=== PATIENT | female | born 1970 | race Caucasian/White ===

== ENCOUNTER 2023-01-04 14:11 | Emergency (ER) | payer SELFPAY ==
[2023-01-04 14:17] VITALS: BP 163/74; PULSE 95; RESP 20; TEMP 36.8; O2SAT 99; BMI 24.0
--- NOTE | 2023-01-04 14:36 | XR_ITS ---
[address] [address] Patient Name: KYRA SINGH MRN: [id number] date: 1970 Sex: F Assigned Patient Location: ER Current Patient Location: ER Accession/Order Number: [id number] Exam Date: 01/04/2023 14:45 Report Date: 01/04/2023 15:13 At the request of: JAVIER ALCANTARA Procedure: XR ankle RT min 3V PROCEDURE: XR ankle RT min 3V, XR tibia fibula RT 2V, 01/04/2023 2:45 PM EDT CLINICAL INDICATIONS: Traumatic injury and fall from steps 2 days earlier, bruising, swelling COMPARISON: None TECHNIQUE: Right ankle 3 views. Right tibia-fibula 4 views. FINDINGS: RIGHT ANKLE: An oblique distal fibular metaphysis fracture above the tibial plafond is noted. There is 0.4 cm lateral, 0.6 cm dorsal displacement of the distal fracture fragment. There is widening the medial tibiotalar joint space. Possible fractured of the anterior process of the distal tibia is seen with 0.1 cm dorsal displacement. 0.4 cm avulsion fracture fragment is seen along the dorsal medial margin of the talus. Dorsal and plantar calcaneal enthesopathy is present. Generalized soft tissue swelling of the ankle is seen. No ankle effusion. RIGHT TIBIA AND FIBULA: The proximal right tibia and fibula are intact. Acute fracture malalignment is not evident. Subcutaneous edema is seen. XR/XR ankle RT min 3V IMPRESSION: 1. Acute closed traumatic distal fibular metaphysis fracture with dorsal lateral displacement of the distal fracture fragment 2. Acute closed traumatic fracture of the anterior process of the distal tibia with 0.1 cm dorsal displacement 3. Acute closed traumatic avulsion fracture of the dorsal medial talus 4. Widening of the medial tibiotalar joint space. Ligamentous disruption favored 5. Proximal tibia and fibula are intact 6. Dorsal and plantar calcaneal enthesopathy 7. Lower extremity and ankle soft tissue swelling, no ankle effusion Electronically authenticated by: PADMAJA PANDYA Date: 01/04/2023 15:13
--- NOTE | 2023-01-04 14:36 | XR_ITS ---
[place] [id number] Patient Name: KYRA SINGH MRN: [id number] date: 1970 Sex: F Assigned Patient Location: ER Current Patient Location: ER Accession/Order Number: [id number] Exam Date: 01/04/2023 14:45 Report Date: 01/04/2023 15:13 At the request of: JAVIER ALCANTARA Procedure: XR tibia fibula RT 2V PROCEDURE: XR ankle RT min 3V, XR tibia fibula RT 2V, 01/04/2023 2:45 PM EDT CLINICAL INDICATIONS: Traumatic injury and fall from steps 2 days earlier, bruising, swelling COMPARISON: None TECHNIQUE: Right ankle 3 views. Right tibia-fibula 4 views. FINDINGS: RIGHT ANKLE: An oblique distal fibular metaphysis fracture above the tibial plafond is noted. There is 0.4 cm lateral, 0.6 cm dorsal displacement of the distal fracture fragment. There is widening the medial tibiotalar joint space. Possible fractured of the anterior process of the distal tibia is seen with 0.1 cm dorsal displacement. 0.4 cm avulsion fracture fragment is seen along the dorsal medial margin of the talus. Dorsal and plantar calcaneal enthesopathy is present. Generalized soft tissue swelling of the ankle is seen. No ankle effusion. RIGHT TIBIA AND FIBULA: The proximal right tibia and fibula are intact. Acute fracture malalignment is not evident. Subcutaneous edema is seen. XR/XR tibia fibula RT 2V IMPRESSION: 1. Acute closed traumatic distal fibular metaphysis fracture with dorsal lateral displacement of the distal fracture fragment 2. Acute closed traumatic fracture of the anterior process of the distal tibia with 0.1 cm dorsal displacement 3. Acute closed traumatic avulsion fracture of the dorsal medial talus 4. Widening of the medial tibiotalar joint space. Ligamentous disruption favored 5. Proximal tibia and fibula are intact 6. Dorsal and plantar calcaneal enthesopathy 7. Lower extremity and ankle soft tissue swelling, no ankle effusion Electronically authenticated by: PADMAJA PANDYA Date: 01/04/2023 15:13
--- NOTE | 2023-01-04 14:38 | ED.LOWEXI1 ---
HPI - Extremity Injury (Lower) General Chief Complaint: Extremity Injury, Lower Stated Complaint: LOWER EXTREMITY INJURY, RIGHT LEG Time Seen by Provider: 01/04/23 14:36 Source: patient Mode of arrival: Wheelchair History of Present Illness HPI Narrative: patient is a 52-year-old female who presents to the emergency department for the evaluation of pain in the right ankle. Patient states three days ago at home she was coming down stairs outside her home and got her ankle twisted/caught in between the stairs. She has had swelling and bruising to the medial aspect of the right ankle, an increase in redness and bruising to the right anterior tibia today. She had no other associated injuries. She has been using ibuprofen and Tylenol without improvement and is having difficulty ambulating. She does not take bloood thinners. She is able to wiggle her toes. Related Data Previous Rx's Medication Instructions Recorded naproxen sodium 550 mg tablet 550 mg PO BID PRN pain #10 tabs 01/04/23 oxycodone-acetaminophen 5 mg-325 1 tab PO Q6H PRN pain #15 tabs 01/04/23 mg tablet (Percocet) Allergies Allergy/AdvReac Type Severity Reaction Status Date / Time clindamycin AdvReac Unknown Verified 01/04/23 14:22 Review of Systems ROS Constitutional Denies: fever or chills Ears, nose, mouth, and throat Denies: throat pain Cardiovascular Denies: chest pain Respiratory Denies: shortness of breath Gastrointestinal Denies: abdominal pain, nausea or vomiting Musculoskeletal Reports: extremity pain; Denies: back pain or neck pain Integumentary/Breast Denies: rash Hematologic/Lymphatic Denies: easy bruising Exam Narrative Exam Narrative: Gen.: Awake, alert, in no distress Head: Normocephalic, atraumatic ENT: Moist mucous membranes Respiratory: No respiratory distress Extremities: right lower leg with significant edema and ecchymosis over the right medial ankle, right anterior tibia. Patient is able to flex and extend the toes of the right foot. Diffuse tenderness of the right midshaft tibia distally with no obvious deformities. Psych: Normal mood and affect Neuro: No focal neuro deficit Skin: Warm, dry, intact Constitutional Vital Signs, click to edit/add: Last Vital Signs Temp 98.3 F 01/04/23 14:17 Pulse 95 H 01/04/23 14:17 Resp 20 01/04/23 14:17 BP 163/74 H 01/04/23 14:17 Pulse Ox 99 01/04/23 14:17 O2 Del Method Room Air 01/04/23 14:17 Course Vital Signs Vital signs: Vital Signs Temperature 98.3 F 01/04/23 14:17 Pulse Rate 95 H 01/04/23 14:17 Respiratory Rate 20 01/04/23 14:17 Blood Pressure 163/74 H 01/04/23 14:17 Pulse Oximetry 99 01/04/23 14:17 Oxygen Delivery Method Room Air 01/04/23 14:17 Temperature 98.3 F 01/04/23 14:17 Pulse Rate 95 H 01/04/23 14:17 Respiratory Rate 20 01/04/23 14:17 Blood Pressure 163/74 H 01/04/23 14:17 Pulse Oximetry 99 01/04/23 14:17 Oxygen Delivery Method Room Air 01/04/23 14:17 MDM - Extremity Injury (Lower) MDM Narrative Medical decision making narrative: DP pulse was obtained by Doppler in the emergency department. Patient is able to wiggle her toes. She is medicated with Percocet for pain. X-rays of the right tibia-fibula and right ankle show the patient has a displaced distal fibular fracture with widening of the ankle mortise as well as a fracture of the talus and anterior tibia. Discussed with Dr. Olvera ([id number]) for podiatry who recommended nonweightbearing with follow-up in the office tomorrow for his question of the surgical plan. Patient was placed in a posterior splint with stirrup and remains neurovascularly intact. She is encouraged to not bear weight on the right ankle, she has crutches at home that fit her appropriately. She was given a prescription for Percocet and NSAIDs. She was given follow-up information and I contacted Dr. Olvera's office to make them aware of the patient as well. She was instructed to follow-up in the office tomorrow, return to the Emergency Room if symptoms change or worsen. Medical Records Attestation: I reviewed the patient's medical records. Imaging Data XR ankle: Attestation: I have reviewed the pertinent imaging results. Radiologist's impression: Procedure: XR ankle RT min 3V PROCEDURE: XR ankle RT min 3V, XR tibia fibula RT 2V, 01/04/2023 2:45 PM EDT CLINICAL INDICATIONS: Traumatic injury and fall from steps 2 days earlier, bruising, swelling COMPARISON: None TECHNIQUE: Right ankle 3 views. Right tibia-fibula 4 views. FINDINGS: RIGHT ANKLE: An oblique distal fibular metaphysis fracture above the tibial plafond is noted. There is 0.4 cm lateral, 0.6 cm dorsal displacement of the distal fracture fragment. There is widening the medial tibiotalar joint space. Possible fractured of the anterior process of the distal tibia is seen with 0.1 cm dorsal displacement. 0.4 cm avulsion fracture fragment is seen along the dorsal medial margin of the talus. Dorsal and plantar calcaneal enthesopathy is present. Generalized soft tissue swelling of the ankle is seen. No ankle effusion. RIGHT TIBIA AND FIBULA: The proximal right tibia and fibula are intact. Acute fracture malalignment is not evident. Subcutaneous edema is seen. IMPRESSION: 1. Acute closed traumatic distal fibular metaphysis fracture with dorsal lateral displacement of the distal fracture fragment 2. Acute closed traumatic fracture of the anterior process of the distal tibia with 0.1 cm dorsal displacement 3. Acute closed traumatic avulsion fracture of the dorsal medial talus 4. Widening of the medial tibiotalar joint space. Ligamentous disruption favored 5. Proximal tibia and fibula are intact 6. Dorsal and plantar calcaneal enthesopathy 7. Lower extremity and ankle soft tissue swelling, no ankle effusion Electronically authenticated by: PADMAJA PANDYA Date: 01/04/2023 15:13 Discharge Plan Discharge Chief Complaint: Extremity Injury, Lower Clinical Impression: Acute right ankle pain, Closed fracture of distal end of right fibula Patient Disposition: Home, Self-Care Time of Disposition Decision: 15:21 Condition: Good Prescriptions / Home Meds: New oxycodone-acetaminophen [Percocet] 5-325 mg tablet 1 tab PO Q6H PRN (Reason: pain) Qty: 15 0RF naproxen sodium 550 mg tablet 550 mg PO BID PRN (Reason: pain) Qty: 10 0RF Instructions: Ankle Fracture (ED) Additional Instructions: Do not bear weight on your ankle, elevate and ice. Please call Dr. Olvera's office tomorrow morning for an appointment time: [facility] [phone] Stand Alone Forms: Portal Instructions Referrals: Physician,Non-Staff, MD [Primary Care Provider] - 1 week
== END 2023-01-04 15:44 | disposition home or self-care (01) ==
PROVIDERS: Emergency Provider Emergency Medicine
DX: S82.831A Other fracture of upper and lower end of right fibula, initial encounter for closed fracture (principal); W10.9XXA Fall (on) (from) unspecified stairs and steps, initial encounter
CPT/HCPCS: 29515; 73590; 73610; 99283

== ENCOUNTER 2023-01-05 13:55 | Outpatient (OUT) | payer SELFPAY ==
--- NOTE | 2023-01-05 13:55 | XR_ITS ---
The [place] [id number] Patient Name: KYRA SINGH MRN: [id number] date: 1970 Sex: F Assigned Patient Location: [facility] Current Patient Location: [facility] Accession/Order Number: [id number] Exam Date: 01/05/2023 13:55 Report Date: 01/05/2023 15:19 At the request of: BALAJI KLINE Procedure: XR ankle RT min 3V STUDY: XR ankle RT min 3V, [id number] HISTORY: RIGHT ANKLE PAIN COMPARISON: Right ankle and right tibia and fibula radiographs 01/04/2023. FINDINGS/IMPRESSION: Overlying cast material obscures fine bony detail. Obliquely oriented fracture of the distal fibula demonstrates mild lateral displacement of the distal fracture with respect to the proximal, mildly improved compared with 01/04/2023. There remains mild widening at the medial ankle mortise. No lucent lesion of the talar dome. No other acute fracture or dislocation. Electronically authenticated by: LOREN DOMINGUEZ Date: 01/05/2023 15:19
== END 2023-01-05 13:56 | disposition home or self-care (01) ==
LOC: RAD 13:55
PROVIDERS: Visit Provider Podiatrist Foot & Ankle Surgery
DX: M25.571 Pain in right ankle and joints of right foot (principal)
CPT/HCPCS: 73610

== ENCOUNTER 2023-01-12 10:13 | Outpatient (OUT) | payer SELFPAY ==
--- NOTE | 2023-01-12 | XR_ITS ---
The [address] [address] Patient Name: KYRA SINGH MRN: [id number] date: 1970 Sex: F Assigned Patient Location: [facility] Current Patient Location: [facility] Accession/Order Number: [id number] Exam Date: 01/12/2023 10:22 Report Date: 01/12/2023 22:30 At the request of: BALAJI KLINE Procedure: XR ankle RT min 3V PROCEDURE: XR ankle RT min 3V COMPARISON: 01/05/2023 HISTORY: RIGHT ANKLE PAIN FINDINGS: BONES:Stable oblique fracture through the distal fibula just below the syndesmosis with 7 mm of medial displacement of the proximal diaphysis in relation to the distal fracture fragment. Several small bone fragments noted along the fracture plane. Widening of the medial ankle mortise suggests ankle instability. SOFT TISSUES:Moderate diffuse soft tissue swelling EFFUSION:Small joint effusion OTHER: Negative. XR/XR ankle RT min 3V IMPRESSION: Increase in distraction of the distal fibular fracture with likely ankle instability Electronically authenticated by: MARCELINO JIMENEZ Date: 01/12/2023 22:30
== END 2023-01-12 10:14 | disposition home or self-care (01) ==
LOC: RAD 10:13
PROVIDERS: Visit Provider Podiatrist Foot & Ankle Surgery
DX: M25.571 Pain in right ankle and joints of right foot (principal)
CPT/HCPCS: 73610

== ENCOUNTER 2023-01-17 13:29 | Outpatient (OUT) | payer SELFPAY ==
--- NOTE | 2023-01-17 13:38 | ECG_ITS ---
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
--- NOTE | 2023-01-17 14:25 | XR_ITS ---
The [address] [address] Patient Name: KYRA SINGH MRN: [id number] date: 1970 Sex: F Assigned Patient Location: [facility] Current Patient Location: [facility] Accession/Order Number: [id number] Exam Date: 01/17/2023 14:54 Report Date: 01/17/2023 15:39 At the request of: BALAJI KLINE Procedure: XR chest 2V EXAM: XR chest 2V HISTORY: TESTING FOR SURGERY COMPARISON: None. TECHNIQUE: PA and lateral views of the chest FINDINGS: There is no focal airspace consolidation. The lungs are hyperinflated. There are prominence of interstitial markings. There are bibasilar reticular opacities, likely represent scarring or mild atelectasis. The cardiomediastinal silhouette is not enlarged. No evidence of pleural effusion or pneumothorax are identified. No acute osseous abnormality. XR/XR chest 2V IMPRESSION: No acute cardiopulmonary process. Lungs appear hyperinflated suggestive of obstructive lung disease with mild chronic changes. Electronically authenticated by: RENATA STEIN Date: 01/17/2023 15:39
[2023-01-17 14:56] LABS: Anion Gap 9.6; BUN Creatinine Ratio 17.5; Calcium 8.4 mg/dL (8.5-10.1); Carbon Dioxide 29.7 mmol/L (21.0-32.0); Chloride 103 mmol/L (98-107); Estimated GFR (African America >60 (>=60); Estimated GFR (Non-African Ame >60 (>=60); Glucose 102 mg/dL (74-106); Potassium 3.3 mmol/L (3.5-5.1); Sodium 139 mmol/L (136-145)
== END 2023-01-17 13:30 | disposition home or self-care (01) ==
LOC: PST 13:31
PROVIDERS: Visit Provider Podiatrist Foot & Ankle Surgery
DX: Z01.810 Encounter for preprocedural cardiovascular examination (principal); Z01.812 Encounter for preprocedural laboratory examination; S82.61XA Displaced fracture of lateral malleolus of right fibula, initial encounter for closed fracture; S93.431A Sprain of tibiofibular ligament of right ankle, initial encounter
CPT/HCPCS: 36415; 71046; 80048; 93005

== ENCOUNTER 2023-01-20 09:03 | Day surgery (SDC) | payer SELFPAY ==
[2023-01-17 14:08] VITALS: BP 109/70; PULSE 66; RESP 16; TEMP 36.2; O2SAT 97; BMI 26.9
[2023-01-20] VITALS (16 sets, daily range): BP systolic 105–147; BP diastolic 62–90; PULSE 57–98; RESP 1–23; TEMP 36.6–37; O2SAT 92–97; BMI 26.9
--- NOTE | 2023-01-20 | XR_ITS ---
[address] [address] Patient Name: KRYA SINGH MRN: [id number] date: 1970 Sex: F Assigned Patient Location: [facility] Current Patient Location: [facility] Accession/Order Number: [id number] Exam Date: 01/20/2023 12:15 Report Date: 01/20/2023 14:03 At the request of: BALAJI KLINE Procedure: XR ankle RT 2V PROCEDURE: XR ankle RT 2V HISTORY: ORIF RIGHT ANKLE FX W/ LIGAMENT REPAIRS NEEDED COMPARISON: XR ankle right 01/12/2023 FINDINGS: BONES:Multiple intraoperative spot fluoroscopic images demonstrate repair of distal fibular fracture via a lateral plate and screws. Ankle alignment has been restored. SOFT TISSUES:Soft tissue swelling surrounding the ankle. EFFUSION:None visible. OTHER: Negative. XR/XR ankle RT 2V IMPRESSION: 1. Surgical repair of distal fibular fracture. Electronically authenticated by: RISHI CERDA Date: 01/20/2023 14:03
[2023-01-20 09:21] LABS: Basophils Absolute Auto 0.1 10^3/uL (0.0-0.1); Basophils Percent Auto 0.9 % (0.2-2.0); Eosinophils Absolute Auto 0.3 10^3/uL (0.0-0.7); Eosinophils Percent Auto 2.9 % (0.9-7.0); Hematocrit 39.8 % (36.0-48.0); Hemoglobin 13.2 g/dL (12.0-16.0); Immature Granulocytes Abs Auto 0.06 10^3/uL (0.00-0.03); Immature Granulocytes Pct Auto 0.5 % (0.0-0.5); Lymphocytes Absolute Auto 1.3 10^3/uL (1.2-3.8); Lymphocytes Percent Auto 10.9 % (20.5-60.0); Mean Corpuscular HGB Conc 33.2 g/dL (29.9-35.2); Mean Corpuscular Hemoglobin 32.4 pg (26.7-34.0); Mean Corpuscular Volume 97.8 fL (81.0-99.0); Mean Platelet Volume 10.1 fL (9.5-13.5); Monocytes Absolute Auto 0.7 10^3/uL (0.3-0.8); Monocytes Percent Auto 5.9 % (1.7-12.0); Neutrophils Absolute Auto 9.2 10^3/uL (1.4-6.5); Neutrophils Percent Auto 78.9 % (43.0-75.0); Platelet Count 291 10^3/uL (150-450); Red Blood Count 4.07 10^6/uL (4.20-5.40); Red Cell Distribution Width 14.9 % (11.0-15.0); White Blood Count 11.6 10^3/uL (4.0-11.0)
[2023-01-20 09:31] LABS: Glucometer 106 mg/dL (74-106)
[2023-01-20] MEDS: LACTATED RINGER'S SOLUTION 1,000 ML 50 ML IV (09:35)
[2023-01-20 09:48] LABS: HCG Qualitative NEGATIVE (NEGATIVE)
[2023-01-20] MEDS: CELECOXIB 200 MG CAPSULE PO (10:50)
[2023-01-20] MEDS: ACETAMINOPHEN 500 MG TABLET 1000 MG PO (10:50)
[2023-01-20] MEDS: PREGABALIN 75 MG CAPSULE PO (10:50)
[2023-01-20] MEDS: CEFAZOLIN SODIUM/DEXTROSE,ISO 2 GM/50 ML PIGGYBACK IV (11:07)
--- NOTE | 2023-01-20 12:45 | P.ORON_ITS ---
Brief Operative Note Date of procedure: 01/20/23 Pre-op diagnosis: right fibular malleolus fracture with possible syndesmotic d isruption Post-op diagnosis: other (right displaced fibular malleolus fracture with syndesmotic disruption) Procedure: PROCEDURES PERFORMED: INTRAOPERATIVE FINDINGS: PROCEDURES IN DETAIL: Patient was identified in pre op and consent was reviewed. Correct side and site were identified and marked. Pre-op antibiotics were started. Patient was brought to OR suite and place on table in a supine position. General anesthesia was administered. Tourniquet applied. Operative extremity was prepped and draped in usual sterile fashion. Formal time-out was performed and the foot/ankle were exsanguinated and tourniquet inflated. Fibula: A longitudinal incision placed over the fibular malleolus was undertaken. Combination of sharp and blunt dissection gained access to the fibular fracture in all bleeders were coagulated. Hematoma was evacuated. Any periosteum or fibrous tissue was removed from the fracture line and the fracture surfaces were lightly curetted. Then utilizing manual reduction techniques and reduction clamps the fibula and mortise were then reduced and pinned in place with K wires temporarily. 3.5 mm cortical lag screw was placed across the fracture line and compression was noted. 3.5 mm locking/anatomic plate was placed over the fibula which was held in place temporarily. Then locking and nonlocking screws were placed according to the swimming pool service technician's standard directions. Stability across the fracture was noted and all temporary fixation was removed. The site was irrigated. Syndesmosis: Under live fluoroscopy the syndesmosis was stressed and noted to be unstable. Due to the instability syndesmosis was reduced with a large tenaculum and fixated with suture button construct accordingly. The tenaculum was removed and the ankle was stressed again and was notably stable. All surgical sites were irrigated with copious sterile saline and incisions were closed in layers. The tourniquet was dropped with a prompt hyperemic response. A dry sterile dressing consisting of Xeroform on the incisions followed by 4 x 4 gauze, ABDs, and Kerlix were applied. Multiple layers of cast padding were then applied to ensure all bony prominences were well-padded. A plaster posterior splint was then applied which was held in place by Sid wraps. Capillary refill time to all digits was evaluated and had appropriate response. Patient tolerated the procedure and anesthesia well was transferred to the recovery room with vital signs stable and brisk capillary refill time to the toes. POSTOPERATIVE PLAN: Discharge home under family's care Post op instructions provided verbally and written prescription(s) were placed in chart NWB operative foot/ankle x3 wks Follow-up in 1 week to be placed in a cam boot and begin range of motion exercise Implants: Medline Surgeon: Gallo Olvera Geriatric Physician: Nathan Zamorano Estimated blood loss (mL): 10 Pathology: none sent Condition: stable Disposition: PACU Preoperative Details Reason for procedure: patient is a 52-year-old female who suffered a right fibular fracture secondary to mechanical fall at home. She presented to our emergency department on 01/04/23 which noted a displaced Piña B fibular fracture with widening of the medial clear space. she was reduced, splinted and discharged home nonweightbearing. She followed up the following day in my office and reduction appeared satisfactory. At the 1st appointment patient had significant amount of swelling and absent skin wrinkles. She then followed up the week following for splint change and new x-rays revealed that the fracture had displaced therefore I discussed the risks and benefits of surgical versus nonsurgical treatment options. Given that the fracture had displaced proximally 6 mm and appeared unstable I recommended surgical intervention and the patient agreed.
[2023-01-20] MEDS: HYDROMORPHONE HCL 0.5 MG/0.5 ML SYRINGE IV (13:29)
[2023-01-20 13:57] LABS: Glucometer 110 mg/dL (74-106)
--- NOTE | 2023-01-20 14:02 | XR_ITS ---
The [address] [address] Patient Name: KYRA SINGH MRN: [id number] date: 1970 Sex: F Assigned Patient Location: [facility] Current Patient Location: [facility] Accession/Order Number: [id number] Exam Date: 01/20/2023 13:55 Report Date: 01/20/2023 14:35 At the request of: MAGUE CORNELIUS Procedure: XR ankle RT min 3V PROCEDURE: XR ankle RT min 3V HISTORY: postop xr PACU COMPARISON: XR ankle right 01/12/2023, 01/20/2023 intraoperative images FINDINGS: BONES:Repair of previously seen distal fibular fracture via a lateral plate and screws. Band effusion of distal tibia-fibular syndesmosis. Realignment of ankle mortise. Small remnant/fragment of aligning pin within lateral malleolus. SOFT TISSUES:Mild soft tissue swelling consistent with postoperative state. Images were obtained through cast material. EFFUSION:None visible. OTHER: Negative. XR/XR ankle RT min 3V IMPRESSION: 1. Stable surgical changes without evidence of hardware failure or change in alignment compared to intraoperative images. Electronically authenticated by: RISHI CERDA Date: 01/20/2023 14:35
== END 2023-01-20 14:30 | disposition home or self-care (01) ==
PROVIDERS: Anesthesiology; Visit Provider Podiatrist Foot & Ankle Surgery
PROC: (CPT 27792; principal; 2023-01-20 10:30)
DX: S82.61XA Displaced fracture of lateral malleolus of right fibula, initial encounter for closed fracture (principal); S93.431A Sprain of tibiofibular ligament of right ankle, initial encounter; W10.9XXA Fall (on) (from) unspecified stairs and steps, initial encounter; F17.210 Nicotine dependence, cigarettes, uncomplicated; Z79.899 Other long term (current) drug therapy
CPT/HCPCS: 27792; 27829; 77071; 36415; 64445; 73600; 73610; 76000; 76942; 82948; 84703; 85025; C1713; J1170; J2704

== ENCOUNTER 2023-02-09 12:52 | Outpatient (OUT) | payer SELFPAY ==
--- NOTE | 2023-02-09 | XR_ITS ---
The [place] [id number] Patient Name: KYRA SINGH MRN: [id number] date: 1970 Sex: F Assigned Patient Location: [facility] Current Patient Location: Accession/Order Number: [id number] Exam Date: 02/09/2023 13:25 Report Date: 02/09/2023 16:58 At the request of: BALAJI KLINE Procedure: XR ankle RT min 3V PROCEDURE: XR ankle RT min 3V COMPARISON: 01/20/2023 HISTORY: RIGHT ANKLE PAIN FINDINGS: BONES:Remote fibular fracture fixed with a lateral plate and screws, unchanged. Tibiofibular syndesmosis fixation. No acute fracture, dislocation or mechanical failure SOFT TISSUES:Negative. No visible soft tissue swelling. EFFUSION:None visible. OTHER: Negative. XR/XR ankle RT min 3V IMPRESSION: Stable healing distal fibular fracture with internal fixation Electronically authenticated by: MARCELINO JIMENEZ Date: 02/09/2023 16:58
== END 2023-02-09 12:53 | disposition home or self-care (01) ==
LOC: RAD 12:53
PROVIDERS: Visit Provider Podiatrist Foot & Ankle Surgery
DX: S82.61XA Displaced fracture of lateral malleolus of right fibula, initial encounter for closed fracture (principal)
CPT/HCPCS: 73610

== ENCOUNTER 2023-02-09 13:57 | Emergency (ER) | payer SELFPAY ==
[2023-02-09 14:08] VITALS: BP 158/105; PULSE 81; RESP 18; TEMP 36.7; O2SAT 100; BMI 243.7
--- NOTE | 2023-02-09 14:23 | US_ITS ---
The [place] [id number] Patient Name: KYRA SINGH MRN: [id number] date: 1970 Sex: F Assigned Patient Location: ED.MAIN Current Patient Location: ER Accession/Order Number: [id number] Exam Date: 02/09/2023 14:26 Report Date: 02/09/2023 15:09 At the request of: FLETCHER PATE Procedure: US venous doppler LE RT ULTRASOUND OF RIGHT LOWER EXTREMITY VENOUS SYSTEMS WITH DUPLEX, 02/09/2023 2:26 PM EDT INDICATION: Right leg pain x3 days COMPARISON: No prior right lower extremity venous ultrasound available for comparison at the time of this dictation. TECHNIQUE: Multi-planar real-time ultrasonography of the bilateral lower extremity venous systems using grayscale imaging supplemented by color Doppler. Augmentation and compression maneuvers were utilized as needed. FINDINGS: The saphenofemoral junction, common femoral, profunda femoral, superficial femoral, and popliteal are fully compressible with anterograde flow. Respiratory variation and waveform response to augmentation within normal limits. The posterior tibial, anterior tibial and peroneal veins are fully compressible. The greater saphenous and smaller saphenous veins are fully compressible. US/US venous doppler LE RT IMPRESSION: Negative for deep venous or superficial venous thrombosis within the right lower extremity. Electronically authenticated by: BRANDON QUIROGA Date: 02/09/2023 15:09
--- NOTE | 2023-02-09 14:40 | ED_ITS ---
HPI - General Adult General Chief complaint: Fever Stated complaint: FEVER, WEAKNESS Time Seen by Provider: 02/09/23 14:23 Source: patient History of Present Illness HPI narrative: 52-year-old female who broke her right ankle and had surgical intervention by rackman 3 weeks ago presents from wound care clinic for needing a Doppler to rule out DVT in her right calf. She was there for an appointment today and complained of right calf swelling. Denies BLE temp or sensation changes. She complains of a subjective fever that started yesterday. She states that she has urinary frequency. Denies sore throat, ear pain, cough, abd or back pain, dysuria, n/v/d, SOB or CP Related Data Home Medications Medication Instructions Recorded Confirmed cholecalciferol (vitamin D3) 50 01/17/23 mcg (2,000 unit) capsule Previous Rx's Medication Instructions Recorded naproxen sodium 550 mg tablet 550 mg PO BID PRN pain #10 tabs 01/04/23 oxycodone-acetaminophen 5 mg-325 1 tab PO Q6H PRN pain #15 tabs 01/04/23 mg tablet (Percocet) hydrocodone 5 mg-acetaminophen 325 1 tab PO Q6H PRN pain 7 days #28 01/05/23 mg tablet tabs aspirin 81 mg tablet,delayed 81 mg PO BID 30 days #60 tabs 01/20/23 release (Adult Low Dose Aspirin) cefadroxil 500 mg capsule 500 mg PO BID 2 weeks #28 caps 01/20/23 hydrocodone 5 mg-acetaminophen 325 1 tab PO Q6H PRN pain 7 days #28 01/20/23 mg tablet tabs ondansetron 4 mg disintegrating 4 mg PO Q8H PRN nausea and 01/20/23 tablet vomiting 5 days #15 tabs sennosides 8.6 mg tablet (Senna 8.6 mg PO DAILY PRN constipation 7 01/20/23 Laxative) days #7 tabs Allergies Allergy/AdvReac Type Severity Reaction Status Date / Time clindamycin AdvReac Unknown Verified 02/09/23 14:12 Review of Systems ROS Status of ROS 10 or more systems reviewed and unremarkable except as noted in history and below PFSH PFSH Medical History Surgical History (Updated 01/17/23 @ 13:56 by Kristen Deng RN) Family History (Updated 01/17/23 @ 13:58 by Kristen Deng RN) Other Family history of COPD (chronic obstructive pulmonary disease) Ania Ravi? syndrome Heart disease Social History (Updated 01/17/23 @ 14:01 by Kristen Deng, TAWANNA) Within the past year, how often did you have a drink containing alcohol: 2-3 times a week Within the past year, how many standard drinks containing alcohol did you have on a typical day: 1 or 2 Within the past year, how often did you have six or more drinks on one occasion: less than monthly Total score: 1 Score interpretation: A score of 3 or more indicates drinking is likely to affect patient's safety. 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 [employer] Known occupational exposures/hazards: No Highest level of school completed/degree received: GED or equivalent Exam Narrative Exam Narrative: General: A&Ox3, no distress, talking in full an complete sentences skin: warm, dry, intact, sutures intact to right lateral ankle without erythema or discharge head: normocephalic, atraumatic eyes: EOMI nose: nares patent neck: supple, trachea midline respiratory: non-labored extremities: FROM x 4, strength +5/5 neuro: A&Ox3 psych: appropriate mood and affect, cooperative Constitutional Vital Signs, click to edit/add: Last Vital Signs Temp 98.1 F 02/09/23 14:08 Pulse 81 02/09/23 14:08 Resp 18 02/09/23 14:08 BP 158/105 H 02/09/23 14:08 Pulse Ox 100 02/09/23 14:08 O2 Del Method Room Air 02/09/23 14:08 Course Vital Signs Vital signs: Vital Signs Temperature 98.1 F 02/09/23 14:08 Pulse Rate 81 02/09/23 14:08 Respiratory Rate 18 02/09/23 14:08 Blood Pressure 158/105 H 02/09/23 14:08 Pulse Oximetry 100 02/09/23 14:08 Oxygen Delivery Method Room Air 02/09/23 14:08 Temperature 98.1 F 02/09/23 14:08 Pulse Rate 81 02/09/23 14:08 Respiratory Rate 18 02/09/23 14:08 Blood Pressure 158/105 H 02/09/23 14:08 Pulse Oximetry 100 02/09/23 14:08 Oxygen Delivery Method Room Air 02/09/23 14:08 Medical Decision Making MDM Narrative Medical decision making narrative: Patient was sent over from wound care who called and gave report and states that there were no signs of infection. After exam, there are no signs of infection. Negative for DVT. She is medicated with Toradol she is complaining of pain to her right ankle. She states that she no longer has any pain medication. UA negative for UTI. She may have the start of viral illness. She is to follow-up with the rackman. F/u with PCP. afebrile, not tachypneic, not tachycardic, tolerating p.o., not hypoxic, non toxic appearing and ambulating at baseline and hemodynamically stable to be d/c. answered all questions. pt in agreement with tx. educated when to return to ER. Lab Data Labs: Lab Results 02/09/23 Range/Units 15:50 Urine Color Lt. yellow (YELLOW) Urine Clarity Clear (CLEAR) Urine pH 7.0 (5.0-9.0) Ur Specific [place] 1.020 (1.005-1.025) Urine Protein Negative (NEG/TRACE) mg/dL Urine Glucose (UA) Negative (NEGATIVE) mg/dL Urine Ketones Negative (NEGATIVE) mg/dL Urine Occult Blood Trace-i (NEGATIVE) Urine Nitrite Negative (NEGATIVE) Urine Bilirubin Negative (NEGATIVE) Urine Urobilinogen 0.2 (0.2-1.0) EU/dL Ur Leukocyte Esterase Negative (NEGATIVE) Discharge Plan Discharge Chief Complaint: Fever Clinical Impression: Postoperative pain Patient Disposition: Home, Self-Care Time of Disposition Decision: 16:31 Condition: Good Mode of Transportation: Private Vehicle Prescriptions / Home Meds: No Action cholecalciferol (vitamin D3) 50 mcg (2,000 unit) capsule aspirin [Adult Low Dose Aspirin] 81 mg tablet,delayed release (DR/EC) 81 mg PO BID 30 Days Qty: 60 0RF cefadroxil 500 mg capsule 500 mg PO BID 14 Days Qty: 28 0RF hydrocodone-acetaminophen 5-325 mg tablet 1 tab PO Q6H PRN (Reason: pain) 7 Days Qty: 28 0RF sennosides [Senna Laxative] 8.6 mg tablet 8.6 mg PO DAILY PRN (Reason: constipation) 7 Days Qty: 7 0RF ondansetron 4 mg tablet,disintegrating 4 mg PO Q8H PRN (Reason: nausea and vomiting) 5 Days Qty: 15 0RF oxycodone-acetaminophen [Percocet] 5-325 mg tablet 1 tab PO Q6H PRN (Reason: pain) Qty: 15 0RF naproxen sodium 550 mg tablet 550 mg PO BID PRN (Reason: pain) Qty: 10 0RF hydrocodone-acetaminophen 5-325 mg tablet 1 tab PO Q6H PRN (Reason: pain) 7 Days Qty: 28 0RF Instructions: Pain Management (ED) Stand Alone Forms: Portal Instructions Referrals: Physician,Non-Staff, MD [Primary Care Provider] - 1 week Gallo Olvera DPM [Physician] - 1 week
[2023-02-09] MEDS: KETOROLAC TROMETHAMINE 30 MG/ML VIAL 15 MG IM (15:51)
[2023-02-09 16:19] LABS: Bilirubin Urine NEGATIVE (NEGATIVE); Blood Urine TRACE-I (NEGATIVE); Clarity Urine CLEAR (CLEAR); Color Urine LT. YELLOW (YELLOW); Glucose Urine UA NEGATIVE (NEGATIVE); Ketones Urine NEGATIVE (NEGATIVE); Leukocyte Esterase Urine NEGATIVE (NEGATIVE); Nitrite Urine NEGATIVE (NEGATIVE); Protein Urine NEGATIVE (NEG/TRACE); Urobilinogen Urine 0.2 EU/dL (0.2-1.0)
[2023-02-09 16:32] LABS: Cast Seen? NONE SEEN #/LPF (NONE SEEN); Crystals Seen? None Seen #/HPF (None Seen); Mucus Urine NONE SEEN (NONE SEEN); Squamous Epithelial Cell Urine MODERATE #/LPF (NONE/RARE)
[2023-02-09 16:33] LABS: Bacteria Urine SMALL #/HPF (NONE SEEN); Urine Culture Indicated YES
[2023-02-09 16:50] VITALS: PULSE 85; RESP 14; TEMP 36.8; O2SAT 96
== END 2023-02-09 16:53 | disposition home or self-care (01) ==
PROVIDERS: Physician Assistant; Emergency Provider Emergency Medicine
DX: G89.18 Other acute postprocedural pain (principal); M25.571 Pain in right ankle and joints of right foot; Z79.899 Other long term (current) drug therapy; Z79.82 Long term (current) use of aspirin; F17.210 Nicotine dependence, cigarettes, uncomplicated
CPT/HCPCS: 81001; 87086; 93971; 96372; 99285

== ENCOUNTER 2023-03-02 15:32 | Outpatient (OUT) | payer SELFPAY ==
--- NOTE | 2023-03-02 | XR_ITS ---
The [place] [id number] Patient Name: KYRA SINGH MRN: [id number] date: 1970 Sex: F Assigned Patient Location: [facility] Current Patient Location: [facility] Accession/Order Number: [id number] Exam Date: 03/02/2023 13:10 Report Date: 03/02/2023 13:23 At the request of: BALAJI KLINE Procedure: XR ankle RT min 3V STUDY: XR ankle RT min 3V, [id number] HISTORY: RIGHT ANKLE PAIN COMPARISON: Right ankle x-rays 02/09/2023. FINDINGS/IMPRESSION: Fixation hardware from ORIF of the right distal fibular fracture is intact and similar in alignment. No evidence of loosening or infection. A small K wire fragment in the distal malleolus is similar. The distal fibular fracture appears healed. No acute fracture, dislocation, or suspicious osseous lesion. No lucent lesion of the talar dome. Small plantar calcaneal spur. Electronically authenticated by: LOREN DOMINGUEZ Date: 03/02/2023 13:23
== END 2023-03-02 15:33 | disposition home or self-care (01) ==
LOC: RAD 15:33
PROVIDERS: Visit Provider Podiatrist Foot & Ankle Surgery
DX: S82.61XA Displaced fracture of lateral malleolus of right fibula, initial encounter for closed fracture (principal)
CPT/HCPCS: 73610

== ENCOUNTER 2023-04-27 13:14 | Outpatient (OUT) | payer SELFPAY ==
--- NOTE | 2023-04-27 | XR_ITS ---
The [address] [address] Patient Name: KYRA SINGH MRN: [id number] date: 1970 Sex: F Assigned Patient Location: [facility] Current Patient Location: Accession/Order Number: [id number] Exam Date: 04/27/2023 13:40 Report Date: 04/28/2023 23:04 At the request of: BALAJI KLINE Procedure: XR ankle RT min 3V EXAM: XR ankle RT min 3V HISTORY: RIGHT ANKLE PAIN COMPARISON: Right ankle radiographs 03/02/2023 TECHNIQUE: 3 views right ankle FINDINGS: Fixation of the distal fibula with syndesmotic anchor noted. There is a broken K wire pin seen in the distal lateral malleolus similar to prior. No hardware complication otherwise. The tibiotalar joint is congruent without large osteochondral defect. Small plantar fascia and Achilles tendon enthesophytes are noted. No acute fracture or aggressive osseous abnormality. Generalized soft tissue swelling about the ankle, improved from prior. XR/XR ankle RT min 3V IMPRESSION: Postsurgical changes of the right ankle, unchanged from prior. Electronically authenticated by: LYN MARTINEZ Date: 04/28/2023 23:04
== END 2023-04-27 13:15 | disposition home or self-care (01) ==
LOC: RAD 13:14
PROVIDERS: Visit Provider Podiatrist Foot & Ankle Surgery
DX: M25.571 Pain in right ankle and joints of right foot (principal)
CPT/HCPCS: 73610

== ENCOUNTER 2023-10-23 18:19 | Emergency (ER) | payer SELFPAY ==
[2023-10-23 18:24] VITALS: BP 147/88; PULSE 76; TEMP 36.9; O2SAT 98
--- NOTE | 2023-10-23 18:27 | XR_ITS ---
The [address] [address] Patient Name: KYRA SINGH MRN: [id number] date: 1970 Sex: F Assigned Patient Location: ED.MAIN Current Patient Location: Accession/Order Number: [id number] Exam Date: 10/23/2023 18:42 Report Date: 10/23/2023 19:35 At the request of: JAVIER ALCANTARA Procedure: XR ankle RT min 3V IMAGES REVIEWED: XR ankle RT min 3V COMPARISON: 04/27/2023. CLINICAL INDICATION: Right ankle pain, concerned hardware intact FINDINGS/IMPRESSION: 1. Compared to the most recent prior from 04/27/2023 medial clear space appears intervally widened up to 5 mm. May suggest ligamentous-syndesmotic injury-reinjury. On the final view of the series the lateral clear space appears intervally widened compared to the prior oblique view. 2. Prominent tibiotalar effusion on the lateral view. Moderate ankle soft tissue swelling. May raise concern for infection. 3. New focus of cortical irregularity and bony cystic change involving the medial malleolus, could raise concern for a bony erosion, and raises concern for septic arthritis and osteomyelitis of the right ankle. Consider further evaluation with advanced imaging as clinically appropriate. 4. Chronic posterior malleolus fracture fragment noted on the lateral view. 5. Status post prior ORIF of old healed distal fibular fracture with intact appearing hardware and with broken K wire pin again seen in the lateral malleolus. Status post prior syndesmotic fixation. Electronically authenticated by: MATHEW POZO Date: 10/23/2023 19:35
--- OUTSIDE RECORDS SUMMARY | 2023-10-23 18:27 | XMS_ITS | CCD ---
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 pg [facility] MCHC (RBC) [Mass/Vol] 33.0 % 33.0 - 37.0 % [facility] MCV (RBC) [Entitic vol] 94.2 fL 79.4 - 94.8 fL [facility] Monocytes (Bld) [#/Vol] 0.8 10*3/uL 0.2 - 0.8 K/uL [facility] Monocytes/100 WBC (Bld) 9.0 % [facility] Neutrophils Absolute 6.3 K/uL 1.4 - 6 .5 K/uL [facility] Neutrophils/100 WBC (Bld) 73.7 % [facility] Platelet distribution width (Bld) [Ratio] 16.8 % High 11.5 - 14.5 % [facility] Platelets (Bld) [#/Vol] 308 10*3/uL 130 - 400 K/uL [facility] RBC (Bld) [#/Vol] 3.89 10*6/uL Low [facility] WBC (Bld) [#/Vol] 8.6 10*3/uL 4.8 - 10.8 K/uL [facility] CMPon 07-19-2022 Albumin [Mass/Vol] 4.4 g/dL 3.5 - 4.6 g/dL [facility] ALP (Bld) [Catalytic activity/Vol] 74 U/L 40 - 130 U/L [facility] ALT [Catalytic activity/Vol] 12 U/L 0 - 33 U/L [facility] Anion gap [Moles/Vol] 15 mmol/L [facility] AST [Catalytic activity/Vol] 20 U/L 0 - 35 U/L [facility] Bilirubin [Mass/Vol] 0.3 mg/dL 0.2 - 0 .7 mg/dL [facility] Calcium [Mass/Vol] 8.8 mg/dL 8.5 - 9.9 mg/dL [facility] Chloride [Moles/Vol] 103 mmol/L [facility] CO2 [Moles/Vol] 26 mmol/L [facility] Creatinine [Mass/Vol] 0.42 mg/dL Low 0.50 - 0.90 mg/dL [facility] GFR/1.73 sq M.predicted MDRD (S/P/Bld) [Vol rate/Area] 60 - PINF [facility] Comment on above: Pediatric calculator link https://www.kidney.org/professionals/kdoqi/gfr_calculatorped Effective Mar 01, 2022 These results are not intended for use in patients <18 years of age. eGFR results are calculated without a race factor using the 2020 CKD-EPI equation. Careful clinical correlation is recommended, particularly when comparing to results calculated using previous equations. The CKD-EPI equation is less accurate in patients with extremes of muscle mass, extra-renal metabolism of creatinine, excessive creatinine ingestion, or following therapy that affects renal tubular secretion. Globulin (S) [Mass/Vol] 2.9 g/dL 2.3 - 3.5 g/dL [facility] Glucose [Mass/Vol] 99 mg/dL 70 - 99 mg/dL [facility] Interpretation and review of laboratory results Abnormal [facility] Potassium [Moles/Vol] 3.3 mmol/L Low [facility] Protein [Mass/Vol] 7.3 g/dL 6.3 - 8.0 g/dL [facility] Sodium [Moles/Vol] 144 mmol/L [facility] Urea nitrogen (BldV) [Mass/Vol] 8 mg/dL 6 - 20 mg/dL [facility] CT ABDOMEN PELVIS W IV CONTR AST Additional Contrast? Noneon 07-19-2022 Age-indeterminate avulsion chip fracture, anterior superior margin L4 vertebral body. 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 Other etiologies, including calcified pancreatic cyst/pseudocyst less likely. [facility] EXAMINATION: CT OF THE ABDOMEN AND PELVIS WITH CONTRAST 07/19/2022 9:15 am TECHNIQUE: CT of the abdomen and pelvis was performed with the administration of intravenous contrast. Multiplanar reformatted images are provided for review. Automated exposure control, iterative reconstruction, and/or weight based adjustment of the mA/kV was utilized to reduce the radiation dose to as low as reasonably achievable. COMPARISON: None. HISTORY: ORDERING SYSTEM PROVIDED HISTORY: trauma TECHNOLOGIST PROVIDED HISTORY: Reason for exam:->trauma Additional Contrast?->None Decision Support Exception - unselect if not a suspected or confirmed emergency medical condition->Emergency Medical Condition ([place]) What reading provider will be dictating this exam?->CRC FINDINGS: Lower chest: Minimal dependent subsegmental atelectatic change. Liver: Normal in size, shape, and echogenicity. Bile ducts: No intrahepatic or extrahepatic ductal dilatation. Gallbladder: No calculi. No pericholecystic fluid. Spleen: Normal in size. No calcifications, cystic/solid lesions. Pancreas: No ductal dilatation, cystic/solid lesions, abnormal calcification. Adrenal glands: Without anomaly. Kidneys: Normal in size. No calculi, hydronephrosis, cystic/solid lesions. Small bowel: Normal in caliber. Appendix: Without anomaly. Colon: Normal in caliber. Lymph nodes: No mesenteric, retroperitoneal, pelvic, inguinal lymph node enlargement. Vascular aorta normal in course and caliber. 1.3 cm round, firstly calcified structure region of distal splenic artery. Peritoneum: No free air, free fluid. Ureters: Normal in course and caliber. Urinary bladder: Partially decompressed. Reproductive organs: 3.1 cm left adnexal cyst containing partially calcified 1.9 cm cystic structure. Abdominal wall: 8 mm fat containing periumbilical anterior abdominal wall defect. Musculoskeletal: No osteoblastic in no osteolytic lesions. Avulsion chip fracture, anterior osteophyte L4 (series 601, images 64-68). Disc space narrowing L4-5 and L5-S1. Small anterior osteophytes L3 through L5. [facility] Signer, MD Clay - 07/19/2022 EXAMINATION: CT OF THE ABDOMEN AND PELVIS WITH CONTRAST 07/19/2022 9:15 am TECHNIQUE: CT of the abdomen and pelvis was performed with the administration of intravenous contrast. Multiplanar reformatted images are provided for review. Automated exposure control, iterative reconstruction, and/or weight based adjustment of the mA/kV was utilized to reduce the radiation dose to as low as reasonably achievable. COMPARISON: None. HISTORY: ORDERING SYSTEM PROVIDED HISTORY: trauma TECHNOLOGIST PROVIDED HISTORY: Reason for exam:->trauma Additional Contrast?->None Decision Support Exception - unselect if not a suspected or confirmed emergency medical condition->Emergency Medical Condition ([place]) What reading provider will be dictating this exam?->CRC FINDINGS: Lower chest: Minimal dependent subsegmental atelectatic change. Liver: Normal in size, shape, and echogenicity. Bile ducts: No intrahepatic or extrahepatic ductal dilatation. Gallbladder: No calculi. No pericholecystic fluid. Spleen: Normal in size. No calcifications, cystic/solid lesions. Pancreas: No ductal dilatation, cystic/solid lesions, abnormal calcification. Adrenal glands: Without anomaly. Kidneys: Normal in size. No calculi, hydronephrosis, cystic/solid lesions. Small bowel: Normal in caliber. Appendix: Without anomaly. Colon: Normal in caliber. Lymph nodes: No mesenteric, retroperitoneal, pelvic, inguinal lymph node enlargement. Vascular aorta normal in course and caliber. 1.3 cm round, firstly calcified structure region of distal splenic artery. Peritoneum: No free air, free fluid. Ureters: Normal in course and caliber. Urinary bladder: Partially decompressed. Reproductive organs: 3.1 cm left adnexal cyst containing partially calcified 1.9 cm cystic structure. Abdominal wall: 8 mm fat containing periumbilical anterior abdominal wall defect. Musculoskeletal: No osteoblastic in no osteolytic lesions. Avulsion chip fracture, anterior osteophyte L4 (series 601, images 64-68). Disc space narrowing L4-5 and L5-S1. Small anterior osteophytes L3 through L5. IMPRESSION: Age-indeterminate avulsion chip fracture, anterior superior margin L4 vertebral body. 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 Other etiologies, including calcified pancreatic cyst/pseudocyst less likely. [employer] Phone: CT ABDOMEN PELVIS W IV CONTR AST Additional Contrast? NoneOrdered By: Clay Corona on 07-19-2022 [employer] Phone: CT CHEST W CONTRASTon 2022 Addendum by Gomez Yung MD on 07/19/2022 10:56 AM EST ADDENDUM: Nondisplaced right T9 rib fracture,. Otherwise no evidence of traumatic chest pathology. [employer] Phone: Nondisplaced right T 9 fracture,. Otherwise no evidence of traumatic chest pathology. [facility] EXAMINATION: CT OF THE CHEST WITH CONTRAST 07/19/2022 9:15 am TECHNIQUE: CT of the chest was performed with the administration of intravenous contrast. Multiplanar reformatted images are provided for review. Automated exposure control, iterative reconstruction, and/or weight based adjustment of the mA/kV was utilized to reduce the radiation dose to as low as reasonably achievable. COMPARISON: None. HISTORY: ORDERING SYSTEM PROVIDED HISTORY: chest trauma TECHNOLOGIST PROVIDED HISTORY: Reason for exam:->chest trauma Decision Support Exception - unselect if not a suspected or confirmed emergency medical condition->Emergency Medical Condition ([place]) What reading provider will be dictating this exam?->CRC FINDINGS: Nondisplaced fracture of the lateral aspect of the right T 9th rib visualized on axial series 2, image 110 and on sagittal series 605 image 18. No evidence of hemothorax or parenchymal contusions. No evidence of pneumothorax is seen. No evidence of pleural fluid is visualized. The heart is unremarkable in size, no evidence of pericardial effusion is seen. Atherosclerotic calcifications visualized in the coronary vessels. No significant hilar or mediastinal lymphadenopathy is seen. Unremarkable aortic arch, no evidence for aneurysmal dilatation or arterial dissection is seen. Limited evaluation of the upper abdomen demonstrates no acute pathology. 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 Degenerative bone changes are seen. [facility] Gomez Yung M D - 07/19/2022 EXAMINATION: CT OF THE CHEST WITH CONTRAST 07/19/2022 9:15 am TECHNIQUE: CT of the chest was performed with the administration of intravenous contrast. Multiplanar reformatted images are provided for review. Automated exposure control, iterative reconstruction, and/or weight based adjustment of the mA/kV was utilized to reduce the radiation dose to as low as reasonably achievable. COMPARISON: None. HISTORY: ORDERING SYSTEM PROVIDED HISTORY: chest trauma TECHNOLOGIST PROVIDED HISTORY: Reason for exam:->chest trauma Decision Support Exception - unselect if not a suspected or confirmed emergency medical condition->Emergency Medical Condition ([place]) What reading provider will be dictating this exam?->CRC FINDINGS: Nondisplaced fracture of the lateral aspect of the right T 9th rib visualized on axial series 2, image 110 and on sagittal series 605 image 18. No evidence of hemothorax or parenchymal contusions. No evidence of pneumothorax is seen. No evidence of pleural fluid is visualized. The heart is unremarkable in size, no evidence of pericardial effusion is seen. Atherosclerotic calcifications visualized in the coronary vessels. No significant hilar or mediastinal lymphadenopathy is seen. Unremarkable aortic arch, no evidence for aneurysmal dilatation or arterial dissection is seen. Limited evaluation of the upper abdomen demonstrates no acute pathology. 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 Degenerative bone changes are seen. IMPRESSION: Nondisplaced right T9 fracture,. Otherwise no evidence of traumatic chest pathology. [employer] Phone: CT CHEST W CONTRASTOrdered B y: Gomez Yung on 07-19-2022 [employer] Phone: ETOHon 07-19-2022 Ethanol percent 0.019 G/dL [facility] Magnesium [Mass/Vol] 22 mg/dL [facility] Microscopic Urinalysison Bacteria, UA Negative Negative /HPF [facility] Epithelial Cells, UA 0-2 [facility] Hyaline Casts, UA 1-3 [facility] Interpretation and review of laboratory results Abnormal [facility] RBC, UA 6-10 Abnormal [facility] WBC, UA 0-2 [facility] No Panel Informationon 07-19 Radiology Study observation (narrative) [facility] Work Phone: Protime-INRon 07-19-2022 INR Coag (Bld) [Relative time] 1.0 {INR} [facility] PT Coag (PPP) [Time] 13.7 s [facility] Urinalysison 07-19-2022 Bilirubin Urine Negative Negative [facility] Blood, Urine TRACE Abnormal Negative [facility] Clarity, UA Clear Clear [facility] Color, UA Yellow Straw/Yellow [facility] Glucose, Ur Negative Negative mg/dL [facility] Interpretation and review of laboratory results Abnormal [facility] Ketones Ql (U) TRACE Abnormal Negative mg/dL [facility] Leukocyte esterase Test strip Ql (U) Negative Negative [facility] Nitrite, Urine Negative Negative [facility] pH, UA 8.5 5.0 - 9.0 [facility] Protein (U) [Mass/Vol] 30 mg/dL Abnormal Negative [facility] Specific [place], UA 1.078 1.005 - 1.030 [facility] Urobilinogen, Urine 0.2 [facility] Urine Drug Screenon 07-19-19 23 Amphetamine Screen, Urine Negative Negative <1000 ng/mL [facility] Barbiturate Screen, Ur Negative Negat laura < 200 ng/mL [facility] Benzodiazepine Screen, Urine Negative Negative < 200 ng/mL [facility] Cannabinoid Scrn, Ur Positive Abnormal Negativ e < 50 ng/mL [facility] Cocaine Metabolite Screen, Urine Negative Negative < 300 ng/mL [facility] Drug Screen Comment: see below [facility] Comment on above: This method is a scr eening test to detect only these drug classes as part of a medical workup. Confirmatory testing by another method should be ordered if clinically indicated. FENTANYL SCREEN, URINE Negative Negat laura < 50 ng/mL [facility] Interpretation and review of laboratory results Abnormal [facility] Methadone Screen, Urine Negative Nega tive <300 ng/mL [facility] Opiate Scrn, Ur Negative Negative < 300 ng/mL [facility] Oxycodone Urine Negative Negative <10 0 ng/mL [facility] PCP Screen, Urine Negative Negative < 25 ng/mL [facility] Propoxyphene Scrn, Ur Negative Negati ve <300 ng/mL [facility] XR RIBS RIGHT INCLUDE CHEST (MIN 3 VIEWS)on 07-19-2022 The chest is clear with no evidence of a pneumothorax. Fracture right 9th and 10th ribs as described. [facility] EXAMINATION: 7 XRAY VIEWS OF THE RIGHT RIBS WITH FRONTAL XRAY VIEW OF THE CHEST 07/19/2022 8:24 am COMPARISON: None. HISTORY: ORDERING SYSTEM PROVIDED HISTORY: fall/rib injury TECHNOLOGIST PROVIDED HISTORY: Reason for exam:->fall/rib injury Is the patient ?->No What reading provider will be dictating this exam?->CRC FINDINGS: Compared to prior study of 05/17/2022, PA chest demonstrate satisfactory expansion lungs which are clear. The cardiac silhouette appears unremarkable. There is no evidence of pneumothorax. Multiple views of the right ribs demonstrate a moderately displaced transverse fractures through the lateral aspect of the right 10th rib with no evidence of a pneumothorax. There is also an oblique fractures through the posterolateral right 9th rib. The right humerus appears normal. [facility] Be Cadet III , DO - 07/19/2022 EXAMINATION: 7 XRAY VIEWS OF THE RIGHT RIBS WITH FRONTAL XRAY VIEW OF THE CHEST 07/19/2022 8:24 am COMPARISON: None. HISTORY: ORDERING SYSTEM PROVIDED HISTORY: fall/rib injury TECHNOLOGIST PROVIDED HISTORY: Reason for exam:->fall/rib injury Is the patient ?->No What reading provider will be dictating this exam?->CRC FINDINGS: Compared to prior study of 05/17/2022, PA chest demonstrate satisfactory expansion lungs which are clear. The cardiac silhouette appears unremarkable. There is no evidence of pneumothorax. Multiple views of the right ribs demonstrate a moderately displaced transverse fractures through the lateral aspect of the right 10th rib with no evidence of a pneumothorax. There is also an oblique fractures through the posterolateral right 9th rib. The right humerus appears normal. IMPRESSION: The chest is clear with no evidence of a pneumothorax. Fracture right 9th and 10th ribs as described. [facility] [employer] Work Phone: Radiology Study observation (narrative) [facility] [employer] Work Phone: XR RIBS RIGHT INCLUDE CHEST (MIN 3 VIEWS)Ordered By: Be Cadet on 07-19-2022 [facility] [employer] Work Phone: CBC with Auto Differentialon 05-17-2022 Basophils (Bld) [#/Vol] 0.1 10*3/uL 0.0 - 0.2 K/uL [facility] Basophils/100 WBC (Bld) 0.9 % [facility] Eosinophils (Bld) [#/Vol] 0.3 10*3/uL 0.0 - 0.7 K/uL [facility] [employer] Eosinophils/100 WBC (Bld) 3.9 % [facility] Hematocrit (Bld) [Volume fraction] 36.4 % Low 37.0 - 47.0 % [facility] Hemoglobin (Bld) [Mass/Vol] 11.9 g/dL Low 12.0 - 16.0 g/dL [facility] [employer] Interpretation and review of laboratory results Abnormal [facility] [employer] Lymphocytes (Bld) [#/Vol] 2.0 10*3/uL 1.0 - 4.8 K/uL [facility] Lymphocytes/100 WBC (Bld) 30.4 % [facility] MCH (RBC) [Entitic mass] 30.8 pg 27.0 - 31.3 pg [facility] MCHC (RBC) [Mass/Vol] 32.8 % Low 33.0 - 37.0 % [facility] MCV (RBC) [Entitic vol] 93.8 fL 79.4 - 94.8 fL [facility] Monocytes (Bld) [#/Vol] 0.6 10*3/uL 0.2 - 0.8 K/uL [facility] Monocytes/100 WBC (Bld) 8.8 % [facility] Neutrophils Absolute 3.6 K/uL 1.4 - 6 .5 K/uL [facility] Neutrophils/100 WBC (Bld) 56.0 % [facility] Platelet distribution width (Bld) [Ratio] 17.1 % High 11.5 - 14.5 % [facility] Platelets (Bld) [#/Vol] 284 10*3/uL 130 - 400 K/uL [facility] RBC (Bld) [#/Vol] 3.88 10*6/uL Low [facility] WBC (Bld) [#/Vol] 6.5 10*3/uL 4.8 - 10.8 K/uL [facility] CKon 05-17-2022 CK [Catalytic activity/Vol] 677 U/L High 0 - 170 U/L [facility] CMPon 05-17-2022 Albumin [Mass/Vol] 4.8 g/dL High 3.5 - 4.6 g/dL [facility] ALP (Bld) [Catalytic activity/Vol] 57 U/L 40 - 130 U/L [facility] ALT [Catalytic activity/Vol] 19 U/L 0 - 33 U/L [facility] Anion gap [Moles/Vol] 12 mmol/L [facility] AST [Catalytic activity/Vol] 33 U/L 0 - 35 U/L [facility] Bilirubin [Mass/Vol] 0.3 mg/dL 0.2 - 0 .7 mg/dL [facility] Calcium [Mass/Vol] 9.0 mg/dL 8.5 - 9.9 mg/dL [facility] Chloride [Moles/Vol] 101 mmol/L [facility] CO2 [Moles/Vol] 26 mmol/L [facility] Creatinine [Mass/Vol] 0.71 mg/dL 0.50 - 0.90 mg/dL [facility] GFR/1.73 sq M.predicted MDRD (S/P/Bld) [Vol rate/Area] 60 - PINF [facility] Comment on above: Pediatric calculator link https://www.kidney.org/professionals/kdoqi/gfr_calculatorped Effective Mar 01, 2022 These results are not intended for use in patients <18 years of age. eGFR results are calculated without a race factor using the 2020 CKD-EPI equation. Careful clinical correlation is recommended, particularly when comparing to results calculated using previous equations. The CKD-EPI equation is less accurate in patients with extremes of muscle mass, extra-renal metabolism of creatinine, excessive creatinine ingestion, or following therapy that affects renal tubular secretion. Globulin (S) [Mass/Vol] 2.9 g/dL 2.3 - 3.5 g/dL [facility] Glucose [Mass/Vol] 87 mg/dL 70 - 99 mg/dL [facility] Potassium [Moles/Vol] 3.5 mmol/L [facility] Protein [Mass/Vol] 7.7 g/dL 6.3 - 8.0 g/dL [facility] Sodium [Moles/Vol] 139 mmol/L [facility] Urea nitrogen (BldV) [Mass/Vol] 9 mg/dL 6 - 20 mg/dL [facility] CTA CHEST W WO CONTRASTon No evidence pulmonar y embolism or acute pulmonary abnormalities. [facility] RAD[facility] EXAMINATION: CTA OF THE CHEST WITH AND WITHOUT CONTRAST 05/17/2022 2:51 pm TECHNIQUE: CTA of the chest was performed before and after the administration of intravenous contrast. Multiplanar reformatted images are provided for review. MIP images are provided for review. Automated exposure control, iterative reconstruction, and/or weight based adjustment of the mA/kV was utilized to reduce the radiation dose to as low as reasonably achievable. COMPARISON: None. HISTORY: ORDERING SYSTEM PROVIDED HISTORY: chest pain radiation to back TECHNOLOGIST PROVIDED HISTORY: Reason for exam:->chest pain radiation to back Decision Support Exception - unselect if not a suspected or confirmed emergency medical condition->Emergency Medical Condition (MA) What reading provider will be dictating this exam?->CRC FINDINGS: Aorta: No evidence of thoracic aortic aneurysm or dissection. No acute abnormality of the aorta. Mediastinum: No evidence of mediastinal lymphadenopathy. The heart and pericardium demonstrate no acute abnormality. Lungs/Pleura: The lungs are without acute process. No focal consolidation or pulmonary edema. No evidence of pleural effusion or pneumothorax. Minimal linear atelectasis/scarring, left lung base. Upper Abdomen: Limited images of the upper abdomen demonstrates a small ring shaped calcification in the left upper quadrant, may represent calcified splenic arterial aneurysm. Soft Tissues/Bones: No acute bone or soft tissue abnormality. [facility] Alcon Valdivia MD - 05/17/2022 EXAMINATION: CTA OF THE CHEST WITH AND WITHOUT CONTRAST 05/17/2022 2:51 pm TECHNIQUE: CTA of the chest was performed before and after the administration of intravenous contrast. Multiplanar reformatted images are provided for review. MIP images are provided for review. Automated exposure control, iterative reconstruction, and/or weight based adjustment of the mA/kV was utilized to reduce the radiation dose to as low as reasonably achievable. COMPARISON: None. HISTORY: ORDERING SYSTEM PROVIDED HISTORY: chest pain radiation to back TECHNOLOGIST PROVIDED HISTORY: Reason for exam:->chest pain radiation to back Decision Support Exception - unselect if not a suspected or confirmed emergency medical condition->Emergency Medical Condition (MA) What reading provider will be dictating this exam?->CRC FINDINGS: Aorta: No evidence of thoracic aortic aneurysm or dissection. No acute abnormality of the aorta. Mediastinum: No evidence of mediastinal lymphadenopathy. The heart and pericardium demonstrate no acute abnormality. Lungs/Pleura: The lungs are without acute process. No focal consolidation or pulmonary edema. No evidence of pleural effusion or pneumothorax. Minimal linear atelectasis/scarring, left lung base. Upper Abdomen: Limited images of the upper abdomen demonstrates a small ring shaped calcification in the left upper quadrant, may represent calcified splenic arterial aneurysm. Soft Tissues/Bones: No acute bone or soft tissue abnormality. IMPRESSION: No evidence pulmonary embolism or acute pulmonary abnormalities. [facility] [employer] Work Phone: DONYA [facility] Work Phone: Radiology Study observation (narrative) DONYA [facility] Work Phone: No Panel Informationon 05-17 Interpretation and review of laboratory results Abnormal [facility] TSHon 05-17-2022 Interpretation and review of laboratory results Abnormal [facility] TSH Qn 121.800 m[IU]/L High [facility] Troponinon 05-17-2022 Troponin I.cardiac [Mass/Vol] ng/mL 0.000 - 0.010 ng/mL [facility] Comment on above: Methodology by Vinicio Montilla. [facility] Troponin I.cardiac [Mass/Vol] ng/mL 0.000 - 0.010 ng/mL [facility] Comment on above: Methodology by Vinicio Butt [facility] XR CHEST PORTABLEon 05-17-20 No acute process. [facility] RAD[facility] EXAMINATION: ONE XRAY VIEW OF THE CHEST 05/17/2022 1:41 pm COMPARISON: None. HISTORY: ORDERING SYSTEM PROVIDED HISTORY: chest pain TECHNOLOGIST PROVIDED HISTORY: Reason for exam:->chest pain Is the patient ?->No What reading provider will be dictating this exam?->CRC FINDINGS: The lungs are without acute focal process. There is no effusion or pneumothorax. The cardiomediastinal silhouette is without acute process. The osseous structures are without acute process. [facility] Alcon Valdivia MD - 05/17/2022 EXAMINATION: ONE XRAY VIEW OF THE CHEST 05/17/2022 1:41 pm COMPARISON: None. HISTORY: ORDERING SYSTEM PROVIDED HISTORY: chest pain TECHNOLOGIST PROVIDED HISTORY: Reason for exam:->chest pain Is the patient ?->No What reading provider will be dictating this exam?->CRC FINDINGS: The lungs are without acute focal process. There is no effusion or pneumothorax. The cardiomediastinal silhouette is without acute process. The osseous structures are without acute process. IMPRESSION: No acute process. DONYA HUDSON [employer] Work Phone: Radiology Study observation (narrative) DONYA MURRAY [employer] Work Phone: XR CHEST PORTABLEOrdered By: Alcon Valdivia on 05-17-2022 DONYA HUDSON [employer] Work Phone: CT head/brain wo conon 08-25 CT head/brain wo con [facility] [place] [address] CT Scan Report Signed Patient: Kyra Ritter MR#: [id number] : 1970 Acct:[id number] Age/Sex: 50 / F ADM Date: 08/25/21 Loc: ER Room: Type: [facility] ER Attending Dr: Ordering Provider: Santos Carbajal APRN Date of Service: 08/25/21 CT/CT head/brain wo con: new migraine sx worse than ever Copies to: Santos Carbajal APRN CT BRAIN WITHOUT CONTRAST: CLINICAL HISTORY: Headaches at the vertex and radiating to the right eye. COMPARISON: 02/27/2010 TECHNIQUE: Contiguous axial unenhanced images were obtained through the brain. This CT exam was performed using one or more following dose reduction techniques: Automated exposure control, adjustment of the mA and/or kV according to patient size, or use of iterative reconstruction technique. FINDINGS: The ventricles are normal in size and position. There are no areas of abnormal attenuation. There is no hemorrhage, mass effect or extra-axial collections. The imaged paranasal sinuses and mastoid air cells are clear. CT/CT head/brain wo con IMPRESSION: NO ACUTE INTRACRANIAL ABNORMALITY. Impression dictated by: Anna Loyola M.D.08/25/2021 5:50 PM Dictation Location: [place] [address] Transcribed By: [facility] 08/25/211749 Dictated By: Anna Loyola MD 08/25/211734 Signed By: 08/25/211749 [facility] CT CHEST W CONTRASTOrdered B y: Iselvin Francis on 03-30-2021 Scarring and/or subsegmental atelectatic change left lung base. Hepatic steatosis. All CT scans at this facility use dose modulation, iterative reconstruction, and/or weight based dosing when appropriate to reduce radiation dose to as low as reasonably achievable. [employer] Phone: CT of the Chest with intravenous contrast medium. HISTORY: Recurrent chest pain. TECHNICAL FACTORS: CT imaging of the chest was obtained and formatted as 5 mm contiguous axial images from the thoracic inlet through the adrenal glands. Sagittal and coronal reconstructions obtained during postprocessing. Intravenous contrast medium: 100 ml of Isovue-370 Comparison: Chest radiograph, February 03, 2021, March 27, 2021 FINDINGS: Right lung: No nodules, masses, consolidation, pleural effusion, pneumothorax. Left lung: No nodules, masses, pleural effusion, pneumothorax. Scarring and/or subsegmental atelectatic change posterior left lung base. Lymph nodes: No hilar, mediastinal, or axillary lymph node enlargement. Thoracic aorta: Normal in course and caliber. Cardiac Size: Normal. Pericardial effusion: None. Upper abdomen:Limited imaging upper abdomen shows liver decreased in attenuation. Musculoskeletal:No osteoblastic, and no osteolytic lesions. [employer] Phone: Nyaan, Chpo Incoming Radiant Results From [employer] - 03/30/2021 10:[address] of the Chest with intravenous contrast medium. HISTORY: Recurrent chest pain. TECHNICAL FACTORS: CT imaging of the chest was obtained and formatted as 5 mm contiguous axial images from the thoracic inlet through the adrenal glands. Sagittal and coronal reconstructions obtained during postprocessing. Intravenous contrast medium: 100 ml of Isovue-370 Comparison: Chest radiograph, February 03, 2021, March 27, 2021 FINDINGS: Right lung: No nodules, masses, consolidation, pleural effusion, pneumothorax. Left lung: No nodules, masses, pleural effusion, pneumothorax. Scarring and/or subsegmental atelectatic change posterior left lung base. Lymph nodes: No hilar, mediastinal, or axillary lymph node enlargement. Thoracic aorta: Normal in course and caliber. Cardiac Size: Normal. Pericardial effusion: None. Upper abdomen:Limited imaging upper abdomen shows liver decreased in attenuation. Musculoskeletal:No osteoblastic, and no osteolytic lesions. IMPRESSION: Scarring and/or subsegmental atelectatic change left lung base. Hepatic steatosis. All CT scans at this facility use dose modulation, iterative reconstruction, and/or weight based dosing when appropriate to reduce radiation dose to as low as reasonably achievable. [employer] Work Phone: [employer] Phone: EKG 12 Lead - Chest PainOrde red By: Rodolfo Medrano on 03-30-2021 Atrial Rate 63 BPM [employer] Work Phone: P [place] 75 degrees [employer] Work Phone: P-R Interval 170 ms [employer] Phone: Q-T Interval 410 ms [employer] Phone: QRS Duration 84 ms [employer] Phone: QTc Calculation (Bazett) 419 ms [employer] Phone: R [place] 112 degrees [employer] Phone: T [place] 268 degrees [employer] Phone: Ventricular Rate 63 BPM [employer] Work Phone: Normal sinus rhythm Possible Left atrial enlargement Left posterior fascicular block ST & T wave abnormality, consider inferolateral ischemia Abnormal ECG When compared with ECG of 27-MAR-2021 14:29, Vent. rate has decreased BY 101 BPM T wave inversion now evident in Lateral leads Confirmed by Adrian Slaughter ([id number]) on 03/30/2021 7:56:43 AM [employer] Phone: Nayan, po Incoming Results From [place] - 03/30/2021 7:58 AM EDT Normal sinus rhythm Possible Left atrial enlargement Left posterior fascicular block ST & T wave abnormality, consider inferolateral ischemia Abnormal ECG When compared with ECG of 27-MAR-2021 14:29, Vent. rate has decreased BY 101 BPM T wave inversion now evident in Lateral leads Confirmed by Adrian Slaughter ([id number]) on 03/30/2021 7:56:43 AM [employer] Phone: [employer] Phone: POCT GlucoseOrdered By: Unkn own Result on 03-30-2021 Glucose [Mass/Vol] 93 mg/dL 60 - 115 mg/dl [employer] Phone: Performed on ACCU-CHEK [employer] Phone: [employer] Phone: Echocardiogram complete 2D w ith doppler with colorOrdered By: Ariana Francis on 03-28-2021 Transthoracic Echocardiography Report (TTE) Demographics Patient Name NEWCOMER Gender Female KYRA Patient Number [id number] Race Ethnicity Visit Number [id number] Room Number W163 Corporate ID Date of Study 03/28/2021 Referring Physician Number 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 Physician Cardiology [address]ito [address] Procedure Type of Study TTE procedure:ECHO COMPLETE 2D W/DOP W/COLOR. Procedure Date Date: 03/28/2021 Start: 11:57 AM Study Location: Portable Technical Quality: Adequate visualization Indications:PSVT. Patient Status: Routine Height: 66 inches Weight: 155 pounds BSA: 1.79 m^2 BMI: 25.02 kg/m^2 BP: 110/71 mmHg Conclusions Summary Normal left atrium. Left ventricular ejection fraction is visually estimated at 55%. Normal diastolic filling pattern for age. Trace pericardial effusion is noted with no concrete evidence of chamber collapse or/and tamponade physiology. Signature - - Findings Left Ventricle Left ventricular ejection fraction is visually estimated at 55%. Normal diastolic filling pattern for age. Right Ventricle Normal right ventricle structure and function. Normal right ventricle systolic pressure. Left Atrium Normal left atrium. Right Atrium Normal right atrium. Mitral Valve Normal mitral valve structure and function. Tricuspid Valve Normal tricuspid valve structure and function. Aortic Valve Normal aortic valve structure and function. Pulmonic Valve Normal pulmonic valve structure and function. Pericardial Effusion Trace pericardial effusion is noted with no concrete evidence of chamber collapse or/and tamponade physiology. Pleural Effusion No evidence of pleural effusion. Aorta \ Miscellaneous Miscellaneous normal findings were found. M-Mode Measurements (cm) LVIDd: 4.2 cm LVIDs: 2.41 cm IVSd: 1.29 cm IVSs: 1.86 cm LVPWd: 1.75 cm LVPWs: 1.65 cm Rt. Vent. Dimension: 2.06 cm AO Root Dimension: 3.12 cm ACS: 1.9 cm LVOT: 2.05 cm Doppler Measurements: AV Velocity:0.03 m/s MV Peak E-Wave: 0.47 m/s AV Peak Gradient: 4.99 mmHg MV Peak A-Wave: 0.35 m/s AV Mean Gradient: 2.62 mmHg AV Area (Continuity):2.94 cm^2 Valves Mitral Valve Peak E-Wave: 0.47 m/s Peak A-Wave: 0.35 m/s E/A Ratio: 1.37 Peak Gradient: 0.89 mmHg Deceleration Time: 216.3 msec Aortic Valve Peak Velocity: 1.12 m/s Mean Velocity: 0.75 m/s Peak Gradient: 4.99 mmHg Mean Gradient: 2.62 mmHg Area (continuity): 2.94 cm^2 AV VTI: 26.01 cm Cusp Separation: 1.9 cm Pulmonic Valve Peak Velocity: 0.73 m/s Peak Gradient: 2.1 mmHg Mean Velocity: 0.51 m/s Mean Gradient: 1.18 mmHg LVOT Peak Velocity: 0.91 m/s Mean Velocity: 0.41 m/s Peak Gradient: 3.09 mmHg Mean Gradient: 1.01 mmHg LVOT Diameter: 2.05 cm LVOT VTI: 23.19 cm Structures Left Atrium LA Volume/Index: 57.89 ml /32 m^2 LA Area: 17.36 cm^2 Left Ventricle Diastolic Dimension: 4.2 cm Systolic Dimension: 2.41 cm Septum Diastolic: 1.29 cm Septum Systolic: 1.86 cm PW Diastolic: 1.75 cm PW Systolic: 1.65 cm FS: 42.6 % LV EDV/LV EDV Index: 78.39 ml/44 m^2 LV ESV/LV ESV Index: 20.44 ml/11 m^2 EF Calculated: 73.9 % LVOT Diameter: 2.05 cm Right Ventricle Diastolic Dimension: 2.06 cm Aorta/ Miscellaneous Aorta Aortic Root: 3.12 cm LVOT Diameter: 2.05 cm [employer] Work Phone: Nayan, Chpo Incoming Cardiovascular Results From [facility] - 03/28/2021 4:45 PM EDT Transthoracic Echocardiography Report (TTE) Demographics Patient Name NEWCOMER Gender Female KYRA Patient Number [id number] Race Ethnicity Visit Number [id number] Room Number [id number] Corporate ID Date of Study 03/28/2021 Referring Physician Number 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 Physician Cardiology Tito [address] Procedure Type of Study TTE procedure:ECHO COMPLETE 2D W/DOP W/COLOR. Procedure Date Date: 03/28/2021 Start: 11:57 AM Study Location: Portable Technical Quality: Adequate visualization Indications:PSVT. Patient Status: Routine Height: 66 inches Weight: 155 pounds BSA: 1.79 m^2 BMI: 25.02 kg/m^2 BP: 110/71 mmHg Conclusions Summary Normal left atrium. Left ventricular ejection fraction is visually estimated at 55%. Normal diastolic filling pattern for age. Trace pericardial effusion is noted with no concrete evidence of chamber collapse or/and tamponade physiology. Signature - - Findings Left Ventricle Left ventricular ejection fraction is visually estimated at 55%. Normal diastolic filling pattern for age. Right Ventricle Normal right ventricle structure and function. Normal right ventricle systolic pressure. Left Atrium Normal left atrium. Right Atrium Normal right atrium. Mitral Valve Normal mitral valve structure and function. Tricuspid Valve Normal tricuspid valve structure and function. Aortic Valve Normal aortic valve structure and function. Pulmonic Valve Normal pulmonic valve structure and function. Pericardial Effusion Trace pericardial effusion is noted with no concrete evidence of chamber collapse or/and tamponade physiology. Pleural Effusion No evidence of pleural effusion. Aorta \ Miscellaneous Miscellaneous normal findings were found. M-Mode Measurements (cm) LVIDd: 4.2 cm LVIDs: 2.41 cm IVSd: 1.29 cm IVSs: 1.86 cm LVPWd: 1.75 cm LVPWs: 1.65 cm Rt. Vent. Dimension: 2.06 cm AO Root Dimension: 3.12 cm ACS: 1.9 cm LVOT: 2.05 cm Doppler Measurements: AV Velocity:0.03 m/s MV Peak E-Wave: 0.47 m/s AV Peak Gradient: 4.99 mmHg MV Peak A-Wave: 0.35 m/s AV Mean Gradient: 2.62 mmHg AV Area (Continuity):2.94 cm^2 Valves Mitral Valve Peak E-Wave: 0.47 m/s Peak A-Wave: 0.35 m/s E/A Ratio: 1.37 Peak Gradient: 0.89 mmHg Deceleration Time: 216.3 msec Aortic Valve Peak Velocity: 1.12 m/s Mean Velocity: 0.75 m/s Peak Gradient: 4.99 mmHg Mean Gradient: 2.62 mmHg Area (continuity): 2.94 cm^2 AV VTI: 26.01 cm Cusp Separation: 1.9 cm Pulmonic Valve Peak Velocity: 0.73 m/s Peak Gradient: 2.1 mmHg Mean Velocity: 0.51 m/s Mean Gradient: 1.18 mmHg LVOT Peak Velocity: 0.91 m/s Mean Velocity: 0.41 m/s Peak Gradient: 3.09 mmHg Mean Gradient: 1.01 mmHg LVOT Diameter: 2.05 cm LVOT VTI: 23.19 cm Structures Left Atrium LA Volume/Index: 57.89 ml /32 m^2 LA Area: 17.36 cm^2 Left Ventricle Diastolic Dimension: 4.2 cm Systolic Dimension: 2.41 cm Septum Diastolic: 1.29 cm Septum Systolic: 1.86 cm PW Diastolic: 1.75 cm PW Systolic: 1.65 cm FS: 42.6 % LV EDV/LV EDV Index: 78.39 ml/44 m^2 LV ESV/LV ESV Index: 20.44 ml/11 m^2 EF Calculated: 73.9 % LVOT Diameter: 2.05 cm Right Ventricle Diastolic Dimension: 2.06 cm Aorta/ Miscellaneous Aorta Aortic Root: 3.12 cm LVOT Diameter: 2.05 cm [employer] Phone: [employer] Phone: TroponinOrdered By: Ariana sanchez on 03-28-2021 Interpretation and review of laboratory results Abnormal [employer] Phone: Troponin I.cardiac [Mass/Vol] 0.020 ng/mL Critically high 0.000 - 0.010 ng/mL [employer] Phone: Comment on above: Methodology by [employer] ranjana Montilla. CALL [facility] tel. [phone], Troponin results called to and read back by Denise RosasW RN, 03/28/2021 12:03, by JESE [employer] Phone: [employer] Phone: Interpretation and review of laboratory results Abnormal [employer] Phone: Troponin I.cardiac [Mass/Vol] 0.025 ng/mL Critically high 0.000 - 0.010 ng/mL [employer] Phone: Comment on above: Methodology by [employer] ranjana Montilla. CALL [employer] tel. [phone], Troponin results called to and read back by Denise Gomez RN, 03/28/2021 09:38, by JESE [employer] Phone: [facility]: Interpretation and review of laboratory results Abnormal [facility] Phone: Troponin I.cardiac [Mass/Vol] 0.027 ng/mL Critically high 0.000 - 0.010 ng/mL [facility] Phone: Comment on above: Methodology by Vinicio Montilla. CALL [employer] tel. [phone], Trop results called to and read back by Denise Menard RN, 03/28/2021 04:45, by MERCEDESLONNIE [employer] Phone: [facility] Phone: Interpretation and review of laboratory results Abnormal [facility] Phone: Troponin I.cardiac [Mass/Vol] 0.027 ng/mL Critically high 0.000 - 0.010 ng/mL [facility] Phone: Comment on above: Methodology by Vinicio Montilla. CALL [employer] tel. [phone], Trop results called to and read back by Denise Gan, 03/28/2021 00:43, by HIGINIO [employer] Phone: [facility] Phone: APTTOrdered By: Rodolfo Medrano on 03-27-2021 aPTT Coag (Bld) [Time] 57.[address] [facility] Work Phone: Comment on above: Effective 04/02/2020: Heparin Therapeutic Range: 64.0 98.0 seconds. CBC Auto DifferentialOrdered By: Rodolfo Medrano on 03-27-2021 Basophils (Bld) [#/Vol] 0.1 10*3/uL 0.0 - 0.2 K/uL [facility] Phone: Basophils/100 WBC (Bld) 1.1 % [facility] Work Phone: Eosinophils (Bld) [#/Vol] 0.0 10*3/uL 0.0 - 0.7 K/uL [employer] Phone: Eosinophils/100 WBC (Bld) 0.1 % [employer] Phone: Hematocrit (Bld) [Volume fraction] 45.8 % 37.0 - 47.0 % [facility] Phone: Hemoglobin.gastrointest inal spec 1 Ql (Stl) 15.0 g/dL 12.0 - 16.0 g/dL [employer] Phone: Interpretation and review of laboratory results Abnormal [employer] Phone: Lymphocytes (Bld) [#/Vol] 1.9 10*3/uL 1.0 - 4.8 K/uL [facility] Phone: Lymphocytes/100 WBC (Bld) 21.0 % [facility] Phone: MCH (RBC) [Entitic mass] 30.2 pg 27.0 - 31.3 pg [employer] Phone: MCHC (RBC) [Mass/Vol] 32.8 % Low 33.0 - 37.0 % [facility] Phone: MCV (RBC) [Entitic vol] 91.9 fL 82.0 - 100.0 fL [employer] Phone: Monocytes (Bld) [#/Vol] 0.8 10*3/uL 0.2 - 0.8 K/uL [employer] Phone: Monocytes/100 WBC (Bld) 8.3 % [facility] Phone: Neutrophils Absolute 6.4 K/uL 1.4 - 6 .5 K/uL [facility] Phone: Neutrophils/100 WBC (Bld) 69.5 % [employer] Phone: Platelet distribution width (Bld) [Ratio] 16.7 % High 11.5 - 14.5 % [employer] Phone: Platelets (Bld) [#/Vol] 308 10*3/uL 130 - 400 K/uL [employer] Phone: RBC (Bld) [#/Vol] 4.98 10*6/uL [employer] Phone: WBC (Bld) [#/Vol] 9.2 10*3/uL 4.8 - 10.8 K/uL [employer] Phone: [employer] Phone: Comprehensive Metabolic Pane lOrdered By: Rodolfo Medrano on 03-27-2021 Albumin [Mass/Vol] 4.9 g/dL High 3.5 - 4.6 g/dL [employer] Phone: ALP (Bld) [Catalytic activity/Vol] 56 U/L 40 - 130 U/L [employer] Phone: ALT [Catalytic activity/Vol] 21 U/L 0 - 33 U/L [employer] Phone: Anion gap [Moles/Vol] 15 mmol/L [facility] [employer] Phone: AST [Catalytic activity/Vol] 33 U/L 0 - 35 U/L [employer] Phone: Comment on above: Specimen hemolysis h as exceeded the interference as defined by Lindsay. Value may be falsely increased. Suggest recollection if clinically indicated. Bilirubin [Mass/Vol] 0.6 mg/dL 0.2 - 0 .7 mg/dL [employer] Phone: Calcium [Mass/Vol] 9.1 mg/dL 8.5 - 9.9 mg/dL [employer] Phone: Chloride [Moles/Vol] 100 mmol/L [employer] Phone: CO2 [Moles/Vol] 23 mmol/L [employer] [facility] Work Phone: Creatinine [Mass/Vol] 0.81 mg/dL 0.50 - 0.90 mg/dL [employer] Phone: Free PSA/Total PSA [Mass fraction] 7.9 g/dL 6.3 - 8.0 g/dL [facility] Phone: GFR >60.0 >60 [employer] Work Phone: Comment on above: >60 mL/min/1.73m2 EG FR, calc. for ages 18 and older using the MDRD formula (not corrected for weight), is valid for stable renal function. GFR Non- >60.0 >60 [employer] Phone: Comment on above: >60 mL/min/1.73m2 EG FR, calc. for ages 18 and older using the MDRD formula (not corrected for weight), is valid for stable renal function. Globulin (S) [Mass/Vol] 3 g/dL 2.3 - 3.5 g/dL [employer] Phone: Glucose [Mass/Vol] 139 mg/dL High 70 - 99 mg/dL [facility] [employer] Work Phone: Interpretation and review of laboratory results Abnormal [employer] Phone: Potassium [Moles/Vol] 3.8 mmol/L [facility] [employer] Work Phone: Sodium [Moles/Vol] 138 mmol/L [facility] Phone: Urea nitrogen (BldV) [Mass/Vol] 15 mg/dL 6 - 20 mg/dL [employer] Phone: D-Dimer, QuantitativeOrdered By: Rodolfo Medrano on 03-27-2021 D-Dimer, Quant 0.48 [facility] Work Phone: Comment on above: VTE (DVT or PE) cut- off = 0.50 mg/L [facility] [employer] Work Phone: MagnesiumOrdered By: Rodolfo davidson on 03-27-2021 Magnesium [Mass/Vol] 2.2 mg/dL 1.7 - 2 .4 mg/dL [employer] Phone: No Panel InformationOrdered By: Rodolfo Medrano on 03-27-2021 Interpretation and review of laboratory results Abnormal [employer] Phone: [employer] Phone: Interpretation and review of laboratory results Abnormal [employer] Phone: CALL [employer] [facility] tel. [phone], TROP results called to and read back by SY GARCIA, 03/27/2021 15:40, by [employer] Work Phone: [employer] Phone: [employer] Phone: Protime-INROrdered By: Rodolfo Medrano on 03-27-2021 INR Coag (Bld) [Relative time] 2.7 {INR} [employer] Phone: PT Coag (PPP) [Time] 28.1 s High [employer] Phone: T4, FreeOrdered By: Rodolfo tiejrina on 03-27-2021 Free T4 [Mass/Vol] 0.16 ng/dL Low 0.84 - 1. 68 ng/dL [employer] Phone: TSH without ReflexOrdered By : Rodolfo Medrano on 03-27-2021 Interpretation and review of laboratory results Abnormal [employer] Phone: TSH Qn 139.400 m[IU]/L High [employer] [facility] Work Phone: CALL [employer] LCED tel. [phone], TROP results called to and read back by SY GARCIA, 03/27/2021 15:40, by [employer] Work Phone: [employer] Phone: TroponinOrdered By: Ariana sanchez on 03-27-2021 Interpretation and review of laboratory results Abnormal [employer] Phone: Troponin I.cardiac [Mass/Vol] 0.029 ng/mL Critically high 0.000 - 0.010 ng/mL [employer] Phone: Comment on above: Methodology by Vinicio Montilla. CALL [employer] LC1W tel. [phone], TROP results called to and read back by JANELL SEAMAN, 03/27/2021 18:38, by GILSON [facility] Phone: [employer]ing Phone: TroponinOrdered By: Rodolfo tijerina on 03-27-2021 Troponin I.cardiac [Mass/Vol] 0.018 ng/mL Critically high 0.000 - 0.010 ng/mL [employer] Phone: Comment on above: Methodology by Vinicio Montilla. XR CHEST PORTABLEOrdered By: Rodolfo Medrano on 03-27-2021 NO ACUTE CARDIOPULMONARY DISEASE. [employer] Phone: EXAMINATION: XR CHES T PORTABLE CLINICAL HISTORY: PALPITATIONS, SHORTNESS OF BREATH. COMPARISONS: 2020 FINDINGS: Osseous structures are intact. Cardiopericardial silhouette is normal. Pulmonary vasculature is normal. Lungs are clear. [employer] Phone: Nayan, po Incoming Radiant Results From [employer] - 03/27/2021 3:38 PM EDT EXAMINATION: XR CHEST PORTABLE CLINICAL HISTORY: PALPITATIONS, SHORTNESS OF BREATH. COMPARISONS: 2020 FINDINGS: Osseous structures are intact. Cardiopericardial silhouette is normal. Pulmonary vasculature is normal. Lungs are clear. IMPRESSION: NO ACUTE CARDIOPULMONARY DISEASE. [employer] Phone: Prixing Phone: Vital Signs Date Time Vital Sign Value Performing Clinician Faci lity 07-19-2022 11:58-0500 Diastolic blood pressure 80 mm[Hg] Sara Astorga DO Work Phone: [facility] 07-19-2022 11:58-0500 Heart rate 57 /min Sara Astorga DO Work Phone: [facility] 07-19-2022 11:58-0500 Respiratory rate 19 /min Sara Astorga DO Work Phone: [facility] [facility] 07-19-2022 11:58-0500 SaO2% (BldA) [Mass fraction] 98 % Sara Astorga DO Work Phone: [facility] [facility] 07-19-2022 11:58-0500 Systolic blood pressure 140 mm[Hg] Sara Astorga DO Work Phone: [facility] [facility] 07-19-2022 08:01-0500 Body height 167.6 cm Sara Astorga DO Work Phone: [facility] [facility] 07-19-2022 08:01-0500 Body mass index (BMI) [Ratio] 24.21 kg/m2 Sara Astorga DO Work Phone: [facility] [facility] 07-19-2022 08:01-0500 Body weight 68.04 kg Sara Astorga DO Work Phone: [facility] [facility] 07-19-2022 08:00-0500 Body temperature 98.2 [degF] Sara Astorga DO Work Phone: [employer] [facility] [facility] 05-17-2022 18:00-0500 Diastolic blood pressure 89 mm[Hg] Pcp No [facility] [employer] 05-17-2022 18:00-0500 Heart rate 64 /min Pcp No [facility] [employer] 05-17-2022 18:00-0500 Respiratory rate 19 /min Pcp No [facility] [employer] 05-17-2022 18:00-0500 SaO2% (BldA) [Mass fraction] 97 % Pcp No [facility] [employer] 05-17-2022 18:00-0500 Systolic blood pressure 149 mm[Hg] Pcp No [facility] 05-17-2022 13:13-0500 Body height 167.6 cm Pcp No [facility] 05-17-2022 13:13-0500 Body mass index (BMI) [Ratio] 23.73 kg/m2 Pcp No [facility] 05-17-2022 13:13-0500 Body temperature 97.81 [degF] Pcp No [facility] [employer] 05-17-2022 13:13-0500 Body weight 66.68 kg Pcp No [facility] [employer] 03-31-2021 14:34-0400 Body temperature 98.6 [degF] Rodolfo Medrano MD Work Phone: [employer] Work Phone: 03-31-2021 14:34-0400 Diastolic blood pressure 68 mm[Hg] Rodolfo Medrano MD Work Phone: [employer] Work Phone: 03-31-2021 14:34-0400 Heart rate 53 /min Rodolfo Medrano MD Work Phone: [employer] Work Phone: 03-31-2021 14:34-0400 Respiratory rate 18 /min Rodolfo Medrano MD Work Phone: [employer] Work Phone: 03-31-2021 14:34-0400 SaO2% (BldA) [Mass fraction] 99 % Rodolfo Medrano MD Work Phone: [employer] Work Phone: 03-31-2021 14:34-0400 Systolic blood pressure 127 mm[Hg] Rodolfo Medrano MD Work Phone: [employer] Work Phone: 03-27-2021 14:21-0400 Body height 167.6 cm Rodolfo Medrano MD Work Phone: [employer] Work Phone: 03-27-2021 14:21-0400 Body mass index (BMI) [Ratio] 25.02 kg/m2 Rod[facility]fo Medrano MD [facility] Work Phone: 03-27-2021 14:21-0400 Body weight 70.31 kg Rodolfo Medrano MD Work [facility]: [facility] Work Phone: 01-15-2020 12:43-0400 BP Diastolic 68 mm[Hg] [facility] [place] [facility] [place] 01-15-2020 12:43-0400 BP Systolic 132 mm[Hg] [facility] [place] 01-15-2020 12:43-0400 Pulse Oximetry 100 % [facility] [place] 01-15-2020 12:43-0400 Respiratory Rate 20 /min [facility] [place] 01-15-2020 10:50-0400 BMI (Body Mass Index) 21.47 kg/m2 [facility], [place] 01-15-2020 10:50-0400 Body Temperature 98.01 [degF] [facility] [place] 01-15-2020 10:50-0400 Body weight 60.33 kg [place], [place] 01-15-2020 10:50-0400 Height 167.6 cm [place], [place] 01-15-2020 10:50-0400 Pulse (Heart Rate) 90 /min [facility] [place] Encounters Encounter Date Encounter Type Care Provider Facility Start: 08-08-2023 End: 08-08-2023 Emergency department patient visit PCP [facility] Start: 03-27-2023 End: 03-27-2023 Emergency department patient visit PCP [facility] Start: 07-19-2022 End: 07-19-2022 Emergency department patient visit Sara Astorga DO Work Phone: [facility] ED Comment on above: Closed fracture of m ultiple ribs of right side, initial encounter (Primary Dx); Alcohol abuse Start: 05-17-2022 End: 05-17-2022 Emergency department patient visit Pcp No [facility] ED Comment on above: Chest pain, unspecif ied type (Primary Dx); Hypothyroidism, unspecified type; H/O noncompliance with medical treatment, presenting hazards to health; Encounter for medication refill Start: 03-27-2021 End: 03-31-2021 Evaluation and management of inpatient Rodolfo Medrano MD Work Phone: [facility] Tele[facility] Comment on above: Paroxysmal supravent ricular tachycardia (HCC) (Primary Dx); Elevated troponin; Hypothyroidism, unspecified type Start: 01-15-2020 End: 01-15-2020 Emergency department patient visit [facility] ED Comment on above: Sciatica of left ashley e (Primary Dx); Strain of lumbar region, initial encounter; Sprain of right ankle, unspecified ligament, initial encounter; Closed fracture of right ankle, initial encounter Procedures Date Procedure Procedure Detail Performing Clinician Start: 07-19-2022 Ct abdomen & pelvis w/contrast material Sara Astorga [employer] Work Phone: Start: 07-19-2022 Ct thorax w/contrast material Sara Astorga [employer] Work Phone: Start: 07-19-2022 Assay of ethanol Sara Astorga [employer] Work Phone: Start: 07-19-2022 Comprehensive metabo lic panel Sara Astorga [employer] Work Phone: Start: 07-19-2022 Drug tst prsmv instr mnt chem analyzers pr date Sara Astorga DO Work Phone: Start: 07-19-2022 Urinalysis microscopic only Sara Astorga [employer] Work Phone: Start: 07-19-2022 Urnls dip stick/tabl et rgnt auto w/o microscopy Sara Astorga [employer] Work Phone: Start: 07-19-2022 Radex ribs uni w/pos teroant ch minimum 3 views Sara Astorga [employer] Work Phone: Start: 05-17-2022 Ecg routine ecg w/le ast 12 lds w/i&r Sara Astorga [employer] Work Phone: Start: 05-17-2022 Assay of troponin quantitative Ming Marrero [employer] [place] Work Phone: Start: 05-17-2022 Ct angiography chest w/contrast/noncontrast Ming Sapp PA-C Work Phone: Start: 05-17-2022 Radiologic exam ches t single view Ming Sapp PA-C Work Phone: Start: 05-17-2022 Comprehensive metabo lic panel Ming Elida Senait [place] Work Phone: Start: 03-30-2021 Gluc bld gluc mntr d ev cleared fda spec home use Unknown Provider Result Start: 03-30-2021 Ct thorax w/contrast material Ariana Francis MD Work Phone: Start: 03-29-2021 Ecg routine ecg w/le ast 12 lds w/i&r Ariana Francis MD Work Phone: Start: 03-28-2021 Echo tthrc r-t 2d w/wom-mode compl spec&colr d Ariana Francis MD Work Phone: Start: 03-28-2021 Assay of troponin quantitative Ariana Francis MD Work Phone: Start: 03-28-2021 Assay of troponin quantitative Ariana Francis MD Work Phone: Start: 03-28-2021 Assay of troponin quantitative Ariana Francis MD Work Phone: Start: 03-27-2021 Assay of troponin quantitative Ariana Francis MD Work Phone: Start: 03-27-2021 End: 03-27-2021 Ecg routine ecg w/least 12 lds i&r only Rodolfo Medrano MD Work Phone: Start: 03-27-2021 Radiologic exam ches t single view Rodolfo Medrano MD Work Phone: Start: 03-27-2021 End: 03-27-2021 Comprehensive metabolic panel Rodolfo Medrano MD Work Phone: Plan of Treatment Date Care Activity Detail Author Start: 03-27-2022 Thyroid stimulating hormone measurement TSH testing [employer] Phone: Start: 12-28-2021 Influenza vaccination Flu vaccine (# 1) [employer] Start: 04-13-2021 End: 04-13-2021 Patient encounter procedure 04/13/2021 Office Visit Cardiology Ariana Francis MD [address] [place], [place] [id number] [employer] [facility] Start: 04-09-2021 End: 04-09-2021 Patient encounter procedure 04/09/2021 Office Visit Endocrinology Doroteo Tee, PA [address] [address] [phone] [employer] [place] [facility] Start: 01-28-2021 Influenza vaccination Flu vaccine (# 1) [employer] Work Phone: Start: 01-29-2020 Influenza vaccination Flu vaccine (# 1) [facility] [place] Start: 12-08-2019 Screening for malign ant neoplasm of breast Breast cancer screen [employer] Start: 12-08-2019 Screening for malign ant neoplasm of colon Colon cancer screen colonoscopy [facility] [place] Start: 12-08-2019 Shingles Vaccine (1 of 2) Shingles Vaccine (1 of 2) [employer] Start: 2014 Screening for malign ant neoplasm of colon [employer] Start: 2009 Diabetes screen Diabetes screen [employer] Phone: Start: 2009 Lipid panel [employer] Start: 12-08-1999 Screening for malign ant neoplasm of cervix [employer] Start: 1990 Screening for malign ant neoplasm of cervix [employer] Start: 1988 DTaP/Tdap/Td vaccine (1 - Tdap) DTaP/Tdap/Td vaccine (1 - Tdap) [employer] Start: 12-08-1987 Hepatitis C screening Hepatitis C sc reen [employer] Start: 1984 HIV screening HIV screen [employer] Start: 1981 COVID-19 Vaccine (1) COVID-19 Vaccin e (1) [employer] Phone: Start: 1981 Depression Screen Depression Screen [employer] Start: 12-08-1975 Pneumococcal 0-64 ye ars Vaccine (1 of 1 - PPSV23) Pneumococcal 0-64 years Vaccine (1 of 1 - PPSV23) [email or web address] [place], [place] Start: 12-08-1975 Pneumococcal 0-64 ye ars Vaccine (1 of 2 - PPSV23) Pneumococcal 0-64 years Vaccine (1 of 2 - PPSV23) [employer] Phone: Start: 06-09-1970 COVID-19 Vaccine (#1) COVID-19 Vacci ne (#1) [employer] Start: 1969 Hepatitis C screening Hepatitis C sc car[place]n [employer] Phone: EKG 12 Lead [employer] Phone: EKG 12 Lead EKG 12 Lead ECG Routine 05/17/2022 5:02 PM EST [employer] Phone: End: 05-17-2022 POC Urine Qual POC Urine Qual Point of Care Testing STAT One Time for 1 Occurrences starting 05/17/2022 until 05/17/2022 [employer] Phone: Comment on above: One Time for 1 Occur rences starting 05/17/2022 until 05/17/2022 End: 05-17-2022 Urinalysis Urinalysis Lab STAT One Time for 1 Occurrences starting 05/17/2022 until 05/17/2022 [employer] Phone: Comment on above: One Time for 1 Occur rences starting 05/17/2022 until 05/17/2022 End: 05-17-2022 Urine Drug Screen Urine Drug Screen Lab STAT One Time for 1 Occurrences starting 05/17/2022 until 05/17/2022 [employer] Work Phone: Comment on above: One Time for 1 Occur rences starting 05/17/2022 until 05/17/2022 End: 01-15-2020 XR ANKLE RIGHT (MIN 3 VIEWS) XR ANKLE RIGHT (MIN 3 VIEWS) Imaging Routine Once for 1 Occurrences starting 01/15/2020 until 01/15/2020 [email or web address] [place] Comment on above: Once for 1 Occurrenc es starting 01/15/2020 until 01/15/2020 XR ANKLE RIGHT (MIN 3 VIEWS) XR ANKLE RIGHT (MIN 3 VIEWS) Imaging STAT 01/15/2020 11:48 AM EDT [email or web address] [place] End: 01-15-2020 XR LUMBAR SPINE (MIN 4 VIEWS) XR LUMBAR SPINE (MIN 4 VIEWS) Imaging Routine Once for 1 Occurrences starting 01/15/2020 until 01/15/2020 [email or web address] [place] Comment on above: Once for 1 Occurrenc es starting 01/15/2020 until 01/15/2020 XR LUMBAR SPINE (MIN 4 VIEWS) XR LUMBAR SPINE (MIN 4 VIEWS) Imaging STAT 01/15/2020 11:48 AM EDT [email or web address] [place] Social History Date Type Detail Facility Start: 01-15-2020 End: 02-03-2021 Tobacco smoking status NHIS Current every day smoker [facility] [place] History of tobacco use [facility]arette [facility] [place] Start: 01-15-2020 End: 04-13-2021 Cigarettes smoked current (pack per day) - Reported [facility] [employer] [facility] Start: 01-15-2020 End: 04-13-2021 Tobacco use and exposure [facility] used [facility] [place] [place] Start: 01-15-2020 End: 07-19-2022 Alcohol intake Current drinker of alcohol (finding) [facility] [employer] [place], [place] Start: 1970 Sex Assigned At Not on file [employer] [place] Start: 05-07-2022 End: 05-17-2022 Exposure to SARS-CoV-2 (event) Not sure [facility] [place] [place] Start: 04-13-2021 [facility] [employer] History of tobacco use Current smoker [facility] [employer] Phone: Start: 05-17-2022 History SDOH Alcohol Frequency 5 [facility] [employer] Phone: Start: 05-17-2022 History SDOH Alcohol Std Drinks 1 [facility] [employer] Phone: Start: 05-17-2022 History SDOH Alcohol Binge 3 [facility] [employer] Phone: Start: 04-13-2021 Tobacco Comment quit since susan tavares admitted 03/23/21 [facility] [employer] Phone: Hospital Discharge instructions 03-31-2021 Discharge Instr - ActivityDischarge Instr - DietAttachments Note Date & Type Note Facility 03-31-2021 Hospital Discharg e instructions Ila Waldron RN - 03/31/2021 4:29 PM EDT May resume activity as tolerated, no restrictions Ila Waldron RN - 03/31/2021 4:29 PM EDT Good nutrition is important when healing from an illness, injury, or surgery. Follow any nutrition recommendations given to you during your hospital stay. If you were given an oral nutrition supplement while in the hospital, continue to take this supplement at home. You can take it with meals, in-between meals, and/or before bedtime. These supplements can be purchased at most local grocery stores, pharmacies, and [employer]stores. If you have any questions about your diet or nutrition, call the hospital and ask for the dietitian. A low fat, low cholesterol diet is recommended The following attachments cannot be sent through Care Everywhere.levothyroxine (oral/injection) (Chilean)metoprolol (oral/injection) (Chilean)nicotine (transdermal) (Chilean)documented in this encounter [employer] Phone: Hospital course Narrative 03-31-2021 Ariana Francis MD - 03/31/2021 3:18 PM EDT Note Date & Type Note Facility 03-31-2021 Hospital course Narrative Cardiology Discharge Summary Patient Identification: Kyra Ritter : 1970 Account: [id number] Admit date: 03/27/2021 Discharge date: 03/31/21 Attending provider: Ariana Francis MD Primary care provider: No primary care provider on file. Admission Diagnoses: SVT Discharge Diagnoses: Active Hospital Problems Diagnosis Date Noted Troponin I above reference range [R77.8] Priority: High SVT (supraventricular tachycardia) (HCC) [I47.1] 03/27/2021 Priority: Low Hypothyroidism [E03.9] Priority: Low Hospital Course: Kyra Ritter is a50 y.o. female admitted to [facility] on 03/27/2021 for SVT. 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 Was seen by EP service. Also incidental finding of severe hypothyroidism. And a consult with endocrine followed.Started by Dr Duvall on synthroid 100 bcg.She had echo that showed trivial pericardial effusion.Recurrent CP,no response to NTG.CT negative.Seen by Hospitalist. Procedures: NA Consults: Magdalena EP Hospitalist Endocrine Murray Examination: BP 127/68 Pulse 53 Temp 98.6 F (37 C) (Oral) Resp 18 Ht 5' 6 (1.676 m) Wt 155 lb (70.3 kg) SpO2 99% BMI 25.02 kg/m Physical Exam Constitutional: Appearance: She is well-developed. Cardiovascular: Rate and Rhythm: Normal rate and regular rhythm. Heart sounds: Normal heart sounds. No murmur heard. No friction rub. No gallop. Pulmonary: Effort: Pulmonary effort is normal. No respiratory distress. Breath sounds: Normal breath sounds. No wheezing or rales. Chest: Chest wall: No tenderness. Musculoskeletal: General: No tenderness or deformity. Normal range of motion. Skin: General: Skin is warm and dry. Findings: No erythema or rash. Neurological: Mental Status: She is alert and oriented to person, place, and time. Cranial Nerves: No cranial nerve deficit. Motor: No abnormal muscle tone. Coordination: Coordination normal. Deep Tendon Reflexes: Reflexes are normal and symmetric. Reflexes normal. Psychiatric: Behavior: Behavior normal. Thought Content: Thought content normal. Judgment: Judgment normal. Medications: Current Discharge Medication List START taking these medications Details levothyroxine (SYNTHROID) 100 MCG tablet Take 1 tablet by mouth Daily Qty: 30 tablet, Refills: 3 STOP taking these medications ibuprofen (ADVIL;MOTRIN) 200 MG tablet Comments: Reason for Stopping: mnslvbr-apabjhsedqmzx-mxjjrelx (EXCEDRIN MIGRAINE) 250-250-65 MG per tablet Comments: Reason for Stopping: naproxen (NAPROSYN) 500 MG tablet Comments: Reason for Stopping: Significant Diagnostics: Radiology: Echocardiogram complete 2D with doppler with color Result Date: 03/28/2021 Transthoracic Echocardiography Report (TTE) Demographics Patient Name NEWCOMER Gender Female KYRA Patient Number [id number] Race Ethnicity Visit Number [id number] Room Number [id number] Corporate ID Date of Study 03/28/2021 Referring Physician Number 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 Physician Cardiology [address] Procedure Type of Study TTE procedure:ECHO COMPLETE 2D W/DOP W/COLOR. Procedure Date Date: 03/28/2021 Start: 11:57 AM Study Location: Portable Technical Quality: Adequate visualization Indications:PSVT. Patient Status: Routine Height: 66 inches Weight: 155 pounds BSA: 1.79 m^2 BMI: 25.02 kg/m^2 BP: 110/71 mmHg Conclusions Summary Normal left atrium. Left ventricular ejection fraction is visually estimated at 55%. Normal diastolic filling pattern for age. Trace pericardial effusion is noted with no concrete evidence of chamber collapse or/and tamponade physiology. Signature Findings Left Ventricle Left ventricular ejection fraction is visually estimated at 55%. Normal diastolic filling pattern for age. Right Ventricle Normal right ventricle structure and function. Normal right ventricle systolic pressure. Left Atrium Normal left atrium. Right Atrium Normal right atrium. Mitral Valve Normal mitral valve structure and function. Tricuspid Valve Normal tricuspid valve structure and function. Aortic Valve Normal aortic valve structure and function. Pulmonic Valve Normal pulmonic valve structure and function. Pericardial Effusion Trace pericardial effusion is noted with no concrete evidence of chamber collapse or/and tamponade physiology. Pleural Effusion No evidence of pleural effusion. Aorta \ Miscellaneous Miscellaneous normal findings were found. M-Mode Measurements (cm) LVIDd: 4.2 cm LVIDs: 2.41 cm IVSd: 1.29 cm IVSs: 1.86 cm LVPWd: 1.75 cm LVPWs: 1.65 cm Rt. Vent. Dimension: 2.06 cm AO Root Dimension: 3.12 cm ACS: 1.9 cm LVOT: 2.05 cm Doppler Measurements: AV Velocity:0.03 m/s MV Peak E-Wave: 0.47 m/s AV Peak Gradient: 4.99 mmHg MV Peak A-Wave: 0.35 m/s AV Mean Gradient: 2.62 mmHg AV Area (Continuity):2.94 cm^2 Valves Mitral Valve Peak E-Wave: 0.47 m/s Peak A-Wave: 0.35 m/s E/A Ratio: 1.37 Peak Gradient: 0.89 mmHg Deceleration Time: 216.3 msec Aortic Valve Peak Velocity: 1.12 m/s Mean Velocity: 0.75 m/s Peak Gradient: 4.99 mmHg Mean Gradient: 2.62 mmHg Area (continuity): 2.94 cm^2 AV VTI: 26.01 cm Cusp Separation: 1.9 cm Pulmonic Valve Peak Velocity: 0.73 m/s Peak Gradient: 2.1 mmHg Mean Velocity: 0.51 m/s Mean Gradient: 1.18 mmHg LVOT Peak Velocity: 0.91 m/s Mean Velocity: 0.41 m/s Peak Gradient: 3.09 mmHg Mean Gradient: 1.01 mmHg LVOT Diameter: 2.05 cm LVOT VTI: 23.19 cm Structures Left Atrium LA Volume/Index: 57.89 ml /32 m^2 LA Area: 17.36 cm^2 Left Ventricle Diastolic Dimension: 4.2 cm Systolic Dimension: 2.41 cm Septum Diastolic: 1.29 cm Septum Systolic: 1.86 cm PW Diastolic: 1.75 cm PW Systolic: 1.65 cm FS: 42.6 % LV EDV/LV EDV Index: 78.39 ml/44 m^2 LV ESV/LV ESV Index: 20.44 ml/11 m^2 EF Calculated: 73.9 % LVOT Diameter: 2.05 cm Right Ventricle Diastolic Dimension: 2.06 cm Aorta/ Miscellaneous Aorta Aortic Root: 3.12 cm LVOT Diameter: 2.05 cm XR CHEST PORTABLE Result Date: 03/27/2021 EXAMINATION: XR CHEST PORTABLE CLINICAL HISTORY: PALPITATIONS, SHORTNESS OF BREATH. COMPARISONS: 2020 FINDINGS: Osseous structures are intact. Cardiopericardial silhouette is normal. Pulmonary vasculature is normal. Lungs are clear. NO ACUTE CARDIOPULMONARY DISEASE. Labs: Recent Results (from the past 72 hour(s)) EKG 12 Lead Collection Time: 03/29/21 5:57 AM Result Value Ref Range Ventricular Rate 55 BPM Atrial Rate 55 BPM P-R Interval 152 ms QRS Duration 86 ms Q-T Interval 432 ms QTc Calculation (Bazett) 413 ms P [place] 65 degrees R [place] 111 degrees T [place] 25 degrees POCT Glucose Collection Time: 03/30/21 9:29 PM Result Value Ref Range POC Glucose 93 60 - 115 mg/dl Performed on ACCU-CHEK Follow-up visits: LEOBARDO Juan [address] [facility] [address] [facility] [id number] In 2 weeks Ariana Francis MD [address] [facility] [address] [facility] [id number] Assessment: Active Hospital Problems Diagnosis Date Noted Troponin I above reference range [R77.8] Priority: High SVT (supraventricular tachycardia) (HCC) [I47.1] 03/27/2021 Priority: Low Hypothyroidism [E03.9] Priority: Low Plan: 1.DC home FU with Murray Nichols and ct DC time 40 min. Complete blood reconciliation examined the patient make follow-up plans. Electronically signed by Ange Falcon 03/31/2021 at 3:18 PM documented in this encounter [employer] Phone: History of Present illness Narrative 03-31-2021 José Miguel Duvall MD - 03/31/2021 3:09 PM EDTJennifer Broderick MD - 03/31/2021 10:47 AM Ariana Hamlin MD - 03/30/2021 8:02 AM Ariana Hamlin MD - 03/29/2021 9:18 AM EDT Note Date & Type Note Facility 03-31-2021 History of Present illness Narrative Progress Note Date:03/31/2021 Room:[place] [address] Patient Name:Kyra Ritter Date of :1970 Age:50 y.o. Chief complaint severe hypothyroidism Subjective Subjective: Symptoms: Stable. Diet: Adequate intake. Activity level: Returning to normal. Review of Systems Cardiovascular: Negative. Gastrointestinal: Negative. Endocrine: Negative. All other systems reviewed and are negative. Objective Vitals Last 24 Hours: TEMPERATURE: Temp Av.2 F (36.8 C) Min: 97.7 F (36.5 C) Max: 98.6 F (37 C) RESPIRATIONS RANGE: Resp Av Min: 18 Max: 18 PULSE OXIMETRY RANGE: SpO2 Av.8 % Min: 99 % Max: 100 % PULSE RANGE: Pulse Av.4 Min: 53 Max: 68 BLOOD PRESSURE RANGE: Systolic (24hrs), Av , Min:127 , Max:139 ; Diastolic (24hrs), Av, Min:65, Max:88 I/O (24Hr): No intake or output data in the 24 hours ending 03/31/21 1509 Objective: General Appearance: Comfortable. Vital signs: (most recent): Blood pressure 127/68, pulse 53, temperature 98.6 F (37 C), temperature source Oral, resp. rate 18, height 5' 6 (1.676 m), weight 155 lb (70.3 kg), SpO2 99 %. Vital signs are normal. HEENT: Normal HEENT exam. Lungs: Normal effort and normal respiratory rate. Heart: Bradycardia. Abdomen: Abdomen is soft. Extremities: Normal range of motion. Neurological: Patient is alert. Skin: No rash. Labs/Imaging/Diagnostics Labs: CBC:No results for input(s): WBC, RBC, HGB, HCT, MCV, RDW, PLT in the last 72 hours. CHEMISTRIES:No results for input(s): NA, K, CL, CO2, BUN, CREATININE, GLUCOSE, PHOS, MG in the last 72 hours. Invalid input(s): CA PT/INR:No results for input(s): PROTIME, INR in the last 72 hours. APTT:No results for input(s): APTT in the last 72 hours. LIVER PROFILE:No results for input(s): AST, ALT, BILIDIR, BILITOT, ALKPHOS in the last 72 hours. Imaging Last 24 Hours: CT CHEST W CONTRAST Result Date: 03/30/2021 CT of the Chest with intravenous contrast medium. HISTORY: Recurrent chest pain. TECHNICAL FACTORS: CT imaging of the chest was obtained and formatted as 5 mm contiguous axial images from the thoracic inlet through the adrenal glands. Sagittal and coronal reconstructions obtained during postprocessing. Intravenous contrast medium: 100 ml of Isovue-370 Comparison: Chest radiograph, February 03, 2021, March 27, 2021 FINDINGS: Right lung: No nodules, masses, consolidation, pleural effusion, pneumothorax. Left lung: No nodules, masses, pleural effusion, pneumothorax. Scarring and/or subsegmental atelectatic change posterior left lung base. Lymph nodes: No hilar, mediastinal, or axillary lymph node enlargement. Thoracic aorta: Normal in course and caliber. Cardiac Size: Normal. Pericardial effusion: None. Upper abdomen:Limited imaging upper abdomen shows liver decreased in attenuation. Musculoskeletal:No osteoblastic, and no osteolytic lesions. Scarring and/or subsegmental atelectatic change left lung base. Hepatic steatosis. All CT scans at this facility use dose modulation, iterative reconstruction, and/or weight based dosing when appropriate to reduce radiation dose to as low as reasonably achievable. Assessment//Plan Hospital Problems Last Modified POA Troponin I above reference range 03/30/2021 Yes SVT (supraventricular tachycardia) (HCC) 03/27/2021 Yes Hypothyroidism 03/27/2021 Yes Assessment: Condition: In stable condition. Unchanged. (Severe hypothyroidism on Synthroid 100 mcg daily Status post SVT Noncompliant with medication). Plan: Discharge home. (Okay to discharge patient on Synthroid 100 mcg daily patient to follow-up in 2 weeks with me of Doroteo Tee advised compliance repeat thyroid function test in 4 to 6 weeks time also repeat thyroid ultrasound as outpatient). Progress Note Date:03/31/2021 Room:W163/W163-01 Patient Name:Kyra Ritter Date of :1970 Age:50 y.o. Subjective Subjective: Symptoms: No shortness of breath, malaise, cough, chest pain, weakness, headache, chest pressure, anorexia, diarrhea or anxiety. Diet: No nausea or vomiting. Review of Systems Respiratory: Negative for cough and shortness of breath. Cardiovascular: Negative for chest pain. Gastrointestinal: Negative for anorexia, diarrhea, nausea and vomiting. Neurological: Negative for weakness. Objective Vitals Last 24 Hours: TEMPERATURE: Temp Av.1 F (36.7 C) Min: 97.7 F (36.5 C) Max: 98.6 F (37 C) RESPIRATIONS RANGE: Resp Av Min: 18 Max: 18 PULSE OXIMETRY RANGE: SpO2 Av % Min: 100 % Max: 100 % PULSE RANGE: Pulse Av Min: 55 Max: 68 BLOOD PRESSURE RANGE: Systolic (24hrs), Av , Min:125 , Max:139 ; Diastolic (24hrs), Av, Min:65, Max:88 I/O (24Hr): No intake or output data in the 24 hours ending 03/31/21 1047 Objective: General Appearance: Comfortable, well-appearing and in no acute distress. Vital signs: (most recent): Blood pressure 128/65, pulse 68, temperature 98 F (36.7 C), temperature source Oral, resp. rate 18, height 5' 6 (1.676 m), weight 155 lb (70.3 kg), SpO2 100 %. HEENT: Normal HEENT exam. Lungs: Normal effort and normal respiratory rate. Breath sounds clear to auscultation. Heart: Normal rate. S1 normal and S2 normal. Abdomen: Abdomen is soft. Bowel sounds are normal. There is no epigastric area or suprapubic area tenderness. Pulses: Distal pulses are intact. Neurological: Patient is alert and oriented to person, place and time. Pupils: Pupils are equal, round, and reactive to light. Skin: Warm. Labs/Imaging/Diagnostics Labs: CBC:No results for input(s): WBC, RBC, HGB, HCT, MCV, RDW, PLT in the last 72 hours. CHEMISTRIES:No results for input(s): NA, K, CL, CO2, BUN, CREATININE, GLUCOSE, PHOS, MG in the last 72 hours. Invalid input(s): CA PT/INR:No results for input(s): PROTIME, INR in the last 72 hours. APTT:No results for input(s): APTT in the last 72 hours. LIVER PROFILE:No results for input(s): AST, ALT, BILIDIR, BILITOT, ALKPHOS in the last 72 hours. Imaging Last 24 Hours: CT CHEST W CONTRAST Result Date: 03/30/2021 CT of the Chest with intravenous contrast medium. HISTORY: Recurrent chest pain. TECHNICAL FACTORS: CT imaging of the chest was obtained and formatted as 5 mm contiguous axial images from the thoracic inlet through the adrenal glands. Sagittal and coronal reconstructions obtained during postprocessing. Intravenous contrast medium: 100 ml of Isovue-370 Comparison: Chest radiograph, February 03, 2021, March 27, 2021 FINDINGS: Right lung: No nodules, masses, consolidation, pleural effusion, pneumothorax. Left lung: No nodules, masses, pleural effusion, pneumothorax. Scarring and/or subsegmental atelectatic change posterior left lung base. Lymph nodes: No hilar, mediastinal, or axillary lymph node enlargement. Thoracic aorta: Normal in course and caliber. Cardiac Size: Normal. Pericardial effusion: None. Upper abdomen:Limited imaging upper abdomen shows liver decreased in attenuation. Musculoskeletal:No osteoblastic, and no osteolytic lesions. Scarring and/or subsegmental atelectatic change left lung base. Hepatic steatosis. All CT scans at this facility use dose modulation, iterative reconstruction, and/or weight based dosing when appropriate to reduce radiation dose to as low as reasonably achievable. Assessment//Plan Hospital Problems Last Modified POA Troponin I above reference range 03/30/2021 Yes SVT (supraventricular tachycardia) (HCC) 03/27/2021 Yes Hypothyroidism 03/27/2021 Yes 1) Chest pain 2) Severe hypothyroidism, myxedema, coma. 3) palpitation Assessment & Plan 03/31: Patient was seen and evaluated bedside. No overnight events. Chest pain resolved. No new complaints. FU with PCP as outp Progress Note Patient: Kyra Ritter Unit/Bed: W163/W163-01 Date of : 1970 Acct: [id number] Admitting Diagnosis: Paroxysmal supraventricular tachycardia (HCC) [I47.1] SVT (supraventricular tachycardia) (HCC) [I47.1] Elevated troponin [R77.8] Hypothyroidism, unspecified type [E03.9] Date: 03/27/2021 Hospital Day: 3 Chief Complaint: Chest pain Subjective Patient was admitted with rapid SVT AV winsome reentrant tachycardia. Incidental finding of severe hypothyroidism with a TSH of 150. Seen by endocrine service. Continues to have chest pain. Started on Synthroid. No response to nitro. Minimal response to morphine we will switch to Dilaudid. Get hospitalist on the case and get a CAT scan of the chest Review of Systems: Review of Systems Constitutional: Negative for diaphoresis. HENT: Negative for nosebleeds. Respiratory: Negative for cough, shortness of breath, wheezing and stridor. Cardiovascular: Negative for chest pain, palpitations and leg swelling. Gastrointestinal: Negative for blood in stool, diarrhea, nausea and vomiting. Musculoskeletal: Negative for myalgias. Neurological: Negative for dizziness, seizures, weakness and headaches. Hematological: Does not bruise/bleed easily. Psychiatric/Behavioral: Negative for suicidal ideas. The patient is not nervous/anxious. All other systems reviewed and are negative. Physical Examination: BP 113/78 Pulse (!) 47 Temp 97.7 F (36.5 C) Resp 16 Ht 5' 6 (1.676 m) Wt 155 lb (70.3 kg) SpO2 100% BMI 25.02 kg/m Physical Exam Constitutional: Appearance: She is well-developed. Cardiovascular: Rate and Rhythm: Normal rate and regular rhythm. Heart sounds: Normal heart sounds. Pulmonary: Effort: Pulmonary effort is normal. Breath sounds: Normal breath sounds. Musculoskeletal: General: Normal range of motion. Skin: General: Skin is warm and dry. Neurological: Mental Status: She is alert and oriented to person, place, and time. Deep Tendon Reflexes: Reflexes are normal and symmetric. Psychiatric: Behavior: Behavior normal. Thought Content: Thought content normal. Judgment: Judgment normal. LABS: CBC: Lab Results Component Value Date WBC 9.2 03/27/2021 RBC 4.98 03/27/2021 HGB 15.0 03/27/2021 HCT 45.8 03/27/2021 MCV 91.9 03/27/2021 MCH 30.2 03/27/2021 MCHC 32.8 03/27/2021 RDW 16.7 03/27/2021 PLT 308 03/27/2021 CBC with Differential: Lab Results Component Value Date WBC 9.2 03/27/2021 RBC 4.98 03/27/2021 HGB 15.0 03/27/2021 HCT 45.8 03/27/2021 PLT 308 03/27/2021 MCV 91.9 03/27/2021 MCH 30.2 03/27/2021 MCHC 32.8 03/27/2021 RDW 16.7 03/27/2021 LYMPHOPCT 21.0 03/27/2021 MONOPCT 8.3 03/27/2021 BASOPCT 1.1 03/27/2021 MONOSABS 0.8 03/27/2021 LYMPHSABS 1.9 03/27/2021 EOSABS 0.0 03/27/2021 BASOSABS 0.1 03/27/2021 CMP: Lab Results Component Value Date NA 138 03/27/2021 K 3.8 03/27/2021 CL 100 03/27/2021 CO2 23 03/27/2021 BUN 15 03/27/2021 CREATININE 0.81 03/27/2021 GFRAA >60.0 03/27/2021 LABGLOM >60.0 03/27/2021 GLUCOSE 139 03/27/2021 PROT 7.9 03/27/2021 LABALBU 4.9 03/27/2021 CALCIUM 9.1 03/27/2021 BILITOT 0.6 03/27/2021 ALKPHOS 56 03/27/2021 AST 33 03/27/2021 ALT 21 03/27/2021 BMP: Lab Results Component Value Date NA 138 03/27/2021 K 3.8 03/27/2021 CL 100 03/27/2021 CO2 23 03/27/2021 BUN 15 03/27/2021 LABALBU 4.9 03/27/2021 CREATININE 0.81 03/27/2021 CALCIUM 9.1 03/27/2021 GFRAA >60.0 03/27/2021 LABGLOM >60.0 03/27/2021 GLUCOSE 139 03/27/2021 Magnesium: Lab Results Component Value Date MG 2.2 03/27/2021 Troponin: Lab Results Component Value Date TROPONINI 0.020 03/28/2021 Radiology: Echocardiogram complete 2D with doppler with color Result Date: 03/28/2021 Transthoracic Echocardiography Report (TTE) Demographics Patient Name NEWCOMER Gender Female KYRA Patient Number [id number] Race Ethnicity Visit Number [id number] Room Number W163 Corporate ID Date of Study 03/28/2021 Referring Physician Number 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 Physician Cardiology [address] Procedure Type of Study TTE procedure:ECHO COMPLETE 2D W/DOP W/COLOR. Procedure Date Date: 03/28/2021 Start: 11:57 AM Study Location: Portable Technical Quality: Adequate visualization Indications:PSVT. Patient Status: Routine Height: 66 inches Weight: 155 pounds BSA: 1.79 m^2 BMI: 25.02 kg/m^2 BP: 110/71 mmHg Conclusions Summary Normal left atrium. Left ventricular ejection fraction is visually estimated at 55%. Normal diastolic filling pattern for age. Trace pericardial effusion is noted with no concrete evidence of chamber collapse or/and tamponade physiology. Signature Findings Left Ventricle Left ventricular ejection fraction is visually estimated at 55%. Normal diastolic filling pattern for age. Right Ventricle Normal right ventricle structure and function. Normal right ventricle systolic pressure. Left Atrium Normal left atrium. Right Atrium Normal right atrium. Mitral Valve Normal mitral valve structure and function. Tricuspid Valve Normal tricuspid valve structure and function. Aortic Valve Normal aortic valve structure and function. Pulmonic Valve Normal pulmonic valve structure and function. Pericardial Effusion Trace pericardial effusion is noted with no concrete evidence of chamber collapse or/and tamponade physiology. Pleural Effusion No evidence of pleural effusion. Aorta \ Miscellaneous Miscellaneous normal findings were found. M-Mode Measurements (cm) LVIDd: 4.2 cm LVIDs: 2.41 cm IVSd: 1.29 cm IVSs: 1.86 cm LVPWd: 1.75 cm LVPWs: 1.65 cm Rt. Vent. Dimension: 2.06 cm AO Root Dimension: 3.12 cm ACS: 1.9 cm LVOT: 2.05 cm Doppler Measurements: AV Velocity:0.03 m/s MV Peak E-Wave: 0.47 m/s AV Peak Gradient: 4.99 mmHg MV Peak A-Wave: 0.35 m/s AV Mean Gradient: 2.62 mmHg AV Area (Continuity):2.94 cm^2 Valves Mitral Valve Peak E-Wave: 0.47 m/s Peak A-Wave: 0.35 m/s E/A Ratio: 1.37 Peak Gradient: 0.89 mmHg Deceleration Time: 216.3 msec Aortic Valve Peak Velocity: 1.12 m/s Mean Velocity: 0.75 m/s Peak Gradient: 4.99 mmHg Mean Gradient: 2.62 mmHg Area (continuity): 2.94 cm^2 AV VTI: 26.01 cm Cusp Separation: 1.9 cm Pulmonic Valve Peak Velocity: 0.73 m/s Peak Gradient: 2.1 mmHg Mean Velocity: 0.51 m/s Mean Gradient: 1.18 mmHg LVOT Peak Velocity: 0.91 m/s Mean Velocity: 0.41 m/s Peak Gradient: 3.09 mmHg Mean Gradient: 1.01 mmHg LVOT Diameter: 2.05 cm LVOT VTI: 23.19 cm Structures Left Atrium LA Volume/Index: 57.89 ml /32 m^2 LA Area: 17.36 cm^2 Left Ventricle Diastolic Dimension: 4.2 cm Systolic Dimension: 2.41 cm Septum Diastolic: 1.29 cm Septum Systolic: 1.86 cm PW Diastolic: 1.75 cm PW Systolic: 1.65 cm FS: 42.6 % LV EDV/LV EDV Index: 78.39 ml/44 m^2 LV ESV/LV ESV Index: 20.44 ml/11 m^2 EF Calculated: 73.9 % LVOT Diameter: 2.05 cm Right Ventricle Diastolic Dimension: 2.06 cm Aorta/ Miscellaneous Aorta Aortic Root: 3.12 cm LVOT Diameter: 2.05 cm EKG Assessment: Active Hospital Problems Diagnosis Date Noted SVT (supraventricular tachycardia) (HCC) [I47.1] 03/27/2021 Priority: Low Hypothyroidism [E03.9] Priority: Low Current chest pain No response to nitro This medical effusion probably due to hypothyroidism Plan: 1. Consult hospitalist 2. Dilaudid 3. CAT scan of the chest Progress Note Patient: Kyra Ritter Unit/Bed: W163/W163-01 Date of : 1970 Acct: [id number] Admitting Diagnosis: Paroxysmal supraventricular tachycardia (HCC) [I47.1] SVT (supraventricular tachycardia) (HCC) [I47.1] Elevated troponin [R77.8] Hypothyroidism, unspecified type [E03.9] Date: 03/27/2021 Hospital Day: 2 Chief Complaint: SVT Subjective Patient has SVT was evaluated by EP. Has AV node reentrant tachycardia that need to be addressed later once her thyroid status stabilized. This morning she has severe chest pain. Given nitro without much relief. EKG showed no significant new changes. She is feeling comfortable now. Blood pressure is stable. Review of Systems: Review of Systems Constitutional: Negative for diaphoresis. HENT: Negative for nosebleeds. Cardiovascular: Negative for chest pain, palpitations and leg swelling. Gastrointestinal: Negative for blood in stool, nausea and vomiting. Musculoskeletal: Negative for myalgias. Neurological: Negative for dizziness, seizures, weakness and headaches. Psychiatric/Behavioral: The patient is not nervous/anxious. Physical Examination: BP 133/89 Pulse 66 Temp 97.7 F (36.5 C) (Oral) Resp 18 Ht 5' 6 (1.676 m) Wt 155 lb (70.3 kg) SpO2 100% BMI 25.02 kg/m Physical Exam Constitutional: Appearance: She is well-developed. Cardiovascular: Rate and Rhythm: Normal rate and regular rhythm. Heart sounds: Normal heart sounds. Pulmonary: Effort: Pulmonary effort is normal. Breath sounds: Normal breath sounds. Musculoskeletal: General: Normal range of motion. Skin: General: Skin is warm and dry. Neurological: Mental Status: She is alert and oriented to person, place, and time. Deep Tendon Reflexes: Reflexes are normal and symmetric. Psychiatric: Behavior: Behavior normal. Thought Content: Thought content normal. Judgment: Judgment normal. LABS: CBC: Lab Results Component Value Date WBC 9.2 03/27/2021 RBC 4.98 03/27/2021 HGB 15.0 03/27/2021 HCT 45.8 03/27/2021 MCV 91.9 03/27/2021 MCH 30.2 03/27/2021 MCHC 32.8 03/27/2021 RDW 16.7 03/27/2021 PLT 308 03/27/2021 CBC with Differential: Lab Results Component Value Date WBC 9.2 03/27/2021 RBC 4.98 03/27/2021 HGB 15.0 03/27/2021 HCT 45.8 03/27/2021 PLT 308 03/27/2021 MCV 91.9 03/27/2021 MCH 30.2 03/27/2021 MCHC 32.8 03/27/2021 RDW 16.7 03/27/2021 LYMPHOPCT 21.0 03/27/2021 MONOPCT 8.3 03/27/2021 BASOPCT 1.1 03/27/2021 MONOSABS 0.8 03/27/2021 LYMPHSABS 1.9 03/27/2021 EOSABS 0.0 03/27/2021 BASOSABS 0.1 03/27/2021 CMP: Lab Results Component Value Date NA 138 03/27/2021 K 3.8 03/27/2021 CL 100 03/27/2021 CO2 23 03/27/2021 BUN 15 03/27/2021 CREATININE 0.81 03/27/2021 GFRAA >60.0 03/27/2021 LABGLOM >60.0 03/27/2021 GLUCOSE 139 03/27/2021 PROT 7.9 03/27/2021 LABALBU 4.9 03/27/2021 CALCIUM 9.1 03/27/2021 BILITOT 0.6 03/27/2021 ALKPHOS 56 03/27/2021 AST 33 03/27/2021 ALT 21 03/27/2021 BMP: Lab Results Component Value Date NA 138 03/27/2021 K 3.8 03/27/2021 CL 100 03/27/2021 CO2 23 03/27/2021 BUN 15 03/27/2021 LABALBU 4.9 03/27/2021 CREATININE 0.81 03/27/2021 CALCIUM 9.1 03/27/2021 GFRAA >60.0 03/27/2021 LABGLOM >60.0 03/27/2021 GLUCOSE 139 03/27/2021 Magnesium: Lab Results Component Value Date MG 2.2 03/27/2021 Troponin: Lab Results Component Value Date TROPONINI 0.020 03/28/2021 Radiology: Echocardiogram complete 2D with doppler with color Result Date: 03/28/2021 Transthoracic Echocardiography Report (TTE) Demographics Patient Name NEWCOMER Gender Female KYRA Patient Number [id number] Race Ethnicity Visit Number [id number] Room Number W163 Corporate ID Date of Study 03/28/2021 Referring Physician Number 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 Physician Cardiology [address] Procedure Type of Study TTE procedure:ECHO COMPLETE 2D W/DOP W/COLOR. Procedure Date Date: 03/28/2021 Start: 11:57 AM Study Location: Portable Technical Quality: Adequate visualization Indications:PSVT. Patient Status: Routine Height: 66 inches Weight: 155 pounds BSA: 1.79 m^2 BMI: 25.02 kg/m^2 BP: 110/71 mmHg Conclusions Summary Normal left atrium. Left ventricular ejection fraction is visually estimated at 55%. Normal diastolic filling pattern for age. Trace pericardial effusion is noted with no concrete evidence of chamber collapse or/and tamponade physiology. Signature Findings Left Ventricle Left ventricular ejection fraction is visually estimated at 55%. Normal diastolic filling pattern for age. Right Ventricle Normal right ventricle structure and function. Normal right ventricle systolic pressure. Left Atrium Normal left atrium. Right Atrium Normal right atrium. Mitral Valve Normal mitral valve structure and function. Tricuspid Valve Normal tricuspid valve structure and function. Aortic Valve Normal aortic valve structure and function. Pulmonic Valve Normal pulmonic valve structure and function. Pericardial Effusion Trace pericardial effusion is noted with no concrete evidence of chamber collapse or/and tamponade physiology. Pleural Effusion No evidence of pleural effusion. Aorta \ Miscellaneous Miscellaneous normal findings were found. M-Mode Measurements (cm) LVIDd: 4.2 cm LVIDs: 2.41 cm IVSd: 1.29 cm IVSs: 1.86 cm LVPWd: 1.75 cm LVPWs: 1.65 cm Rt. Vent. Dimension: 2.06 cm AO Root Dimension: 3.12 cm ACS: 1.9 cm LVOT: 2.05 cm Doppler Measurements: AV Velocity:0.03 m/s MV Peak E-Wave: 0.47 m/s AV Peak Gradient: 4.99 mmHg MV Peak A-Wave: 0.35 m/s AV Mean Gradient: 2.62 mmHg AV Area (Continuity):2.94 cm^2 Valves Mitral Valve Peak E-Wave: 0.47 m/s Peak A-Wave: 0.35 m/s E/A Ratio: 1.37 Peak Gradient: 0.89 mmHg Deceleration Time: 216.3 msec Aortic Valve Peak Velocity: 1.12 m/s Mean Velocity: 0.75 m/s Peak Gradient: 4.99 mmHg Mean Gradient: 2.62 mmHg Area (continuity): 2.94 cm^2 AV VTI: 26.01 cm Cusp Separation: 1.9 cm Pulmonic Valve Peak Velocity: 0.73 m/s Peak Gradient: 2.1 mmHg Mean Velocity: 0.51 m/s Mean Gradient: 1.18 mmHg LVOT Peak Velocity: 0.91 m/s Mean Velocity: 0.41 m/s Peak Gradient: 3.09 mmHg Mean Gradient: 1.01 mmHg LVOT Diameter: 2.05 cm LVOT VTI: 23.19 cm Structures Left Atrium LA Volume/Index: 57.89 ml /32 m^2 LA Area: 17.36 cm^2 Left Ventricle Diastolic Dimension: 4.2 cm Systolic Dimension: 2.41 cm Septum Diastolic: 1.29 cm Septum Systolic: 1.86 cm PW Diastolic: 1.75 cm PW Systolic: 1.65 cm FS: 42.6 % LV EDV/LV EDV Index: 78.39 ml/44 m^2 LV ESV/LV ESV Index: 20.44 ml/11 m^2 EF Calculated: 73.9 % LVOT Diameter: 2.05 cm Right Ventricle Diastolic Dimension: 2.06 cm Aorta/ Miscellaneous Aorta Aortic Root: 3.12 cm LVOT Diameter: 2.05 cm XR CHEST PORTABLE Result Date: 03/27/2021 EXAMINATION: XR CHEST PORTABLE CLINICAL HISTORY: PALPITATIONS, SHORTNESS OF BREATH. COMPARISONS: 2020 FINDINGS: Osseous structures are intact. Cardiopericardial silhouette is normal. Pulmonary vasculature is normal. Lungs are clear. NO ACUTE CARDIOPULMONARY DISEASE. EKG: Assessment: Active Hospital Problems Diagnosis Date Noted SVT (supraventricular tachycardia) (HCC) [I47.1] 03/27/2021 Priority: Low Hypothyroidism [E03.9] Priority: Low Chest pain Plan: 1. Chest pain appears to be noncardiac. EKG shows no acute changes. Rhythm has remained stable. Appreciate EP input. Possibly discharge tomorrow if no significant issues echo showed small pericardial effusion of no hemodynamic consequences. Hopefully it will resolve once her thyroid status is corrected Physician Progress Note PATIENT: KYRA RITTER CSN #: [id number] : 1970 ADMIT DATE: 03/27/2021 2:20 PM DISCH DATE: RESPONDING PROVIDER #: JOSÉ MIGUEL DUVALL MD QUERY TEXT: Patient admitted with PSVT. Noted documentation of coma in Dr. Duvall endocrinology consult note on 03/27/21. In order to support the diagnosis of coma, please include additional clinical indicators in your documentation. Or please document if the diagnosis of coma has been ruled out after further study. The medical record reflects the following: Risk Factors: Severe hypothyroidism, early myxedema noncompliance Clinical Indicators: per Dr Duvall initial consult note 03/27/21 The patient is alert, awake, appears ill, has some hypothyroid facies. cranial I through XII is intact , assessment severe hypothyroidism, early myxedema, coma, noncompliance, history of SVT. ok to discharge patient from endocrine. Treatment: endocrine consult Synthroid pertinent labs Madhuri Garrison BSN RN CDS contact [phone] M-F 6am - 2pm Options provided: -- coma present as evidenced by, Please document evidence. -- coma was ruled out -- Other - I will add my own diagnosis -- Disagree - Not applicable / Not valid -- Disagree - Clinically unable to determine / Unknown -- Refer to Clinical Documentation Reviewer PROVIDER RESPONSE TEXT: coma was ruled out after study. Query created by: Madhuri Goodrich on 03/28/2021 11:09 AM Electronically signed by: JOSÉ MIGUEL DUVALL MD 03/28/2021 12:52 PM documented in this encounter [employer] Phone: Evaluation note Note Date & Type Note Facility Evaluation note Diagnosis Paroxysmal supraventricular tachycardia (HCC)- Primary Paroxysmal supraventricular tachycardia Elevated troponin Other abnormal blood chemistry Hypothyroidism, unspecified type SVT (supraventricular tachycardia) (HCC) Other specified cardiac dysrhythmias Troponin I above reference range Other abnormal blood chemistry documented in this encounter [employer] Phone: Evaluation note Note Date & Type Note Facility Evaluation note Diagnosis Chest pain, unspecified type- Primary Hypothyroidism, unspecified type H/O noncompliance with medical treatment, presenting hazards to health Personal history of noncompliance with medical treatment, presenting hazards to health Encounter for medication refill Issue of repeat prescriptions documented in this encounter [employer] Phone: Evaluation note Note Date & Type Note Facility Evaluation note Diagnosis Closed fracture of multiple ribs of right side, initial encounter- Primary Alcohol abuse Alcohol abuse, unspecified documented in this encounter [facility] [employer] Phone: Hospital Discharge instructions Attachments Note Date & Type Note Facility Hospital Discharge instructions The following attachments cannot be sent through Care Everywhere.Chest Pain (Chilean)Hypothyroidism (Chilean)documented in this encounter [facility] [employer] Phone: Hospital Discharge instructions Attachments Note Date & Type Note Facility Hospital Discharge instructions The following attachments cannot be sent through Care Everywhere.Alcohol Use Disorder: General Info (Chilean)documented in this encounter [facility] [employer] Phone: Discharge Instructions * Attachments The following attachments cannot be sent through Care Everywhere. 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 ACP-Advance Directive ACP-Power of Cleater Latest Code Status on File Code Status Date Activated Date Inactivated Comments Full Code 03/27/2021 5:55 PM Healthcare Agents on File Name Relationship Healthcare Agent Relationshi p Communication Ming Ritter Spouse Primary Decision Maker Latest Code Status on File Code Status Date Activated Date Inactivated Comments Full Code 03/27/2021 5:55 PM 03/31/2021 7:06 PM Healthcare Agents on File Name Relationship Healthcare Agent Relationshi p Communication Ming Ritter Spouse Primary Decision Maker Healthcare Agents on File Name Relationship Healthcare Agent Relationshi p Communication Ming Ritter Spouse Primary Decision Maker 4 (Home) Summary Purpose Family History No Family History Records FoundNo Family History Records Found Additional Source Comments Reason for Visit (unrecogniz ed section and content) Reason Comments Back Pain since stepping in po thole last Reason Comments Shortness of Breath PT C/O sob AND HEART PALPITATIONS FOR THE PAST FIVE DAYS Reason Comments Chest Pain And dizzy (started t janae). Pt states her chest has never hurt like this before. Pt states she has been having a hard time swallowing for the last 3 days Reason Comments Fall Ordered Prescriptions (unrec ognized section and content) Prescription Sig Dispensed Refills Start Date End Da te metoprolol tartrate (LOPRESSOR) 25 MG tablet Take 0.5 tablets by mouth 2 times daily 30 tablet 3 03/31/2021 nicotine (NICODERM CQ) 21 MG/24HR Place 1 patch onto the skin daily 30 patch 3 04/01/2021 levothyroxine (SYNTHROID) 100 MCG tablet Take 1 tablet by mouth Daily 30 tablet 3 04/01/2021 metoprolol tartrate (LOPRESSOR) 25 MG tablet Take 1 tablet by mouth 2 times daily 60 tablet 3 03/31/2021 03/31/2021 Prescription Sig Dispensed Refills Start Date End Da te metoprolol succinate (TOPROL XL) 25 MG extended release tablet Take 0.5 tablets by mouth daily 15 tablet 1 05/17/2022 06/16/2022 levothyroxine (SYNTHROID) 100 MCG tablet Take 1 tablet by mouth daily 30 tablet 1 05/17/2022 06/16/2022 Prescription Sig Dispensed Refills Start Date End Da te lidocaine 4 % external patch Place 1 patch onto the skin daily 30 patch 0 07/19/2022 08/18/2022 ibuprofen (IBU) 800 MG tablet Take 1 tablet by mouth every 8 hours as needed for Pain 20 tablet 0 07/19/2022 Scheduled Active and Recently Administ ered Medications (unrecognized section and content) Medication Order 03/29/2021 03/30/2021 03/31/2021 enoxaparin (LOVENOX) injection 40 mg 40 mg, SubCUTAneous, DAILY, First dose on Tue03/27/21 at 1815 0842 (Given - Provider: Ila Waldron, RN) 0832 (Given - Provider: Ila Waldron, RN) 0759 (Given - Provider: Ila Waldron, RN) levothyroxine (SYNTHROID) tablet 100 mcg 100 mcg, Oral, DAILY, First dose on 03/28/21 at 0900, Tube feeding (TF) interaction, obtain physician order to manage, recommend holding TF for 30 minutes before and after dose. 0601 (Given - Provider: Alyson Vogel RN) 0545 (Given - Provider: Denise Gan, RN) 0627 (Given - Provider: Nahed Hubbard, TAWANNA) Levothyroxine Sodium (SYNTHROID) 100 MCG/5ML injection 50 mcg 50 mcg, IntraVENous, ONCE, On Tue03/27/21 at 1612, For 1 dose metoprolol tartrate (LOPRESSOR) tablet 25 mg 25 mg, Oral, 2 TIMES DAILY, First dose (after last modification) on 03/28/21 at 2100, Hold for HR less than 60 0842 (Given - Provider: Ila Waldron, TAWANNA)2236 (Not Given - Provider: Denise aGn, RN - Reason: Order parameters not met - Comment: hr= 42) 0832 (Not Given - Provider: Ila Waldron, TAWANNA - Reason: Other)1926 (Held - Provider: Nahed Hubbard RN - Reason: Contraindicated - Comment: hr 51) 0759 (Given - Provider: Ila Waldron RN)2100 (Due) morphine injection 4 mg 4 mg, IntraVENous, ONCE, On Tue03/27/21 at 1815, For 1 dose, If oral and IV narcotics ordered, use oral first and only use IV if oral is ineffective or cannot take oral. Do Not give oral and IV within 1 hour of each other unless specifically ordered. nicotine (NICODERM CQ) 21 MG/24HR 1 patch 1 patch, TransDERmal, Administer over 24 Hours, DAILY, First dose on Tue03/28/21 at 2045, Apply new patch to nonhairy, clean, dry skin on the upper body or upper outer arm. Rotate patch sites. Notify pharmacy if patient or provider prefers patch to be removed at bedtime and replaced in the morning. Hazardous Medication -- Refer to facility policy for handling and disposal. 0841 (Patch Applied - Provider: Ila Waldron RN) 0832 (Patch Applied - Provider: Ila Waldron RN) 0759 (Patch Applied - Provider: Ila Waldron, RN) sodium chloride flush 0.9 % injection 5-40 mL 5-40 mL, IntraVENous, EVERY 12 HOURS SCHEDULED (2 times per day), First dose on Tue03/27/21 at 2100, For Line Patency: Peripheral IV = 5 mL; Midline or Central Line = 10 mL/lumen. If following IV push medication, administer flush at same rate as the IV push. Flush volume is determined by type of infusion therapy being given. For non-viscous solutions use: Peripheral IV = 5 mL Midline or Central Line = 10 mL/lumen For viscous solutions (i.e. blood components, parenteral nutrition, contrast media, or after obtaining blood sample) use: Peripheral IV = 10 mL Midline or Central Line = 20 mL/lumen 0842 (Given - Provider: Ila Waldron RN)1935 (Given - Provider: Denise Gan RN) 0832 (Given - Provider: Ila Waldron, RN)2020 (Given - Provider: Nahed Hubbard, TAWANNA) 0800 (Given - Provider: Ila Waldron RN)2100 (Due) zolpidem (AMBIEN) tablet 5 mg 5 mg, Oral, ONCE, On 03/30/21 at 1930, For 1 dose 1999 (Held - Provider: Nahed Hubbard, TAWANNA - Reason: Patient/family refused) PRN Medication Order 03/29/2021 03/30/2021 03/31/2021 0.9 % sodium chloride infusion 25 mL, IntraVENous, at 100 mL/hr, PRN, If patient receiving piggyback infusions without ordered maintenance IV fluids or with frequent/long duration piggyback infusions, Starting on Tue03/27/21 at 1754, Administer at the same rate as the piggyback being infused. acetaminophen (TYLENOL) tablet 650 mg 650 mg, Oral, EVERY 4 HOURS PRN, Pain Mild (1-3), Pain Mild (1-3) or Fever greater than 100.5 F (38 C), Starting on Tue03/27/21 at 1754, If acetaminophen and ibuprofen are both ordered PRN for mild pain, may administer together. HYDROmorphone (DILAUDID) injection 0.5 mg 0.5 mg, IntraVENous, EVERY 4 HOURS PRN, Pain Moderate (4-6), Pain Severe (7-10), Starting on Tue03/30/21 at 1321, If oral and IV narcotics ordered, use oral first and only use IV if oral is ineffective or cannot take oral. Do Not give oral and IV within 1 hour of each other unless specifically ordered. 1333 (Given - Provider: Ila Waldron RN) HYDROmorphone (DILAUDID) tablet 1 mg 1 mg, Oral, EVERY 4 HOURS PRN, Pain Moderate (4-6), Starting on Tue03/30/21 at 0808 iopamidol (ISOVUE-370) 76 % injection 100 mL (COMPLETED) 100 mL, IntraVENous, IMG ONCE PRN, Other, Starting on Tue03/30/21 at 1006, For 1 dose 1023 (Given - Provider: Delmer Isaac) morphine (PF) injection 2 mg (CANCELED) 2 mg, IntraVENous, EVERY 3 HOURS PRN, Pain Moderate (4-6), Starting on Tue03/29/21 at 1501, If oral and IV narcotics ordered, use oral first and only use IV if oral is ineffective or cannot take oral. Do Not give oral and IV within 1 hour of each other unless specifically ordered. 1504 (Given - Provider: Ila Waldron RN)1938 (Given - Provider: Denise Gan RN) 0523 (Given - Provider: Denise Gan RN)0832 (Given - Provider: Ila Waldron, RN - Comment: chest) nitroGLYCERIN (NITROSTAT) SL tablet 0.4 mg 0.4 mg, SubLINGual, EVERY 5 MIN PRN, Chest pain, Starting on Tue03/27/21 at 1754, Place 1 tablet under tongue upon chest pain, wait 5 minutes and may repeat up to 3 doses in 15 minutes. Do not crush or break. 0601 (Given - Provider: Alyson Vogel RN)0606 (Given - Provider: Alyson Vogel RN)0611 (Given - Provider: Alyson Vogel, RN) 0534 (Given - Provider: Denise Gan RN) ondansetron (ZOFRAN) injection 4 mg(Linked Group 1) 4 mg, IntraVENous, EVERY 6 HOURS PRN, Nausea, Vomiting, Starting on Tue03/27/21 at 1754, Administer if oral route cannot be used. 193 (Given - Provider: Denise Gan RN) 0522 (Given - Provider: Denise Gan RN)1333 (Given - Provider: Ila Waldron, RN) ondansetron (ZOFRAN-ODT) disintegrating tablet 4 mg(Linked Group 1) 4 mg, Oral, EVERY 8 HOURS PRN, Nausea, Vomiting, Starting on Tue03/27/21 at 1754 1934 (See Alternative - Provider: Denise Gan RN) 0522 (See Alternative - Provider: Denise Gan RN)1333 (See Alternative - Provider: Ila Waldron, RN) sodium chloride flush 0.9 % injection 5-40 mL 5-40 mL, IntraVENous, PRN, Line Care, After every IV line use, Starting on Tue03/27/21 at 1754, For Line Patency: Peripheral IV = 5 mL; Midline or Central Line = 10 mL/lumen. If following IV push medication, administer flush at same rate as the IV push. Flush volume is determined by type of infusion therapy being given. For non-viscous solutions use: Peripheral IV = 5 mL Midline or Central Line = 10 mL/lumen For viscous solutions (i.e. blood components, parenteral nutrition, contrast media, or after obtaining blood sample) use: Peripheral IV = 10 mL Midline or Central Line = 20 mL/lumen traMADol (ULTRAM) tablet 50 mg 50 mg, Oral, EVERY 6 HOURS PRN, Pain Moderate (4-6), Starting on 03/28/21 at 1848 0847 (Given - Provider: Ila Waldron RN - Comment: headache) 0759 (Given - Provider: Ila Waldron RN - Comment: all over) Linked Groups Order Group 1: ondansetron (ZOFRAN-ODT) disintegrating tablet 4 mgJump to med 4 mg, Oral, EVERY 8 HOURS PRN, Nausea, Vomiting, Starting on Tue03/27/21 at 1754 Or ondansetron (ZOFRAN) injection 4 mgJump to med 4 mg, IntraVENous, EVERY 6 HOURS PRN, Nausea, Vomiting, Starting on Tue03/27/21 at 1754
Administer if oral route cannot be used.
Scheduled Medication Order 05/15/2022 05/16/2022 05/17/2022 diphenhydrAMINE (BENADRYL) injection 25 mg (COMPLETED) 25 mg, IntraVENous, ONCE, 1 dose, On Tue05/17/22 at 1437 1440 (Given - Provid er: Kristen Brunner RN) famotidine (PEPCID) 20 mg in sodium chloride (PF) 0.9 % 10 mL injection (COMPLETED) 20 mg, IntraVENous, ONCE, 1 dose, On Tue05/17/22 at 1437, IV Push over minimum of 2 minutes - Dilute with 10 mL NS 1439 (Given - Provid er: Kristen Brunner RN) levothyroxine (SYNTHROID) tablet 100 mcg 100 mcg, Oral, DAILY, First dose on Tue05/17/22 at 1742, Until Discontinued, Tube feeding (TF) interaction, obtain physician order to manage, recommend holding TF for 30 minutes before and after dose. 1820 (Given - Provid er: Kristen Brunner RN) methylPREDNISolone sodium (SOLU-MEDROL) injection 125 mg (COMPLETED) 125 mg, IntraVENous, ONCE, On Tue05/17/22 at 1437, For 1 dose 1440 (Given - Provid er: Kristen Brunner RN) PRN Medication Order 05/15/2022 05/16/2022 05/17/2022 iopamidol (ISOVUE-300) 61 % injection 75 mL (COMPLETED) 75 mL, IntraVENous, IMG ONCE PRN, 1 dose, Starting on Tue05/17/22 at 1423, Until Tue05/17/22 at 1453, Other 1453 (Given - Provid er: Carri Haque) nitroGLYCERIN (NITROSTAT) SL tablet 0.4 mg 0.4 mg, SubLINGual, EVERY 5 MIN PRN, Starting on Tue05/17/22 at 1338, Until Discontinued, Chest pain, Place 1 tablet under tongue upon chest pain, wait 5 minutes and may repeat up to 3 doses in 15 minutes. Do not crush or break. 1426 (Given - Provid er: Kristen Brunner, RN) Scheduled Medication Order 07/17/2022 07/18/2022 07/19/2022 ketorolac (TORADOL) injection 60 mg (COMPLETED) 60 mg, IntraMUSCular, ONCE, 1 dose, On Tue07/19/22 at 0813, Do not administer for more than 5 days. 0814 (Given - Provid er: Jamee Menard, TAWANNA) lidocaine 4 % external patch 1 patch 1 patch, TransDERmal, Administer over 12 Hours, DAILY, First dose on Tue07/19/22 at 1137, Apply patch to right chest. Patch may remain in place for up to 12 hours in any 24 hour period. 1154 (Patch Applied - Provider: Zeferino Flores, RN)2354 (Due: Patch Removed - Provider: Zeferino Flores, RN) PRN Medication Order 07/17/2022 07/18/2022 07/19/2022 iopamidol (ISOVUE-300) 61 % injection 50 mL (COMPLETED) 50 mL, IntraVENous, IMG ONCE PRN, 1 dose, Starting on Tue07/19/22 at 0906, Until Tue07/19/22 at 0917, Other 0917 (Given - Provid er: Kyra Coyle) INFORMATION SOURCE (unrecogn ized section and content) DATE CREATED AUTHOR 11/12/2021 [facility] DATE CREATED AUTHOR AUTHOR'S KERWIN ATION 08/08/2023 [facility] Care Teams (unrecognized sec tion and content) Associate Technician Relationship Specialty Start Date End Date No, Pcp PCP - General 05/17/22 Associate Technician Relationship Specialty Start Date End Date No, Pcp PCP - General 05/17/22 FOR RECORDS PERTAINING TO PATIENTS WHO ARE OR HAVE BEEN ENROLLED IN A CHEMICAL DEPENDENCY/SUBSTANCEABUSE PROGRAM, SOME INFORMATION MAY BE OMITTED. This clinical summary was aggregated from multiple sources. Caution should be exercised in using it in the provision of clinical care. This summary normalizes information from multiple sources, and as a consequence, information in this document may materially change the coding, format and clinical context of patient data. In addition, data may be omitted in some cases. CLINICAL DECISIONS SHOULD BE BASED ON THE PRIMARY CLINICAL RECORDS. [facility], [facility]. provides no warranty or guarantee of the accuracy or completeness of information in this document.
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
[2023-10-23] MEDS: HYDROCODONE/ACET 5-325 MG TABLET 1 TAB PO (18:44)
[2023-10-23] MEDS: CEPHALEXIN 500 MG CAPSULE PO (20:24)
== END 2023-10-23 20:30 | disposition home or self-care (01) ==
PROVIDERS: Emergency Provider Emergency Medicine
DX: M25.571 Pain in right ankle and joints of right foot (principal)
CPT/HCPCS: 73610; 99283

== ENCOUNTER 2023-10-25 10:03 | Outpatient (OUT) | payer SELFPAY ==
--- NOTE | 2023-10-25 | XR_ITS ---
The [address] [address] Patient Name: KYRA SINGH MRN: [id number] date: 1970 Sex: F Assigned Patient Location: Current Patient Location: Accession/Order Number: [id number] Exam Date: 10/25/2023 10:06 Report Date: 10/25/2023 13:59 At the request of: BALAJI KLINE Procedure: XR ankle RT min 3V PROCEDURE: XR foot RT min 3V, XR ankle RT min 3V HISTORY: RIGHT FOOT PAIN COMPARISON: XR ankle right 10/23/2023 FINDINGS: BONES:Stable surgical changes without evidence of hardware failure change in alignment. No acute bone fracture dislocation. Stable chronic small cysts within medial malleolus. SOFT TISSUES:Stable thin calcification within soft tissues posterior to the distal tibia. Soft tissue swelling surrounding the ankle. EFFUSION:None visible. OTHER: Negative. XR/XR ankle RT min 3V IMPRESSION: 1. No appreciable acute bone abnormality of the right ankle and foot. 2. Soft tissue swelling, medial greater than lateral, but improved compared to prior study.. Electronically authenticated by: RISHI CERDA Date: 10/25/2023 13:59
--- NOTE | 2023-10-25 | XR_ITS ---
The [address] [address] Patient Name: KYRA SINGH MRN: [id number] date: 1970 Sex: F Assigned Patient Location: Current Patient Location: Accession/Order Number: [id number] Exam Date: 10/25/2023 10:06 Report Date: 10/25/2023 13:59 At the request of: BALAJI KLINE Procedure: XR foot RT min 3V PROCEDURE: XR foot RT min 3V, XR ankle RT min 3V HISTORY: RIGHT FOOT PAIN COMPARISON: XR ankle right 10/23/2023 FINDINGS: BONES:Stable surgical changes without evidence of hardware failure change in alignment. No acute bone fracture dislocation. Stable chronic small cysts within medial malleolus. SOFT TISSUES:Stable thin calcification within soft tissues posterior to the distal tibia. Soft tissue swelling surrounding the ankle. EFFUSION:None visible. OTHER: Negative. XR/XR foot RT min 3V IMPRESSION: 1. No appreciable acute bone abnormality of the right ankle and foot. 2. Soft tissue swelling, medial greater than lateral, but improved compared to prior study.. Electronically authenticated by: RISHI CERDA Date: 10/25/2023 13:59
== END 2023-10-25 10:04 | disposition home or self-care (01) ==
LOC: EC 10:04
PROVIDERS: Visit Provider Podiatrist Foot & Ankle Surgery
DX: M25.571 Pain in right ankle and joints of right foot (principal); M25.471 Effusion, right ankle; Z98.890 Other specified postprocedural states
CPT/HCPCS: 73610; 73630

== ENCOUNTER 2023-11-08 14:24 | Outpatient (OUT) | payer SELFPAY ==
--- NOTE | 2023-11-08 14:27 | MR_ITS ---
[address] [address] Patient Name: KYRA SINGH MRN: [id number] date: 1970 Sex: F Assigned Patient Location: MRI Current Patient Location: MRI Accession/Order Number: [id number] Exam Date: 11/08/2023 14:50 Report Date: 11/10/2023 16:57 At the request of: BALAJI KLINE Procedure: MR ankle RT wo/w con EXAM: MR ankle RT wo/w con HISTORY: Right ankle bone lesion, right deltoid tear. COMPARISON: 10/25/2023. TECHNIQUE: MRI images obtained with multiple sequences. MR images of the right ankle with and without contrast. Sequences obtained by standard department protocol. FINDINGS: Plate and screw fixation of the distal fibula. No apparent hardware complication. There is surrounding susceptibility artifact. Surgical fixation of the distal tibiofibular syndesmosis. Moderate ankle joint effusion. There are deltoid ligament fibers intact. No definitive tear of the deltoid ligament. Increased signal on the fluid sensitive sequences of the lateral aspect of the distal tibia measuring approximately 2.5 x 1.8 cm. The area is geographic with some peripheral enhancement and peripheral T2 hyperintensity. Findings are most consistent with osteonecrosis/bone infarct. No cortical breakthrough. No endosteal scalloping. Subchondral cyst of the medial malleolus measuring 0.8 cm. Achilles tendon is intact. Plantar fascia is intact. Extensor, flexor, and peroneal tendons are intact. MR/MR ankle RT wo/w con IMPRESSION: 1. Focal lesion of the lateral aspect of the distal tibia, measuring 2.5 x 1.8 cm, signal characteristics suggest osteonecrosis/bone infarct. 2. Plate and screw fixation of the distal fibula. No apparent hardware complication. There is surrounding susceptibility artifact. 3. Moderate ankle joint effusion. 4. No acute tendinous abnormality. Electronically authenticated by: KELSIE POTTER Date: 11/10/2023 16:57
== END 2023-11-08 14:25 | disposition home or self-care (01) ==
LOC: MRI 14:24
PROVIDERS: Visit Provider Podiatrist Foot & Ankle Surgery
DX: M89.9 Disorder of bone, unspecified (principal); M25.471 Effusion, right ankle
CPT/HCPCS: 73723; A9575

== ENCOUNTER 2023-11-28 09:57 | Outpatient (OUT) | payer SELFPAY ==
--- NOTE | 2023-11-28 10:04 | XR_ITS ---
The [address] [address] Patient Name: KYRA SINGH MRN: [id number] date: 1970 Sex: F Assigned Patient Location: [facility] Current Patient Location: Accession/Order Number: [id number] Exam Date: 11/28/2023 11:05 Report Date: 11/29/2023 13:30 At the request of: BALAJI KLINE Procedure: XR chest 2V EXAMINATION: XR chest 2V HISTORY: Preop exam COMPARISON: XR chest 01/17/2023 FINDINGS: LUNGS: No significant pulmonary parenchymal abnormalities. VASCULATURE: No increased pulmonary vasculature. PLEURA: No pneumothorax, effusion, or pleural thickening. CARDIAC: No cardiomegaly or cardiac silhouette abnormality. MEDIASTINUM: No visible mass or adenopathy. BONES: No fracture or visible bone lesion. OTHER: Negative. XR/XR chest 2V IMPRESSION: 1. Hyperexpanded lungs. 2. No acute cardiopulmonary process; stable chest. Electronically authenticated by: RISHI CERDA Date: 11/29/2023 13:30
--- NOTE | 2023-11-28 10:07 | ECG_ITS ---
The [facility] Test Date: 2023-11-28 Pat Name: KYRA SINGH Department: Room: - Gender: Female [employer]: : 1970 Requested By: BALAJI KLINE Order Number: [id number] Reading MD: EVERTON LA Measurements Intervals Ronan Rate: 55 P: 63 IL: 198 QRS: 108 QRSD: 112 T: 30 QT: 431 QTc: 415 Interpretive Statements SINUS BRADYCARDIA MARKED RIGHT AXIS DEVIATION [QRS AXIS > 100] INCOMPLETE RIGHT BUNDLE BRANCH BLOCK [90+ ms QRS DURATION, TERMINAL R IN V1/V2, 40+ ms S IN I/aVL/V4/V5/V6] NONSPECIFIC T-WAVE ABNORMALITY Compared to ECG 01/17/2023 14:39:17 No significant changes Electronically Signed On 11-28-2023 22:17:07 EDT by EVERTON LA
--- OUTSIDE RECORDS SUMMARY | 2023-11-28 10:19 | XMS_ITS ---
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 calculator link https://www.kidney.org/professionals/kdoqi/gfr_calculatorped [...] [Mass/Vol] 2.9 g/dL 2.3 - 3.5 g/dL [facility] [place] Glucose [Mass/Vol] 87 mg/dL 70 - 99 mg/dL [facility] [place] Potassium [Moles/Vol] 3.5 mmol/L [facility] [place] Protein [Mass/Vol] 7.7 g/dL 6.3 - 8.0 g/dL [facility] [place] Sodium [Moles/Vol] 139 mmol/L [facility] Urea nitrogen (BldV) [Mass/Vol] 9 mg/dL 6 - 20 mg/dL [facility] [place] CTA CHEST W WO CONTRASTon No evidence pulmonar y embolism or acute pulmonary abnormalities. [facility] RADIOLOGY EXAMINATION: CTA OF THE CHEST WITH [...] No acute bone or soft tissue abnormality. [facility] Alcon Valdivia MD - 05/17/2022 EXAMINATION: [...] evidence pulmonary embolism or acute pulmonary abnormalities. [employer] Work Phone: [employer] Work Phone: No Panel Informationon 05-17 Interpretation and review of laboratory results Abnormal [facility] [place] Radiology Study observation (narrative) [facility] Work Phone: [facility] TSHon 05-17-2022 TSH Qn 121.800 m[IU]/L High [facility] Troponinon 05-17-2022 Troponin I.cardiac [Mass/Vol] ng/mL 0.000 - 0.010 ng/mL [facility] Comment on above: Methodology by Vinicio Montilla. Troponin I.cardiac [Mass/Vol] ng/mL 0.000 - 0.010 ng/mL [facility] Comment on above: Methodology by Vinicio Montilla. [facility] XR CHEST PORTABLEon 05-17-20 22 No acute process. [facility] EXAMINATION: ONE XRAY VIEW OF THE [...] The osseous structures are without acute process. [facility] Alcon Valdivia MD - 05/17/2022 EXAMINATION: [...] without acute process. IMPRESSION: No acute process. [employer] Phone: XR CHEST PORTABLEOrdered By: Alcon Valdivia on 05-17-2022 [employer] Phone: CT head/brain wo conon 08-25 CT head/brain wo con [facility] [place] [address] CT Scan Report Signed Patient: Kyra Ritter MR#: [id number] : 1970 Acct:[id number] Age/Sex: 50 / F ADM Date: 08/25/21 Loc: ER Room: Type: [facility] ER Attending Dr: Ordering Provider: Santos Carbajal [...] Anna Loyola M.D.08/25/2021 5:50 PM Dictation Location: [place] [address] Transcribed By: [facility] 08/25/211749 Dictated By: Anna Loyola MD 08/25/211734 Signed By: 08/25/211749 [facility] CT CHEST W CONTRASTOrdered B y: Ariana Francis on 03-30-2021 Scarring and/or subsegmental atelectatic change left lung base. Hepatic steatosis. All CT scans at this facility use dose modulation, iterative reconstruction, and/or weight based dosing when appropriate to reduce radiation dose to as low as reasonably achievable. [employer] Phone: CT of the Chest with intravenous [...] attenuation. Musculoskeletal:No osteoblastic, and no osteolytic lesions. [employer] Phone: Nayan, po Incoming Radiant Results From [facility]/Yes[facility] - 03/30/2021 10:[address] of [...] dose to as low as reasonably achievable. [employer] Phone: [employer] Phone: EKG 12 Lead - Chest PainOrde red By: Rodolfo Medrano on 03-30-2021 Atrial Rate 63 BPM [employer] Phone: P Henrietta 75 degrees [employer] Phone: P-R Interval 170 ms [employer] Phone: Q-T Interval 410 ms [employer] Phone: QRS Duration 84 ms [employer] Phone: QTc Calculation (Bazett) 419 ms [employer] Phone: R Henrietta 112 degrees [employer] Phone: T Henri[place] 268 degrees [employer] Phone: Ventricular Rate 63 BPM [employer] Phone: Normal sinus rhythm Possible Left atrial enlargement Left posterior fascicular block ST & T wave abnormality, consider inferolateral ischemia Abnormal ECG When compared with ECG of 27-MAR-2021 14:29, Vent. rate has decreased BY 101 BPM T wave inversion now evident in Lateral leads Confirmed by Adrian Slaughter ([id number]) on 03/30/2021 7:56:43 AM [employer] Work Phone: Nayan, Chpo Incoming Results From [place] - 03/30/2021 7:58 AM EDT Normal sinus rhythm Possible Left atrial enlargement Left posterior fascicular block ST & T wave abnormality, consider inferolateral ischemia Abnormal ECG When compared with ECG of 27-MAR-2021 14:29, Vent. rate has decreased BY 101 BPM T wave inversion now evident in Lateral leads Confirmed by Adrian Slaughter ([id number]) on 03/30/2021 7:56:43 AM [employer] Work Phone: [employer] Phone: POCT GlucoseOrdered By: Unkn own Result on 03-30-2021 Glucose [Mass/Vol] 93 mg/dL 60 - 115 mg/dl [employer] Phone: Performed on ACCU-CHEK [employer] Phone: [employer] Phone: Echocardiogram complete 2D w ith doppler with colorOrdered By: Ariana Francis on 03-28-2021 Transthoracic Echocardiography Report (TTE) Demographics Patient Name NEWCOMER Gender Female KYRA Patient Number [id number] Race Ethnicity Visit Number [id number] Room Number [id number] Corporate ID Date of Study 03/28/2021 Referring Physician Number Date of 1970 [employer] Technician Alison Lord Age 50 year(s) Interpreting [employer] Physician Cardiology [address] Procedure Type of [...] Root: 3.12 cm LVOT Diameter: 2.05 cm VODECLIC [employer] Work Phone: Nayan, [facility] Incoming Cardiovascular Results From [facility] - 03/28/2021 4:45 PM EDT Transthoracic Echocardiography Report (TTE) Demographics Patient Name NEWCOMER Gender Female KYRA Patient Number [id number] Race Ethnicity Visit Number [id number] Room Number [id number] Corporate ID Date of Study 03/28/2021 Referring Physician Number Date of 1970 Cooling Tower Technician Alison Lord Age 50 year(s) Interpreting [facility] Physician Cardiology [address] Procedure Type of [...] Root: 3.12 cm LVOT Diameter: 2.05 cm [employer] Phone: [employer] Phone: TroponinOrdered By: Ariana sanchez on 03-28-2021 Interpretation and review of laboratory results Abnormal [employer] Phone: Interpretation and review of laboratory results Abnormal [employer] Phone: Interpretation and review of laboratory results Abnormal [employer] Phone: Interpretation and review of laboratory results Abnormal [employer] Phone: Troponin I.cardiac [Mass/Vol] 0.027 ng/mL Critically high 0.000 - 0.010 ng/mL [employer] Phone: Comment on above: Methodology by Tropo ranjana T. Troponin I.cardiac [Mass/Vol] 0.027 ng/mL Critically high 0.000 - 0.010 ng/mL [employer] Phone: Comment on above: Methodology by Tropo ranjana T. Troponin I.cardiac [Mass/Vol] 0.025 ng/mL Critically high 0.000 - 0.010 ng/mL [employer] Phone: Comment on above: Methodology by Tropo ranjana T. Troponin I.cardiac [Mass/Vol] 0.020 ng/mL Critically high 0.000 - 0.010 ng/mL [employer] Phone: Comment on above: Methodology by Tropo ranjana T. CALL [employer] tel. [phone], Trop results called to and read back by Denise Gan, 03/28/2021 00:43, by [facility] [employer] Phone: [employer] Phone: CALL [employer] tel. [phone], Trop results called to and read back by Denise Menard RN, 03/28/2021 04:45, by [facility] [employer] Phone: [employer] Phone: CALL [employer] tel. [phone], Troponin results called to and read back by Denise Gomez RN, 03/28/2021 09:38, by [employer] Phone: [employer] Phone: CALL [employer] tel. [phone], Troponin results called to and read back by Denise Gomez RN, 03/28/2021 12:03, by [employer] Phone: [employer] Phone: APTTOrdered By: Rodolfo Medrano on 03-27-2021 aPTT Coag (Jolene) [Time] 57.7 s High [facility] Work Phone: Comment on above: Effective 04/02/2020: Heparin Therapeutic Range: 64.0 98.0 seconds. CBC Auto DifferentialOrdered By: Rodolfo Medrano on 03-27-2021 Basophils (Bld) [#/Vol] 0.1 10*3/uL 0.0 - 0.2 K/uL [employer] Phone: Basophils/100 WBC (Bld) 1.1 % M [employer] Phone: Eosinophils (Bld) [#/Vol] 0.0 10*3/uL 0.0 - 0.7 K/uL [employer] Phone: Eosinophils/100 WBC (Bld) 0.1 % [employer] Phone: Hematocrit (Bld) [Volume fraction] 45.8 % 37.0 - 47.0 % [employer] Phone: Hemoglobin.gastrointest inal spec 1 Ql (Stl) 15.0 g/dL 12.0 - 16.0 g/dL [employer] Phone: Lymphocytes (Bld) [#/Vol] 1.9 10*3/uL 1.0 - 4.8 K/uL [employer] Phone: Lymphocytes/100 WBC (Bld) 21.0 % [employer] Phone: MCH (RBC) [Entitic mass] 30.2 pg 27.0 - 31.3 pg [employer] Phone: MCHC (RBC) [Mass/Vol] 32.8 % Low 33.0 - 37.0 % [employer] Phone: MCV (RBC) [Entitic vol] 91.9 fL 82.0 - 100.0 fL [employer] Phone: Monocytes (Bld) [#/Vol] 0.8 10*3/uL 0.2 - 0.8 K/uL [employer] Phone: Monocytes/100 WBC (Bld) 8.3 % [facility] Phone: Neutrophils Absolute 6.4 K/uL 1.4 - 6 .5 K/uL [facility] Phone: Neutrophils/100 WBC (Bld) 69.5 % [facility] Phone: Platelet distribution width (Bld) [Ratio] 16.7 % High 11.5 - 14.5 % [facility] Phone: Platelets (Bld) [#/Vol] 308 10*3/uL 130 - 400 K/uL [facility] Phone: RBC (Bld) [#/Vol] 4.98 10*6/uL [facility] Phone: WBC (Bld) [#/Vol] 9.2 10*3/uL 4.8 - 10.8 K/uL [facility] Phone: Comprehensive Metabolic Pane lOrdered By: Rodolfo Medrano on 03-27-2021 Albumin [Mass/Vol] 4.9 g/dL High 3.5 - 4.6 g/dL [facility] Phone: ALP (Bld) [Catalytic activity/Vol] 56 U/L 40 - 130 U/L [facility] [employer] Phone: ALT [Catalytic activity/Vol] 21 U/L 0 - 33 U/L [facility] [employer] Phone: Anion gap [Moles/Vol] 15 mmol/L [facility] [employer] Phone: AST [Catalytic activity/Vol] 33 U/L 0 - 35 U/L [facility] [employer] Phone: Comment on above: Specimen hemolysis h as exceeded the interference as defined by Lindsay. Value may be falsely increased. Suggest recollection if clinically indicated. Bilirubin [Mass/Vol] 0.6 mg/dL 0.2 - 0 .7 mg/dL [facility] Phone: Calcium [Mass/Vol] 9.1 mg/dL 8.5 - 9.9 mg/dL [employer] Phone: Chloride [Moles/Vol] 100 mmol/L [employer] Work Phone: CO2 [Moles/Vol] 23 mmol/L [facility] Work Phone: Creatinine [Mass/Vol] 0.81 mg/dL 0.50 - 0.90 mg/dL [employer] Phone: Free PSA/Total PSA [Mass fraction] 7.9 g/dL 6.3 - 8.0 g/dL [employer] Phone: GFR >60.0 >60 [employer] Phone: Comment on above: >60 mL/min/1.73m2 EG FR, calc. for ages 18 and older using the MDRD formula (not corrected for weight), is valid for stable renal function. GFR Non- >60.0 >60 [employer] Work Phone: Comment on above: >60 mL/min/1.73m2 EG FR, calc. for ages 18 and older using the MDRD formula (not corrected for weight), is valid for stable renal function. Globulin (S) [Mass/Vol] 3 g/dL 2.3 - 3.5 g/dL [employer] Phone: Glucose [Mass/Vol] 139 mg/dL High 70 - 99 mg/dL [employer] Work Phone: Potassium [Moles/Vol] 3.8 mmol/L [employer] Phone: Sodium [Moles/Vol] 138 mmol/L [employer] Phone: Urea nitrogen (BldV) [Mass/Vol] 15 mg/dL 6 - 20 mg/dL [employer] Phone: D-Dimer, QuantitativeOrdered By: Rodolfo Medrano on 03-27-2021 D-Dimer, Quant 0.48 [facility] Work Phone: Comment on above: VTE (DVT or PE) cut- off = 0.50 mg/L FEU MagnesiumOrdered By: Rodolfo davidson on 03-27-2021 Magnesium [Mass/Vol] 2.2 mg/dL 1.7 - 2 .4 mg/dL [facility] Work Phone: No Panel InformationOrdered By: Rodolfo Medrano on 03-27-2021 Interpretation and review of laboratory results Abnormal [facility] Work Phone: CALL [employer] ED tel. [phone], TROP results called to and read back by SY GARCIA, 03/27/2021 15:40, by GILSON [facility] Work Phone: [facility] Work Phone: Protime-INROrdered By: Rodolfo Medrano on 03-27-2021 INR Coag (Bld) [Relative time] 2.7 {INR} [facility] Work Phone: PT Coag (PPP) [Time] 28.1 s High [facility] Work Phone: T4, FreeOrdered By: Rodolfo tijerina on 03-27-2021 Free T4 [Mass/Vol] 0.16 ng/dL Low 0.84 - 1. 68 ng/dL [facility] Work Phone: TSH without ReflexOrdered By : Rodolfo Medrano on 03-27-2021 TSH Qn 139.400 m[IU]/L [facility] Work Phone: TroponinOrdered By: Ariana Neumann ed on 03-27-2021 Interpretation and review of laboratory results Abnormal [facility] Work Phone: Troponin I.cardiac [Mass/Vol] 0.029 ng/mL Critically high 0.000 - 0.010 ng/mL [facility] Work Phone: Comment on above: Methodology by Vinicio Butt CALL [employer] LC[facility]W tel. [phone], TROP results called to and read back by JANELL SEAMAN, 03/27/2021 18:38, by GILSON [employer] Phone: [employer] Phone: TroponinOrdered By: Rodolfo tijerina on 03-27-2021 Troponin I.cardiac [Mass/Vol] 0.018 ng/mL Critically high 0.000 - 0.010 ng/mL [employer] Phone: Comment on above: Methodology by Tropo ranjana Montilla. XR CHEST PORTABLEOrdered By: Rodolfo Medrano on 03-27-2021 NO ACUTE CARDIOPULMONARY DISEASE. [employer] Phone: EXAMINATION: XR CHES T PORTABLE CLINICAL HISTORY: PALPITATIONS, SHORTNESS OF BREATH. COMPARISONS: 2020 FINDINGS: Osseous structures are intact. Cardiopericardial silhouette is normal. Pulmonary vasculature is normal. Lungs are clear. [employer] Phone: Nayan, Chpo Incoming Radiant Results From [facility]/[employer] - 03/27/2021 3:38 PM EDT EXAMINATION: XR CHEST PORTABLE CLINICAL HISTORY: PALPITATIONS, SHORTNESS OF BREATH. COMPARISONS: 2020 FINDINGS: Osseous structures are intact. Cardiopericardial silhouette is normal. Pulmonary vasculature is normal. Lungs are clear. IMPRESSION: NO ACUTE CARDIOPULMONARY DISEASE. [employer] Phone: [employer] Phone: Social History Date Type Detail Facility Start: 05-17-2022 History SDOH Alcohol Frequency 5 [facility] [employer] Phone: Start: 05-17-2022 History SDOH Alcohol Std Drinks 1 [facility] [employer] Phone: Start: 05-17-2022 History SDOH Alcohol Binge 3 [facility] [employer] Phone: Start: 05-07-2022 End: 05-17-2022 Exposure to SARS-CoV-2 (event) Not sure [employer] [facility] [employer] [place] Start: 04-13-2021 Tobacco smoking stat us NHIS Ex-smoker [employer] Start: 04-13-2021 Tobacco Comment quit since susan ng admitted 03/23/21 [employer] Work Phone: Start: 01-15-2020 End: 02-03-2021 Tobacco smoking status NHIS Current every day smoker [employer] [place], [place] Start: 01-15-2020 End: 04-13-2021 Cigarettes smoked current (pack per day) - Reported [facility] [place] [place] Start: 01-15-2020 End: 04-13-2021 Tobacco use and exposure Never used [facility] [place] Start: 01-15-2020 End: 07-19-2022 Alcohol intake Current drinker of alcohol (finding) [facility] [place] [place] Start: 1970 Sex Assigned At Not on file M [employer] [place], [place] History of tobacco use Cigarette Smoker M [employer] [place] History of tobacco use Current smoker [employer] Work Phone: Vital Signs Date Time Vital Sign Value Performing Clinician Lorenai rahel 07-19-2022 11:58-0500 Diastolic blood pressure 80 mm[Hg] [facility] [employer] Phone: [employer] 07-19-2022 11:58-0500 Heart rate 57 /min [employer] Work Phone: [employer] 07-19-2022 11:58-0500 Respiratory rate 19 /min [employer] Phone: [employer] 07-19-2022 11:58-0500 SaO2% (BldA) [Mass fraction] 98 % [employer] Work Phone: [employer] 07-19-2022 11:58-0500 Systolic blood pressure 140 mm[Hg] [employer] Phone: [employer] 07-19-2022 08:01-0500 Body height 167.6 cm Sara Astorga DO Work Phone: [employer] 07-19-2022 08:01-0500 Body mass index (BMI) [Ratio] 24.21 kg/m2 Sara Astorga DO Work Phone: [employer] [employer] 07-19-2022 08:01-0500 Body weight 68.04 kg Sara Astorga DO Work Phone: [facility] [employer] 07-19-2022 08:00-0500 Body temperature 98.2 [degF] Sara Astorga DO Work Phone: [employer] [facility] [employer] 05-17-2022 18:00-0500 Diastolic blood pressure 89 mm[Hg] Pcp No [facility] [employer] 05-17-2022 18:00-0500 Heart rate 64 /min Pcp No [facility] [employer] 05-17-2022 18:00-0500 Respiratory rate 19 /min Pcp No [facility] [employer] 05-17-2022 18:00-0500 SaO2% (BldA) [Mass fraction] 97 % Pcp No [facility] [employer] 05-17-2022 18:00-0500 Systolic blood pressure 149 mm[Hg] Pcp No [facility] [employer] 05-17-2022 13:13-0500 Body height 167.6 cm Pcp No [facility] [employer] 05-17-2022 13:13-0500 Body mass index (BMI) [Ratio] 23.73 kg/m2 Pcp No [facility] [employer] 05-17-2022 13:13-0500 Body temperature 97.81 [degF] Pcp No [facility] [employer] 05-17-2022 13:13-0500 Body weight 66.68 kg Pcp No [facility] [employer] 03-31-2021 14:34-0400 Body temperature 98.6 [degF] Rodolfo Medrano MD Work Phone: [employer] Work Phone: 03-31-2021 14:34-0400 Diastolic blood pressure 68 mm[Hg] Rdoolfo Medrano MD Work Phone: [employer] Work Phone: 03-31-2021 14:34-0400 Heart rate 53 /min Rodolfo Medrano MD Work Phone: [employer] Work Phone: 03-31-2021 14:34-0400 Respiratory rate 18 /min Rodolfo Medrano MD Work Phone: [employer] Work Phone: 03-31-2021 14:34-0400 SaO2% (BldA) [Mass fraction] 99 % Rodolfo Medrano MD Work Phone: [employer] Work Phone: 03-31-2021 14:34-0400 Systolic blood pressure 127 mm[Hg] Rodolfo Medrano MD Work Phone: [employer] Work Phone: 03-27-2021 14:21-0400 Body height 167.6 cm Rodolfo Medrano MD Work Phone: [employer] Work Phone: 03-27-2021 14:21-0400 Body mass index (BMI) [Ratio] 25.02 kg/m2 Rodolfo Medrano MD Work Phone: [employer] Work Phone: 03-27-2021 14:21-0400 Body weight 70.31 kg Rodolfo Medrano MD Work Phone: [employer] Work Phone: 01-15-2020 12:43-0400 BP Diastolic 68 mm[Hg] [facility] [place] , [place] 01-15-2020 12:43-0400 BP Systolic 132 mm[Hg] [facility] , [place] 01-15-2020 12:43-0400 Pulse Oximetry 100 % [facility] , [place] 01-15-2020 12:43-0400 Respiratory Rate 20 /min [facility] 01-15-2020 10:50-0400 BMI (Body Mass Index) 21.47 kg/m2 [facility] [place] 01-15-2020 10:50-0400 Body Temperature 98.01 [degF] [facility] 01-15-2020 10:50-0400 Body weight 60.33 kg [facility] [place] 01-15-2020 10:50-0400 Height 167.6 cm [place], [place] 01-15-2020 10:50-0400 Pulse (Heart Rate) 90 /min [place], [place] Hospital Discharge instructions 03-31-2021 Discharge Instr - [...] at most local grocery stores, pharmacies, and chain super-stores. If you have any questions about your diet or nutrition, call the hospital and ask for the dietitian. A low fat, low cholesterol diet is recommended The following attachments cannot be sent through Care Everywhere.levothyroxine (oral/injection) (Togolese)metoprolol (oral/injection) (Togolese)nicotine (transdermal) (Togolese)documented in this encounter [facility] Work Phone: Hospital course Narrative 03-31-2021 Ariana Francis MD - 03/31/2021 3:18 PM EDT Note Date & Type Note Facility 03-31-2021 Hospital course Narrative Cardiology Discharge Summary Patient Identification: Kyra Ritter : 1970 Account: [id number] Admit date: 03/27/2021 Discharge date: 03/31/21 Attending provider: Ariana Francis MD Primary care provider: No primary care provider on file. Admission Diagnoses: SVT Discharge Diagnoses: Active Hospital Problems Diagnosis Date Noted Troponin I above reference range [R77.8] Priority: High SVT (supraventricular tachycardia) (HCC) [I47.1] 03/27/2021 Priority: Low Hypothyroidism [E03.9] Priority: Low Hospital Course: Kyra Ritter is a50 y.o. female admitted to [facility] on 03/27/2021 for SVT. This was reviewed [...] 200 MG tablet Comments: Reason for Stopping: wvaafyv-mtflhvnebyzpb-dxrnnmrk (EXCEDRIN MIGRAINE) 250-250-65 MG per tablet Comments: Reason for Stopping: naproxen (NAPROSYN) 500 MG tablet Comments: Reason for Stopping: Significant Diagnostics: Radiology: Echocardiogram complete 2D with doppler with color Result Date: 03/28/2021 Transthoracic Echocardiography Report (TTE) Demographics Patient Name FRANCISCO Gender Female KYRA Patient Number [id number] Race Ethnicity Visit Number [id number] Room Number [id number] Corporate ID Date of Study 03/28/2021 Referring Physician Number Date of 1970 Cooling Tower Technician Alison Lord Age 50 year(s) Interpreting [facility] Physician Cardiology [address] Procedure Type of [...] ms QTc Calculation (Bazett) 413 ms P Henrietta 65 degrees R Henrietta 111 degrees T Henrietta 25 degrees POCT Glucose Collection Time: 03/30/21 9:29 PM Result Value Ref Range POC Glucose 93 60 - 115 mg/dl Performed on ACCU-CHEK Follow-up visits: LEOBARDO Juan [address] [facility] [address] [facility] [id number] In 2 weeks Ariana Francis MD [address] [facility] [address] [facility] [id number] Assessment: Active Hospital Problems Diagnosis Date Noted Troponin I above reference range [R77.8] Priority: High SVT (supraventricular tachycardia) (HCC) [I47.1] 03/27/2021 Priority: Low Hypothyroidism [E03.9] Priority: Low Plan: 1.DC home FU with Murray Nichols and hi DC time 40 min. Complete blood reconciliation examined the patient make follow-up plans. Electronically signed by Ariana Francis MDon 03/31/2021 at 3:18 PM documented in this encounter [employer] Phone: History of Present illness Narrative 03-31-2021 José Miguel Duvall MD - 03/31/2021 3:09 PM Jennifer Bermudez MD - 03/31/2021 10:47 AM Ariana Hamlin MD - 03/30/2021 8:02 AM Ariana Hamlin MD - 03/29/2021 9:18 AM EDT Note Date & Type Note Facility 03-31-2021 History of Present illness Narrative Progress Note Date:03/31/2021 Room:[place] [address] Patient Name:Kyra Ritter Date of :1970 Age:50 [...] thyroid ultrasound as outpatient). Progress Note Date:03/31/2021 Room:[place] [address] Patient Name:Kyra Ritter Date of :1970 Age:50 [...] Unit/Bed: W163/W163-01 Date of : 1970 Acct: [id number] Admitting Diagnosis: Paroxysmal supraventricular tachycardia (HCC) [I47.1] [...] Name NEWCOMER Gender Female KYRA Patient Number [id number] Race Ethnicity Visit Number [id number] Room Number [id number] Corporate ID Date of Study 03/28/2021 Referring Physician Number Date of 1970 Cooling Tower Technician Alison Lord Age 50 year(s) Interpreting [facility] Physician Cardiology [address] Procedure Type of [...] Unit/Bed: W163/W163-01 Date of : 1970 Acct: [id number] Admitting Diagnosis: Paroxysmal supraventricular tachycardia (HCC) [I47.1] [...] Name NEWCOMER Gender Female KYRA Patient Number [id number] Race Ethnicity Visit Number [id number] Room Number [id number] Corporate ID Date of Study 03/28/2021 Referring Physician Number Date of 1970 Cooling Tower Technician Alison Lord Age 50 year(s) Interpreting [facility] Physician Cardiology cesar Saavedradcsherry Procedure Type of Study TTE procedure:ECHO COMPLETE [...] corrected Physician Progress Note PATIENT: KYRA RITTER [facility] #: [id number] : 1970 ADMIT DATE: 03/27/2021 2:20 PM [...] Treatment: endocrine consult Synthroid pertinent labs Madhuri GarrisonN RN CDS contact [phone] M-F 6am - 2pm Options provided: -- [...] 03/28/2021 12:52 PM documented in this encounter [employer] Phone: Evaluation note Note Date & Type Note Facility Evaluation note Diagnosis Paroxysmal supraventricular tachycardia (HCC)- Primary Paroxysmal supraventricular tachycardia Elevated troponin Other abnormal blood chemistry Hypothyroidism, unspecified type SVT (supraventricular tachycardia) (HCC) Other specified cardiac dysrhythmias Troponin I above reference range Other abnormal blood chemistry documented in this encounter [employer] Phone: Evaluation note Note Date & Type Note Facility Evaluation note Diagnosis Chest pain, unspecified type- Primary Hypothyroidism, unspecified type H/O noncompliance with medical treatment, presenting hazards to health Personal history of noncompliance with medical treatment, presenting hazards to health Encounter for medication refill Issue of repeat prescriptions documented in this encounter [employer] Phone: Evaluation note Note Date & Type Note Facility Evaluation note Diagnosis Closed fracture of multiple ribs of right side, initial encounter- Primary Alcohol abuse Alcohol abuse, unspecified documented in this encounter [employer] Phone: Hospital Discharge instructions Attachments Note Date & Type Note Facility Hospital Discharge instructions The following attachments cannot be sent through Care Everywhere.Chest Pain (Togolese)Hypothyroidism (Togolese)documented in this encounter [facility] [employer] Phone: Hospital Discharge instructions Attachments Note Date & Type Note Facility Hospital Discharge instructions The following attachments cannot be sent through Care Everywhere.Alcohol Use Disorder: General Info (Togolese)documented in this encounter [facility] [employer] Phone: Discharge Instructions * Attachments The following attachments cannot be sent through Care Everywhere. * Ankle Fracture (Togolese) * Splint or Immobilizer Use (Togolese) * RICE: General Info (Togolese) * Sciatica (Togolese) * Back Pain (Togolese) documented in this encounter Assessments Diagnosis Sciatica of left side Sciatica Strain of lumbar region, initial encounter Sprain of right ankle, unspecified ligament, initial encounter Closed fracture of right ankle, initial encounter Advance Directives No Advanced Directives Records FoundDocuments on File Type Date Recorded Patient Keeler Polygraph Operator Expl anation Advance Directives and Living Will Power of Tank Cooper Documents on File Type Date Recorded Patient Keeler Polygraph Operator Expl anation ACP-Advance Directive ACP-Power of Tank Cooper Latest Code Status on File Code Status [...] RN) 0759 (Given - Provider: Ila Waldron, TAWANNA) levothyroxine (SYNTHROID) tablet 100 mcg 100 mcg, Oral, DAILY, First dose on 03/28/21 at 0900, Tube feeding (TF) interaction, obtain physician order to manage, recommend holding TF for 30 minutes before and after dose. 0601 (Given - Provider: Alyson Vgoel RN) 0545 (Given - Provider: Denise Gan RN) 0627 (Given - Provider: Nahed Hubbard, TAWANNA) Levothyroxine Sodium (SYNTHROID) 100 MCG/5ML injection 50 mcg 50 mcg, IntraVENous, ONCE, On Tue03/27/21 at 1612, For 1 dose metoprolol tartrate (LOPRESSOR) tablet 25 mg 25 mg, Oral, 2 TIMES DAILY, First dose (after last modification) on 03/28/21 at 2100, Hold for HR less than 60 0842 (Given - Provider: Ila Waldron RN)2236 (Not Given - Provider: Denise Gan RN - Reason: Order parameters not met - Comment: hr= 42) 0832 (Not Given - Provider: Ila Waldron RN - Reason: Other)1926 (Held - Provider: Nahed [...] RN) 0832 (Patch Applied - Provider: Ila Waldron, RN) 0759 (Patch Applied - Provider: Ila [...] Gan RN) 0832 (Given - Provider: Ila Waldron RN)2019 (Given - Provider: Nahed Hubbard, TAWANNA) 0800 (Given - Provider: Ila Waldron, TAWANNA)2100 (Due) zolpidem (AMBIEN) tablet 5 mg 5 [...] Denise Gan RN)0832 (Given - Provider: Ila Waldron RN - Comment: chest) nitroGLYCERIN (NITROSTAT) SL tablet 0.4 mg 0.4 mg, SubLINGual, EVERY 5 MIN PRN, Chest pain, Starting on Tue03/27/21 at 1754, Place 1 tablet under tongue upon chest pain, wait 5 minutes and may repeat up to 3 doses in 15 minutes. Do not crush or break. 06 (Given - Provider: Alyson Vogel RN)06 (Given - Provider: Alyson Vogel, RN)0611 (Given - Provider: Alyson Vogel RN) 0534 (Given - Provider: Denise Gan, TAWANNA) ondansetron (ZOFRAN) injection 4 mg(Linked Group 1) 4 mg, IntraVENous, EVERY 6 HOURS PRN, Nausea, Vomiting, Starting on Tue03/27/21 at 1754, Administer if oral route cannot be used. 193 (Given - Provider: Denise Gan RN) 05 (Given - Provider: Denise Gan RN)1333 (Given - Provider: Ila Waldron RN) ondansetron (ZOFRAN-ODT) disintegrating tablet 4 mg(Linked Group 1) 4 mg, Oral, EVERY 8 HOURS PRN, Nausea, Vomiting, Starting on Tue03/27/21 at 1754 1935 (See Alternative - Provider: Denise Gan RN) 05 (See Alternative - Provider: Denise Gan, RN)1333 (See Alternative - Provider: Ila Waldron, TAWANNA) sodium chloride flush 0.9 % injection 5-40 [...] HOURS PRN, Pain Moderate (4-6), Starting on Tue03/28/21 at 1848 0847 (Given - Provider: Ila [...] break. 1426 (Given - Provid er: Kristen Brunner RN) Scheduled Medication Order 07/17/2022 07/18/2022 07/19/2022 [...] 1154 (Patch Applied - Provider: Zeferino Flores, TAWANNA)2354 (Due: Patch Removed - Provider: Zeferino Flores, TAWANNA) PRN Medication Order 07/17/2022 07/18/2022 07/19/2022 iopamidol (ISOVUE-300) 61 % injection 50 mL (COMPLETED) 50 mL, IntraVENous, IMG ONCE PRN, 1 dose, Starting on Tue07/19/22 at 0906, Until Tue07/19/22 at 0917, Other 0917 (Given - Provid er: Kyra Coyle) INFORMATION SOURCE (unrecogn ized section and content) DATE CREATED AUTHOR 11/12/2021 [facility] DATE CREATED AUTHOR AUTHOR'S FAUSTOIZ ATION 08/08/2023 [facility] Care Teams (unrecognized sec tion and content) Director Of Application Development Relationship Specialty Start Date End Date No, Pcp PCP - General 05/17/22 Director Of Application Development Relationship Specialty Start Date End Date No, [...] BE BASED ON THE PRIMARY CLINICAL RECORDS. [employer] [facility]. provides no warranty or guarantee of the accuracy or completeness of information in this document.
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
[2023-11-28 14:26] LABS: Basophils Absolute Auto 0.1 10^3/uL (0.0-0.1); Eosinophils Absolute Auto 0.3 10^3/uL (0.0-0.7); Eosinophils Percent Auto 4.2 % (0.9-7.0); Hematocrit 36.5 % (36.0-48.0); Hemoglobin 11.8 g/dL (12.0-16.0); Immature Granulocytes Abs Auto 0.05 10^3/uL (0.00-0.03); Immature Granulocytes Pct Auto 0.6 % (0.0-0.5); Lymphocytes Absolute Auto 1.8 10^3/uL (1.2-3.8); Lymphocytes Percent Auto 22.2 % (20.5-60.0); Mean Corpuscular HGB Conc 32.3 g/dL (29.9-35.2); Mean Corpuscular Hemoglobin 33.1 pg (26.7-34.0); Mean Corpuscular Volume 102.5 fL (81.0-99.0); Mean Platelet Volume 11.5 fL (9.5-13.5); Monocytes Absolute Auto 0.6 10^3/uL (0.3-0.8); Monocytes Percent Auto 7.1 % (1.7-12.0); Neutrophils Absolute Auto 5.1 10^3/uL (1.4-6.5); Neutrophils Percent Auto 64.9 % (43.0-75.0); Platelet Count 228 10^3/uL (150-450); Red Blood Count 3.56 10^6/uL (4.20-5.40); Red Cell Distribution Width 13.8 % (11.0-15.0); White Blood Count 7.9 10^3/uL (4.0-11.0)
== END 2023-11-28 09:58 | disposition home or self-care (01) ==
LOC: PST 09:57
PROVIDERS: Visit Provider Podiatrist Foot & Ankle Surgery
DX: Z01.810 Encounter for preprocedural cardiovascular examination (principal); Z01.812 Encounter for preprocedural laboratory examination; Z01.818 Encounter for other preprocedural examination; M25.471 Effusion, right ankle; M89.261 Other disorders of bone development and growth, right tibia
CPT/HCPCS: 71046; 85025; 93005; G0463

== ENCOUNTER 2023-12-05 12:48 | Observation (INO) | payer SELFPAY ==
[2023-11-28 10:43] VITALS: BP 112/88; PULSE 61; TEMP 36.3; O2SAT 94; BMI 26.7
[2023-12-05] VITALS (14 sets, daily range): BP systolic 112–135; BP diastolic 71–96; PULSE 57–87; TEMP 36.1–36.7; O2SAT 93–98; BMI 26.9
--- OUTSIDE RECORDS SUMMARY | 2023-12-05 06:10 | XMS_ITS | CCD ---
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 Role Phone Unavailable Primary Care Provider Unavailabl e No, Pcp Primary Care Provider Unavailabl e NO, PCP Primary Care Unavailable CHIP SIERRA Attending Unavailable BOBBY, PCP Primary Care Unavailable MARTINEZ Attending Unavailable Allergies Allergy Classification Reported Allergen(s) Allergy Type Date of Onset Reaction(s) Facility (4 sources) Aluminum aspirin Drug Allergy 7 Swelling [place], [place] (4 sources) Clindamycin/Lincom ycin Propensity to adverse reactions to drug 8 [place] (2 sources) Tetracyclines & Related Propensity to adverse reactions to drug 8 [place] (2 sources) Tetracycline (class of antibiotic) Propensity to adverse reactions to drug 8 DONYA HUDSON [facility] Work Phone: Medications Current Medications Medication Drug [...] 08-08-2023 Blood Alcohol Concentration 0.186 G/dL Normal [facility] Comment on above: Performed By: #### A LCOH #### [facility] [address] [place] [address] Ethanol [Mass/Vol] 212 mg/dL Normal [facility] Comment on above: Performed By: #### A LCOH #### [facility] [address] [place] [address] CBC With Platelet and Differ entialon 08-08-2023 Basophils (Bld) [#/Vol] 0.1 10*3/uL Normal 0.0-0.2 [facility] Comment on above: Performed By: #### C BCWD #### [facility] [address] [place] [address] Basophils/100 WBC (Bld) 0.9 % Normal [facility] Comment on above: Performed By: #### C BCWD #### [facility] [address] [place] [address] Eosinophils (Bld) [#/Vol] 0.1 10*3/uL Normal 0.0-0.7 [facility] Comment on above: Performed By: #### C BCWD #### [facility] [address] [place] [address] Eosinophils/100 WBC (Bld) 1.8 % Normal [facility] Comment on above: Performed By: #### C BCWD #### [facility] [address] [place] [address] Erythrocyte distribution width (RBC) [Ratio] 14.1 % Normal 11.5-14.5 [facility] Comment on above: Performed By: #### C BCWD #### [facility] [address] [place] [address] Hematocrit (Bld) [Volume fraction] 38.5 % Normal 37.0-47.0 [facility] Comment on above: Performed By: #### C BCWD #### [facility] [address] [place] [address] Hemoglobin (Bld) [Mass/Vol] 13.1 g/dL Normal 12.0-16.0 [facility] Comment on above: Performed By: #### C BCWD #### [facility] [address] [place] [address] Lymphocytes (Bld) [#/Vol] 1.9 10*3/uL Normal 1.0-4.8 [facility] Comment on above: Performed By: #### C BCWD #### [facility] [address] [place] [address] Lymphocytes/100 WBC (Bld) 24.5 % Normal [facility] Comment on above: Performed By: #### C BCWD #### [facility] [address] [place] [address] MCH (RBC) [Entitic mass] 33.4 pg Critically high 27.0-31.3 [facility] Comment on above: Performed By: #### C BCWD #### [facility] [address] [place] [address] MCHC 34.0 % Normal 33.0-37.0 [facility] Comment on above: Performed By: #### C BCWD #### [facility] [address] [place] [address] MCV (RBC) [Entitic vol] 98.2 fL Critically high 79.4-94 .8 [facility] Comment on above: Performed By: #### C BCWD #### [facility] [address] [place] [address] Monocytes (Bld) [#/Vol] 0.5 10*3/uL Normal 0.2-0.8 [facility] Comment on above: Performed By: #### C BCWD #### [facility] [address] [place] [address] Monocytes/100 WBC (Bld) 6.2 % Normal [facility] Comment on above: Performed By: #### C BCWD #### [facility] [address] [place] [address] Neutrophils (Bld) [#/Vol] 5.0 10*3/uL Normal 1.4-6.5 [facility] Comment on above: Performed By: #### C BCWD #### [facility] [address] [place] [address] Neutrophils/100 WBC (Bld) 65.3 % Normal [facility] Comment on above: Performed By: #### C BCWD #### [facility] [address] [place] [address] Platelets (Bld) [#/Vol] 255 10*3/uL Normal 130-400 [facility] Comment on above: Performed By: #### C BCWD #### [facility] [address] [place] [address] RBC (Bld) [#/Vol] 3.92 10*6/uL Low 4.20-5.40 [facility] Comment on above: Performed By: #### C BCWD #### [facility] [address] [place] [address] WBC (Bld) [#/Vol] 7.7 10*3/uL Normal 4.8-10.8 [facility] Comment on above: Performed By: #### C BCWD #### [facility] [address] [place] [address] CT ABDOMEN PELVIS W IV CONTR Herb [...] Annemarie Ruby MD 08/08/23 Final result Normal [facility] CT CERVICAL SPINE WO CONTRAS Ton [...] Annemarie Ruby MD 08/08/23 Final result Normal [facility] CT CHEST W CONTRASTon 2023 CT [...] by: Annemarie Ruby MD Signed by: Annemarie Rbuy MD 08/08/23 Final result Normal [facility] CT HEAD WO CONTRASTon 2023 CT [...] Annemarie Ruby MD 08/08/23 Final result Normal [facility] CT LUMBAR SPINE WO CONTRASTo n [...] Annemarie Ruby MD 08/08/23 Final result Normal [facility] CT THORACIC SPINE WO CONTRAS Ton [...] Annemarie Ruby MD 08/08/23 Final result Normal [facility] CTA NECK W WO CONTRASTon CTA [...] Garrett Moore MD 08/08/23 Final result Normal [facility] Comprehensive Metabolic Pane andrey 08-08-2023 Albumin [Mass/Vol] 5.1 g/dL Critically high 3.5-4.6 [facility] Comment on above: Performed By: #### C MP ####[facility] [place] [phone] ALP [Catalytic activity/Vol] 69 U/L Normal 40-130 [facility] Comment on above: Performed By: #### C MP ####[facility] [place] [phone] ALT [Catalytic activity/Vol] 23 U/L Normal 0-33 [facility] Comment on above: Performed By: #### C MP ####[facility] [place] [phone] Anion gap [Moles/Vol] 15 mmol/L Normal 9-15 [facility] Comment on above: Performed By: #### C MP ####[facility] [place] [phone] AST [Catalytic activity/Vol] 37 U/L Critically high 0-35 [facility] Comment on above: Performed By: #### C MP ####[facility] [place] [phone] Bilirubin [Mass/Vol] 0.3 mg/dL Normal 0.2-0.7 [facility] Comment on above: Performed By: #### C MP ####[facility] [place] [phone] Calcium [Mass/Vol] 9.3 mg/dL Normal 8.5-9.9 [facility] Comment on above: Performed By: #### C MP ####[facility] [facility] [phone] Chloride [Moles/Vol] 101 mmol/L Normal 95-107 [facility] Comment on above: Performed By: #### C MP ####[facility] [facility] [phone] CO2 [Moles/Vol] 26 mmol/L Normal 20-31 [facility] Comment on above: Performed By: #### C MP ####[facility] [facility] [phone] Creatinine [Mass/Vol] 0.78 mg/dL Normal 0.50-0.90 [facility] Comment on above: Performed By: #### C MP ####[facility] [facility] [phone] GFR >60.0 Normal >60 [facility] Comment on above: Result Comment: Pedi [...] tubular secretion. Performed By: #### C MP ####[facility] [facility] [phone] Globulin (S) [Mass/Vol] 3.1 g/dL Normal 2.3-3.5 [facility] Comment on above: Performed By: #### C MP ####[facility] [facility] [phone] Glucose [Mass/Vol] 95 mg/dL Normal 70-99 [facility] Comment on above: Performed By: #### C MP ####[facility] [place] [phone] Potassium [Moles/Vol] 3.3 mmol/L Low 3.4-4.9 [facility] Comment on above: Performed By: #### C MP ####[facility] [place] [phone] Protein [Mass/Vol] 8.2 g/dL Critically high 6.3-8.0 [facility] Comment on above: Performed By: #### C MP ####[facility] [place] [phone] Sodium [Moles/Vol] 142 mmol/L Normal 135-144 [facility] Comment on above: Performed By: #### C MP ####[facility] [place] [phone] Urea nitrogen [Mass/Vol] 8 mg/dL Normal 6-20 [facility] Comment on above: Performed By: #### C MP ####[facility] [place] [phone] Lipaseon 08-08-2023 Lipase [Catalytic activity/Vol] 34 U/L Normal 12-95 [facility] Comment on above: Performed By: #### L IPAS #### [facility] [address] [place] [address] POCT Venouson 08-08-2023 Creatinine [Mass/Vol] 1.0 mg/dL Normal 0.6-1.2 [facility] Comment on above: Performed By: #### P ZACK #### [facility] [address] [place] [address] GFR >60 Normal >60 [facility] Comment on above: Result Comment: Zohra [...] secretion. Performed By: #### P ZACK #### [facility] [address] [place] [address] POC Performed on SEE BELOW [facility] Comment on above: Result Comment: Perf ormed on POC Performed By: #### P ZACK #### [facility] [address] [place] [address] POC Sample Type ZACK [facility] Comment on above: Performed By: #### P ZACK #### [facility] [address] [place] [address] POC Performed on SEE BELOW [facility] Comment on above: Result Comment: Perf ormed on POC Performed By: #### P ZACK #### [facility] [address] [place] [address] POC Sample Type ZACK [facility] Comment on above: Performed By: #### P ZACK #### [facility] [address] [place] [address] Partial Thromboplastin Timeo n 08-08-2023 aPTT Coag (Bld) [Time] 29.2 s Normal 24.4-36.8 [facility] Comment on above: Result Comment: Effe ctive 04/02/2020: Heparin Therapeutic Range: 64.0 ? 98.0 seconds. Performed By: #### P TT #### [facility] [address] [place] [address] Prothrombin Timeon INR Coag (PPP) [Relative time] 1.0 {INR} [facility] Comment on above: Performed By: #### P T #### [facility] [address] [place] [address] PT Coag (PPP) [Time] 13.3 s Normal 12.3-14.9 [facility] Comment on above: Performed By: #### P T #### [facility] [address] [place] [address] XR ANKLE RIGHT (MIN 3 VIEWS) on [...] Annemarie Ruby MD 08/08/23 Final result Normal [facility] CT HEAD WO CONTRASTon 2022 CT [...] Denise Driver MD 03/27/23 Final result Normal [facility] XR ANKLE RIGHT (MIN 3 VIEWS) [...] Rodolfo Powell DO 03/27/23 Final result Normal [facility] XR RIBS RIGHT INCLUDE CHEST (MIN [...] Marilyn Nayak MD 03/27/23 Final result Normal [facility] CBC with Auto Differentialon 07-19-2022 Basophils (Bld) [#/Vol] 0.1 10*3/uL 0.0 - 0.2 K/uL [facility] Basophils/100 WBC (Bld) 0.7 % [facility] Eosinophils (Bld) [#/Vol] 0.1 10*3/uL 0.0 - 0.7 K/uL [facility] Eosinophils/100 WBC (Bld) 1 % [facility] Hematocrit (Bld) [Volume fraction] 36.6 % Low 37.0 - 47.0 % [facility] Hemoglobin (Bld) [Mass/Vol] 12.1 g/dL 12.0 - 16.0 g/dL [facility] Interpretation and review of laboratory results Abnormal [facility] Lymphocytes (Bld) [#/Vol] 1.3 10*3/uL 1.0 - 4.8 K/uL [facility] Lymphocytes/100 WBC (Bld) 15.6 % [facility] MCH (RBC) [Entitic mass] 31.1 pg 27.0 - 31.3 pg [facility] MCHC (RBC) [Mass/Vol] 33.0 % 33.0 - 37.0 % [facility] MCV (RBC) [Entitic vol] 94.2 fL 79.4 - 94.8 fL [facility] Monocytes (Bld) [#/Vol] 0.8 10*3/uL 0.2 - 0.8 K/uL [facility] Monocytes/100 WBC (Bld) 9.0 % [facility] Neutrophils Absolute 6.3 K/uL 1.4 - 6 .5 K/uL [facility] Neutrophils/100 WBC (Bld) 73.7 % [facility] Platelet distribution width (Bld) [Ratio] 16.8 % High 11.5 - 14.5 % [facility] Platelets (Bld) [#/Vol] 308 10*3/uL 130 - 400 K/uL [facility] RBC (Bld) [#/Vol] 3.89 10*6/uL Low [facility] WBC (Bld) [#/Vol] 8.6 10*3/uL 4.8 - 10.8 K/uL [facility] CMPon 07-19-2022 Albumin [Mass/Vol] 4.4 g/dL 3.5 - 4.6 g/dL [facility] ALP (Bld) [Catalytic activity/Vol] 74 U/L 40 - 130 U/L [facility] ALT [Catalytic activity/Vol] 12 U/L 0 - 33 U/L [facility] Anion gap [Moles/Vol] 15 mmol/L [facility] AST [Catalytic activity/Vol] 20 U/L 0 - 35 U/L [facility] Bilirubin [Mass/Vol] 0.3 mg/dL 0.2 - 0 .7 mg/dL [facility] Calcium [Mass/Vol] 8.8 mg/dL 8.5 - 9.9 mg/dL [facility] Chloride [Moles/Vol] 103 mmol/L [facility] CO2 [Moles/Vol] 26 mmol/L [facility] Creatinine [Mass/Vol] 0.42 mg/dL Low 0.50 - 0.90 mg/dL [facility] GFR/1.73 sq M.predicted MDRD (S/P/Bld) [Vol rate/Area] 60 - PINF [facility] Comment on above: Pediatric calculator link [...] [Mass/Vol] 2.9 g/dL 2.3 - 3.5 g/dL [facility] Glucose [Mass/Vol] 99 mg/dL 70 - 99 mg/dL [facility] Interpretation and review of laboratory results Abnormal [facility] Potassium [Moles/Vol] 3.3 mmol/L Low [facility] Protein [Mass/Vol] 7.3 g/dL 6.3 - 8.0 g/dL [facility] Sodium [Moles/Vol] 144 mmol/L [facility] Urea nitrogen (BldV) [Mass/Vol] 8 mg/dL 6 - 20 mg/dL [facility] CT ABDOMEN PELVIS W IV CONTR AST Additional Contrast? Noneon 07-19-2022 Age-indeterminate avulsion chip fracture, anterior superior margin L4 vertebral body. 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 Other etiologies, including calcified pancreatic cyst/pseudocyst less likely. [facility] RADIOLOGY EXAMINATION: CT OF THE ABDOMEN AND [...] L5-S1. Small anterior osteophytes L3 through L5. [facility] RADIOLOGY Signer, MD Clay - 07/19/2022 EXAMINATION: [...] etiologies, including calcified pancreatic cyst/pseudocyst less likely. [employer] Phone: CT ABDOMEN PELVIS W IV CONTR AST Additional Contrast? NoneOrdered By: Clay Corona on 07-19-2022 [employer] Phone: CT CHEST W CONTRASTon 2022 Addendum by Gomez Yung MD on 07/19/2022 10:56 AM EST ADDENDUM: Nondisplaced right T9 rib fracture,. Otherwise no evidence of traumatic chest pathology. [employer] Phone: Nondisplaced right T 9 fracture,. Otherwise no evidence of traumatic chest pathology. [facility] RADIOLOGY EXAMINATION: CT OF THE CHEST WITH [...] is seen. Degenerative bone changes are seen. [facility] RADIOLOGY Gomez Yung M D - 07/19/2022 [...] Otherwise no evidence of traumatic chest pathology. [employer] Phone: CT CHEST W CONTRASTOrdered B y: Gomez Yung on 07-19-2022 [employer] Phone: ETOHon 07-19-2022 Ethanol percent 0.019 G/dL [facility] Magnesium [Mass/Vol] 22 mg/dL [facility] Microscopic Urinalysison Bacteria, UA Negative Negative /HPF [facility] Epithelial Cells, UA 0-2 [facility] Hyaline Casts, UA 1-3 [facility] Interpretation and review of laboratory results Abnormal [facility] RBC, UA 6-10 Abnormal [facility] WBC, UA 0-2 [facility] No Panel Informationon 07-19 Radiology Study observation (narrative) [facility] Work Phone: Pro[employer]INRon 07-19-2022 INR Coag (Bld) [Relative time] 1.0 {INR} [facility] PT Coag (PPP) [Time] 13.7 s [facility] Urinalysison 07-19-2022 Bilirubin Urine Negative Negative [facility] Blood, Urine TRACE Abnormal Negative [facility] Clarity, UA Clear Clear [facility] Color, UA Yellow Straw/Yellow [facility] Glucose, Ur Negative Negative mg/dL [facility] Interpretation and review of laboratory results Abnormal [facility] Ketones Ql (U) TRACE Abnormal Negative mg/dL [facility] Leukocyte esterase Test strip Ql (U) Negative Negative [facility] Nitrite, Urine Negative Negative [facility] pH, UA 8.5 5.0 - 9.0 [facility] Protein (U) [Mass/Vol] 30 mg/dL Abnormal Negative [facility] Specific [place], UA 1.078 1.005 - 1.030 [facility] Urobilinogen, Urine 0.2 NINF [facility] Urine Drug Screenon 07-19-19 23 Amphetamine Screen, Urine Negative Negative <1000 ng/mL [facility] Barbiturate Screen, Ur Negative Negat laura < 200 ng/mL [facility] Benzodiazepine Screen, Urine Negative Negative < 200 ng/mL [facility] Cannabinoid Scrn, Ur Positive Abnormal Negativ e < 50 ng/mL [facility] Cocaine Metabolite Screen, Urine Negative Negative < 300 ng/mL [facility] Drug Screen Comment: see below [facility] Comment on above: This method is a scr eening test to detect only these drug classes as part of a medical workup. Confirmatory testing by another method should be ordered if clinically indicated. FENTANYL SCREEN, URINE Negative Negat laura < 50 ng/mL [facility] Interpretation and review of laboratory results Abnormal [facility] Methadone Screen, Urine Negative Nega tive <300 ng/mL [facility] Opiate Scrn, Ur Negative Negative < 300 ng/mL [facility] Oxycodone Urine Negative Negative <10 0 ng/mL [facility] PCP Screen, Urine Negative Negative < 25 ng/mL [facility] Propoxyphene Scrn, Ur Negative Negati ve <300 ng/mL [facility] XR RIBS RIGHT INCLUDE CHEST (MIN 3 VIEWS)on 07-19-2022 The chest is clear with no evidence of a pneumothorax. Fracture right 9th and 10th ribs as described. [facility] RADIOLOGY EXAMINATION: 7 XRAY VIEWS OF THE [...] 9th rib. The right humerus appears normal. [facility] RADIOLOGY Be Cadet III , DO - [...] right 9th and 10th ribs as described. [facility] [employer] Work Phone: Radiology Study observation (narrative) [employer] Work Phone: XR RIBS RIGHT INCLUDE CHEST (MIN 3 VIEWS)Ordered By: Be Cadet on 07-19-2022 [facility] [employer] Work Phone: CBC with Auto Differentialon 05-17-2022 Basophils (Bld) [#/Vol] 0.1 10*3/uL 0.0 - 0.2 K/uL [facility] [place] Basophils/100 WBC (Bld) 0.9 % B ON [facility] [employer] Eosinophils (Bld) [#/Vol] 0.3 10*3/uL 0.0 - 0.7 K/uL [facility] [place] Eosinophils/100 WBC (Bld) 3.9 % [facility] [place] Hematocrit (Bld) [Volume fraction] 36.4 % Low 37.0 - 47.0 % [facility] [place] Hemoglobin (Bld) [Mass/Vol] 11.9 g/dL Low 12.0 - 16.0 g/dL [facility] [employer] Interpretation and review of laboratory results Abnormal [facility] [employer] Lymphocytes (Bld) [#/Vol] 2.0 10*3/uL 1.0 - 4.8 K/uL [facility] [place] Lymphocytes/100 WBC (Bld) 30.4 % [facility] MCH (RBC) [Entitic mass] 30.8 pg 27.0 - 31.3 pg [facility] MCHC (RBC) [Mass/Vol] 32.8 % Low 33.0 - 37.0 % [facility] MCV (RBC) [Entitic vol] 93.8 fL 79.4 - 94.8 fL [facility] Monocytes (Bld) [#/Vol] 0.6 10*3/uL 0.2 - 0.8 K/uL [facility] Monocytes/100 WBC (Bld) 8.8 % [facility] Neutrophils Absolute 3.6 K/uL 1.4 - 6 .5 K/uL [facility] Neutrophils/100 WBC (Bld) 56.0 % [facility] Platelet distribution width (Bld) [Ratio] 17.1 % High 11.5 - 14.5 % [facility] Platelets (Bld) [#/Vol] 284 10*3/uL 130 - 400 K/uL [facility] RBC (Bld) [#/Vol] 3.88 10*6/uL Low [facility] WBC (Bld) [#/Vol] 6.5 10*3/uL 4.8 - 10.8 K/uL [facility] CKon 05-17-2022 CK [Catalytic activity/Vol] 677 U/L High 0 - 170 U/L [facility] CMPon 05-17-2022 Albumin [Mass/Vol] 4.8 g/dL High 3.5 - 4.6 g/dL [facility] ALP (Bld) [Catalytic activity/Vol] 57 U/L 40 - 130 U/L [facility] ALT [Catalytic activity/Vol] 19 U/L 0 - 33 U/L [facility] Anion gap [Moles/Vol] 12 mmol/L [facility] AST [Catalytic activity/Vol] 33 U/L 0 - 35 U/L [facility] Bilirubin [Mass/Vol] 0.3 mg/dL 0.2 - 0 .7 mg/dL [facility] Calcium [Mass/Vol] 9.0 mg/dL 8.5 - 9.9 mg/dL [facility] Chloride [Moles/Vol] 101 mmol/L [facility] CO2 [Moles/Vol] 26 mmol/L [facility] Creatinine [Mass/Vol] 0.71 mg/dL 0.50 - 0.90 mg/dL [facility] GFR/1.73 sq M.predicted MDRD (S/P/Bld) [Vol rate/Area] 60 - PINF [facility] Comment on above: Pediatric calculator link [...] [Mass/Vol] 2.9 g/dL 2.3 - 3.5 g/dL [facility] Glucose [Mass/Vol] 87 mg/dL 70 - 99 mg/dL [facility] Potassium [Moles/Vol] 3.5 mmol/L [facility] Protein [Mass/Vol] 7.7 g/dL 6.3 - 8.0 g/dL [facility] Sodium [Moles/Vol] 139 mmol/L [facility] Urea nitrogen (BldV) [Mass/Vol] 9 mg/dL 6 - 20 mg/dL [facility] CTA CHEST W WO CONTRASTon No evidence pulmonar y embolism or acute pulmonary abnormalities. [facility] RADIOLOGY EXAMINATION: CTA OF THE CHEST WITH [...] No acute bone or soft tissue abnormality. [facility] RADIOLOGY Alcon Valdivia MD - 05/17/2022 EXAMINATION: [...] evidence pulmonary embolism or acute pulmonary abnormalities. [facility] [employer] Work Phone: DONYA HUDSON [facility] Work Phone: Radiology Study observation (narrative) DONYA MURRAY [facility] Work Phone: No Panel Informationon 05-17 Interpretation and review of laboratory results Abnormal [facility] DON[facility] TSHon 05-17-2022 Interpretation and review of laboratory results Abnormal [facility] TSH Qn 121.800 m[IU]/L High [facility] Troponinon 05-17-2022 Troponin I.cardiac [Mass/Vol] ng/mL 0.000 - 0.010 ng/mL [facility] Comment on above: Methodology by Vinicio Butt [facility] Troponin I.cardiac [Mass/Vol] ng/mL 0.000 - 0.010 ng/mL [facility] Comment on above: Methodology by Vinicio Butt [facility] XR CHEST PORTABLEon 05-17-20 No acute process. [facility] RADIOLOGY EXAMINATION: ONE XRAY VIEW OF THE [...] The osseous structures are without acute process. [facility] RADIOLOGY Alcon Valdivia MD - 05/17/2022 EXAMINATION: [...] process. IMPRESSION: No acute process. DONYA HUDSON [employer] Work Phone: Radiology Study observation (narrative) DONYA MURRAY [employer] Work Phone: XR CHEST PORTABLEOrdered By: Alcon Valdivia on 05-17-2022 DONYA HUDSON [employer] Work Phone: CT head/brain wo conon 08-25 CT head/brain wo con [facility] [place] [place] [address] CT Scan Report Signed Patient: Kyra Ritter MR#: [id number] : 1970 Acct:[id number] Age/Sex: 50 / F ADM Date: 08/25/21 Loc: ER Room: Type: [facility] ER Attending Dr: Ordering Provider: Santos [...] Anna Loyola M.D.08/25/2021 5:50 PM Dictation Location: [place] [address] Transcribed By: [facility] 08/25/211749 Dictated By: Anna Loyola MD 08/25/211734 Signed By: 08/25/211749 [facility] CT CHEST W CONTRASTOrdered B y: Iselvin Fracnis on 03-30-2021 Scarring and/or subsegmental atelectatic change left lung base. Hepatic steatosis. All CT scans at this facility use dose modulation, iterative reconstruction, and/or weight based dosing when appropriate to reduce radiation dose to as low as reasonably achievable. Treater Phone: CT of the Chest with intravenous [...] attenuation. Musculoskeletal:No osteoblastic, and no osteolytic lesions. Treater Phone: Nayan, Chpo Incoming Radiant Results From [employer] - 03/30/2021 10:[address] of [...] dose to as low as reasonably achievable. [facility] Work Phone: Treater Phone: EKG 12 Lead - Chest PainOrde red By: Rodolfo Medrano on 03-30-2021 Atrial Rate 63 BPM [facility] Work Phone: P Monroe 75 degrees [facility] Work Phone: P-R Interval 170 ms Treater Phone: Q-T Interval 410 ms Treater Phone: QRS Duration 84 ms Treater Phone: QTc Calculation (Bazett) 419 ms Treater Phone: R Monroe 112 degrees Treater Phone: T Monroe 268 degrees Treater Phone: Ventricular Rate 63 BPM [employer] Work Phone: Normal sinus rhythm Possible Left atrial enlargement Left posterior fascicular block ST & T wave abnormality, consider inferolateral ischemia Abnormal ECG When compared with ECG of 27-MAR-2021 14:29, Vent. rate has decreased BY 101 BPM T wave inversion now evident in Lateral leads Confirmed by Adrian Slaughter ([id number]) on 03/30/2021 7:56:43 AM Treater Phone: Nayan, po Incoming Results From [place] - 03/30/2021 7:58 AM EDT Normal sinus rhythm Possible Left atrial enlargement Left posterior fascicular block ST & T wave abnormality, consider inferolateral ischemia Abnormal ECG When compared with ECG of 27-MAR-2021 14:29, Vent. rate has decreased BY 101 BPM T wave inversion now evident in Lateral leads Confirmed by Adrian Slaughter ([id number]) on 03/30/2021 7:56:43 AM Treater Phone: Treater Phone: POCT GlucoseOrdered By: Unkn own Result on 03-30-2021 Glucose [Mass/Vol] 93 mg/dL 60 - 115 mg/dl Treater Phone: Performed on ACCU-CHEK Treater Phone: Treater Phone: Echocardiogram complete 2D w ith doppler with colorOrdered By: Ariana Francis on 03-28-2021 Transthoracic Echocardiography Report (TTE) Demographics Patient Name NEWCOMER Gender Female KYRA Patient Number [id number] Race Ethnicity Visit Number [id number] Room Number [id number] Corporate ID Date of Study 03/28/2021 Referring Physician Number 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) Interpreting [facility] Physician Cardiology [address] Procedure [...] Root: 3.12 cm LVOT Diameter: 2.05 cm [facility] Work Phone: Nayan, Chpo Incoming Cardiovascular Results From [facility] - 03/28/2021 4:45 PM EDT Transthoracic Echocardiography Report (TTE) Demographics Patient Name NEWCOMER Gender Female KYRA Patient Number [id number] Race Ethnicity Visit Number [id number] Room Number [id number] Corporate ID Date of Study 03/28/2021 Referring Physician Number 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 CALL [facility] tel. [phone], Troponin results called to and read back by Denise RosasW RN, 03/28/2021 12:03, by JESE Treater Phone: Treater Phone: Interpretation and review of laboratory results Abnormal [facility] Phone: Troponin I.cardiac [Mass/Vol] 0.025 ng/mL Critically high 0.000 - 0.010 ng/mL Treater Phone: Comment on above: Methodology by Vinicio Butt CALL [employer] [facility] tel. [phone], Troponin results called to and read back by Denise Gomez RN, 03/28/2021 09:38, by JESE Treater Phone: Treater Phone: Interpretation and review of laboratory results Abnormal [facility] Phone: Troponin I.cardiac [Mass/Vol] 0.027 ng/mL Critically high 0.000 - 0.010 ng/mL [facility] Phone: Comment on above: Methodology by Vinicio Montilla. CALL [employer] tel. [phone], Trop results called to and read back by Denise Menard RN, 03/28/2021 04:45, by GUIDO Treater Phone: [facility] Phone: Interpretation and review of laboratory results Abnormal [facility] Phone: Troponin I.cardiac [Mass/Vol] 0.027 ng/mL Critically high 0.000 - 0.010 ng/mL Treater Phone: Comment on above: Methodology by Vinicio Montilla. CALL [employer] tel. [phone], Trop results called to and read back by Denise Gan, 03/28/2021 00:43, by HIGINIO Treater Phone: [facility] Phone: APTTOrdered By: Rodolfo Medrano on 03-27-2021 aPTT Coag (Bld) [Time] 57.7 s High [facility] Work Phone: Comment on above: Effective 04/02/2020: Heparin Therapeutic Range: 64.0 98.0 seconds. CBC Auto DifferentialOrdered By: Rodolfo Medrano on 03-27-2021 Basophils (Bld) [#/Vol] 0.1 10*3/uL 0.0 - 0.2 K/uL [facility] Phone: Basophils/100 WBC (Bld) 1.1 % [facility] Work Phone: Eosinophils (Bld) [#/Vol] 0.0 10*3/uL 0.0 - 0.7 K/uL [facility] Phone: Eosinophils/100 WBC (Bld) 0.1 % Treater Phone: Hematocrit (Bld) [Volume fraction] 45.8 % 37.0 - 47.0 % Treater Phone: Hemoglobin.gastrointest inal spec 1 Ql (Stl) 15.0 g/dL 12.0 - 16.0 g/dL Treater Phone: Interpretation and review of laboratory results Abnormal Treat[facility] Phone: Lymphocytes (Bld) [#/Vol] 1.9 10*3/uL 1.0 - 4.8 K/uL [facility] Phone: Lymphocytes/100 WBC (Bld) 21.0 % Treater Phone: MCH (RBC) [Entitic mass] 30.2 pg 27.0 - 31.3 pg Treater Phone: MCHC (RBC) [Mass/Vol] 32.8 % Low 33.0 - 37.0 % Treater Phone: MCV (RBC) [Entitic vol] 91.9 fL 82.0 - 100.0 fL Treater Phone: Monocytes (Bld) [#/Vol] 0.8 10*3/uL 0.2 - 0.8 K/uL Treater Phone: Monocytes/100 WBC (Bld) 8.3 % [facility] Phone: Neutrophils Absolute 6.4 K/uL 1.4 - 6 .5 K/uL Treater Phone: Neutrophils/100 WBC (Bld) 69.5 % Treater Phone: Platelet distribution width (Bld) [Ratio] 16.7 % High 11.5 - 14.5 % Treater Phone: Platelets (Bld) [#/Vol] 308 10*3/uL 130 - 400 K/uL Treater Phone: RBC (Bld) [#/Vol] 4.98 10*6/uL Treat[facility] Phone: WBC (Bld) [#/Vol] 9.2 10*3/uL 4.8 - 10.8 K/uL Treater Phone: Treater Phone: Comprehensive Metabolic Pane lOrdered By: Rodolfo Medrano on 03-27-2021 Albumin [Mass/Vol] 4.9 g/dL High 3.5 - 4.6 g/dL Treat[facility] Phone: ALP (Bld) [Catalytic activity/Vol] 56 U/L 40 - 130 U/L Treat[facility] Phone: ALT [Catalytic activity/Vol] 21 U/L 0 - 33 U/L Treater Phone: Anion gap [Moles/Vol] 15 mmol/L [facility] [employer] Work Phone: AST [Catalytic activity/Vol] 33 U/L 0 - 35 U/L Treater Phone: Comment on above: Specimen hemolysis h as exceeded the interference as defined by Lindsay. Value may be falsely increased. Suggest recollection if clinically indicated. Bilirubin [Mass/Vol] 0.6 mg/dL 0.2 - 0 .7 mg/dL Treat[facility] Phone: Calcium [Mass/Vol] 9.1 mg/dL 8.5 - 9.9 mg/dL Treater Phone: Chloride [Moles/Vol] 100 mmol/L [employer] Phone: CO2 [Moles/Vol] 23 mmol/L [facility] Work Phone: Creatinine [Mass/Vol] 0.81 mg/dL 0.50 - 0.90 mg/dL [facility] Phone: Free PSA/Total PSA [Mass fraction] 7.9 g/dL 6.3 - 8.0 g/dL [facility] Phone: GFR >60.0 >60 [employer] Work Phone: Comment on above: >60 mL/min/1.73m2 EG FR, calc. for ages 18 and older using the MDRD formula (not corrected for weight), is valid for stable renal function. GFR Non- >60.0 >60 Treater Phone: Comment on above: >60 mL/min/1.73m2 EG FR, calc. for ages 18 and older using the MDRD formula (not corrected for weight), is valid for stable renal function. Globulin (S) [Mass/Vol] 3 g/dL 2.3 - 3.5 g/dL Treater Phone: Glucose [Mass/Vol] 139 mg/dL High 70 - 99 mg/dL [facility] [employer] Work Phone: Interpretation and review of laboratory results Abnormal Treater Phone: Potassium [Moles/Vol] 3.8 mmol/L [facility] [employer] Work Phone: Sodium [Moles/Vol] 138 mmol/L [facility] Phone: Urea nitrogen (BldV) [Mass/Vol] 15 mg/dL 6 - 20 mg/dL Treater Phone: D-Dimer, QuantitativeOrdered By: Rodolfo Medrano on 03-27-2021 D-Dimer, Quant 0.48 [facility] Work Phone: Comment on above: VTE (DVT or PE) cut- off = 0.50 mg/L FEU [facility] Work Phone: MagnesiumOrdered By: Rodolfo davidson on 03-27-2021 Magnesium [Mass/Vol] 2.2 mg/dL 1.7 - 2 .4 mg/dL Treater Phone: No Panel InformationOrdered By: Rodolfo Medrano on 03-27-2021 Interpretation and review of laboratory results Abnormal Treater Phone: Treater Phone: Interpretation and review of laboratory results Abnormal Treat[facility] Phone: CALL [facility] tel. [phone], TROP results called to and read back by SY GARCIA, 03/27/2021 15:40, by [employer] Phone: Treater Phone: Treater Phone: Protime-INROrdered By: Rodolfo Medrano on 03-27-2021 INR Coag (Bld) [Relative time] 2.7 {INR} Treater Phone: PT Coag (PPP) [Time] 28.1 s High [employer] Phone: T4, FreeOrdered By: Rodolfo tijerina on 03-27-2021 Free T4 [Mass/Vol] 0.16 ng/dL Low 0.84 - 1. 68 ng/dL Treater Phone: TSH without ReflexOrdered By : Rodolfo Medrano on 03-27-2021 Interpretation and review of laboratory results Abnormal [facility] Phone: TSH Qn 139.400 m[IU]/L High [facility] Work Phone: CALL [facility] tel. [phone], TROP results called to and read back by SY GARCIA, 03/27/2021 15:40, by [employer] Phone: Treater Phone: TroponinOrdered By: Ariana sanchez on 03-27-2021 Interpretation and review of laboratory results Abnormal [facility] Phone: Troponin I.cardiac [Mass/Vol] 0.029 ng/mL Critically high 0.000 - 0.010 ng/mL Treat[facility] Phone: Comment on above: Methodology by Vinicio Montilla. CALL [facility] tel. [phone], TROP results called to and read back by JANELL SEAMAN, 03/27/2021 18:38, by GILSON Treater Phone: Treater Phone: TroponinOrdered By: Rodolfo tijerina on 03-27-2021 Troponin I.cardiac [Mass/Vol] 0.018 ng/mL Critically high 0.000 - 0.010 ng/mL Treater Phone: Comment on above: Methodology by Vinicio Montilla. XR CHEST PORTABLEOrdered By: Rodolfo Medrano on 03-27-2021 NO ACUTE CARDIOPULMONARY DISEASE. Treater Phone: EXAMINATION: XR CHES T PORTABLE CLINICAL HISTORY: PALPITATIONS, SHORTNESS OF BREATH. COMPARISONS: 2020 FINDINGS: Osseous structures are intact. Cardiopericardial silhouette is normal. Pulmonary vasculature is normal. Lungs are clear. Treater Phone: Nayan, [facility] Incoming Radiant Results From [employer] - 03/27/2021 3:38 PM EDT EXAMINATION: XR CHEST PORTABLE CLINICAL HISTORY: PALPITATIONS, SHORTNESS OF BREATH. COMPARISONS: 2020 FINDINGS: Osseous structures are intact. Cardiopericardial silhouette is normal. Pulmonary vasculature is normal. Lungs are clear. IMPRESSION: NO ACUTE CARDIOPULMONARY DISEASE. Treater Phone: Treater Phone: Vital Signs Date Time Vital Sign Value Performing Clinician Faci lity 07-19-2022 11:58-0500 Diastolic blood pressure 80 mm[Hg] Sara Astorga DO Work Phone: [facility] [employer] 07-19-2022 11:58-0500 Heart rate 57 /min Sara Astorga DO Work Phone: [facility] [employer] 07-19-2022 11:58-0500 Respiratory rate 19 /min Sara Astorga DO Work Phone: [facility] [employer] 07-19-2022 11:58-0500 SaO2% (BldA) [Mass fraction] 98 % Sara Astorga DO Work Phone: [facility] [employer] 07-19-2022 11:58-0500 Systolic blood pressure 140 mm[Hg] Sara Astorga DO Work Phone: [facility] [employer] 07-19-2022 08:01-0500 Body height 167.6 cm Sara Astorga DO Work Phone: [facility] [employer] 07-19-2022 08:01-0500 Body mass index (BMI) [Ratio] 24.21 kg/m2 Sara Astorga Known Work Phone: [facility] [employer] 07-19-2022 08:01-0500 Body weight 68.04 kg Sara Astorga Known Work Phone: [facility] [employer] 07-19-2022 08:00-0500 Body temperature 98.2 [degF] Sara Astorga DO Work Phone: [facility] [employer] 05-17-2022 18:00-0500 Diastolic blood pressure 89 mm[Hg] Pcp No [facility] 05-17-2022 18:00-0500 Heart rate 64 /min Pcp No [facility] [employer] [facility] 05-17-2022 18:00-0500 Respiratory rate 19 /min Pcp No [facility] [employer] 05-17-2022 18:00-0500 SaO2% (BldA) [Mass fraction] 97 % Pcp No [facility] [employer] 05-17-2022 18:00-0500 Systolic blood pressure 149 mm[Hg] Pcp No [facility] 05-17-2022 13:13-0500 Body height 167.6 cm Pcp No [facility] [employer] 05-17-2022 13:13-0500 Body mass index (BMI) [Ratio] 23.73 kg/m2 Pcp No [facility] [employer] 05-17-2022 13:13-0500 Body temperature 97.81 [degF] Pcp No [facility] [employer] 05-17-2022 13:13-0500 Body weight 66.68 kg Pcp No [facility] [employer] 03-31-2021 14:34-0400 Body temperature 98.6 [degF] Rodolfo Medrano MD Work Phone: [facility] Work Phone: 03-31-2021 14:34-0400 Diastolic blood pressure 68 mm[Hg] Rodolfo Medrano MD Work Phone: [facility] Work Phone: 03-31-2021 14:34-0400 Heart rate 53 /min Rodolfo Medrano MD Work Phone: [facility] Work Phone: 03-31-2021 14:34-0400 Respiratory rate 18 /min Rodolfo Medrano MD Work Phone: [facility] Work Phone: 03-31-2021 14:34-0400 SaO2% (BldA) [Mass fraction] 99 % Rodolfo Medrano MD Work Phone: [facility] Work Phone: 03-31-2021 14:34-0400 Systolic blood pressure 127 mm[Hg] Rodolfo Medrano MD Work Phone: [facility] Work Phone: 03-27-2021 14:21-0400 Body height 167.6 cm Rodolfo Medrano MD Work Phone: [facility] Work Phone: 03-27-2021 14:21-0400 Body mass index (BMI) [Ratio] 25.02 kg/m2 Rodolfo Medrano MD Work Phone: [facility] Work Phone: 03-27-2021 14:21-0400 Body weight 70.31 kg Rodolfo Medrano MD Work Phone: [facility] Work Phone: 01-15-2020 12:43-0400 BP Diastolic 68 mm[Hg] [facility] [place] [facility] [place] 01-15-2020 12:43-0400 BP Systolic 132 mm[Hg] [facility] [place] 01-15-2020 12:43-0400 Pulse Oximetry 100 % [facility] [place] 01-15-2020 12:43-0400 Respiratory Rate 20 /min [facility] [place] 01-15-2020 10:50-0400 BMI (Body Mass Index) 21.47 kg/m2 [facility], [place] 01-15-2020 10:50-0400 Body Temperature 98.01 [degF] [facility] [place] 01-15-2020 10:50-0400 Body weight 60.33 kg [facility] [place] 01-15-2020 10:50-0400 Height 167.6 cm [place], [place] 01-15-2020 10:50-0400 Pulse (Heart Rate) 90 /min [facility] [place] Encounters Encounter Date Encounter Type Care Provider Facility Start: 08-08-2023 End: 08-08-2023 Emergency department patient visit PCP [facility] Start: 03-27-2023 End: 03-27-2023 Emergency department patient visit PCP [facility] Start: 07-19-2022 End: 07-19-2022 Emergency department patient visit Sara Astorga DO Work Phone: [facility] ED Comment on above: Closed fracture of m ultiple ribs of right side, initial encounter (Primary Dx); Alcohol abuse Start: 05-17-2022 End: 05-17-2022 Emergency department patient visit Pcp [facility] ED Comment on above: Chest pain, [...] 01-15-2020 End: 01-15-2020 Emergency department patient visit [facility] ED Comment on above: Sciatica of left ashley e (Primary Dx); Strain of lumbar region, initial encounter; Sprain of right ankle, unspecified ligament, initial encounter; Closed fracture of right ankle, initial encounter Procedures Date Procedure Procedure Detail Performing Clinician Start: 07-19-2022 Ct abdomen & pelvis w/contrast material Sara Astorga Known Work Phone: Start: 07-19-2022 Ct thorax w/contrast material Sara Astorga Known Work Phone: Start: 07-19-2022 Assay of ethanol Sara Astorga Known Work Phone: Start: 07-19-2022 Comprehensive metabo lic panel Sara Astorga Known Work Phone: Start: 07-19-2022 Drug tst prsmv instr mnt chem analyzers pr date Sara Astorga DO Work Phone: Start: 07-19-2022 Urinalysis microscopic only Sara Astorga Known Work Phone: Start: 07-19-2022 Urnls dip stick/tabl et rgnt auto w/o microscopy Sara Astorga Known Work Phone: Start: 07-19-2022 Radex ribs uni w/pos teroant ch minimum 3 views Sara Astorga Known Work Phone: Start: 05-17-2022 Ecg routine ecg w/le ast 12 lds w/i&r Sara Astorga Known Work Phone: Start: 05-17-2022 Assay of troponin [...] Start: 03-28-2021 Assay of troponin quantitative Ariana Farncis MD Work Phone: Start: 03-28-2021 Assay of [...] 03-27-2022 Thyroid stimulating hormone measurement TSH testing Treater Phone: Start: 12-28-2021 Influenza vaccination Flu vaccine (# 1) [employer] Start: 04-13-2021 End: 04-13-2021 Patient encounter procedure 04/13/2021 Office Visit Cardiology Ariana Francis MD [address] [id number] [facility] Start: 04-09-2021 End: 04-09-2021 Patient encounter procedure 04/09/2021 Office Visit Endocrinology Doroteo Tee, PA [address] [address] [phone] [facility] Start: 01-28-2021 Influenza vaccination Flu vaccine (# 1) [facility] Work Phone: Start: 01-29-2020 Influenza vaccination Flu vaccine (# 1) [place] Start: 12-08-2019 Screening for malign ant neoplasm of breast Breast cancer screen [employer] Start: 12-08-2019 Screening for malign ant neoplasm of colon Colon cancer screen colonoscopy [facility] [place] Start: 12-08-2019 Shingles Vaccine (1 of 2) Shingles Vaccine (1 of 2) [employer] Start: 2014 Screening for malign ant neoplasm of colon [employer] Start: 2009 Diabetes screen Diabetes screen [employer] Phone: Start: 2009 Lipid panel [employer] Start: 12-08-1999 Screening for malign ant neoplasm of cervix [employer] Start: 1990 Screening for malign ant neoplasm of cervix [employer] Start: 1988 DTaP/Tdap/Td vaccine (1 - Tdap) DTaP/Tdap/Td vaccine (1 - Tdap) [employer] Start: 12-08-1987 Hepatitis C screening Hepatitis C sc reen [employer] Start: 1984 HIV screening HIV screen [employer] Start: 1981 COVID-19 Vaccine (1) COVID-19 Vaccin e (1) [facility] Phone: Start: 1981 Depression Screen Depression Screen [employer] Start: 12-08-1975 Pneumococcal 0-64 ye ars Vaccine (1 of 1 - PPSV23) Pneumococcal 0-64 years Vaccine (1 of 1 - PPSV23) [employer] [place], [place] Start: 12-08-1975 Pneumococcal 0-64 ye ars Vaccine (1 of 2 - PPSV23) Pneumococcal 0-64 years Vaccine (1 of 2 - PPSV23) [facility] Phone: Start: 06-09-1970 COVID-19 Vaccine (#1) COVID-19 Vacci ne (#1) [employer] Start: 1969 Hepatitis C screening Hepatitis C de carlton Treater Phone: EKG 12 Lead Treater Phone: EKG 12 Lead EKG 12 Lead ECG Routine 05/17/2022 5:02 PM EST [employer] Phone: End: 05-17-2022 POC Urine Qual POC Urine Qual Point of Care Testing STAT One Time for 1 Occurrences starting 05/17/2022 until 05/17/2022 [employer] Phone: Comment on above: One Time for 1 Occur rences starting 05/17/2022 until 05/17/2022 End: 05-17-2022 Urinalysis Urinalysis Lab STAT One Time for 1 Occurrences starting 05/17/2022 until 05/17/2022 [employer] Phone: Comment on above: One Time for 1 Occur rences starting 05/17/2022 until 05/17/2022 End: 05-17-2022 Urine Drug Screen Urine Drug Screen Lab STAT One Time for 1 Occurrences starting 05/17/2022 until 05/17/2022 [employer] Work Phone: Comment on above: One Time for 1 Occur rences starting 05/17/2022 until 05/17/2022 End: 01-15-2020 XR ANKLE RIGHT (MIN 3 VIEWS) XR ANKLE RIGHT (MIN 3 VIEWS) Imaging Routine Once for 1 Occurrences starting 01/15/2020 until 01/15/2020 [employer] [place] Comment on above: Once for 1 Occurrenc es starting 01/15/2020 until 01/15/2020 XR ANKLE RIGHT (MIN 3 VIEWS) XR ANKLE RIGHT (MIN 3 VIEWS) Imaging STAT 01/15/2020 11:48 AM EDT [employer] [place] End: 01-15-2020 XR LUMBAR SPINE (MIN 4 VIEWS) XR LUMBAR SPINE (MIN 4 VIEWS) Imaging Routine Once for 1 Occurrences starting 01/15/2020 until 01/15/2020 [employer] [place] Comment on above: Once for 1 Occurrenc es starting 01/15/2020 until 01/15/2020 XR LUMBAR SPINE (MIN 4 VIEWS) XR LUMBAR SPINE (MIN 4 VIEWS) Imaging STAT 01/15/2020 11:48 AM EDT [employer] [place] Social History Date Type Detail Facility Start: 01-15-2020 End: 02-03-2021 Tobacco smoking status NHIS Current every day smoker [facility] [employer] [place], [place] History of tobacco use [facility] [place] Start: 01-15-2020 End: 04-13-2021 Cigarettes smoked current (pack per day) - Reported [facility] [employer] [facility] [place] Start: 01-15-2020 End: 04-13-2021 Tobacco use and exposure Never used [employer] [facility] [place] Start: 01-15-2020 End: 07-19-2022 Alcohol intake Current drinker of alcohol (finding) [facility] [employer] [place], [place] Start: 1970 Sex Assigned At Not on file [employer] [place] Start: 05-07-2022 End: 05-17-2022 Exposure to SARS-CoV-2 (event) Not sure [facility] [place] [place] Start: 04-13-2021 [facility] [employer] History of tobacco use Current smoker [facility] Phone: Start: 05-17-2022 History SDOH Alcohol Frequency 5 [facility] Phone: Start: 05-17-2022 History SDOH Alcohol Std Drinks 1 [facility] Phone: Start: 05-17-2022 History SDOH Alcohol Binge 3 [facility] Phone: Start: 04-13-2021 Tobacco Comment quit since susan tavares admitted 03/23/21 [facility] Phone: Hospital Discharge instructions 03-31-2021 Discharge Instr [...] at most local grocery stores, pharmacies, and [employer]-stores. If you have any questions about your diet or nutrition, call the hospital and ask for the dietitian. A low fat, low cholesterol diet is recommended The following attachments cannot be sent through Care Everywhere.levothyroxine (oral/injection) (Iraqi)metoprolol (oral/injection) (Iraqi)nicotine (transdermal) (Iraqi)documented in this encounter Treater Phone: Hospital course Narrative 03-31-2021 Ariana Francis MD - 03/31/2021 3:18 PM EDT Note Date & Type Note Facility 03-31-2021 Hospital course Narrative Cardiology Discharge Summary Patient Identification: Kyra Ritter : 1970 Account: [id number] Admit date: 03/27/2021 Discharge date: 03/31/21 Attending provider: Ariana Francis MD Primary care provider: No primary care provider on file. Admission Diagnoses: SVT Discharge Diagnoses: Active Hospital Problems Diagnosis Date Noted Troponin I above reference range [R77.8] Priority: High SVT (supraventricular tachycardia) (HCC) [I47.1] 03/27/2021 Priority: Low Hypothyroidism [E03.9] Priority: Low Hospital Course: Kyra Ritter is a50 y.o. female admitted to [facility] on 03/27/2021 for SVT. 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) Interpreting [facility] Physician Cardiology [address] Procedure [...] ms QTc Calculation (Bazett) 413 ms P Monroe 65 degrees R Monroe 111 degrees T Monroe 25 degrees POCT Glucose Collection Time: 03/30/21 9:29 PM Result Value Ref Range POC Glucose 93 60 - 115 mg/dl Performed on ACCU-CHEK Follow-up visits: LEOBARDO Juan [address] [facility] [address] [facility] [id number] In 2 weeks Ariana Francis MD [address] [facility] [address] [facility] [address] Assessment: Active Hospital Problems Diagnosis Date Noted Troponin I above reference range [R77.8] Priority: High SVT (supraventricular tachycardia) (HCC) [I47.1] 03/27/2021 Priority: Low Hypothyroidism [E03.9] Priority: Low Plan: 1.DC home FU with Murray Nichols and ok DC time 40 min. Complete blood reconciliation examined the patient make follow-up plans. Electronically signed by Ange Falcon 03/31/2021 at 3:18 PM documented in this encounter Treater Phone: History of Present illness Narrative 03-31-2021 José Miguel Duvall MD - 03/31/2021 3:09 PM EDTJennifer Broderick MD - 03/31/2021 10:47 AM Ariana Hamlin MD - 03/30/2021 8:02 AM Ariana Hamlin MD - 03/29/2021 9:18 AM EDT Note Date & Type Note Facility 03-31-2021 History of Present illness Narrative Progress Note Date:03/31/2021 Room:[place] [address] Patient Name:Kyra Ritter Date of :1970 Age:50 [...] Unit/Bed: W163/W163-01 Date of : 1970 Acct: [id number] Admitting Diagnosis: Paroxysmal supraventricular tachycardia (HCC) [I47.1] [...] Name NEWCOMER Gender Female KYRA Patient Number [id number] Race Ethnicity Visit Number [id number] Room Number W163 Corporate ID Date of Study 03/28/2021 Referring Physician Number 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) Interpreting [facility] Physician Cardiology [address] Procedure [...] Unit/Bed: W163/W163-01 Date of : 1970 Acct: [id number] Admitting Diagnosis: Paroxysmal supraventricular tachycardia (HCC) [I47.1] [...] Name NEWCOMER Gender Female KYRA Patient Number [id number] Race Ethnicity Visit Number [id number] Room Number W163 Corporate ID Date of Study 03/28/2021 Referring Physician Number 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) Interpreting [facility] Physician Cardiology [address] Procedure [...] Progress Note PATIENT: KYRA RITTER CSN #: [id number] : 1970 ADMIT DATE: 03/27/2021 2:20 PM [...] pertinent labs Madhuri GarrisonN RN CDS contact [phone] M-F 6am - 2pm Options provided: -- [...] 03/28/2021 12:52 PM documented in this encounter Treater Phone: Evaluation note Note Date & Type Note Facility Evaluation note Diagnosis Paroxysmal supraventricular tachycardia (HCC)- Primary Paroxysmal supraventricular tachycardia Elevated troponin Other abnormal blood chemistry Hypothyroidism, unspecified type SVT (supraventricular tachycardia) (HCC) Other specified cardiac dysrhythmias Troponin I above reference range Other abnormal blood chemistry documented in this encounter Treater Phone: Evaluation note Note Date & Type Note Facility Evaluation note Diagnosis Chest pain, unspecified type- Primary Hypothyroidism, unspecified type H/O noncompliance with medical treatment, presenting hazards to health Personal history of noncompliance with medical treatment, presenting hazards to health Encounter for medication refill Issue of repeat prescriptions documented in this encounter [employer] Phone: Evaluation note Note Date & Type Note Facility Evaluation note Diagnosis Closed fracture of multiple ribs of right side, initial encounter- Primary Alcohol abuse Alcohol abuse, unspecified documented in this encounter [facility] Phone: Hospital Discharge instructions Attachments Note Date & Type Note Facility Hospital Discharge instructions The following attachments cannot be sent through Care Everywhere.Chest Pain (Iraqi)Hypothyroidism (Iraqi)documented in this encounter [facility] Phone: Hospital Discharge instructions Attachments Note Date & Type Note Facility Hospital Discharge instructions The following attachments cannot be sent through Care Everywhere.Alcohol Use Disorder: General Info (Iraqi)documented in this encounter [facility] Phone: Discharge Instructions * Attachments The following attachments cannot be sent through Care Everywhere. * Ankle Fracture (Iraqi) * Splint or Immobilizer Use (Iraqi) * RICE: General Info (Iraqi) * Sciatica (Iraqi) * Back Pain (Iraqi) documented in this encounter Assessments Diagnosis Sciatica of left side Sciatica Strain of lumbar region, initial encounter Sprain of right ankle, unspecified ligament, initial encounter Closed fracture of right ankle, initial encounter Advance Directives No Advanced Directives Records FoundDocuments on File Type Date Recorded Patient Artist Suspect Expl anation Advance Directives and Living Will Power of Middle School Librarian Documents on File Type Date Recorded Patient Artist Suspect Expl anation ACP-Advance Directive ACP-Power of Middle School Librarian Latest Code Status on File Code Status [...] Waldron, TAWANNA)2236 (Not Given - Provider: Denise Gan, RN - Reason: Order parameters not met [...] RN) 0759 (Patch Applied - Provider: Ila Waldron RN) sodium chloride flush 0.9 % injection [...] Alyson Vogel RN)0611 (Given - Provider: Alyson Vogel RN) 0534 (Given - Provider: Denise Gan [...] 1426 (Given - Provid er: Kristen Brunner, TAWANNA) Scheduled Medication Order 07/17/2022 07/18/2022 07/19/2022 ketorolac [...] section and content) DATE CREATED AUTHOR 11/12/2021 [facility] DATE CREATED AUTHOR AUTHOR'S KERWIN ATION 08/08/2023 [facility] Care Teams (unrecognized sec tion and content) Optical Glass Etcher Relationship Specialty Start Date End Date No, Pcp PCP - General 05/17/22 Optical Glass Etcher Relationship Specialty Start Date End Date No, [...] BE BASED ON THE PRIMARY CLINICAL RECORDS. [facility], [facility]. provides no warranty or guarantee of the accuracy or completeness of information in this document.
[2023-12-05 06:24] LABS: Basophils Absolute Auto 0.1 10^3/uL (0.0-0.1); Basophils Percent Auto 1.1 % (0.2-2.0); Eosinophils Absolute Auto 0.3 10^3/uL (0.0-0.7); Eosinophils Percent Auto 4.4 % (0.9-7.0); Hematocrit 37.6 % (36.0-48.0); Hemoglobin 12.5 g/dL (12.0-16.0); Immature Granulocytes Abs Auto 0.05 10^3/uL (0.00-0.03); Immature Granulocytes Pct Auto 0.7 % (0.0-0.5); Lymphocytes Absolute Auto 2.1 10^3/uL (1.2-3.8); Lymphocytes Percent Auto 28.3 % (20.5-60.0); Mean Corpuscular HGB Conc 33.2 g/dL (29.9-35.2); Mean Corpuscular Hemoglobin 34.3 pg (26.7-34.0); Mean Corpuscular Volume 103.3 fL (81.0-99.0); Mean Platelet Volume 11.1 fL (9.5-13.5); Monocytes Absolute Auto 0.7 10^3/uL (0.3-0.8); Monocytes Percent Auto 9.5 % (1.7-12.0); Neutrophils Absolute Auto 4.1 10^3/uL (1.4-6.5); Platelet Count 204 10^3/uL (150-450); Red Blood Count 3.64 10^6/uL (4.20-5.40); Red Cell Distribution Width 13.6 % (11.0-15.0); White Blood Count 7.4 10^3/uL (4.0-11.0)
[2023-12-05 06:37] LABS: Glucometer 112 mg/dL (74-106)
[2023-12-05 06:40] LABS: HCG Qualitative NEGATIVE (NEGATIVE); Internal Control Within Normal Limits
[2023-12-05] MEDS: CEFAZOLIN SODIUM/DEXTROSE,ISO 2 GM/50 ML PIGGYBACK IV ×3 (07:40→23:15)
--- NOTE | 2023-12-05 07:42 | PC.NURSE ---
[id number] PATIENT POSITIONED 0720 OUT WAS PERFORMED, Armando BELCHER RN, Michelle REINOSO 0720 2 MG VERSED GIVEN 07 AREA CLEANSED ADUCTOR CANAL BLOCK LOCATION DR. SAINI LOOKING WITH ULTRA SOUND FOR INJECTION LOCATION.PICTURE OBTAINED AND MEDICATION INJECTED DIRECTED. 07 BLOCK COMPLETED 07 REPOSITIONED PATIENT FOR POPLITEAL BLOCK [address] ARAUZ AND INSERTION OF NEEDLE TO INJECT MEDICATION BEGAN 07 INJECTION START[address]ED BY DR. ARAUZ 0735 PROCEDURE COMPLETED AND PICTURE WAS TAKEN. PATIENT TOLERATED WELL.
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
--- NOTE | 2023-12-05 09:22 | FL_ITS ---
[place] [id number] Patient Name: KYRA SINGH MRN: [id number] date: 1970 Sex: F Assigned Patient Location: SURGOUT Current Patient Location: ED.MAIN Accession/Order Number: [id number] Exam Date: 12/05/2023 07:50 Report Date: 12/08/2023 07:33 At the request of: BALAJI KLINE Procedure: FL fluoroscopy <1hr NON-READ EXAM: FL fluoroscopy <1hr NON-READ HISTORY: TECHNIQUE: FINDINGS: Please see Operative Report. Electronically authenticated by: RADIOLOGIST NO Date: 12/08/2023 07:33
[2023-12-05] MEDS: LACTATED RINGER'S SOLUTION 1,000 ML 50 ML IV (09:30)
--- NOTE | 2023-12-05 09:53 | XR_ITS ---
The [address] [address] Patient Name: KYRA SINGH MRN: [id number] date: 1970 Sex: F Assigned Patient Location: [facility] Current Patient Location: [place] Accession/Order Number: [id number] Exam Date: 12/05/2023 10:00 Report Date: 12/05/2023 11:39 At the request of: MAGUE CORNELIUS Procedure: XR ankle RT min 3V PROCEDURE: XR ankle RT min 3V COMPARISON: 10/25/2023 HISTORY: Postop x-ray FINDINGS: BONES:Interval removal of the lateral fibular fixation plate and tibiofibular syndesmosis fixation device. Metallic fragment likely of a fixation pin projects over the distal lateral malleolus SOFT TISSUES:Postsurgical soft tissue swelling, subcutaneous emphysema and lateral skin alberto EFFUSION:None visible. OTHER: Negative. XR/XR ankle RT min 3V IMPRESSION: Interval removal of fixation hardware detailed above Electronically authenticated by: MARCELINO JIMENEZ Date: 12/05/2023 11:39
[2023-12-05 10:04] LABS: Glucometer 106 mg/dL (74-106)
--- NOTE | 2023-12-05 10:36 | PC.NURSE ---
Extremity elevated and ice placed behind knee
--- NOTE | 2023-12-05 13:51 | P.PN_ITS ---
<Statement entered by Manjinder Germain MD - 12/05/23 19:36> Patient not personally seen but seen by RESIDENTIAL RECYCLE DRIVER. Agree with assessment and plan below. Admitted after surgery for pain control. Plan on discharge in am. Diagnosis: 1. Post-op pain 2. Smoker Progress Note: Subjective Subjective Interval history: 12/05/23 9280 This is a 52-year-old female patient with a past medical history as outlined below who is a patient of Dr Olvera'jayme and underwent a right ankle arthroscopy with removal of orthopedic hardware and open biopsy of the distal tibia earlier today. She is being admitted under the hospitalist service in observation for postoperative pain management. Please see the podiatry service operative note and H&P for clinical course leading to this surgical procedure. At the time of my exam the patient is resting comfortably in bed. Nerve block is still active and she has no sensation of her foot and ankle and denies any pain at this time. She denies chest pain, shortness of breath, or nausea and vomiting. Plan is to discharge home in the morning once sensation is returned and adequate pain management is ensured. Exam Constitutional Vital Signs, click to edit/add: Last Vital Signs Temp 97.5 F L 12/05/23 11:00 Pulse 61 12/05/23 11:00 Resp 16 12/05/23 11:00 BP 119/72 12/05/23 11:00 Pulse Ox 93 L 12/05/23 11:00 O2 Del Method Room Air 12/05/23 11:00 Common normals: no apparent distress, oriented x3 and alert General appearance: cooperative Orientation/consciousness: Yes awake [facility] Common normals: normocephalic, head/scalp atraumatic and hearing grossly normal bilaterally Teeth and gingiva: edentulous Eye Common normals: PERRL, EOMs intact bilaterally, conjunctivae normal and no scleral icterus General eye: normal appearance of both eyes Chest Common normals: inspection of chest normal Chest: symmetrical chest wall rise Respiratory Common normals: normal respiratory effort, no use of accessory muscles and clear to auscultation bilaterally Effort & inspection: able to speak in complete sentences Cardio Common normals: regular rate, regular rhythm, S1 normal heart sound, S2 normal heart sound, no murmurs and peripheral pulses 2+ throughout GI Common normals: Normal to inspection, nondistended, normoactive bowel sounds present, soft to palpation, non-tender and no hepatosplenomegaly Palpation: soft and no hepatosplenomegaly Bladder/kidney exam: bladder normal to palpation Extremity Common normals: no calf tenderness General: no clubbing, no cyanosis and no edema Right lower extremity: ankle joint (Post op compression dressing in place, D&I) Neuro Common normals: CN's II-XII intact bilaterally, moves all extremities, no focal motor deficits and no sensory deficits noted Sensory exam: other (RLE paresthesia s/p intra-op nerve block) Psych Common normals: mental status grossly normal Progress Note: Objective Labs Labs: Short CBC 12/05/23 Range/Units 06:20 WBC 7.4 (4.0-11.0) 10^3/uL Hgb 12.5 (12.0-16.0) g/dL Hct 37.6 (36.0-48.0) % Plt Count 204 (150-450) 10^3/uL Imaging R Ankle x-ray: Attestation: I have reviewed the pertinent imaging results. Radiologist's impression: IMPRESSION: Interval removal of fixation hardware detailed above Progress Note: A&P Assessment and Plan (1) Postoperative pain: Assessment and Plan: Acute * Adm observation * s/p R Ankle arthroscopy (Post op Day#0) w/ hardware removal and bone biopsy * Post op IVF, pain management, antibiotics, Weight bearing/PT orders, and DVT prophylaxis deferred to the Orthopedic service * CBC, CMP in AM for post op monitoring (2) Smoker: Assessment and Plan: Chronic * 14 mg Nicoderm patch daily * Complete smoking cessation advised
--- NOTE | 2023-12-05 14:40 | SWNOTE1 ---
SW checked PT note and no needs indicated for discharge.
[2023-12-05] MEDS: NICOTINE 14 MG PATCH.TD24 TD (15:19)
[2023-12-05] MEDS: KETOROLAC TROMETHAMINE 30 MG/ML VIAL 15 MG IVP (15:19)
--- OUTSIDE RECORDS SUMMARY | 2023-12-05 17:28 | XMS_ITS | CCD ---
Author Organization [place] [facility] Care Team Providers Care Er Physician Name Role Phone Unavailable Primary Care Provider Unavailabl e No, Pcp Primary Care Provider Unavailabl e NO, PCP Primary Care Unavailable CHIP SIERRA Attending Unavailable BOBBY, PCP Primary Care Unavailable MARTINEZ Attending Unavailable Allergies Allergy Classification Reported Allergen(s) Allergy Type Date of Onset Reaction(s) Facility (4 sources) Aluminum aspirin Drug Allergy 7 Swelling [place], [place] (4 sources) Clindamycin/Lincom ycin Propensity to adverse reactions to drug 8 [place] (2 sources) Tetracyclines & Related Propensity to adverse reactions to drug 8 [place] (2 sources) Tetracycline (class of antibiotic) Propensity to adverse reactions to drug 8 DONYA HUDSON [facility] Work Phone: Medications Current Medications Medication [...] 08-08-2023 Blood Alcohol Concentration 0.186 G/dL Normal [facility] Comment on above: Performed By: #### A LCOH #### [facility] [address] [place] [address] Ethanol [Mass/Vol] 212 mg/dL Normal [facility] Comment on above: Performed By: #### A LCOH #### [facility] [address] [place] [address] CBC With Platelet and Differ entialon 08-08-2023 Basophils (Bld) [#/Vol] 0.1 10*3/uL Normal 0.0-0.2 [facility] Comment on above: Performed By: #### C BCWD #### [facility] [address] [place] [address] Basophils/100 WBC (Bld) 0.9 % Normal [facility] Comment on above: Performed By: #### C BCWD #### [facility] [address] [place] [address] Eosinophils (Bld) [#/Vol] 0.1 10*3/uL Normal 0.0-0.7 [facility] Comment on above: Performed By: #### C BCWD #### [facility] [address] [place] [address] Eosinophils/100 WBC (Bld) 1.8 % Normal [facility] Comment on above: Performed By: #### C BCWD #### [facility] [address] [place] [address] Erythrocyte distribution width (RBC) [Ratio] 14.1 % Normal 11.5-14.5 [facility] Comment on above: Performed By: #### C BCWD #### [facility] [address] [place] [address] Hematocrit (Bld) [Volume fraction] 38.5 % Normal 37.0-47.0 [facility] Comment on above: Performed By: #### C BCWD #### [facility] [address] [place] [address] Hemoglobin (Bld) [Mass/Vol] 13.1 g/dL Normal 12.0-16.0 [facility] Comment on above: Performed By: #### C BCWD #### [facility] [address] [place] [address] Lymphocytes (Bld) [#/Vol] 1.9 10*3/uL Normal 1.0-4.8 [facility] Comment on above: Performed By: #### C BCWD #### [facility] [address] [place] [address] Lymphocytes/100 WBC (Bld) 24.5 % Normal [facility] Comment on above: Performed By: #### C BCWD #### [facility] [address] [place] [address] MCH (RBC) [Entitic mass] 33.4 pg Critically high 27.0-31.3 [facility] Comment on above: Performed By: #### C BCWD #### [facility] [address] [place] [address] MCHC 34.0 % Normal 33.0-37.0 [facility] Comment on above: Performed By: #### C BCWD #### [facility] [address] [place] [address] MCV (RBC) [Entitic vol] 98.2 fL Critically high 79.4-94 .8 [facility] Comment on above: Performed By: #### C BCWD #### [facility] [address] [place] [address] Monocytes (Bld) [#/Vol] 0.5 10*3/uL Normal 0.2-0.8 [facility] Comment on above: Performed By: #### C BCWD #### [facility] [address] [place] [address] Monocytes/100 WBC (Bld) 6.2 % Normal [facility] Comment on above: Performed By: #### C BCWD #### [facility] [address] [place] [address] Neutrophils (Bld) [#/Vol] 5.0 10*3/uL Normal 1.4-6.5 [facility] Comment on above: Performed By: #### C BCWD #### [facility] [address] [place] [address] Neutrophils/100 WBC (Bld) 65.3 % Normal [facility] Comment on above: Performed By: #### C BCWD #### [facility] [address] [place] [address] Platelets (Bld) [#/Vol] 255 10*3/uL Normal 130-400 [facility] Comment on above: Performed By: #### C BCWD #### [facility] [address] [place] [address] RBC (Bld) [#/Vol] 3.92 10*6/uL Low 4.20-5.40 [facility] Comment on above: Performed By: #### C BCWD #### [facility] [address] [place] [address] WBC (Bld) [#/Vol] 7.7 10*3/uL Normal 4.8-10.8 [facility] Comment on above: Performed By: #### C BCWD #### [facility] [address] [place] [address] CT ABDOMEN PELVIS W IV CONTR Herb [...] Annemarie Ruby MD 08/08/23 Final result Normal [facility] CT CERVICAL SPINE WO CONTRAS Ton [...] Annemarie Ruby MD 08/08/23 Final result Normal [facility] CT CHEST W CONTRASTon 2023 CT [...] Annemarie Ruby MD 08/08/23 Final result Normal [facility] CT HEAD WO CONTRASTon 2023 CT [...] Annemarie Ruby MD 08/08/23 Final result Normal [facility] CT LUMBAR SPINE WO CONTRASTo n [...] Annemarie Ruby MD 08/08/23 Final result Normal [facility] CT THORACIC SPINE WO CONTRAS Ton [...] Annemarie Ruby MD 08/08/23 Final result Normal [facility] CTA NECK W WO CONTRASTon CTA [...] Garrett Moore MD 08/08/23 Final result Normal [facility] Comprehensive Metabolic Pane andrey 08-08-2023 Albumin [Mass/Vol] 5.1 g/dL Critically high 3.5-4.6 [facility] Comment on above: Performed By: #### C MP ####[facility] [place] [phone] ALP [Catalytic activity/Vol] 69 U/L Normal 40-130 [facility] Comment on above: Performed By: #### C MP ####[facility] [place] [phone] ALT [Catalytic activity/Vol] 23 U/L Normal 0-33 [facility] Comment on above: Performed By: #### C MP ####[facility] [place] [phone] Anion gap [Moles/Vol] 15 mmol/L Normal 9-15 [facility] Comment on above: Performed By: #### C MP ####[facility] [facility] [place] [phone] AST [Catalytic activity/Vol] 37 U/L Critically high 0-35 [facility] Comment on above: Performed By: #### C MP ####[facility] [place] [phone] Bilirubin [Mass/Vol] 0.3 mg/dL Normal 0.2-0.7 [facility] Comment on above: Performed By: #### C MP ####[facility] [place] [phone] Calcium [Mass/Vol] 9.3 mg/dL Normal 8.5-9.9 [facility] Comment on above: Performed By: #### C MP ####[facility] [facility] [phone] Chloride [Moles/Vol] 101 mmol/L Normal 95-107 [facility] Comment on above: Performed By: #### C MP ####[facility] [facility] [phone] CO2 [Moles/Vol] 26 mmol/L Normal 20-31 [facility] Comment on above: Performed By: #### C MP ####[facility] [facility] [phone] Creatinine [Mass/Vol] 0.78 mg/dL Normal 0.50-0.90 [facility] Comment on above: Performed By: #### C MP ####[facility] [facility] [phone] GFR >60.0 Normal >60 [facility] Comment on above: Result Comment: Pedi [...] tubular secretion. Performed By: #### C MP ####[facility] [facility] [phone] Globulin (S) [Mass/Vol] 3.1 g/dL Normal 2.3-3.5 M [facility] Comment on above: Performed By: #### C MP ####[facility] [facility] [phone] Glucose [Mass/Vol] 95 mg/dL Normal 70-99 [facility] Comment on above: Performed By: #### C MP ####[facility] [place] [phone] Potassium [Moles/Vol] 3.3 mmol/L Low 3.4-4.9 [facility] Comment on above: Performed By: #### C MP ####[facility] [place] [phone] Protein [Mass/Vol] 8.2 g/dL Critically high 6.3-8.0 M [facility] Comment on above: Performed By: #### C MP ####[facility] [place] [phone] Sodium [Moles/Vol] 142 mmol/L Normal 135-144 [facility] Comment on above: Performed By: #### C MP ####[facility] [place] [phone] Urea nitrogen [Mass/Vol] 8 mg/dL Normal 6-20 [facility] Comment on above: Performed By: #### C MP ####[facility] [place] [phone] Lipaseon 08-08-2023 Lipase [Catalytic activity/Vol] 34 U/L Normal 12-95 [facility] Comment on above: Performed By: #### L IPAS #### [facility] [address] [place] [address] POCT Venouson 08-08-2023 Creatinine [Mass/Vol] 1.0 mg/dL Normal 0.6-1.2 [facility] Comment on above: Performed By: #### P ZACK #### [facility] [address] [place] [address] GFR >60 Normal >60 [facility] Comment on above: Result Comment: Zohra [...] secretion. Performed By: #### P ZACK #### [facility] [address] [place] [address] POC Performed on SEE BELOW [facility] Comment on above: Result Comment: Perf ormed on POC Performed By: #### P ZACK #### [facility] [address] [place] [address] POC Sample Type ZACK [facility] Comment on above: Performed By: #### P ZACK #### [facility] [address] [place] [address] POC Performed on SEE BELOW [facility] Comment on above: Result Comment: Perf ormed on POC Performed By: #### P ZACK #### [facility] [address] [place] [address] POC Sample Type ZACK [facility] Comment on above: Performed By: #### P ZACK #### [facility] [address] [place] [address] Partial Thromboplastin Timeo n 08-08-2023 aPTT Coag (Bld) [Time] 29.2 s Normal 24.4-36.8 [facility] Comment on above: Result Comment: Effe ctive 04/02/2020: Heparin Therapeutic Range: 64.0 ? 98.0 seconds. Performed By: #### P TT #### [facility] [address] [place] [address] Prothrombin Timeon INR Coag (PPP) [Relative time] 1.0 {INR} [facility] Comment on above: Performed By: #### P T #### [facility] [address] [place] [address] PT Coag (PPP) [Time] 13.3 s Normal 12.3-14.9 [facility] Comment on above: Performed By: #### P T #### [facility] [address] [place] [address] XR ANKLE RIGHT (MIN 3 VIEWS) on [...] Annemarie Ruby MD 08/08/23 Final result Normal [facility] CT HEAD WO CONTRASTon 2022 CT [...] Denise Driver MD 03/27/23 Final result Normal [facility] XR ANKLE RIGHT (MIN 3 VIEWS) [...] Rodolfo Powell DO 03/27/23 Final result Normal [facility] XR RIBS RIGHT INCLUDE CHEST (MIN [...] Marilyn Nayak MD 03/27/23 Final result Normal [facility] CBC with Auto Differentialon 07-19-2022 Basophils (Bld) [#/Vol] 0.1 10*3/uL 0.0 - 0.2 K/uL [facility] Basophils/100 WBC (Bld) 0.7 % B ON [facility] Eosinophils (Bld) [#/Vol] 0.1 10*3/uL 0.0 - 0.7 K/uL [facility] Eosinophils/100 WBC (Bld) 1 % [facility] Hematocrit (Bld) [Volume fraction] 36.6 % Low 37.0 - 47.0 % [facility] Hemoglobin (Bld) [Mass/Vol] 12.1 g/dL 12.0 - 16.0 g/dL [facility] Interpretation and review of laboratory results Abnormal [facility] Lymphocytes (Bld) [#/Vol] 1.3 10*3/uL 1.0 - 4.8 K/uL [facility] Lymphocytes/100 WBC (Bld) 15.6 % [facility] MCH (RBC) [Entitic mass] 31.1 pg 27.0 - 31.3 pg [facility] MCHC (RBC) [Mass/Vol] 33.0 % 33.0 - 37.0 % [facility] MCV (RBC) [Entitic vol] 94.2 fL 79.4 - 94.8 fL [facility] Monocytes (Bld) [#/Vol] 0.8 10*3/uL 0.2 - 0.8 K/uL [facility] Monocytes/100 WBC (Bld) 9.0 % B ON [facility] Neutrophils Absolute 6.3 K/uL 1.4 - 6 .5 K/uL [facility] Neutrophils/100 WBC (Bld) 73.7 % [facility] Platelet distribution width (Bld) [Ratio] 16.8 % High 11.5 - 14.5 % [facility] Platelets (Bld) [#/Vol] 308 10*3/uL 130 - 400 K/uL [facility] RBC (Bld) [#/Vol] 3.89 10*6/uL Low [facility] WBC (Bld) [#/Vol] 8.6 10*3/uL 4.8 - 10.8 K/uL [facility] CMPon 07-19-2022 Albumin [Mass/Vol] 4.4 g/dL 3.5 - 4.6 g/dL [facility] ALP (Bld) [Catalytic activity/Vol] 74 U/L 40 - 130 U/L [facility] ALT [Catalytic activity/Vol] 12 U/L 0 - 33 U/L [facility] Anion gap [Moles/Vol] 15 mmol/L [facility] AST [Catalytic activity/Vol] 20 U/L 0 - 35 U/L [facility] Bilirubin [Mass/Vol] 0.3 mg/dL 0.2 - 0 .7 mg/dL [facility] Calcium [Mass/Vol] 8.8 mg/dL 8.5 - 9.9 mg/dL [facility] Chloride [Moles/Vol] 103 mmol/L [facility] CO2 [Moles/Vol] 26 mmol/L [facility] Creatinine [Mass/Vol] 0.42 mg/dL Low 0.50 - 0.90 mg/dL [facility] GFR/1.73 sq M.predicted MDRD (S/P/Bld) [Vol rate/Area] 60 - PINF [facility] Comment on above: Pediatric calculator link https://www.kidney.org/professionals/kdoqi/gfr_calculatorped [...] [Mass/Vol] 2.9 g/dL 2.3 - 3.5 g/dL [facility] Glucose [Mass/Vol] 99 mg/dL 70 - 99 mg/dL [facility] Interpretation and review of laboratory results Abnormal [facility] Potassium [Moles/Vol] 3.3 mmol/L Low [facility] Protein [Mass/Vol] 7.3 g/dL 6.3 - 8.0 g/dL [facility] Sodium [Moles/Vol] 144 mmol/L [facility] Urea nitrogen (BldV) [Mass/Vol] 8 mg/dL 6 - 20 mg/dL [facility] CT ABDOMEN PELVIS W IV CONTR AST Additional Contrast? Noneon 07-19-2022 Age-indeterminate avulsion chip fracture, anterior superior margin L4 vertebral body. 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 Other etiologies, including calcified pancreatic cyst/pseudocyst less likely. [facility] RAD[facility] EXAMINATION: CT OF THE ABDOMEN [...] L5-S1. Small anterior osteophytes L3 through L5. [facility] Signer, MD Clay - 07/19/2022 [...] etiologies, including calcified pancreatic cyst/pseudocyst less likely. [employer] Phone: CT ABDOMEN PELVIS W IV CONTR AST Additional Contrast? NoneOrdered By: Clay Corona on 07-19-2022 [employer] Phone: CT CHEST W CONTRASTon 2022 Addendum by Gomez Yung MD on 07/19/2022 10:56 AM EST ADDENDUM: Nondisplaced right T9 rib fracture,. Otherwise no evidence of traumatic chest pathology. [employer] Phone: Nondisplaced right T 9 fracture,. Otherwise no evidence of traumatic chest pathology. [facility] RAD[facility] EXAMINATION: CT OF THE CHEST [...] is seen. Degenerative bone changes are seen. [facility] Gomez Yung M D - [...] Otherwise no evidence of traumatic chest pathology. [employer] Phone: CT CHEST W CONTRASTOrdered B y: Gomez Yung on 07-19-2022 [employer] Phone: ETOHon 07-19-2022 Ethanol percent 0.019 G/dL [facility] Magnesium [Mass/Vol] 22 mg/dL [facility] Microscopic Urinalysison Bacteria, UA Negative Negative /HPF [facility] Epithelial Cells, UA 0-2 [facility] Hyaline Casts, UA 1-3 [facility] Interpretation and review of laboratory results Abnormal [facility] RBC, UA 6-10 Abnormal [facility] WBC, UA 0-2 [facility] No Panel Informationon 07-19 Radiology Study observation (narrative) [facility] Work Phone: Protime-INRon 07-19-2022 INR Coag (Bld) [Relative time] 1.0 {INR} [facility] PT Coag (PPP) [Time] 13.7 s [facility] Urinalysison 07-19-2022 Bilirubin Urine Negative Negative [facility] Blood, Urine TRACE Abnormal Negative [facility] Clarity, UA Clear Clear [facility] Color, UA Yellow Straw/Yellow [facility] Glucose, Ur Negative Negative mg/dL [facility] Interpretation and review of laboratory results Abnormal [facility] Ketones Ql (U) TRACE Abnormal Negative mg/dL [facility] Leukocyte esterase Test strip Ql (U) Negative Negative [facility] Nitrite, Urine Negative Negative [facility] pH, UA 8.5 5.0 - 9.0 [facility] Protein (U) [Mass/Vol] 30 mg/dL Abnormal Negative [facility] Specific [place], UA 1.078 1.005 - 1.030 B ON [facility] Urobilinogen, Urine 0.2 NINF [facility] Urine Drug Screenon 07-19-19 23 Amphetamine Screen, Urine Negative Negative <1000 ng/mL [facility] Barbiturate Screen, Ur Negative Negat laura < 200 ng/mL [facility] Benzodiazepine Screen, Urine Negative Negative < 200 ng/mL [facility] Cannabinoid Scrn, Ur Positive Abnormal Negativ e < 50 ng/mL [facility] Cocaine Metabolite Screen, Urine Negative Negative < 300 ng/mL [facility] Drug Screen Comment: see below [facility] Comment on above: This method is a scr eening test to detect only these drug classes as part of a medical workup. Confirmatory testing by another method should be ordered if clinically indicated. FENTANYL SCREEN, URINE Negative Negat laura < 50 ng/mL [facility] Interpretation and review of laboratory results Abnormal [facility] Methadone Screen, Urine Negative Nega tive <300 ng/mL [facility] Opiate Scrn, Ur Negative Negative < 300 ng/mL [facility] Oxycodone Urine Negative Negative <10 0 ng/mL [facility] PCP Screen, Urine Negative Negative < 25 ng/mL [facility] Propoxyphene Scrn, Ur Negative Negati ve <300 ng/mL [facility] XR RIBS RIGHT INCLUDE CHEST (MIN 3 VIEWS)on 07-19-2022 The chest is clear with no evidence of a pneumothorax. Fracture right 9th and 10th ribs as described. [facility] EXAMINATION: 7 XRAY VIEWS OF [...] 9th rib. The right humerus appears normal. [facility] Be Cadet III , DO [...] right 9th and 10th ribs as described. [facility] [employer] Work Phone: Radiology Study observation (narrative) [employer] Work Phone: XR RIBS RIGHT INCLUDE CHEST (MIN 3 VIEWS)Ordered By: Be Cadet on 07-19-2022 [facility] [employer] Work Phone: CBC with Auto Differentialon 05-17-2022 Basophils (Bld) [#/Vol] 0.1 10*3/uL 0.0 - 0.2 K/uL [facility] Basophils/100 WBC (Bld) 0.9 % B ON [facility] [employer] Eosinophils (Bld) [#/Vol] 0.3 10*3/uL 0.0 - 0.7 K/uL [facility] Eosinophils/100 WBC (Bld) 3.9 % [facility] Hematocrit (Bld) [Volume fraction] 36.4 % Low 37.0 - 47.0 % [facility] Hemoglobin (Bld) [Mass/Vol] 11.9 g/dL Low 12.0 - 16.0 g/dL [facility] [employer] Interpretation and review of laboratory results Abnormal [facility] [employer] Lymphocytes (Bld) [#/Vol] 2.0 10*3/uL 1.0 - 4.8 K/uL [facility] Lymphocytes/100 WBC (Bld) 30.4 % [facility] MCH (RBC) [Entitic mass] 30.8 pg 27.0 - 31.3 pg [facility] MCHC (RBC) [Mass/Vol] 32.8 % Low 33.0 - 37.0 % [facility] MCV (RBC) [Entitic vol] 93.8 fL 79.4 - 94.8 fL [facility] Monocytes (Bld) [#/Vol] 0.6 10*3/uL 0.2 - 0.8 K/uL [facility] Monocytes/100 WBC (Bld) 8.8 % B ON [facility] Neutrophils Absolute 3.6 K/uL 1.4 - 6 .5 K/uL [facility] Neutrophils/100 WBC (Bld) 56.0 % [facility] Platelet distribution width (Bld) [Ratio] 17.1 % High 11.5 - 14.5 % [facility] Platelets (Bld) [#/Vol] 284 10*3/uL 130 - 400 K/uL [facility] RBC (Bld) [#/Vol] 3.88 10*6/uL Low [facility] WBC (Bld) [#/Vol] 6.5 10*3/uL 4.8 - 10.8 K/uL [facility] CKon 05-17-2022 CK [Catalytic activity/Vol] 677 U/L High 0 - 170 U/L [facility] CMPon 05-17-2022 Albumin [Mass/Vol] 4.8 g/dL High 3.5 - 4.6 g/dL [facility] ALP (Bld) [Catalytic activity/Vol] 57 U/L 40 - 130 U/L [facility] ALT [Catalytic activity/Vol] 19 U/L 0 - 33 U/L [facility] Anion gap [Moles/Vol] 12 mmol/L [facility] AST [Catalytic activity/Vol] 33 U/L 0 - 35 U/L [facility] Bilirubin [Mass/Vol] 0.3 mg/dL 0.2 - 0 .7 mg/dL [facility] Calcium [Mass/Vol] 9.0 mg/dL 8.5 - 9.9 mg/dL [facility] Chloride [Moles/Vol] 101 mmol/L [facility] CO2 [Moles/Vol] 26 mmol/L [facility] Creatinine [Mass/Vol] 0.71 mg/dL 0.50 - 0.90 mg/dL [facility] GFR/1.73 sq M.predicted MDRD (S/P/Bld) [Vol rate/Area] 60 - PINF [facility] Comment on above: Pediatric calculator link https://www.kidney.org/professionals/kdoqi/gfr_calculatorped [...] [Mass/Vol] 2.9 g/dL 2.3 - 3.5 g/dL [facility] Glucose [Mass/Vol] 87 mg/dL 70 - 99 mg/dL [facility] Potassium [Moles/Vol] 3.5 mmol/L [facility] Protein [Mass/Vol] 7.7 g/dL 6.3 - 8.0 g/dL [facility] Sodium [Moles/Vol] 139 mmol/L [facility] Urea nitrogen (BldV) [Mass/Vol] 9 mg/dL 6 - 20 mg/dL [facility] CTA CHEST W WO CONTRASTon No evidence pulmonar y embolism or acute pulmonary abnormalities. [facility] EXAMINATION: CTA OF THE CHEST [...] No acute bone or soft tissue abnormality. [facility] Alcon Valdivia MD - 05/17/2022 [...] pulmonary embolism or acute pulmonary abnormalities. [facility] [employer] Work Phone: DONYA HUDSON [facility] Work Phone: Radiology Study observation (narrative) DONYA MURRAY [facility] Work Phone: No Panel Informationon 05-17 Interpretation and review of laboratory results Abnormal [facility] TSHon 05-17-2022 Interpretation and review of laboratory results Abnormal [facility] TSH Qn 121.800 m[IU]/L High [facility] Troponinon 05-17-2022 Troponin I.cardiac [Mass/Vol] ng/mL 0.000 - 0.010 ng/mL [facility] Comment on above: Methodology by Vinicio Butt [facility] Troponin I.cardiac [Mass/Vol] ng/mL 0.000 - 0.010 ng/mL [facility] Comment on above: Methodology by Vinicio Butt [facility] XR CHEST PORTABLEon 05-17-20 No acute process. [facility] RAD[facility] EXAMINATION: ONE XRAY VIEW OF [...] The osseous structures are without acute process. [facility] Alcon Valdivia MD - 05/17/2022 [...] process. IMPRESSION: No acute process. DONYA [facility]DSON [facility] [employer] Work Phone: Radiology Study observation (narrative) DONYA MURRAY [facility] Work Phone: XR CHEST PORTABLEOrdered By: Alcon Valdivia on 05-17-2022 DONYA [facility]DSON [employer] [facility] Work Phone: CT head/brain wo conon 08-25 CT head/brain wo con [facility] [address] CT Scan Report Signed Patient: Kyra Ritter MR#: [id number] : 1970 Acct:[id number] Age/Sex: 50 / F ADM Date: 08/25/21 Loc: ER Room: Type: [facility] ER Attending Dr: Ordering Provider: Santos [...] Anna Loyola M.D.08/25/2021 5:50 PM Dictation Location: [place] [address] Transcribed By: [facility] 08/25/211749 Dictated By: Anna Loyola MD 08/25/211734 Signed By: 08/25/211749 [facility] CT CHEST W CONTRASTOrdered B y: Iselvin Francis on 03-30-2021 Scarring and/or subsegmental atelectatic change left lung base. Hepatic steatosis. All CT scans at this facility use dose modulation, iterative reconstruction, and/or weight based dosing when appropriate to reduce radiation dose to as low as reasonably achievable. [employer] Phone: CT of the Chest with intravenous [...] attenuation. Musculoskeletal:No osteoblastic, and no osteolytic lesions. [employer] Phone: Nayan, Chpo Incoming Radiant Results From [employer] - 03/30/2021 10:[address] of [...] dose to as low as reasonably achievable. [employer] Work Phone: [employer] Phone: EKG 12 Lead - Chest PainOrde red By: Rodolfo Medrano on 03-30-2021 Atrial Rate 63 BPM [employer] Work Phone: P [place] 75 degrees [employer] Work Phone: P-R Interval 170 ms [employer] Phone: Q-T Interval 410 ms [employer] Phone: QRS Duration 84 ms [employer] Phone: QTc Calculation (Bazett) 419 ms [employer] Phone: R [place] 112 degrees [employer] Phone: T [place] 268 degrees [employer] Phone: Ventricular Rate 63 BPM [employer] Work Phone: Normal sinus rhythm Possible Left atrial enlargement Left posterior fascicular block ST & T wave abnormality, consider inferolateral ischemia Abnormal ECG When compared with ECG of 27-MAR-2021 14:29, Vent. rate has decreased BY 101 BPM T wave inversion now evident in Lateral leads Confirmed by Adrian Slaughter ([id number]) on 03/30/2021 7:56:43 AM [employer] Phone: Nayan, po Incoming Results From [place] - 03/30/2021 7:58 AM EDT Normal sinus rhythm Possible Left atrial enlargement Left posterior fascicular block ST & T wave abnormality, consider inferolateral ischemia Abnormal ECG When compared with ECG of 27-MAR-2021 14:29, Vent. rate has decreased BY 101 BPM T wave inversion now evident in Lateral leads Confirmed by Adrian Slaughter ([id number]) on 03/30/2021 7:56:43 AM [employer] Phone: [employer] Phone: POCT GlucoseOrdered By: Unkn own Result on 03-30-2021 Glucose [Mass/Vol] 93 mg/dL 60 - 115 mg/dl [employer] Phone: Performed on ACCU-CHEK [employer] Phone: [employer] Phone: Echocardiogram complete 2D w ith doppler with colorOrdered By: Ariana Francis on 03-28-2021 Transthoracic Echocardiography Report (TTE) Demographics Patient Name NEWCOMER Gender Female KYRA Patient Number [id number] Race Ethnicity Visit Number [id number] Room Number [id number] Corporate ID Date of Study 03/28/2021 Referring Physician Number Date of 1970 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 Alison Lord Age 50 year(s) Interpreting [facility] Physician Cardiology [address] Procedure Type of [...] Root: 3.12 cm LVOT Diameter: 2.05 cm [employer] Work Phone: Nayan, Chpo Incoming Cardiovascular Results From [facility] - 03/28/2021 4:45 PM EDT Transthoracic Echocardiography Report (TTE) Demographics Patient Name NEWCOMER Gender Female KYRA Patient Number [id number] Race Ethnicity Visit Number [id number] Room Number [id number] Corporate ID Date of Study 03/28/2021 Referring Physician Number Date of 1970 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 CALL [facility] tel. [phone], Troponin results called to and read back by Denise RosasW RN, 03/28/2021 12:03, by JESE [employer] Phone: [employer] Phone: Interpretation and review of laboratory results Abnormal [employer] Phone: Troponin I.cardiac [Mass/Vol] 0.025 ng/mL Critically high 0.000 - 0.010 ng/mL [employer] Phone: Comment on above: Methodology by Vinicio Butt CALL [facility] 1 tel. [phone], Troponin results called to and read back by Denise Gomez RN, 03/28/2021 09:38, by JESE [employer] Phone: [employer] Phone: Interpretation and review of laboratory results Abnormal [facility] Phone: Troponin I.cardiac [Mass/Vol] 0.027 ng/mL Critically high 0.000 - 0.010 ng/mL [facility] Phone: Comment on above: Methodology by Vinicoi Montilla. CALL [employer] tel. [phone], Trop results called to and read back by Denise Menard RN, 03/28/2021 04:45, by GUIDO [employer] Phone: [facility] Phone: Interpretation and review of laboratory results Abnormal [facility] Phone: Troponin I.cardiac [Mass/Vol] 0.027 ng/mL Critically high 0.000 - 0.010 ng/mL [employer] Phone: Comment on above: Methodology by Vinicio Montilla. CALL [employer] tel. [phone], Trop results called to and read back by Denise Gan, 03/28/2021 00:43, by HIGINIO [employer] Phone: [facility] Phone: APTTOrdered By: Rodolfo Medrano on 03-27-2021 aPTT Coag (Bld) [Time] 57.7 s High [facility] Work Phone: Comment on above: Effective 04/02/2020: Heparin Therapeutic Range: 64.0 98.0 seconds. CBC Auto DifferentialOrdered By: Rodolfo Medrano on 03-27-2021 Basophils (Bld) [#/Vol] 0.1 10*3/uL 0.0 - 0.2 K/uL [facility] Phone: Basophils/100 WBC (Bld) 1.1 % [facility] Work Phone: Eosinophils (Bld) [#/Vol] 0.0 10*3/uL 0.0 - 0.7 K/uL [employer] Phone: Eosinophils/100 WBC (Bld) 0.1 % [employer] Phone: Hematocrit (Bld) [Volume fraction] 45.8 % 37.0 - 47.0 % [employer] Phone: Hemoglobin.gastrointest inal spec 1 Ql (Stl) 15.0 g/dL 12.0 - 16.0 g/dL [employer] Phone: Interpretation and review of laboratory results Abnormal [employer] Phone: Lymphocytes (Bld) [#/Vol] 1.9 10*3/uL 1.0 - 4.8 K/uL [facility] Phone: Lymphocytes/100 WBC (Bld) 21.0 % [employer] Phone: MCH (RBC) [Entitic mass] 30.2 pg 27.0 - 31.3 pg [employer] Phone: MCHC (RBC) [Mass/Vol] 32.8 % Low 33.0 - 37.0 % [employer] Phone: MCV (RBC) [Entitic vol] 91.9 fL 82.0 - 100.0 fL [employer] Phone: Monocytes (Bld) [#/Vol] 0.8 10*3/uL 0.2 - 0.8 K/uL [employer] Phone: Monocytes/100 WBC (Bld) 8.3 % [facility] Phone: Neutrophils Absolute 6.4 K/uL 1.4 - 6 .5 K/uL [employer] Phone: Neutrophils/100 WBC (Bld) 69.5 % [employer] Phone: Platelet distribution width (Bld) [Ratio] 16.7 % High 11.5 - 14.5 % [employer] Phone: Platelets (Bld) [#/Vol] 308 10*3/uL 130 - 400 K/uL [employer] Phone: RBC (Bld) [#/Vol] 4.98 10*6/uL [employer] Phone: WBC (Bld) [#/Vol] 9.2 10*3/uL 4.8 - 10.8 K/uL [employer] Phone: [employer] Phone: Comprehensive Metabolic Pane lOrdered By: Rodolfo Medrano on 03-27-2021 Albumin [Mass/Vol] 4.9 g/dL High 3.5 - 4.6 g/dL [employer] Phone: ALP (Bld) [Catalytic activity/Vol] 56 U/L 40 - 130 U/L [employer] Phone: ALT [Catalytic activity/Vol] 21 U/L 0 - 33 U/L [employer] Phone: Anion gap [Moles/Vol] 15 mmol/L [facility] [employer] Work Phone: AST [Catalytic activity/Vol] 33 U/L 0 - 35 U/L [employer] Phone: Comment on above: Specimen hemolysis h as exceeded the interference as defined by Lindsay. Value may be falsely increased. Suggest recollection if clinically indicated. Bilirubin [Mass/Vol] 0.6 mg/dL 0.2 - 0 .7 mg/dL [employer] Phone: Calcium [Mass/Vol] 9.1 mg/dL 8.5 - 9.9 mg/dL [employer] Phone: Chloride [Moles/Vol] 100 mmol/L [employer] Phone: CO2 [Moles/Vol] 23 mmol/L [facility] Work Phone: Creatinine [Mass/Vol] 0.81 mg/dL 0.50 - 0.90 mg/dL [facility] Phone: Free PSA/Total PSA [Mass fraction] 7.9 g/dL 6.3 - 8.0 g/dL [facility] Phone: GFR >60.0 >60 [employer] Work Phone: Comment on above: >60 mL/min/1.73m2 EG FR, calc. for ages 18 and older using the MDRD formula (not corrected for weight), is valid for stable renal function. GFR Non- >60.0 >60 [employer] Phone: Comment on above: >60 mL/min/1.73m2 EG FR, calc. for ages 18 and older using the MDRD formula (not corrected for weight), is valid for stable renal function. Globulin (S) [Mass/Vol] 3 g/dL 2.3 - 3.5 g/dL [employer] Phone: Glucose [Mass/Vol] 139 mg/dL High 70 - 99 mg/dL [facility] [employer] Work Phone: Interpretation and review of laboratory results Abnormal [employer] Phone: Potassium [Moles/Vol] 3.8 mmol/L [facility] [employer] Work Phone: Sodium [Moles/Vol] 138 mmol/L [facility] Phone: Urea nitrogen (BldV) [Mass/Vol] 15 mg/dL 6 - 20 mg/dL [employer] Phone: D-Dimer, QuantitativeOrdered By: Rodolfo Medrano on 03-27-2021 D-Dimer, Quant 0.48 [facility] Work Phone: Comment on above: VTE (DVT or PE) cut- off = 0.50 mg/L FE[facility] [employer] Work Phone: MagnesiumOrdered By: Rodolfo davidson on 03-27-2021 Magnesium [Mass/Vol] 2.2 mg/dL 1.7 - 2 .4 mg/dL [employer] Phone: No Panel InformationOrdered By: Rodolfo Medrano on 03-27-2021 Interpretation and review of laboratory results Abnormal [employer] Phone: [employer] Phone: Interpretation and review of laboratory results Abnormal [employer] Phone: CALL [facility] tel. [phone], TROP results called to and read back by SY GARCIA, 03/27/2021 15:40, by [employer] Phone: [employer] Phone: [employer] Phone: Protime-INROrdered By: Rodolfo Medrano on 03-27-2021 INR Coag (Bld) [Relative time] 2.7 {INR} [employer] Phone: PT Coag (PPP) [Time] 28.1 s High [employer] Phone: T4, FreeOrdered By: Rodolfo tijerina on 03-27-2021 Free T4 [Mass/Vol] 0.16 ng/dL Low 0.84 - 1. 68 ng/dL [employer] Phone: TSH without ReflexOrdered By : Rodolfo Medrano on 03-27-2021 Interpretation and review of laboratory results Abnormal [employer] Phone: TSH Qn 139.400 m[IU]/L High [employer] [facility] Work Phone: CALL [facility] tel. [phone], TROP results called to and read back by SY GARCIA, 03/27/2021 15:40, by [employer] Phone: [employer] Phone: TroponinOrdered By: Ariana sanchez on 03-27-2021 Interpretation and review of laboratory results Abnormal [employer] Phone: Troponin I.cardiac [Mass/Vol] 0.029 ng/mL Critically high 0.000 - 0.010 ng/mL [employer] Phone: Comment on above: Methodology by Vinicio Montilla. CALL [facility] LC[facility] tel. [phone], TROP results called to and read back by JANLEL SEAMAN, 03/27/2021 18:38, by GILSON [employer] Phone: [employer] Phone: TroponinOrdered By: Rodolfo tijerina on 03-27-2021 Troponin I.cardiac [Mass/Vol] 0.018 ng/mL Critically high 0.000 - 0.010 ng/mL [employer] Phone: Comment on above: Methodology by Vinicio Montilla. XR CHEST PORTABLEOrdered By: Rodolfo Medrano on 03-27-2021 NO ACUTE CARDIOPULMONARY DISEASE. [employer] Phone: EXAMINATION: XR CHES T PORTABLE CLINICAL HISTORY: PALPITATIONS, SHORTNESS OF BREATH. COMPARISONS: 2020 FINDINGS: Osseous structures are intact. Cardiopericardial silhouette is normal. Pulmonary vasculature is normal. Lungs are clear. [employer] Phone: Nayan, [facility] Incoming Radiant Results From [employer] - 03/27/2021 3:38 PM EDT EXAMINATION: XR CHEST PORTABLE CLINICAL HISTORY: PALPITATIONS, SHORTNESS OF BREATH. COMPARISONS: 2020 FINDINGS: Osseous structures are intact. Cardiopericardial silhouette is normal. Pulmonary vasculature is normal. Lungs are clear. IMPRESSION: NO ACUTE CARDIOPULMONARY DISEASE. [employer] Phone: [employer] Phone: Vital Signs Date Time Vital Sign Value Performing Clinician Faci lity 07-19-2022 11:58-0500 Diastolic blood pressure 80 mm[Hg] Sara Astorga DO Work Phone: [facility] [employer] 07-19-2022 11:58-0500 Heart rate 57 /min Sara Astorga DO Work Phone: [facility] [employer] 07-19-2022 11:58-0500 Respiratory rate 19 /min Sara Astorga DO Work Phone: [facility] [employer] 07-19-2022 11:58-0500 SaO2% (BldA) [Mass fraction] 98 % Sara Astorga DO Work Phone: [facility] [employer] 07-19-2022 11:58-0500 Systolic blood pressure 140 mm[Hg] Sara Astorga DO Work Phone: [facility] [employer] 07-19-2022 08:01-0500 Body height 167.6 cm Sara Astorga DO Work Phone: [facility] [employer] 07-19-2022 08:01-0500 Body mass index (BMI) [Ratio] 24.21 kg/m2 Sara Astorga [employer] Work Phone: [facility] [employer] 07-19-2022 08:01-0500 Body weight 68.04 kg Sara Astorga [employer] Work Phone: [facility] [employer] 07-19-2022 08:00-0500 Body temperature 98.2 [degF] Sara Astorga DO Work Phone: [employer] [facility] [employer] 05-17-2022 18:00-0500 Diastolic blood pressure 89 mm[Hg] Pcp No [facility] 05-17-2022 18:00-0500 Heart rate 64 /min Pcp No [facility] 05-17-2022 18:00-0500 Respiratory rate 19 /min Pcp No [facility] [employer] 05-17-2022 18:00-0500 SaO2% (BldA) [Mass fraction] 97 % Pcp No [facility] [employer] 05-17-2022 18:00-0500 Systolic blood pressure 149 mm[Hg] Pcp No [facility] 05-17-2022 13:13-0500 Body height 167.6 cm Pcp No [facility] [employer] 05-17-2022 13:13-0500 Body mass index (BMI) [Ratio] 23.73 kg/m2 Pcp No [facility] [employer] 05-17-2022 13:13-0500 Body temperature 97.81 [degF] Pcp No [facility] [employer] 05-17-2022 13:13-0500 Body weight 66.68 kg Pcp No [facility] [employer] 03-31-2021 14:34-0400 Body temperature 98.6 [degF] Rodolfo Medrano MD Work Phone: [employer] Work Phone: 03-31-2021 14:34-0400 Diastolic blood pressure 68 mm[Hg] Rodolfo Medrano MD Work Phone: [employer] Work Phone: 03-31-2021 14:34-0400 Heart rate 53 /min Rodolfo Medrano MD Work Phone: [employer] Work Phone: 03-31-2021 14:34-0400 Respiratory rate 18 /min Rodolfo Medrano MD Work Phone: [employer] Work Phone: 03-31-2021 14:34-0400 SaO2% (BldA) [Mass fraction] 99 % Rodolfo Medarno MD Work Phone: [employer] Work Phone: 03-31-2021 14:34-0400 Systolic blood pressure 127 mm[Hg] Rodolfo Medrano MD Work Phone: [employer] Work Phone: 03-27-2021 14:21-0400 Body height 167.6 cm Rodolfo Medrano MD Work Phone: [employer] Work Phone: 03-27-2021 14:21-0400 Body mass index (BMI) [Ratio] 25.02 kg/m2 Rodolfo Medrano MD Work Phone: [facility] Work Phone: 03-27-2021 14:21-0400 Body weight 70.31 kg Rodolfo Medrano MD Work Phone: [facility] Work Phone: 01-15-2020 12:43-0400 BP Diastolic 68 mm[Hg] [facility] [place] , [place] 01-15-2020 12:43-0400 BP Systolic 132 mm[Hg] [facility] , [place] 01-15-2020 12:43-0400 Pulse Oximetry 100 % [facility] [place] , [place] 01-15-2020 12:43-0400 Respiratory Rate 20 /min [facility] [employer], [place] 01-15-2020 10:50-0400 BMI (Body Mass Index) 21.47 kg/m2 [facility], [place] 01-15-2020 10:50-0400 Body Temperature 98.01 [degF] [facility] [employer], [place] 01-15-2020 10:50-0400 Body weight 60.[address] [facility] [facility] [place] 01-15-2020 10:50-0400 Height 167.6 cm [place], [place] 01-15-2020 10:50-0400 Pulse (Heart Rate) 90 /min [facility] [employer] [facility] [place] Encounters Encounter Date Encounter Type Care Provider Facility Start: 08-08-2023 End: 08-08-2023 Emergency department patient visit PCP [facility] Start: 03-27-2023 End: 03-27-2023 Emergency department patient visit PCP [facility] Start: 07-19-2022 End: 07-19-2022 Emergency department patient visit Sara Astorga DO Work Phone: [facility] ED Comment on above: Closed fracture of m ultiple ribs of right side, initial encounter (Primary Dx); Alcohol abuse Start: 05-17-2022 End: 05-17-2022 Emergency department patient visit Pcp [facility] ED Comment on above: Chest pain, unspecif [...] 01-15-2020 End: 01-15-2020 Emergency department patient visit [facility] ED Comment on above: Sciatica of left ashley e (Primary Dx); Strain of lumbar region, initial encounter; Sprain of right ankle, unspecified ligament, initial encounter; Closed fracture of right ankle, initial encounter Procedures Date Procedure Procedure Detail Performing Clinician Start: 07-19-2022 Ct abdomen & pelvis w/contrast material Sara Astorga [employer] Work Phone: Start: 07-19-2022 Ct thorax w/contrast material Sara Astorga [employer] Work Phone: Start: 07-19-2022 Assay of ethanol Sara Astorga [employer] Work Phone: Start: 07-19-2022 Comprehensive metabo lic panel Sara Astorga [employer] Work Phone: Start: 07-19-2022 Drug tst prsmv instr mnt chem analyzers pr date Sara Astorga DO Work Phone: Start: 07-19-2022 Urinalysis microscopic only Sara Astorga [employer] Work Phone: Start: 07-19-2022 Urnls dip stick/tabl et rgnt auto w/o microscopy Sara Astorga [employer] Work Phone: Start: 07-19-2022 Radex ribs uni w/pos teroant ch minimum 3 views Sara Astorga [employer] Work Phone: Start: 05-17-2022 Ecg routine ecg w/le ast 12 lds w/i&r Sara Astorga [employer] Work Phone: Start: 05-17-2022 Assay of troponin [...] 03-27-2022 Thyroid stimulating hormone measurement TSH testing [employer] Phone: Start: 12-28-2021 Influenza vaccination Flu vaccine (# 1) [employer] Start: 04-13-2021 End: 04-13-2021 Patient encounter procedure 04/13/2021 Office Visit Cardiology Ariana Francis MD [address] [id number] [facility] Start: 04-09-2021 End: 04-09-2021 Patient encounter procedure 04/09/2021 Office Visit Endocrinology Doroteo Tee, [place] [address] [address] [phone] [facility] Start: 01-28-2021 Influenza vaccination Flu vaccine (# 1) [employer] Work Phone: Start: 01-29-2020 Influenza vaccination Flu vaccine (# 1) [place] Start: 12-08-2019 Screening for malign ant neoplasm of breast Breast cancer screen [employer] Start: 12-08-2019 Screening for malign ant neoplasm of colon Colon cancer screen colonoscopy [facility] [employer] [facility] [place] Start: 12-08-2019 Shingles Vaccine (1 of 2) Shingles Vaccine (1 of 2) [employer] Start: 2014 Screening for malign ant neoplasm of colon [employer] Start: 2009 Diabetes screen Diabetes screen [employer] Phone: Start: 2009 Lipid panel [employer] Start: 12-08-1999 Screening for malign ant neoplasm of cervix [employer] Start: 1990 Screening for malign ant neoplasm of cervix [employer] Start: 1988 DTaP/Tdap/Td vaccine (1 - Tdap) DTaP/Tdap/Td vaccine (1 - Tdap) [employer] Start: 12-08-1987 Hepatitis C screening Hepatitis C sc reen [employer] Start: 1984 HIV screening HIV screen [facility] Start: 1981 COVID-19 Vaccine (1) COVID-19 Vaccin e (1) [employer] Phone: Start: 1981 Depression Screen Depression Screen [employer] Start: 12-08-1975 Pneumococcal 0-64 ye ars Vaccine (1 of 1 - PPSV23) Pneumococcal 0-64 years Vaccine (1 of 1 - PPSV23) [employer] [place], [place] Start: 12-08-1975 Pneumococcal 0-64 ye ars Vaccine (1 of 2 - PPSV23) Pneumococcal 0-64 years Vaccine (1 of 2 - PPSV23) [employer] Phone: Start: 06-09-1970 COVID-19 Vaccine (#1) COVID-19 Vacci ne (#1) [employer] Start: 1969 Hepatitis C screening Hepatitis C ct [place] [employer] Phone: EKG 12 Lead [employer] Phone: EKG 12 Lead EKG 12 Lead ECG Routine 05/17/2022 5:02 PM EST [employer] Phone: End: 05-17-2022 POC Urine Qual POC Urine Qual Point of Care Testing STAT One Time for 1 Occurrences starting 05/17/2022 until 05/17/2022 [employer] Phone: Comment on above: One Time for 1 Occur rences starting 05/17/2022 until 05/17/2022 End: 05-17-2022 Urinalysis Urinalysis Lab STAT One Time for 1 Occurrences starting 05/17/2022 until 05/17/2022 [employer] Phone: Comment on above: One Time for 1 Occur rences starting 05/17/2022 until 05/17/2022 End: 05-17-2022 Urine Drug Screen Urine Drug Screen Lab STAT One Time for 1 Occurrences starting 05/17/2022 until 05/17/2022 [employer] Work Phone: Comment on above: One Time for 1 Occur rences starting 05/17/2022 until 05/17/2022 End: 01-15-2020 XR ANKLE RIGHT (MIN 3 VIEWS) XR ANKLE RIGHT (MIN 3 VIEWS) Imaging Routine Once for 1 Occurrences starting 01/15/2020 until 01/15/2020 [employer] [place] Comment on above: Once for 1 Occurrenc es starting 01/15/2020 until 01/15/2020 XR ANKLE RIGHT (MIN 3 VIEWS) XR ANKLE RIGHT (MIN 3 VIEWS) Imaging STAT 01/15/2020 11:48 AM EDT [employer] [place] End: 01-15-2020 XR LUMBAR SPINE (MIN 4 VIEWS) XR LUMBAR SPINE (MIN 4 VIEWS) Imaging Routine Once for 1 Occurrences starting 01/15/2020 until 01/15/2020 [employer] [place] Comment on above: Once for 1 Occurrenc es starting 01/15/2020 until 01/15/2020 XR LUMBAR SPINE (MIN 4 VIEWS) XR LUMBAR SPINE (MIN 4 VIEWS) Imaging STAT 01/15/2020 11:48 AM EDT [employer] [place] Social History Date Type Detail Facility Start: 01-15-2020 End: 02-03-2021 Tobacco smoking status NHIS Current every day smoker [facility] [employer] [place], [place] History of tobacco use [facility]igarette [facility] Start: 01-15-2020 End: 04-13-2021 Cigarettes smoked current (pack per day) - Reported [facility] [facility] [place] Start: 01-15-2020 End: 04-13-2021 Tobacco use and exposure Never used [employer] [facility] [place] Start: 01-15-2020 End: 07-19-2022 Alcohol intake Current drinker of alcohol (finding) [facility] [place], [place] Start: 1970 Sex Assigned At Not on file [employer] [place] Start: 05-07-2022 End: 05-17-2022 Exposure to SARS-CoV-2 (event) [facility] [place] [place] Start: 04-13-2021 [facility] [employer] History of tobacco use Current smoker [facility] [employer] Phone: Start: 05-17-2022 History SDOH Alcohol Frequency 5 [facility] [employer] Phone: Start: 05-17-2022 History SDOH Alcohol Std Drinks 1 [facility] [employer] Phone: Start: 05-17-2022 History SDOH Alcohol Binge 3 [facility] [employer] Phone: Start: 04-13-2021 Tobacco Comment quit since susan tavares admitted 03/23/21 [facility] [employer] Phone: Hospital Discharge instructions 03-31-2021 Discharge Instr [...] at most local grocery stores, pharmacies, and iodine-stores. If you have any questions about your diet or nutrition, call the hospital and ask for the dietitian. A low fat, low cholesterol diet is recommended The following attachments cannot be sent through Care Everywhere.levothyroxine (oral/injection) (Colombian)metoprolol (oral/injection) (Colombian)nicotine (transdermal) (Colombian)documented in this encounter [employer] Phone: Hospital course Narrative 03-31-2021 Ariana Francis MD - 03/31/2021 3:18 PM EDT Note Date & Type Note Facility 03-31-2021 Hospital course Narrative Cardiology Discharge Summary Patient Identification: Kyra Ritter : 1970 Account: [id number] Admit date: 03/27/2021 Discharge date: 03/31/21 Attending provider: Ariana Francis MD Primary care provider: No primary care provider on file. Admission Diagnoses: SVT Discharge Diagnoses: Active Hospital Problems Diagnosis Date Noted Troponin I above reference range [R77.8] Priority: High SVT (supraventricular tachycardia) (HCC) [I47.1] 03/27/2021 Priority: Low Hypothyroidism [E03.9] Priority: Low Hospital Course: Kyra Ritter is a50 y.o. female admitted to [facility] on 03/27/2021 for SVT. This was [...] 200 MG tablet Comments: Reason for Stopping: cjhybmx-mebbmuipivzbl-dvlididl (EXCEDRIN MIGRAINE) 250-250-65 MG per tablet Comments: Reason for Stopping: naproxen (NAPROSYN) 500 MG tablet Comments: Reason for Stopping: Significant Diagnostics: Radiology: Echocardiogram complete 2D with doppler with color Result Date: 03/28/2021 Transthoracic Echocardiography Report (TTE) Demographics Patient Name NEWCOMER Gender Female KYRA Patient Number [id number] Race Ethnicity Visit Number [id number] Room Number [id number] Corporate ID Date of Study 03/28/2021 Referring Physician Number Date of 1970 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 Alison Lord Age 50 year(s) Interpreting [facility] Physician Cardiology [address] Procedure Type of [...] ms QTc Calculation (Bazett) 413 ms P [place] 65 degrees R [place] 111 degrees T [place] 25 degrees POCT Glucose Collection Time: 03/30/21 9:29 PM Result Value Ref Range POC Glucose 93 60 - 115 mg/dl Performed on ACCU-CHEK Follow-up visits: LEOBARDO Juan [address] [facility] [address] [facility] [address] In 2 weeks Ariana Francis MD [address] [facility] [address] [facility] [address] Assessment: Active Hospital Problems Diagnosis Date Noted Troponin I above reference range [R77.8] Priority: High SVT (supraventricular tachycardia) (HCC) [I47.1] 03/27/2021 Priority: Low Hypothyroidism [E03.9] Priority: Low Plan: 1.DC home FU with Murray Nichols and sc DC time 40 min. Complete blood reconciliation examined the patient make follow-up plans. Electronically signed by Ange Falcon 03/31/2021 at 3:18 PM documented in this encounter [employer] Phone: History of Present illness Narrative 03-31-2021 José Miguel Duvall MD - 03/31/2021 3:09 PM EDTJennifer Broderick MD - 03/31/2021 10:47 AM Ariana Hamlin MD - 03/30/2021 8:02 AM Ariana Hamlin MD - 03/29/2021 9:18 AM EDT Note Date & Type Note Facility 03-31-2021 History of Present illness Narrative Progress Note Date:03/31/2021 Room:[place] [address] Patient Name:Kyra Ritter Date of :1970 Age:50 [...] Unit/Bed: W163/W163-01 Date of : 1970 Acct: [id number] Admitting Diagnosis: Paroxysmal supraventricular tachycardia (HCC) [I47.1] [...] Name NEWCOMER Gender Female KYRA Patient Number [id number] Race Ethnicity Visit Number [id number] Room Number W163 Corporate ID Date of Study 03/28/2021 Referring Physician Number Date of 1970 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 Alison Lord Age 50 year(s) Interpreting [facility] Physician Cardiology [address] Procedure Type of [...] Unit/Bed: W163/W163-01 Date of : 1970 Acct: [id number] Admitting Diagnosis: Paroxysmal supraventricular tachycardia (HCC) [I47.1] [...] Name NEWCOMER Gender Female KYRA Patient Number [id number] Race Ethnicity Visit Number [id number] Room Number [id number] Corporate ID Date of Study 03/28/2021 Referring Physician Number Date of 1970 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 Alison Lord Age 50 year(s) Interpreting [facility] Physician Cardiology [address] Procedure Type of [...] Progress Note PATIENT: KYRA RITTER CSN #: [id number] : 1970 ADMIT DATE: 03/27/2021 2:20 PM [...] pertinent labs Madhuri GarrisonN RN CDS contact [phone] M-F 6am - 2pm Options provided: -- [...] 03/28/2021 12:52 PM documented in this encounter [employer] Phone: Evaluation note Note Date & Type Note Facility Evaluation note Diagnosis Paroxysmal supraventricular tachycardia (HCC)- Primary Paroxysmal supraventricular tachycardia Elevated troponin Other abnormal blood chemistry Hypothyroidism, unspecified type SVT (supraventricular tachycardia) (HCC) Other specified cardiac dysrhythmias Troponin I above reference range Other abnormal blood chemistry documented in this encounter [employer] Phone: Evaluation note Note Date & Type Note Facility Evaluation note Diagnosis Chest pain, unspecified type- Primary Hypothyroidism, unspecified type H/O noncompliance with medical treatment, presenting hazards to health Personal history of noncompliance with medical treatment, presenting hazards to health Encounter for medication refill Issue of repeat prescriptions documented in this encounter [employer] Phone: Evaluation note Note Date & Type Note Facility Evaluation note Diagnosis Closed fracture of multiple ribs of right side, initial encounter- Primary Alcohol abuse Alcohol abuse, unspecified documented in this encounter [facility] [employer] Phone: Hospital Discharge instructions Attachments Note Date & Type Note Facility Hospital Discharge instructions The following attachments cannot be sent through Care Everywhere.Chest Pain (Colombian)Hypothyroidism (Colombian)documented in this encounter [facility] [employer] Phone: Hospital Discharge instructions Attachments Note Date & Type Note Facility Hospital Discharge instructions The following attachments cannot be sent through Care Everywhere.Alcohol Use Disorder: General Info (Colombian)documented in this encounter [facility] [employer] Phone: Discharge Instructions * Attachments The following attachments cannot be sent through Care Everywhere. * Ankle Fracture (Colombian) * Splint or Immobilizer Use (Colombian) * RICE: General Info (Colombian) * Sciatica (Colombian) * Back Pain (Colombian) documented in this encounter Assessments Diagnosis Sciatica of left side Sciatica Strain of lumbar region, initial encounter Sprain of right ankle, unspecified ligament, initial encounter Closed fracture of right ankle, initial encounter Advance Directives No Advanced Directives Records FoundDocuments on File Type Date Recorded Patient Stripper Color Expl anation Advance Directives and Living Will Power of [employer] Developer Documents on File Type Date Recorded Patient Stripper Color Expl anation ACP-Advance Directive ACP-Power of [employer] Developer Latest Code Status on File Code Status [...] section and content) DATE CREATED AUTHOR 11/12/2021 [facility] DATE CREATED AUTHOR AUTHOR'S KERWIN ATION 08/08/2023 [facility] Care Teams (unrecognized sec tion and content) Er Physician Relationship Specialty Start Date End Date No, Pcp PCP - General 05/17/22 Er Physician Relationship Specialty Start Date End Date No, [...] BE BASED ON THE PRIMARY CLINICAL RECORDS. [facility]. provides no warranty or guarantee of the accuracy or completeness of information in this document.
[2023-12-05] MEDS: OXYCODONE HCL 5 MG TABLET 10 MG PO (20:14)
[2023-12-05] MEDS: ENOXAPARIN SODIUM 40 MG/0.4 ML SYRINGE SUBQ (20:15)
[2023-12-05] MEDS: PREGABALIN 75 MG CAPSULE PO (20:15)
--- NOTE | 2023-12-05 21:02 | PC.NURSE ---
Pt has sid wrap over the rt lower leg from just below the knee to the base of the toes. Sid wrap is dry and intact at this time. Pt is a fresh post op. Sid wraps not removed.
[2023-12-06] MEDS: LACTATED RINGER'S SOLUTION 1,000 ML 50 ML IV (00:35)
[2023-12-06] MEDS: OXYCODONE HCL 5 MG TABLET 10 MG PO (02:03)
[2023-12-06 04:37] VITALS: BP 142/91; PULSE 62; TEMP 36.4; O2SAT 97
[2023-12-06 05:19] LABS: Basophils Percent Auto 0.2 % (0.2-2.0); Eosinophils Percent Auto 0.1 % (0.9-7.0); Hematocrit 34.1 % (36.0-48.0); Hemoglobin 11.1 g/dL (12.0-16.0); Immature Granulocytes Abs Auto 0.07 10^3/uL (0.00-0.03); Immature Granulocytes Pct Auto 0.6 % (0.0-0.5); Lymphocytes Absolute Auto 1.5 10^3/uL (1.2-3.8); Lymphocytes Percent Auto 12.5 % (20.5-60.0); Mean Corpuscular HGB Conc 32.6 g/dL (29.9-35.2); Mean Corpuscular Hemoglobin 33.3 pg (26.7-34.0); Mean Corpuscular Volume 102.4 fL (81.0-99.0); Mean Platelet Volume 11.5 fL (9.5-13.5); Monocytes Absolute Auto 0.7 10^3/uL (0.3-0.8); Monocytes Percent Auto 5.6 % (1.7-12.0); Neutrophils Absolute Auto 9.4 10^3/uL (1.4-6.5); Platelet Count 197 10^3/uL (150-450); Red Blood Count 3.33 10^6/uL (4.20-5.40); Red Cell Distribution Width 13.6 % (11.0-15.0); White Blood Count 11.6 10^3/uL (4.0-11.0)
[2023-12-06 06:03] LABS: Alanine Aminotransferase 39 U/L (14-59); Albumin Globulin Ratio 1.1; Albumin Level 3.9 g/dL (3.4-5.0); Alkaline Phosphatase 50 U/L (46-116); Anion Gap 10.4; Aspartate Amino Transferase 24 U/L (15-37); BUN Creatinine Ratio 18.9; Bilirubin Total 0.4 mg/dL (0.2-1.0); Calcium 8.7 mg/dL (8.5-10.1); Carbon Dioxide 29.5 mmol/L (21.0-32.0); Chloride 101 mmol/L (98-107); Estimated GFR (African America >60 (>=60); Estimated GFR (Non-African Ame >60 (>=60); Globulin 3.5 g/dL; Glucose 101 mg/dL (74-106); Potassium 3.9 mmol/L (3.5-5.1); Sodium 137 mmol/L (136-145); Total Protein 7.4 g/dL (6.4-8.2)
[2023-12-06] MEDS: CEFAZOLIN SODIUM/DEXTROSE,ISO 2 GM/50 ML PIGGYBACK IV (08:13)
[2023-12-06] MEDS: OXYCODONE HCL 5 MG TABLET PO (08:24)
[2023-12-06] MEDS: PREGABALIN 75 MG CAPSULE PO (08:24)
--- NOTE | 2023-12-06 09:54 | P.PN_ITS ---
Progress Note: Subjective Subjective Interval history: Patient seen and evaluated resting comfortably at bedside this a.m. POD #1 s/p right ankle arthroscopic joint debridement, hardware removal and bone biopsy distal tibia DOS 12/05/2023. States she feels the block wore off overnight and admits to some tingling in her toes, however pain is well-controlled with oral regimen and feels she is ready to go home. She denies any other acute lower extremity complaints and denied any constitutional symptoms at time of visit. Exam Narrative Exam Narrative: RLE dressing left CDI. CFT intact to digits. Skin temperature warm and symmetric proximal and distal dressing with no proximal streaking. Light touch sensation intact to digits with active range of motion present. Compartments are soft and compressible, no pain with calf or thigh compression. Constitutional Vital Signs, click to edit/add: Last Vital Signs Temp 97.6 F 12/06/23 04:37 Pulse 62 12/06/23 04:37 Resp 18 12/06/23 04:37 BP 142/91 H 12/06/23 04:37 Pulse Ox 97 12/06/23 04:37 O2 Del Method Room Air 12/06/23 04:37 Progress Note: Objective Labs Labs: Short CBC 12/06/23 Range/Units 04:23 WBC 11.6 H (4.0-11.0) 10^3/uL Hgb 11.1 L (12.0-16.0) g/dL Hct 34.1 L (36.0-48.0) % Plt Count 197 (150-450) 10^3/uL BMP 12/06/23 04:23 Sodium 137 Potassium 3.9 Chloride 101 Carbon Dioxide 29.5 BUN 14.0 Creatinine 0.74 Glucose 101 Calcium 8.7 Liver Function 12/06/23 Range/Units 04:23 Total Bilirubin 0.4 (0.2-1.0) mg/dL AST 24 (15-37) U/L ALT 39 (14-59) U/L Alkaline Phosphatase 50 (46-116) U/L Albumin 3.9 (3.4-5.0) g/dL Progress Note: A&P Assessment and Plan (1) Postoperative pain: (2) Smoker: Plan Patient examined and evaluated. All findings discussed with patient and all questions answered to patient's satisfaction. Pertinent labs and imaging reviewed. RLE dressing to be left CDI until follow-up. Weightbearing as tolerated with Cam boot to the right lower extremity. May use crutches walker or knee scooter for assistance as needed. Pain currently controlled with oral regimen. Stable to DC from Surgery's perspective. Postop prescriptions been sent to [facility] on [facility]. To follow-up with Dr. Olvera's office in 1 week for dressing change. Please call with questions or concerns.
--- NOTE | 2023-12-06 10:11 | P.DS_ITS ---
<Statement entered by Manjinder Germain MD - 12/06/23 18:58> Patient seen and examined, agree with assessment and plan below. Admitted after surgery and did well. Pain controlled and ambulating well. Discharged home in stable condition. Diagnosis: 1.Post-op pain 2. Smoker DS: Providers Provider Date of admission: 12/05/23 12:48 Primary care physician: Non-Staff Physician, Consults: 12/05/23 09:53 Physical Therapy Eval and Treat Routine Reason for consultation: postop gait eval/fall risk, wbat w/ CAM boot rle DS: Diagnosis Discharge Diagnosis (1) Postoperative pain: (2) Smoker: DS: Summary Hospital Course Hospital Course: The patient was admitted in observation postoperatively for pain management after having a right ankle surgery with hardware removal per Dr Olvera. The patient's pain was well-managed overnight after her nerve block wore off. She denies any chest pain, shortness of breath, or nausea and vomiting. She is medically stable for discharge at this time. Postoperative pain management is being handled by the podiatry service. Discharge instructions have been provided by the podiatry service for weightbearing and wound care, etc. The patient should follow-up with Dr Olvera per their discharge instructions. Time Spent with Patient Time attestation: Total time spent providing and/or coordinating discharge services: Exam Constitutional Vital Signs, click to edit/add: Last Vital Signs Temp 97.6 F 12/06/23 04:37 Pulse 62 12/06/23 04:37 Resp 18 12/06/23 04:37 BP 142/91 H 12/06/23 04:37 Pulse Ox 97 12/06/23 04:37 O2 Del Method Room Air 12/06/23 04:37 Common normals: no apparent distress, oriented x3 and alert General appearance: cooperative Orientation/consciousness: Yes awake HENIL Common normals: normocephalic, head/scalp atraumatic and hearing grossly normal bilaterally Eye Common normals: PERRL, EOMs intact bilaterally, conjunctivae normal and no scleral icterus General eye: normal appearance of both eyes Chest Common normals: inspection of chest normal Chest: symmetrical chest wall rise Respiratory Common normals: normal respiratory effort, no use of accessory muscles and clear to auscultation bilaterally Effort & inspection: able to speak in complete sentences Cardio Common normals: regular rate, regular rhythm, S1 normal heart sound, S2 normal heart sound, no murmurs and peripheral pulses 2+ throughout GI Common normals: Normal to inspection, nondistended, normoactive bowel sounds present, soft to palpation, non-tender and no hepatosplenomegaly Bladder/kidney exam: bladder normal to palpation Extremity Common normals: normal to inspection and no calf tenderness General: no clubbing, no cyanosis and no edema Left lower extremity: ankle joint (Surgical drsg D&I, mild post swelling to forefoot) Neuro Common normals: CN's II-XII intact bilaterally, moves all extremities, no focal motor deficits and no sensory deficits noted Psych Common normals: mental status grossly normal DS: Data Data Completed and Pending Labs on day of discharge: Labs from last 24 hours 12/06/23 04:23 WBC 11.6 H RBC 3.33 L Hgb 11.1 L Hct 34.1 L MCV 102.4 H MCH 33.3 MCHC 32.6 RDW 13.6 Plt Count 197 MPV 11.5 Neut % (Auto) 81.0 H Lymph % (Auto) 12.5 L Tillman % (Auto) 5.6 Eos % (Auto) 0.1 L Baso % (Auto) 0.2 Neut # (Auto) 9.4 H Lymph # (Auto) 1.5 Tillman # (Auto) 0.7 Eos # (Auto) 0.0 Baso # (Auto) 0.0 Abs Immat Gran (auto) 0.07 H Imm/Tot Granulo (auto) 0.6 H Sodium 137 Potassium 3.9 Chloride 101 Carbon Dioxide 29.5 Anion Gap 10.4 BUN 14.0 Creatinine 0.74 Est GFR ( Amer) >60 Est GFR (Non-Af Amer) >60 BUN/Creatinine Ratio 18.9 Glucose 101 Calcium 8.7 Total Bilirubin 0.4 AST 24 ALT 39 Alkaline Phosphatase 50 Total Protein 7.4 Albumin 3.9 Globulin 3.5 Albumin/Globulin Ratio 1.1 Discharge Plan Discharge Disposition: Home, Self-Care Condition: Good Discharge Medications: New aspirin [Adult Low Dose Aspirin] 81 mg tablet,delayed release (DR/EC) 81 mg PO BID 30 Days Qty: 60 0RF cefadroxil 500 mg capsule 500 mg PO BID 7 Days Qty: 14 0RF oxycodone-acetaminophen [Percocet] 5-325 mg tablet 1 tab PO Q6H PRN (Reason: pain) 7 Days Qty: 28 0RF ondansetron 4 mg tablet,disintegrating 4 mg PO Q8H PRN (Reason: nausea and vomiting) 5 Days Qty: 15 0RF sennosides [Senna Laxative] 8.6 mg tablet 8.6 mg PO DAILY PRN (Reason: constipation) 7 Days Qty: 7 0RF Continued cholecalciferol (vitamin D3) 50 mcg (2,000 unit) capsule 100 mcg PO DAILY multivitamin [Daily Multi-Vitamin] Tablet 1 tab PO DAILY ibuprofen 800 mg tablet 800 mg PO Q8H Activity: increase activity as tolerated Diet: advance to your usual diet Print Language: Portuguese Patient Instructions: Osteoarthritis (DC), Pain Management After Surgery (DC) Activity Restrictions/Additional Instructions: Please leave dressing to right lower extremity clean dry and intact. Do not at tempt to remove the dressing or get it wet. Please maintain weightbearing as tolerated with Cam boot to right foot at all times when walking. You do not need to sleep in the boot. Please use crutches walker or knee scooter for assistance if needed. Please take medications as prescribed. Please rest, ice behind the right knee, elevate the right foot above the level of your chest to assist with pain or swelling. Please follow-up with Dr. Olvera's office in 1 week. Please call the office to confirm appointment and/or with any questions/concerns. Referrals: Gallo Olvera DPM [Physician] - Follow Up Appointments: December 12 @ 11:15am with Dr. Olvera for dressing change. [phone] Discharge Date/Time: 12/06/23 10:55
--- NOTE | 2023-12-06 12:16 | CM.NOTE ---
Rounds made with Dr. Germain. Dolores states feeling good, much less pain and is ready for discharge. Plan is for discharge today & to followup with podiatry.
== END 2023-12-06 10:55 | disposition home or self-care (01) ==
LOC: SURGOUT 17:20 → MS 17:20
PROVIDERS: Anesthesiology; Nurse Practitioner; Admitting Provider Family Medicine; Visit Provider Podiatrist Foot & Ankle Surgery
PROC: (CPT 01464; principal; 2023-12-05 07:30)
DX: M25.471 Effusion, right ankle (principal); M87.26 Osteonecrosis due to previous trauma, tibia and fibula; T84.84XA Pain due to internal orthopedic prosthetic devices, implants and grafts, initial encounter; M94.271 Chondromalacia, right ankle and joints of right foot; M19.171 Post-traumatic osteoarthritis, right ankle and foot; G89.18 Other acute postprocedural pain; S93.431A Sprain of tibiofibular ligament of right ankle, initial encounter; S82.61XS Displaced fracture of lateral malleolus of right fibula, sequela; F17.200 Nicotine dependence, unspecified, uncomplicated
CPT/HCPCS: 01464; 01480; 20245; 20680; 29898; 36415; 64445; 64450; 73610; 76000; 76942; 80053; 82948; 84703; 85025; 88307; 88311; 96365; 96366; 96372; 97161; G0378; J0131; J0690; J1100; J1650; J1885; J2250; J2405; J2704; J2795

== ENCOUNTER 2023-12-06 19:06 | Emergency (ER) | payer SELFPAY ==
[2023-12-06 19:16] VITALS: BP 169/95; PULSE 75; TEMP 36.9; O2SAT 97; BMI 26.6
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
[2023-12-06] MEDS: HYDROCODONE/ACET 5-325 MG TABLET 1 TAB PO (19:38)
== END 2023-12-06 19:41 | disposition home or self-care (01) ==
PROVIDERS: Emergency Provider Emergency Medicine
DX: L76.22 Postprocedural hemorrhage of skin and subcutaneous tissue following other procedure (principal)
CPT/HCPCS: 99283

== ENCOUNTER 2023-12-27 10:07 | Outpatient (OUT) | payer SELFPAY ==
--- NOTE | 2023-12-27 | XR_ITS ---
The [address] [address] Patient Name: KYRA SINGH MRN: [id number] date: 1970 Sex: F Assigned Patient Location: Current Patient Location: Accession/Order Number: [id number] Exam Date: 12/27/2023 10:21 Report Date: 12/29/2023 04:52 At the request of: BALAJI KLINE Procedure: XR ankle RT min 3V PROCEDURE: XR ankle RT min 3V HISTORY: RIGHT ANKLE PAIN COMPARISON: XR ankle right 12/05/2023, 10/17/2023, 10/23/2023, 04/27/2023 FINDINGS: BONES:Thin, subtle calcification along lateral margin of distal tibial plafond. Evidence of prior hardware placement and removal involving distal tibia and fibula. Single screw and wire fragment remaining within distal fibula. Narrowing of the tibiotalar joint. Slight asymmetric widening of the joint space between the talus and medial malleolus; unchanged. Stable tiny ossifications posterior to the tibial plafond. SOFT TISSUES:Mild soft tissue swelling. Lateral skin alberto. EFFUSION:None visible. OTHER: Negative. XR/XR ankle RT min 3V IMPRESSION: 1. Mild soft tissue swelling and lateral skin alberto consistent with recent surgery. 2. Thin, small separate ossification along lateral margin of tibial plafond which has not been seen on prior study. Small fracture fragment? Electronically authenticated by: RISHI CERDA Date: 12/29/2023 04:52
--- OUTSIDE RECORDS SUMMARY | 2023-12-27 10:15 | XMS_ITS | CCD ---
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 Name Role Phone Unavailable Primary Care Provider Unavailabl e No, Pcp Primary Care Provider Unavailabl e NO, PCP Primary Care Unavailable CHIP SIERRA Attending Unavailable NO, PCP Primary Care Unavailable MARTINEZ Attending Unavailable NO FAMILY, PHYSICIAN Primary Care Unavailable Gallo Olvera Attending Unavailable Gallo Olvera Admitting Unavailable Allergies Allergy Classification Reported Allergen(s) Allergy Type Date of Onset Reaction(s) Facility (4 sources) Aluminum aspirin Drug Allergy 7 [place] (4 sources) Clindamycin/Linco mycin Propensity to adverse reactions to drug 8 [place] (2 sources) Tetracyclines & Related Propensity to adverse reactions to drug 8 [place] (2 sources) Tetracycline (class of antibiotic) Propensity to adverse reactions to drug 8 DONYA RAND[facility]PHBazing[facility] Work Phone: (1 source) Clindamycin Drug Allergy [address] [facility] Repository (1 source) Ibuprofen Drug Allergy [address] [facility]ository (1 source) Tetracycline Drug Allergy [address] [facility] Medications Current Medications Medication Drug Class(es) Dates [...] Test Name Value Interpretation Reference Range Facility [facility] 12-05-2023 L Specimen: [id number] Received: 12/05/23 Status: АННА Re Num: [id number] Spec Type: Surgical Subm Dr: Gallo Olvera DPM, MS Tissues: A Bone Fragments - Other than Path Fracture (RT DISTAL TIBIAL OSTEONECROS) Procedures: HE, Gross/Micro L3, Decalcification Age/ Patient Sex Location Account Attending Physician Dolores Ritter 52/F LABELL [id number] Gallo Olvera DPM, MS SPEC NUM: [id number] RECD: 12/05/23 STATUS: АННА LOPEZ NUM: [id number] NEEMA: 12/05/[address]: Gallo Olvera DPM, MS ENTERED: 12/05/23 [facility] DR: Darlene,Jennifer SPEC TYPE: Surgical DEPT: [facility] ORDERED: HE, Gross/Micro L3, Decalcification ORDERED: HE, Gross/Micro L3, Decalcification Pathological Diagnosis Bone, right anterior distal tibia, curettage biopsy: -Multiple small bony pieces of the old osteonecrotic types (Degenerated bone with old osteonecrosis) -No evidence or features of any acute or active types of bony injury or degenerations -Also no evidence of secondary infection, or any other specific abnormality, or atypical changes observed Clinical Information Effusion right ankle, 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 Gross Description Received in formalin labeled with the patient's name, date of and right distal tibia osteonecrosis is a 1.7 x 1.3 x 0.3 cm aggregate of goldman-yellow soft bone fragments, entirely submitted following decalcification in A1. Microscopic Description Microscopic examinations are performed supporting the above interpretation -------- Specimen: [id number] Received: 12/05/23 Status: АННА Lopez Num: [id number] Spec Type: Surgical Subm Dr: Gallo Olvera DPM, MS Tissues: A Bone Fragments - Other than Path Fracture (RT DISTAL TIBIAL OSTEONECROS) Procedures: PAMELLA, Gross/Micro L3, Decalcification -------- Patient: Dolores Ritter [id number] (Continued) -------- Specimen: [id number] Received: 12/05/23 (Continued) Signed (signature on file) Dariana Dias MD 12/06/23 1631 -------- Specimen: [id number] Received: 12/05/23 Status: АННА Lopez Num: [id number] Spec Type: Surgical Subm Dr: Gallo Olvera DPM, MS Tissues: A Bone Fragments - Other than Path Fracture (RT DISTAL TIBIAL OSTEONECROS) Procedures: HE, Gross/Micro L3, Decalcification -------- Patient: Dolores Ritter [id number] (Continued) -------- Specimen: [id number] Received: 12/05/23 (Continued) CPT Codes [id number] -------- -------- Specimen: [id number] Received: 12/05/23 Status: АННА Lopez Num: [id number] Spec Type: Surgical Subm Dr: Gallo Olvera DPM, Tissues: A Bone Fragments - Other than Path Fracture (RT DISTAL TIBIAL OSTEONECROS) Procedures: HE, Gross/Micro L3, Decalcification -------- Patient: Dolores Ritter [id number] (Continued) -------- Signed (signature on file) Dariana Dias MD 12/06/23 1631 Normal [facility] Alcoholon 08-08-2023 Blood Alcohol Concentration 0.186 G/dL Normal [facility] Comment on above: Performed By: #### A LCOH #### [facility] [address] [place] [phone] Ethanol [Mass/Vol] 212 mg/dL Normal [facility] Comment on above: Performed By: #### A LCOH #### [facility] [address] [place] [phone] CBC With Platelet and Differ entialon 08-08-2023 Basophils (Bld) [#/Vol] 0.1 10*3/uL Normal 0.0-0.2 [facility] Comment on above: Performed By: #### C BCWD #### [facility] [address] [facility] [address] Basophils/100 WBC (Bld) 0.9 % Normal [facility] Comment on above: Performed By: #### C BCWD #### [facility] [address] [place] [address] Eosinophils (Bld) [#/Vol] 0.1 10*3/uL Normal 0.0-0.7 [facility] Comment on above: Performed By: #### C BCWD #### [facility] [address] [place] [address] Eosinophils/100 WBC (Bld) 1.8 % Normal [facility] Comment on above: Performed By: #### C BCWD #### [facility] [address] [place] [address] Erythrocyte distribution width (RBC) [Ratio] 14.1 % Normal 11.5-14.5 [facility] Comment on above: Performed By: #### C BCWD #### [facility] [address] [place] [address] Hematocrit (Bld) [Volume fraction] 38.5 % Normal 37.0-47.0 [facility] Comment on above: Performed By: #### C BCWD #### [facility] [address] [place] [address] Hemoglobin (Bld) [Mass/Vol] 13.1 g/dL Normal 12.0-16.0 [facility] Comment on above: Performed By: #### C BCWD #### [facility] [address] [place] [address] Lymphocytes (Bld) [#/Vol] 1.9 10*3/uL Normal 1.0-4.8 [facility] Comment on above: Performed By: #### C BCWD #### [facility] [address] [place] [address] Lymphocytes/100 WBC (Bld) 24.5 % Normal [facility] Comment on above: Performed By: #### C BCWD #### [facility] [address] [place] [address] MCH (RBC) [Entitic mass] 33.4 pg Critically high 27.0-31.3 [facility] Comment on above: Performed By: #### C BCWD #### [facility] [address] [place] [address] MCHC 34.0 % Normal 33.0-37.0 [facility] Comment on above: Performed By: #### C BCWD #### [facility] [address] [place] [address] MCV (RBC) [Entitic vol] 98.2 fL Critically high 79.4-94 .8 [facility] Comment on above: Performed By: #### C BCWD #### [facility] [address] [place] [address] Monocytes (Bld) [#/Vol] 0.5 10*3/uL Normal 0.2-0.8 [facility] Comment on above: Performed By: #### C BCWD #### [facility] [address] [place] [address] Monocytes/100 WBC (Bld) 6.2 % Normal [facility] Comment on above: Performed By: #### C BCWD #### [facility] [address] [place] [address] Neutrophils (Bld) [#/Vol] 5.0 10*3/uL Normal 1.4-6.5 [facility] Comment on above: Performed By: #### C BCWD #### [facility] [address] [place] [address] Neutrophils/100 WBC (Bld) 65.3 % Normal [facility] Comment on above: Performed By: #### C BCWD #### [facility] [address] [place] [address] Platelets (Bld) [#/Vol] 255 10*3/uL Normal 130-400 [facility] Comment on above: Performed By: #### C BCWD #### [facility] [address] [place] [address] RBC (Bld) [#/Vol] 3.92 10*6/uL Low 4.20-5.40 [facility] Comment on above: Performed By: #### C BCWD #### [facility] [address] [place] [address] WBC (Bld) [#/Vol] 7.7 10*3/uL Normal 4.8-10.8 [facility] Comment on above: Performed By: #### C BCWD #### [facility] [address] [place] [address] CT ABDOMEN PELVIS W IV CONTR Herb [...] Annemarie Ruby MD 08/08/23 Final result Normal [facility] CT CERVICAL SPINE WO CONTRAS Ton 08-08-2023 [...] Annemarie Ruby MD 08/08/23 Final result Normal [facility] CT CHEST W CONTRASTon 2023 CT CHEST [...] Annemarie Ruby MD 08/08/23 Final result Normal [facility] CT HEAD WO CONTRASTon 2023 CT HEAD [...] Annemarie Ruby MD 08/08/23 Final result Normal [facility] CT LUMBAR SPINE WO CONTRASTo n 08-08-2023 [...] Annemarie Ruby MD 08/08/23 Final result Normal [facility] CT THORACIC SPINE WO CONTRAS Ton 08-08-2023 [...] Annemarie Ruby MD 08/08/23 Final result Normal [facility] CTA NECK W WO CONTRASTon CTA NECK [...] Garrett Moore MD 08/08/23 Final result Normal [facility] Comprehensive Metabolic Pane andrey 08-08-2023 Albumin [Mass/Vol] 5.1 g/dL Critically high 3.5-4.6 [facility] Comment on above: Performed By: #### C MP ####[facility] [facility] [phone] ALP [Catalytic activity/Vol] 69 U/L Normal 40-130 [facility] Comment on above: Performed By: #### C MP ####[facility] [place] [phone] ALT [Catalytic activity/Vol] 23 U/L Normal 0-33 [facility] Comment on above: Performed By: #### C MP ####[facility] [place] [phone] Anion gap [Moles/Vol] 15 mmol/L Normal 9-15 [facility] Comment on above: Performed By: #### C MP ####[facility] [place] [phone] AST [Catalytic activity/Vol] 37 U/L Critically high 0-35 [facility] Comment on above: Performed By: #### C MP ####[facility] [place] [phone] Bilirubin [Mass/Vol] 0.3 mg/dL Normal 0.2-0.7 [facility] Comment on above: Performed By: #### C MP ####[facility] [facility] [place] [phone] Calcium [Mass/Vol] 9.3 mg/dL Normal 8.5-9.9 [facility] Comment on above: Performed By: #### C MP ####[facility] [facility] [place] [phone] Chloride [Moles/Vol] 101 mmol/L Normal 95-107 [facility] Comment on above: Performed By: #### C MP ####[facility] [facility] [place] [phone] CO2 [Moles/Vol] 26 mmol/L Normal 20-31 [facility] Comment on above: Performed By: #### C MP ####[facility] [facility] [place] [phone] Creatinine [Mass/Vol] 0.78 mg/dL Normal 0.50-0.90 [facility] Comment on above: Performed By: #### C MP ####[facility] [facility] [place] [phone] GFR >60.0 Normal >60 [facility] Comment on above: Result Comment: Zohra rubalcavac calculator link https://www.kidney.org/professionals/kdoqi/gfr_calculatorped Effective Mar 01, 2022 [...] tubular secretion. Performed By: #### C MP ####[facility] [facility] [phone] Globulin (S) [Mass/Vol] 3.1 g/dL Normal 2.3-3.5 [facility] Comment on above: Performed By: #### C MP ####[facility] [place] [phone] Glucose [Mass/Vol] 95 mg/dL Normal 70-99 [facility] Comment on above: Performed By: #### C MP ####[facility] [place] [phone] Potassium [Moles/Vol] 3.3 mmol/L Low 3.4-4.9 [facility] Comment on above: Performed By: #### C MP ####[facility] [place] [phone] Protein [Mass/Vol] 8.2 g/dL Critically high 6.3-8.0 [facility] Comment on above: Performed By: #### C MP ####[facility] [place] [phone] Sodium [Moles/Vol] 142 mmol/L Normal 135-144 [facility] Comment on above: Performed By: #### C MP ####[facility] [place] [phone] Urea nitrogen [Mass/Vol] 8 mg/dL Normal 6-20 [facility] Comment on above: Performed By: #### C MP ####[facility] [place] [phone] Lipaseon 08-08-2023 Lipase [Catalytic activity/Vol] 34 U/L Normal 12-95 [facility] Comment on above: Performed By: #### L IPAS #### [facility] [address] [place] [address] POCT Venouson 08-08-2023 Creatinine [Mass/Vol] 1.0 mg/dL Normal 0.6-1.2 [facility] Comment on above: Performed By: #### P ZACK #### [facility] [address] [place] [address] GFR >60 Normal >60 [facility] Comment on above: Result Comment: Pedi atric [...] secretion. Performed By: #### P ZACK #### [facility] [address] [place] [address] POC Performed on SEE BELOW Normal [facility] Comment on above: Result Comment: Perf ormed on POC Performed By: #### P ZACK #### [facility] [address] [place] [address] POC Sample Type ZACK Normal [facility] Comment on above: Performed By: #### P ZACK #### [facility] [address] [place] [address] POC Performed on SEE BELOW Normal [facility] Comment on above: Result Comment: Perf ormed on POC Performed By: #### P ZACK #### [facility] [address] [place] [address] POC Sample Type ZACK Normal [facility] Comment on above: Performed By: #### P ZACK #### [facility] [address] [place] [address] Partial Thromboplastin Timeo n 08-08-2023 aPTT Coag (Bld) [Time] 29.2 s Normal 24.4-36.8 [facility] Comment on above: Result Comment: Effe ctive 04/02/2020: Heparin Therapeutic Range: 64.0 ? 98.0 seconds. Performed By: #### P TT #### [facility] [address] [place] [address] Prothrombin Timeon INR Coag (PPP) [Relative time] 1.0 {INR} [facility] Comment on above: Performed By: #### P T #### [facility] [address] [place] [address] PT Coag (PPP) [Time] 13.3 s Normal 12.3-14.9 [facility] Comment on above: Performed By: #### P T #### [facility] [address] [place] [address] XR ANKLE RIGHT (MIN 3 VIEWS) on [...] Annemarie Ruby MD 08/08/23 Final result Normal [facility] CT HEAD WO CONTRASTon 2022 CT HEAD [...] Denise Driver MD 03/27/23 Final result Normal [facility] XR ANKLE RIGHT (MIN 3 VIEWS) on [...] Rodolfo Powell DO 03/27/23 Final result Normal [facility] XR RIBS RIGHT INCLUDE CHEST (MIN 3 [...] Marilyn Nayak MD 03/27/23 Final result Normal [facility] CBC with Auto Differentialon 07-19-2022 Basophils (Bld) [#/Vol] 0.1 10*3/uL 0.0 - 0.2 K/uL [facility] Basophils/100 WBC (Bld) 0.7 % B ON [facility] Eosinophils (Bld) [#/Vol] 0.1 10*3/uL 0.0 - 0.7 K/uL [facility] Eosinophils/100 WBC (Bld) 1 % [facility] Hematocrit (Bld) [Volume fraction] 36.6 % Low 37.0 - 47.0 % [facility] Hemoglobin (Bld) [Mass/Vol] 12.1 g/dL 12.0 - 16.0 g/dL [facility] Interpretation and review of laboratory results Abnormal [facility] Lymphocytes (Bld) [#/Vol] 1.3 10*3/uL 1.0 - 4.8 K/uL [facility] Lymphocytes/100 WBC (Bld) 15.6 % [facility] MCH (RBC) [Entitic mass] 31.1 pg 27.0 - 31.3 pg [facility] MCHC (RBC) [Mass/Vol] 33.0 % 33.0 - 37.0 % [facility] MCV (RBC) [Entitic vol] 94.2 fL 79.4 - 94.8 fL [facility] Monocytes (Bld) [#/Vol] 0.8 10*3/uL 0.2 - 0.8 K/uL [facility] Monocytes/100 WBC (Bld) 9.0 % B [facility] Neutrophils Absolute 6.3 K/uL 1.4 - 6 .5 K/uL [facility] Neutrophils/100 WBC (Bld) 73.7 % [facility] Platelet distribution width (Bld) [Ratio] 16.8 % High 11.5 - 14.5 % [facility] Platelets (Bld) [#/Vol] 308 10*3/uL 130 - 400 K/uL [facility] RBC (Bld) [#/Vol] 3.89 10*6/uL Low [facility] WBC (Bld) [#/Vol] 8.6 10*3/uL 4.8 - 10.8 K/uL [facility] CMPon 07-19-2022 Albumin [Mass/Vol] 4.4 g/dL 3.5 - 4.6 g/dL [facility] ALP (Bld) [Catalytic activity/Vol] 74 U/L 40 - 130 U/L [facility] ALT [Catalytic activity/Vol] 12 U/L 0 - 33 U/L [facility] Anion gap [Moles/Vol] 15 mmol/L [facility] AST [Catalytic activity/Vol] 20 U/L 0 - 35 U/L [facility] Bilirubin [Mass/Vol] 0.3 mg/dL 0.2 - 0 .7 mg/dL [facility] Calcium [Mass/Vol] 8.8 mg/dL 8.5 - 9.9 mg/dL [facility] Chloride [Moles/Vol] 103 mmol/L [facility] CO2 [Moles/Vol] 26 mmol/L [facility] Creatinine [Mass/Vol] 0.42 mg/dL Low 0.50 - 0.90 mg/dL [facility] GFR/1.73 sq M.predicted MDRD (S/P/Bld) [Vol rate/Area] 60 - PINF [facility] Comment on above: Pediatric calculator link [...] [Mass/Vol] 2.9 g/dL 2.3 - 3.5 g/dL [facility] Glucose [Mass/Vol] 99 mg/dL 70 - 99 mg/dL [facility] Interpretation and review of laboratory results Abnormal [facility] Potassium [Moles/Vol] 3.3 mmol/L Low [facility] Protein [Mass/Vol] 7.3 g/dL 6.3 - 8.0 g/dL [facility] Sodium [Moles/Vol] 144 mmol/L [facility] Urea nitrogen (BldV) [Mass/Vol] 8 mg/dL 6 - 20 mg/dL [facility] CT ABDOMEN PELVIS W IV CONTR AST Additional Contrast? Noneon 07-19-2022 Age-indeterminate avulsion chip fracture, anterior superior margin L4 vertebral body. 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 Other etiologies, including calcified pancreatic cyst/pseudocyst less likely. [facility] RADIOLOGY EXAMINATION: CT OF THE [...] L5-S1. Small anterior osteophytes L3 through L5. [facility] RADIOLOGY Signer, MD Clay - [...] etiologies, including calcified pancreatic cyst/pseudocyst less likely. [employer] Phone: CT ABDOMEN PELVIS W IV CONTR AST Additional Contrast? NoneOrdered By: Clay Corona on 07-19-2022 [employer] Phone: CT CHEST W CONTRASTon 2022 Addendum by Gomez Yung MD on 07/19/2022 10:56 AM EST ADDENDUM: Nondisplaced right T9 rib fracture,. Otherwise no evidence of traumatic chest pathology. [facility] Work Phone: Nondisplaced right T 9 fracture,. Otherwise no evidence of traumatic chest pathology. [facility] RADIOLOGY EXAMINATION: CT OF THE [...] is seen. Degenerative bone changes are seen. [facility] RADIOLOGY Gomez Yung M D [...] Otherwise no evidence of traumatic chest pathology. [facility] Work Phone: CT CHEST W CONTRASTOrdered B y: Gomez Yung on 07-19-2022 [facility] Work Phone: ETOHon 07-19-2022 Ethanol percent 0.019 G/dL [facility] [employer] Magnesium [Mass/Vol] 22 mg/dL [facility] Microscopic Urinalysison Bacteria, UA Negative Negative /HPF [facility] Epithelial Cells, UA 0-2 [facility] [employer] Hyaline Casts, UA 1-3 [facility] [employer] Interpretation and review of laboratory results Abnormal [facility] RBC, UA 6-10 Abnormal [facility] [employer] WBC, UA 0-2 [facility] [employer] [facility] No Panel Informationon 07-19 Radiology Study observation (narrative) [facility] [employer] Work Phone: Protime-INRon 07-19-2022 INR Coag (Bld) [Relative time] 1.0 {INR} [facility] [employer] PT Coag (PPP) [Time] 13.7 s [facility] Urinalysison 07-19-2022 Bilirubin Urine Negative Negative [facility] Blood, Urine TRACE Abnormal Negative [facility] Clarity, UA Clear Clear [facility] Color, UA Yellow Straw/Yellow [facility] Glucose, Ur Negative Negative mg/dL [facility] Interpretation and review of laboratory results Abnormal [facility] Ketones Ql (U) TRACE Abnormal Negative mg/dL [facility] Leukocyte esterase Test strip Ql (U) Negative Negative [facility] Nitrite, Urine Negative Negative [facility] pH, UA 8.5 5.0 - 9.0 [facility] Protein (U) [Mass/Vol] 30 mg/dL Abnormal Negative [facility] Specific [place], UA 1.078 1.005 - 1.030 B ON [facility] Urobilinogen, Urine 0.2 NINF [facility] Urine Drug Screenon 07-19-19 Amphetamine Screen, Urine Negative Negative <1000 ng/mL [facility] Barbiturate Screen, Ur Negative Negat laura < 200 ng/mL [facility] Benzodiazepine Screen, Urine Negative Negative < 200 ng/mL [facility] Cannabinoid Scrn, Ur Positive Abnormal Negativ e < 50 ng/mL [facility] Cocaine Metabolite Screen, Urine Negative Negative < 300 ng/mL [facility] Drug Screen Comment: see below [facility] Comment on above: This method is a scr eening test to detect only these drug classes as part of a medical workup. Confirmatory testing by another method should be ordered if clinically indicated. FENTANYL SCREEN, URINE Negative Negat laura < 50 ng/mL [facility] Interpretation and review of laboratory results Abnormal [facility] Methadone Screen, Urine Negative Nega tive <300 ng/mL [facility] Opiate Scrn, Ur Negative Negative < 300 ng/mL [facility] Oxycodone Urine Negative Negative <10 0 ng/mL [facility] PCP Screen, Urine Negative Negative < 25 ng/mL [facility] Propoxyphene Scrn, Ur Negative Negati ve <300 ng/mL [facility] XR RIBS RIGHT INCLUDE CHEST (MIN 3 VIEWS)on 07-19-2022 The chest is clear with no evidence of a pneumothorax. Fracture right 9th and 10th ribs as described. [facility] RADIOLOGY EXAMINATION: 7 XRAY VIEWS [...] 9th rib. The right humerus appears normal. [facility] RADIOLOGY Be Cadet III , DO - [...] right 9th and 10th ribs as described. [facility] [employer] Work Phone: Radiology Study observation (narrative) [facility] Work Phone: XR RIBS RIGHT INCLUDE CHEST (MIN 3 VIEWS)Ordered By: Be Cadet on 07-19-2022 [facility] Work Phone: CBC with Auto Differentialon 05-17-2022 Basophils (Bld) [#/Vol] 0.1 10*3/uL 0.0 - 0.2 K/uL [facility] Basophils/100 WBC (Bld) 0.9 % B ON [facility] Eosinophils (Bld) [#/Vol] 0.3 10*3/uL 0.0 - 0.7 K/uL [facility] Eosinophils/100 WBC (Bld) 3.9 % [facility] Hematocrit (Bld) [Volume fraction] 36.4 % Low 37.0 - 47.0 % [facility] Hemoglobin (Bld) [Mass/Vol] 11.9 g/dL Low 12.0 - 16.0 g/dL [facility] Interpretation and review of laboratory results Abnormal [facility] Lymphocytes (Bld) [#/Vol] 2.0 10*3/uL 1.0 - 4.8 K/uL [facility] Lymphocytes/100 WBC (Bld) 30.4 % [facility] MCH (RBC) [Entitic mass] 30.8 pg 27.0 - 31.3 pg [facility] MCHC (RBC) [Mass/Vol] 32.8 % Low 33.0 - 37.0 % [facility] MCV (RBC) [Entitic vol] 93.8 fL 79.4 - 94.8 fL [facility] Monocytes (Bld) [#/Vol] 0.6 10*3/uL 0.2 - 0.8 K/uL [facility] Monocytes/100 WBC (Bld) 8.8 % B ON [facility] Neutrophils Absolute 3.6 K/uL 1.4 - 6 .5 K/uL [facility] Neutrophils/100 WBC (Bld) 56.0 % [facility] Platelet distribution width (Bld) [Ratio] 17.1 % High 11.5 - 14.5 % [facility] Platelets (Bld) [#/Vol] 284 10*3/uL 130 - 400 K/uL [facility] RBC (Bld) [#/Vol] 3.88 10*6/uL Low [facility] WBC (Bld) [#/Vol] 6.5 10*3/uL 4.8 - 10.8 K/uL [facility] CKon 05-17-2022 CK [Catalytic activity/Vol] 677 U/L High 0 - 170 U/L [facility] CMPon 05-17-2022 Albumin [Mass/Vol] 4.8 g/dL High 3.5 - 4.6 g/dL [facility] ALP (Bld) [Catalytic activity/Vol] 57 U/L 40 - 130 U/L [facility] ALT [Catalytic activity/Vol] 19 U/L 0 - 33 U/L [facility] Anion gap [Moles/Vol] 12 mmol/L [facility] AST [Catalytic activity/Vol] 33 U/L 0 - 35 U/L [facility] Bilirubin [Mass/Vol] 0.3 mg/dL 0.2 - 0 .7 mg/dL [facility] Calcium [Mass/Vol] 9.0 mg/dL 8.5 - 9.9 mg/dL [facility] Chloride [Moles/Vol] 101 mmol/L [facility] CO2 [Moles/Vol] 26 mmol/L [facility] Creatinine [Mass/Vol] 0.71 mg/dL 0.50 - 0.90 mg/dL [facility] GFR/1.73 sq M.predicted MDRD (S/P/Bld) [Vol rate/Area] 60 - PINF [facility] Comment on above: Pediatric calculator link [...] [Mass/Vol] 2.9 g/dL 2.3 - 3.5 g/dL [facility] Glucose [Mass/Vol] 87 mg/dL 70 - 99 mg/dL [facility] [employer] Potassium [Moles/Vol] 3.5 mmol/L [facility] [employer] Protein [Mass/Vol] 7.7 g/dL 6.3 - 8.0 g/dL [facility] Sodium [Moles/Vol] 139 mmol/L [facility] Urea nitrogen (BldV) [Mass/Vol] 9 mg/dL 6 - 20 mg/dL [facility] CTA CHEST W WO CONTRASTon No evidence pulmonar y embolism or acute pulmonary abnormalities. [facility] RADIOLOGY EXAMINATION: CTA OF THE [...] No acute bone or soft tissue abnormality. [facility] RADIOLOGY Alcon Valdivia MD - [...] evidence pulmonary embolism or acute pulmonary abnormalities. [facility] Work Phone: [facility] Work Phone: Radiology Study observation (narrative) [facility] Work Phone: No Panel Informationon 05-17 Interpretation and review of laboratory results Abnormal [facility] TSHon 05-17-2022 Interpretation and review of laboratory results Abnormal [facility] TSH Qn 121.800 m[IU]/L High [facility] Troponinon 05-17-2022 Troponin I.cardiac [Mass/Vol] ng/mL 0.000 - 0.010 ng/mL [facility] Comment on above: Methodology by Vinicio Butt [facility] Troponin I.cardiac [Mass/Vol] ng/mL 0.000 - 0.010 ng/mL [facility] Comment on above: Methodology by Vinicio Butt [facility] XR CHEST PORTABLEon 05-17-20 No acute process. [facility] RADIOLOGY EXAMINATION: ONE XRAY VIEW OF THE [...] The osseous structures are without acute process. [facility] RADIOLOGY Alcon Valdivia MD - [...] without acute process. IMPRESSION: No acute process. [facility] Work Phone: Radiology Study observation (narrative) DONYA [facility] [employer] Work Phone: XR CHEST PORTABLEOrdered By: Alcon Valdivia on 05-17-2022 [facility] [employer] Work Phone: CT CHEST W CONTRASTOrdered B y: Ariana Francis on 03-30-2021 Scarring and/or subsegmental atelectatic change left lung base. Hepatic steatosis. All CT scans at this facility use dose modulation, iterative reconstruction, and/or weight based dosing when appropriate to reduce radiation dose to as low as reasonably achievable. [facility] Work Phone: CT of the Chest with intravenous [...] attenuation. Musculoskeletal:No osteoblastic, and no osteolytic lesions. [facility] Phone: Nayan, [facility] Incoming Radiant Results From [employer] - 03/30/2021 10:[address] of [...] dose to as low as reasonably achievable. [facility] Phone: [facility] Phone: EKG 12 Lead - Chest PainOrde red By: Rodolfo Medrano on 03-30-2021 Atrial Rate 63 BPM [facility] Work Phone: P [place] 75 degrees [facility] Work Phone: P-R Interval 170 ms [facility] Phone: Q-T Interval 410 ms [facility] Work Phone: QRS Duration 84 ms [facility] Work Phone: QTc Calculation (Bazett) 419 ms [facility] Phone: R [place] 112 degrees [facility] Work Phone: T [place] 268 degrees [facility] Phone: Ventricular Rate 63 BPM [employer] Work Phone: Normal sinus rhythm Possible Left atrial enlargement Left posterior fascicular block ST & T wave abnormality, consider inferolateral ischemia Abnormal ECG When compared with ECG of 27-MAR-2021 14:29, Vent. rate has decreased BY 101 BPM T wave inversion now evident in Lateral leads Confirmed by Adrian Slaughter ([id number]) on 03/30/2021 7:56:43 AM [facility] Phone: Nayan, marielena Incoming Results From [place] - 03/30/2021 7:58 AM EDT Normal sinus rhythm Possible Left atrial enlargement Left posterior fascicular block ST & T wave abnormality, consider inferolateral ischemia Abnormal ECG When compared with ECG of 27-MAR-2021 14:29, Vent. rate has decreased BY 101 BPM T wave inversion now evident in Lateral leads Confirmed by Adrian Slaughter ([id number]) on 03/30/2021 7:56:43 AM [facility] Work Phone: [facility] Phone: POCT GlucoseOrdered By: Unkn own Result on 03-30-2021 Glucose [Mass/Vol] 93 mg/dL 60 - 115 mg/dl [facility] Phone: Performed on ACCU-CHEK [facility] Work Phone: [facility] Work Phone: Echocardiogram complete 2D w ith doppler with colorOrdered By: Ariana Francis on 03-28-2021 Transthoracic Echocardiography Report (TTE) Demographics Patient Name FRANCISCO Gender Female DOLORES Patient Number [id number] Race Ethnicity Visit Number [id number] Room Number [id number] Corporate ID Date of Study 03/28/2021 Referring Physician Number Date of 1970 Phone Representative Alison Lord Age 50 year(s) Interpreting [facility] Physician Cardiology [address] Procedure Type of [...] Root: 3.12 cm LVOT Diameter: 2.05 cm [facility] Work Phone: Nayan, Chpo Incoming Cardiovascular Results From [facility] - 03/28/2021 4:45 PM EDT Transthoracic Echocardiography Report (TTE) Demographics Patient Name NEWCOMER Gender Female DOLORES Patient Number [id number] Race Ethnicity Visit Number [id number] Room Number [id number] Corporate ID Date of Study 03/28/2021 Referring Physician Number Date of 1970 Phone Representative Alison Lord Age 50 year(s) Interpreting [facility] Physician Cardiology [address] Procedure Type of [...] Root: 3.12 cm LVOT Diameter: 2.05 cm [facility] Phone: [facility] Phone: TroponinOrdered By: Ariana sanchez on 03-28-2021 Interpretation and review of laboratory results Abnormal [facility] Phone: Troponin I.cardiac [Mass/Vol] 0.020 ng/mL Critically high 0.000 - 0.010 ng/mL [facility] Phone: Comment on above: Methodology by Archsygeorge Montilla. CALL [facility]1 tel. [phone], Troponin results called to and read back by Denise Gomez RN, 03/28/2021 12:03, by [employer] Phone: [facility] Phone: Interpretation and review of laboratory results Abnormal [facility] Phone: Troponin I.cardiac [Mass/Vol] 0.025 ng/mL Critically high 0.000 - 0.010 ng/mL [facility] Phone: Comment on above: Methodology by Dez[employer]force ranjana Montilla. CALL [facility]1W tel. [phone], Troponin results called to and read back by Denise Gomez RN, 03/28/2021 09:38, by [employer] Phone: [facility] Phone: Interpretation and review of laboratory results Abnormal [facility] Phone: Troponin I.cardiac [Mass/Vol] 0.027 ng/mL Critically high 0.000 - 0.010 ng/mL [facility] Phone: Comment on above: Methodology by Vinicio Montilla. CALL [facility] tel. [phone], Trop results called to and read back by Denise Menard RN, 03/28/2021 04:45, by GUIDO [facility] [employer] Phone: [facility] [employer] Phone: Interpretation and review of laboratory results Abnormal [facility] [employer] Phone: Troponin I.cardiac [Mass/Vol] 0.027 ng/mL Critically high 0.000 - 0.010 ng/mL [facility] [employer] Phone: Comment on above: Methodology by Vinicio Montilla. CALL [facility]1W tel. [phone], Trop results called to and read back by Denise Gan, 03/28/2021 00:43, by HIGINIO [facility] Phone: [facility] Phone: APTTOrdered By: Rodolfo Medrano on 03-27-2021 aPTT Coag (Bld) [Time] 57.7 s [facility] [employer] Work Phone: Comment on above: Effective 04/02/2020: Heparin Therapeutic Range: 64.0 98.0 seconds. CBC Auto DifferentialOrdered By: Rodolfo Medrano on 03-27-2021 Basophils (Bld) [#/Vol] 0.1 10*3/uL 0.0 - 0.2 K/uL [facility] Phone: Basophils/100 WBC (Bld) 1.1 % [facility] [employer] Phone: Eosinophils (Bld) [#/Vol] 0.0 10*3/uL 0.0 - 0.7 K/uL [facility] Phone: Eosinophils/100 WBC (Bld) 0.1 % [facility] [employer] Phone: Hematocrit (Bld) [Volume fraction] 45.8 % 37.0 - 47.0 % [facility] Phone: Hemoglobin.gastrointest inal spec 1 Ql (Stl) 15.0 g/dL 12.0 - 16.0 g/dL [facility] Phone: Interpretation and review of laboratory results Abnormal [facility] Phone: Lymphocytes (Bld) [#/Vol] 1.9 10*3/uL 1.0 - 4.8 K/uL [facility] Phone: Lymphocytes/100 WBC (Bld) 21.0 % [facility] Phone: MCH (RBC) [Entitic mass] 30.2 pg 27.0 - 31.3 pg [facility] Phone: MCHC (RBC) [Mass/Vol] 32.8 % Low 33.0 - 37.0 % [facility] Phone: MCV (RBC) [Entitic vol] 91.9 fL 82.0 - 100.0 fL [facility] Phone: Monocytes (Bld) [#/Vol] 0.8 10*3/uL 0.2 - 0.8 K/uL [facility] Phone: Monocytes/100 WBC (Bld) 8.3 % [facility] shawSNAPin Software Phone: Neutrophils Absolute 6.4 K/uL 1.4 - 6 .5 K/uL [facility] Phone: Neutrophils/100 WBC (Bld) 69.5 % [facility] Phone: Platelet distribution width (Bld) [Ratio] 16.7 % High 11.5 - 14.5 % [facility] Phone: Platelets (Bld) [#/Vol] 308 10*3/uL 130 - 400 K/uL [facility] Phone: RBC (Bld) [#/Vol] 4.98 10*6/uL [facility] Work Phone: WBC (Bld) [#/Vol] 9.2 10*3/uL 4.8 - 10.8 K/uL [facility] Phone: [facility] Phone: Comprehensive Metabolic Pane lOrdered By: Rodolfo Medrano on 03-27-2021 Albumin [Mass/Vol] 4.9 g/dL High 3.5 - 4.6 g/dL [facility] Work Phone: ALP (Bld) [Catalytic activity/Vol] 56 U/L 40 - 130 U/L [facility] Phone: ALT [Catalytic activity/Vol] 21 U/L 0 - 33 U/L [facility] Phone: Anion gap [Moles/Vol] 15 mmol/L [facility] [employer] Work Phone: AST [Catalytic activity/Vol] 33 U/L 0 - 35 U/L [facility] Phone: Comment on above: Specimen hemolysis h as exceeded the interference as defined by Lindsay. Value may be falsely increased. Suggest recollection if clinically indicated. Bilirubin [Mass/Vol] 0.6 mg/dL 0.2 - 0 .7 mg/dL [facility] Work Phone: Calcium [Mass/Vol] 9.1 mg/dL 8.5 - 9.9 mg/dL [facility] Work Phone: Chloride [Moles/Vol] 100 mmol/L [employer] Work Phone: CO2 [Moles/Vol] 23 mmol/L [employer] [facility] Work Phone: Creatinine [Mass/Vol] 0.81 mg/dL 0.50 - 0.90 mg/dL [facility] Phone: Free PSA/Total PSA [Mass fraction] 7.9 g/dL 6.3 - 8.0 g/dL [facility] Work Phone: GFR >60.0 >60 [facility] [employer] Phone: Comment on above: >60 mL/min/1.73m2 EG FR, calc. for ages 18 and older using the MDRD formula (not corrected for weight), is valid for stable renal function. GFR Non- >60.0 >60 [facility] Phone: Comment on above: >60 mL/min/1.73m2 EG FR, calc. for ages 18 and older using the MDRD formula (not corrected for weight), is valid for stable renal function. Globulin (S) [Mass/Vol] 3 g/dL 2.3 - 3.5 g/dL [facility] Phone: Glucose [Mass/Vol] 139 mg/dL High 70 - 99 mg/dL [employer] Phone: Interpretation and review of laboratory results Abnormal [facility] Phone: Potassium [Moles/Vol] 3.8 mmol/L [employer] Phone: Sodium [Moles/Vol] 138 mmol/L [facility] Phone: Urea nitrogen (BldV) [Mass/Vol] 15 mg/dL 6 - 20 mg/dL [facility] Phone: D-Dimer, QuantitativeOrdered By: Rodolfo Medrano on 03-27-2021 [employer], Quant 0.48 [employer] Work Phone: Comment on above: VTE (DVT or PE) cut- off = 0.50 mg/L FEU 2[facility]2c Phone: MagnesiumOrdered By: Rodolfo davidson on 03-27-2021 Magnesium [Mass/Vol] 2.2 mg/dL 1.7 - 2 .4 mg/dL [facility] Phone: No Panel InformationOrdered By: Rodolfo Medrano on 03-27-2021 Interpretation and review of laboratory results Abnormal [facility] Phone: [employer] Work Phone: Interpretation and review of laboratory results Abnormal [facility] Phone: CALL [facility] tel. [phone], TROP results called to and read back by SY GARCIA, 03/27/2021 15:40, by [employer] Work Phone: [facility] Work Phone: [facility] Work Phone: Protime-INROrdered By: Rodolfo Medrano on 03-27-2021 INR Coag (Bld) [Relative time] 2.7 {INR} [facility]2c Phone: PT Coag (PPP) [Time] 28.1 s High [employer] Phone: T4, FreeOrdered By: Rodolfo tijerina on 03-27-2021 Free T4 [Mass/Vol] 0.16 ng/dL Low 0.84 - 1. 68 ng/dL [facility] Phone: TSH without ReflexOrdered By : Rodolfo Medrano on 03-27-2021 Interpretation and review of laboratory results Abnormal [facility] Phone: TSH Qn 139.400 m[IU]/L [facility] Work Phone: CALL [facility] tel. [phone], TROP results called to and read back by SY GARCIA, 03/27/2021 15:40, by [employer] Work Phone: [facility] Phone: TroponinOrdered By: Ariana Neumann ed on 03-27-2021 Interpretation and review of laboratory results Abnormal [facility] Phone: Troponin I.cardiac [Mass/Vol] 0.029 ng/mL Critically high 0.000 - 0.010 ng/mL [facility] Phone: Comment on above: Methodology by Vinicio Montilla. CALL [facility] tel. [phone], TROP results called to and read back by JANELL SEAMAN, 03/27/2021 18:38, by GILSON [facility] Phone: [facility] Phone: TroponinOrdered By: Rodolfo tijerina on 03-27-2021 Troponin I.cardiac [Mass/Vol] 0.018 ng/mL Critically high 0.000 - 0.010 ng/mL [facility] Phone: Comment on above: Methodology by Vinicio Montilla. XR CHEST PORTABLEOrdered By: Rodolfo Medrano on 03-27-2021 NO ACUTE CARDIOPULMONARY DISEASE. [facility] Phone: EXAMINATION: XR CHES T PORTABLE CLINICAL HISTORY: PALPITATIONS, SHORTNESS OF BREATH. COMPARISONS: 2020 FINDINGS: Osseous structures are intact. Cardiopericardial silhouette is normal. Pulmonary vasculature is normal. Lungs are clear. [facility] Phone: Nayan, Chpo Incoming Radiant Results From [employer] - 03/27/2021 3:38 PM EDT EXAMINATION: XR CHEST PORTABLE CLINICAL HISTORY: PALPITATIONS, SHORTNESS OF BREATH. COMPARISONS: 2020 FINDINGS: Osseous structures are intact. Cardiopericardial silhouette is normal. Pulmonary vasculature is normal. Lungs are clear. IMPRESSION: NO ACUTE CARDIOPULMONARY DISEASE. [facility] Phone: [facility] Phone: Vital Signs Date Time Vital Sign Value Performing Clinician Hayden mcginnis 07-19-2022 11:58-0500 Diastolic blood pressure 80 mm[Hg] Sara [employer] Phone: [employer] 07-19-2022 11:58-0500 Heart rate 57 /min Sara [employer] Phone: [employer] 07-19-2022 11:58-0500 Respiratory rate 19 /min Sara Astorga [employer] Work Phone: [facility] [employer] 07-19-2022 11:58-0500 SaO2% (BldA) [Mass fraction] 98 % Sara Astorga [employer] Work Phone: [facility] [employer] 07-19-2022 11:58-0500 Systolic blood pressure 140 mm[Hg] Sara Astorga [employer] Work Phone: [facility] [employer] 07-19-2022 08:01-0500 Body height 167.6 cm Sara Astorga [employer] Work Phone: [facility] [employer] 07-19-2022 08:01-0500 Body mass index (BMI) [Ratio] 24.21 kg/m2 Sara Astorga [employer] Work Phone: [facility] [employer] 07-19-2022 08:01-0500 Body weight 68.04 kg Sara Astorga [employer] Work Phone: [facility] [employer] 07-19-2022 08:00-0500 Body temperature 98.2 [degF] Sara Astorga [employer] Work Phone: [facility] [employer] 05-17-2022 18:00-0500 Diastolic blood pressure 89 mm[Hg] Pcp No [facility] [employer] 05-17-2022 18:00-0500 Heart rate 64 /min Pcp No [facility] [employer] 05-17-2022 18:00-0500 Respiratory rate 19 /min Pcp No [facility] [employer] 05-17-2022 18:00-0500 SaO2% (BldA) [Mass fraction] 97 % Pcp No [facility] [employer] 05-17-2022 18:00-0500 Systolic blood pressure 149 mm[Hg] Pcp No [facility] 05-17-2022 13:13-0500 Body height 167.6 cm Pcp No [facility] [employer] 05-17-2022 13:13-0500 Body mass index (BMI) [Ratio] 23.73 kg/m2 Pcp No [facility] [employer] 12-19-2022 13:13-0500 Body temperature 97.81 [degF] Pcp No [facility] 05-17-2022 13:13-0500 Body weight 66.68 kg Pcp No [facility] [employer] 03-31-2021 14:34-0400 Body temperature 98.6 [degF] Rodolfo Medrano MD Work Phone: [facility] Work Phone: 03-31-2021 14:34-0400 Diastolic blood pressure 68 mm[Hg] Rodolfo Medrano MD Work Phone: [facility] Work Phone: 03-31-2021 14:34-0400 Heart rate 53 /min Rodolfo Medrano MD Work Phone: [facility] Work Phone: 03-31-2021 14:34-0400 Respiratory rate 18 /min Rodolfo Medrano MD Work Phone: [facility] Work Phone: 03-31-2021 14:34-0400 SaO2% (BldA) [Mass fraction] 99 % Rodolfo Medrano MD Work Phone: [facility] Work Phone: 03-31-2021 14:34-0400 Systolic blood pressure 127 mm[Hg] Rodolfo Medrano MD Work Phone: [facility] Work Phone: 03-27-2021 14:21-0400 Body height 167.6 cm Rodolfo Medrano MD Work Phone: [facility] Work Phone: 03-27-2021 14:21-0400 Body mass index (BMI) [Ratio] 25.02 kg/m2 Rodolfo Medrano MD Work Phone: [facility] Work Phone: 03-27-2021 14:21-0400 Body weight 70.31 kg Rodolfo Medrano MD Work Phone: [facility] Work Phone: 01-15-2020 12:43-0400 BP Diastolic 68 mm[Hg] [facility] [place] , [place] 01-15-2020 12:43-0400 BP Systolic 132 mm[Hg] [facility] [place] , [place] 01-15-2020 12:43-0400 Pulse Oximetry 100 % [facility] [place] , [place] 01-15-2020 12:43-0400 Respiratory Rate 20 /min [facility], [place] 01-15-2020 10:50-0400 BMI (Body Mass Index) 21.47 kg/m2 [facility] [place], [place] 01-15-2020 10:50-0400 Body Temperature 98.01 [degF] [facility] [place] 01-15-2020 10:50-0400 Body weight 60.33 kg [facility] , [place] 01-15-2020 10:50-0400 Height 167.6 cm [facility] , [place] 01-15-2020 10:50-0400 Pulse (Heart Rate) 90 /min [facility] [place] Encounters Encounter Date Encounter Type Care Provider Facility Start: 12-05-2023 End: 12-05-2023 ambulatory PHYSICIAN NO FAMILY Facility:[facility] Start: 08-08-2023 End: 08-08-2023 Emergency department patient visit PCP NO [facility] Start: 03-27-2023 End: 03-27-2023 Emergency department patient visit PCP [facility] Start: 07-19-2022 End: 07-19-2022 Emergency department patient visit Sara Astorga DO Work Phone: [facility] ED Comment on above: Closed fracture of m ultiple ribs of right side, initial encounter (Primary Dx); Alcohol abuse Start: 05-17-2022 End: 05-17-2022 Emergency department patient visit Pcp No [facility] ED Comment on above: Chest pain, [...] 01-15-2020 End: 01-15-2020 Emergency department patient visit [facility] ED Comment on above: Sciatica of [...] 03-27-2022 Thyroid stimulating hormone measurement TSH testing [facility] Work Phone: Start: 12-28-2021 Influenza vaccination Flu vaccine (# 1) [facility] Start: 04-13-2021 End: 04-13-2021 Patient encounter procedure 04/13/2021 Office Visit Cardiology Ariana Francis MD [id number] [place], [place] [id number] [facility] Cardiology Start: 04-09-2021 End: 04-09-2021 Patient encounter procedure 04/09/2021 Office Visit Endocrinology Doroteo Tee, LEOBARDO [address] [id number] [facility] [place] Start: 01-28-2021 Influenza vaccination Flu vaccine (# 1) [facility] Phone: Start: 01-29-2020 Influenza vaccination Flu vaccine (# 1) [place] Start: 12-08-2019 Screening for malign ant neoplasm of breast Breast cancer screen [facility] Start: 12-08-2019 Screening for malign ant neoplasm of colon Colon cancer screen colonoscopy [facility] [place] Start: 12-08-2019 Shingles Vaccine (1 of 2) Shingles Vaccine (1 of 2) [facility] [employer] Start: 2014 Screening for malign ant neoplasm of colon [facility] [employer] Start: 2009 Diabetes screen Diabetes screen [employer] Phone: Start: 2009 Lipid panel [facility] Start: 12-08-1999 Screening for malign ant neoplasm of cervix [facility] [employer] Start: 1990 Screening for malign ant neoplasm of cervix [facility] [employer] Start: 1988 DTaP/Tdap/Td vaccine (1 - Tdap) DTaP/Tdap/Td vaccine (1 - Tdap) [facility] [employer] Start: 12-08-1987 Hepatitis C screening Hepatitis C sc reen [facility] [employer] Start: 1984 HIV screening HIV screen [facility] [employer] Start: 1981 COVID-19 Vaccine (1) COVID-19 Vaccin e (1) [facility] Work Phone: Start: 1981 Depression Screen Depression Screen [facility] Start: 12-08-1975 Pneumococcal 0-64 ye ars Vaccine (1 of 1 - PPSV23) Pneumococcal 0-64 years Vaccine (1 of 1 - PPSV23) [place] Start: 12-08-1975 Pneumococcal 0-64 ye ars Vaccine (1 of 2 - PPSV23) Pneumococcal 0-64 years Vaccine (1 of 2 - PPSV23) [facility] Phone: Start: 06-09-1970 COVID-19 Vaccine (#1) COVID-19 Vacci ne (#1) [facility] Start: 1969 Hepatitis C screening Hepatitis C sc reen [facility] Phone: EKG 12 Lead [facility] Phone: EKG 12 Lead EKG 12 Lead ECG Routine 05/17/2022 5:02 PM EST [employer] Phone: End: 05-17-2022 POC Urine Qual POC Urine Qual Point of Care Testing STAT One Time for 1 Occurrences starting 05/17/2022 until 05/17/2022 [employer] Phone: Comment on above: One Time for 1 Occur rences starting 05/17/2022 until 05/17/2022 End: 05-17-2022 Urinalysis Urinalysis Lab STAT One Time for 1 Occurrences starting 05/17/2022 until 05/17/2022 [employer] Phone: Comment on above: One Time for 1 Occur rences starting 05/17/2022 until 05/17/2022 End: 05-17-2022 Urine Drug Screen Urine Drug Screen Lab STAT One Time for 1 Occurrences starting 05/17/2022 until 05/17/2022 [employer] Phone: Comment on above: One Time for 1 Occur rences starting 05/17/2022 until 05/17/2022 End: 01-15-2020 XR ANKLE RIGHT (MIN 3 VIEWS) XR ANKLE RIGHT (MIN 3 VIEWS) Imaging Routine Once for 1 Occurrences starting 01/15/2020 until 01/15/2020 [place] Comment on above: Once for 1 Occurrenc es starting 01/15/2020 until 01/15/2020 XR ANKLE RIGHT (MIN 3 VIEWS) XR ANKLE RIGHT (MIN 3 VIEWS) Imaging STAT 01/15/2020 11:48 AM EDT [place] End: 01-15-2020 XR LUMBAR SPINE (MIN 4 VIEWS) XR LUMBAR SPINE (MIN 4 VIEWS) Imaging Routine Once for 1 Occurrences starting 01/15/2020 until 01/15/2020 [place] Comment on above: Once for 1 Occurrenc es starting 01/15/2020 until 01/15/2020 XR LUMBAR SPINE (MIN 4 VIEWS) XR LUMBAR SPINE (MIN 4 VIEWS) Imaging STAT 01/15/2020 11:48 AM EDT [place] Payers Date Payer Category Payer Self-pay Unknown [id number] Social History Date Type Detail Facility Start: 01-15-2020 End: 02-03-2021 Tobacco smoking status NHIS Current every day smoker [place], [place] History of tobacco use Cigarette Smoker [address], [place] Start: 01-15-2020 End: 04-13-2021 Cigarettes smoked current (pack per day) - Reported [place] Start: 01-15-2020 End: 04-13-2021 Tobacco use and exposure Never used [place] Start: 01-15-2020 End: 07-19-2022 Alcohol intake Current drinker of alcohol (finding) [place], [place] Start: 1970 Sex Assigned At Not on file [place], [place] Start: 05-07-2022 End: 05-17-2022 Exposure to SARS-CoV-2 (event) Not sure [place] Start: 04-13-2021 Tobacco smoking stat us NMIS Ex-smoker [facility] History of tobacco use Current smoker [employer] Work Phone: Start: 05-17-2022 History SDOH Alcohol Frequency 5 [facility] Phone: Start: 05-17-2022 History SDOH Alcohol Std Drinks 1 [facility] [place] Phone: Start: 05-17-2022 History SDOH Alcohol Binge 3 [facility] [place] Phone: Start: 04-13-2021 Tobacco Comment quit since susan taavres admitted 03/23/21 [facility] [place] Phone: Hospital Discharge instructions 03-31-2021 Discharge Instr [...] at most local grocery stores, pharmacies, and [employer]stores. If you have any questions about your diet or nutrition, call the hospital and ask for the dietitian. A low fat, low cholesterol diet is recommended The following attachments cannot be sent through Care Everywhere.levothyroxine (oral/injection) (Swazi)metoprolol (oral/injection) (Swazi)nicotine (transdermal) (Swazi)documented in this encounter [facility] Phone: Hospital course Narrative 03-31-2021 Ariana Francis MD - 03/31/2021 3:18 PM EDT Note Date & Type Note Facility 03-31-2021 Hospital course Narrative Cardiology Discharge Summary Patient Identification: Dolores Ritter : 1970 Account: [id number] Admit date: 03/27/2021 Discharge date: 03/31/21 Attending provider: Ariana Francis MD Primary care provider: No primary care provider on file. Admission Diagnoses: SVT Discharge Diagnoses: Active Hospital Problems Diagnosis Date Noted Troponin I above reference range [R77.8] Priority: High SVT (supraventricular tachycardia) (HCC) [I47.1] 03/27/2021 Priority: Low Hypothyroidism [E03.9] Priority: Low Hospital Course: Dolores Ritter is a50 y.o. female admitted to [facility] on 03/27/2021 for SVT. This was reviewed [...] 200 MG tablet Comments: Reason for Stopping: xcxkgat-fduqqbtmgkxpy-qspyggvq (EXCEDRIN MIGRAINE) 250-250-65 MG per tablet Comments: Reason for Stopping: naproxen (NAPROSYN) 500 MG tablet Comments: Reason for Stopping: Significant Diagnostics: Radiology: Echocardiogram complete 2D with doppler with color Result Date: 03/28/2021 Transthoracic Echocardiography Report (TTE) Demographics Patient Name FRANCISCO Gender Female DOLORES Patient Number [id number] Race Ethnicity Visit Number [id number] Room Number [id number] Corporate ID Date of Study 03/28/2021 Referring Physician Number Date of 1970 Phone Representative Alison Lord Age 50 year(s) Interpreting [facility] Physician Cardiology [address] Procedure Type of [...] ms QTc Calculation (Bazett) 413 ms P [place] 65 degrees R Charlotte 111 degrees T [place] 25 degrees POCT Glucose Collection Time: 03/30/21 9:29 PM Result Value Ref Range POC Glucose 93 60 - 115 mg/dl Performed on ACCU-CHEK Follow-up visits: LEOBARDO Juan [address] [facility] [address] [facility] [address] In 2 weeks Ariana Francis MD [address] [facility] [address] [facility] [id number] Assessment: Active Hospital Problems Diagnosis Date Noted Troponin I above reference range [R77.8] Priority: High SVT (supraventricular tachycardia) (HCC) [I47.1] 03/27/2021 Priority: Low Hypothyroidism [E03.9] Priority: Low Plan: 1.DC home FU with Murray Nichols and ma DC time 40 min. Complete blood reconciliation examined the patient make follow-up plans. Electronically signed by Ange Falcon 03/31/2021 at 3:18 PM documented in this encounter 2d2c Phone: History of Present illness Narrative 03-31-2021 Emy Duvall MD - 03/31/2021 3:09 PM HENRITJennifer Broderick MD - 03/31/2021 10:47 AM Ariana aHmlin MD - 03/30/2021 8:02 AM Ariana Hamlin MD - 03/29/2021 9:18 AM EDT Note Date & Type Note Facility 03-31-2021 History of Present illness Narrative Progress Note Date:03/31/2021 Room:[place] [address] Patient Name:Dolores Ritter Date of :1970 Age:50 y.o. Chief [...] thyroid ultrasound as outpatient). Progress Note Date:03/31/2021 Room:[place] [address] Patient Name:Dolores Ritter Date of :1970 Age:50 y.o. Subjective [...] with PCP as outp Progress Note Patient: Dolores Ritter Unit/Bed: W163/W163-01 Date of : 1970 Acct: [id number] Admitting Diagnosis: Paroxysmal supraventricular tachycardia (HCC) [I47.1] [...] (TTE) Demographics Patient Name NEWCOMER Gender Female DOLORES Patient Number [id number] Race Ethnicity Visit Number [id number] Room Number [id number] Corporate ID Date of Study 03/28/2021 Referring Physician Number Date of 1970 Phone Representative Alison Lord Age 50 year(s) Interpreting [facility] Physician Cardiology [address] Procedure Type of [...] scan of the chest Progress Note Patient: Dolores Ritter Unit/Bed: W163/W163-01 Date of : 1970 Acct: [id number] Admitting Diagnosis: Paroxysmal supraventricular tachycardia (HCC) [I47.1] [...] (TTE) Demographics Patient Name NEWCOMER Gender Female DOLORES Patient Number [id number] Race Ethnicity Visit Number [id number] Room Number [id number] Corporate ID Date of Study 03/28/2021 Referring Physician Number Date of 1970 Phone Representative Alison Lord Age 50 year(s) Interpreting [facility] Physician Cardiology [address] Procedure Type of [...] status is corrected Physician Progress Note PATIENT: DOLORES RITTER CSN #: [id number] : 1970 ADMIT DATE: 03/27/2021 2:20 PM DISCH DATE: RESPONDING PROVIDER #: EMY DUVALL MD QUERY TEXT: Patient admitted with [...] pertinent labs Madhuri GarrisonN RN CDS contact [phone] M-F 6am - 2pm Options provided: -- [...] on 03/28/2021 11:09 AM Electronically signed by: EMY DUVALL MD 03/28/2021 12:52 PM documented in this encounter 2d2c Phone: Evaluation note Note Date & Type Note Facility Evaluation note Diagnosis Paroxysmal supraventricular tachycardia (HCC)- Primary Paroxysmal supraventricular tachycardia Elevated troponin Other abnormal blood chemistry Hypothyroidism, unspecified type SVT (supraventricular tachycardia) (HCC) Other specified cardiac dysrhythmias Troponin I above reference range Other abnormal blood chemistry documented in this encounter 2d2c Phone: Evaluation note Note Date & Type Note Facility Evaluation note Diagnosis Chest pain, unspecified type- Primary Hypothyroidism, unspecified type H/O noncompliance with medical treatment, presenting hazards to health Personal history of noncompliance with medical treatment, presenting hazards to health Encounter for medication refill Issue of repeat prescriptions documented in this encounter [facility] [place] Phone: Evaluation note Note Date & Type Note Facility Evaluation note Diagnosis Closed fracture of multiple ribs of right side, initial encounter- Primary Alcohol abuse Alcohol abuse, unspecified documented in this encounter [facility] [place] Phone: Hospital Discharge instructions Attachments Note Date & Type Note Facility Hospital Discharge instructions The following attachments cannot be sent through Care Everywhere.Chest Pain (Swazi)Hypothyroidism (Swazi)documented in this encounter [facility] [place] Phone: Hospital Discharge instructions Attachments Note Date & Type Note Facility Hospital Discharge instructions The following attachments cannot be sent through Care Everywhere.Alcohol Use Disorder: General Info (Swazi)documented in this encounter [facility] [place] Phone: Discharge Instructions * Attachments The following attachments cannot be sent through Care Everywhere. 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 ACP-Advance Directive ACP-Power of Assembly Loader Latest Code Status on File Code Status [...] - Reason: Other)1926 (Held - Provider: Nahed Hubbard, TAWANNA - Reason: Contraindicated - Comment: hr 51) 0759 (Given - Provider: Ila Waldron, TAWANNA)2100 (Due) morphine injection 4 mg 4 mg, [...] over 24 Hours, DAILY, First dose on 03/28/21 at 2045, Apply new patch to nonhairy, [...] mL/lumen 0842 (Given - Provider: Ila Waldron RN)193 (Given - Provider: Denise Gan RN) 0832 (Given - Provider: Ila Waldron, TAWANNA)2020 (Given - Provider: Nahed Hubbard, RN) 0800 (Given - Provider: Ila Waldron, TAWANNA)2100 [...] break. 0601 (Given - Provider: Alyson Vogel RN)06 (Given - Provider: Alyson Vogel, RN)0611 (Given - Provider: Alyson Vogel RN) 0534 (Given - Provider: Denise Gan, RN) ondansetron (ZOFRAN) injection 4 mg(Linked Group 1) 4 mg, IntraVENous, EVERY 6 HOURS PRN, Nausea, Vomiting, Starting on Tue03/27/21 at 1754, Administer if oral route cannot be used. 193 (Given - Provider: Denise Gan RN) 05 (Given - Provider: Denise Gan, RN)1333 (Given - Provider: Ila Waldron, RN) ondansetron (ZOFRAN-ODT) disintegrating tablet 4 mg(Linked Group 1) 4 mg, Oral, EVERY 8 HOURS PRN, Nausea, Vomiting, Starting on Tue03/27/21 at 1754 1934 (See Alternative - Provider: Denise Gan RN) 05 (See Alternative - Provider: Denise Gan RN)1333 [...] days. 0814 (Given - Provid er: Jamee Menard RN) lidocaine 4 % external patch 1 patch [...] 0917, Other 0917 (Given - Provid er: Dolores Coyle) Care Teams (unrecognized sec tion and content) Hotel Receptionist Relationship Specialty Start Date End Date No, Pcp PCP - General 05/17/22 Hotel Receptionist Relationship Specialty Start Date End Date No, Pcp PCP - General 05/17/22 INFORMATION SOURCE (unrecogn ized section and content) DATE CREATED AUTHOR 08/08/2023 [facility] DATE CREATED AUTHOR 'S KERWIN HOPSON 12/12/2023 [facility] ysician [facility] FOR RECORDS PERTAINING TO PATIENTS WHO ARE [...] BE BASED ON THE PRIMARY CLINICAL RECORDS. [facility] [employer] [facility]. provides no warranty or guarantee of the accuracy or completeness of information in this document.
== END 2023-12-27 10:08 | disposition home or self-care (01) ==
LOC: EC 10:07
PROVIDERS: Visit Provider Podiatrist Foot & Ankle Surgery
DX: M25.571 Pain in right ankle and joints of right foot (principal); Z98.890 Other specified postprocedural states
CPT/HCPCS: 73610

== ENCOUNTER 2024-01-17 09:25 | Outpatient (OUT) | payer SELFPAY ==
--- NOTE | 2024-01-17 | XR_ITS ---
The [address] [address] Patient Name: KYRA SINGH MRN: [id number] date: 1970 Sex: F Assigned Patient Location: Current Patient Location: Accession/Order Number: [id number] Exam Date: 01/17/2024 09:30 Report Date: 01/18/2024 05:39 At the request of: BALAJI KLINE Procedure: XR ankle RT min 3V PROCEDURE: XR ankle RT min 3V HISTORY: RIGHT ANKLE PAIN COMPARISON: XR ankle right 12/27/2023 FINDINGS: BONES:Stable postsurgical changes. Stable small thin ossification along the distal lateral margin of the tibial plafond. SOFT TISSUES:Mild soft tissue swelling surrounding the ankle. EFFUSION:None visible. OTHER: Negative. XR/XR ankle RT min 3V IMPRESSION: 1. Stable surgical changes without evidence of hardware failure or change in alignment. 2. Stable thin cortical fracture fragments along lateral margin of tibial plafond. Electronically authenticated by: RISHI CERDA Date: 01/18/2024 05:39
== END 2024-01-17 09:26 | disposition home or self-care (01) ==
LOC: EC 09:25
PROVIDERS: Visit Provider Podiatrist Foot & Ankle Surgery
DX: M25.571 Pain in right ankle and joints of right foot (principal); Z98.890 Other specified postprocedural states
CPT/HCPCS: 73610

== ENCOUNTER 2024-02-06 14:34 | Outpatient (OUT) | payer SELFPAY ==
--- NOTE | 2024-02-06 | XR_ITS ---
The [address] [address] Patient Name: KYRA SINGH MRN: [id number] date: 1970 Sex: F Assigned Patient Location: Current Patient Location: Accession/Order Number: [id number] Exam Date: 02/06/2024 15:15 Report Date: 02/08/2024 09:34 At the request of: SHANE GURROLA Procedure: XR ankle RT min 3V PROCEDURE: XR ankle RT min 3V HISTORY: RIGHT ANKLE PAIN COMPARISON: XR ankle right 01/17/2024 FINDINGS: BONES:Evidence of prior fibular repair and removal of majority of the hardware. Single screw and wire remnant remaining. Stable small separate cortical fragment along lateral margin of the tibial metaphysis, unchanged. Mild narrowing of the ankle joint space without articular surface irregularity. SOFT TISSUES:Soft tissue swelling surrounding the ankle. EFFUSION:None visible. OTHER: Negative. XR/XR ankle RT min 3V IMPRESSION: 1. Stable surgical changes and chronic changes. 2. Stable small separate ossification; fracture fragment versus sequela of surgery. Electronically authenticated by: RISHI CERDA Date: 02/08/2024 09:34
== END 2024-02-06 14:35 | disposition home or self-care (01) ==
LOC: EC 14:34
PROVIDERS: Visit Provider Physician Assistant
DX: M25.571 Pain in right ankle and joints of right foot (principal); Z98.890 Other specified postprocedural states
CPT/HCPCS: 73610

== ENCOUNTER 2024-03-07 08:50 | Outpatient (OUT) | payer SELFPAY ==
--- NOTE | 2024-03-07 | XR_ITS ---
The [address] [address] Patient Name: KYRA SINGH MRN: [id number] date: 1970 Sex: F Assigned Patient Location: [facility] Current Patient Location: Accession/Order Number: [id number] Exam Date: 03/07/2024 08:55 Report Date: 03/08/2024 07:57 At the request of: BALAJI KLINE Procedure: XR ankle RT min 3V PROCEDURE: XR ankle RT min 3V HISTORY: RIGHT ANKLE PAIN COMPARISON: XR ankle right 02/06/2024 FINDINGS: BONES:Evidence of prior hardware removal from distal tibia and fibula; single screw and remnant of a wire within distal fibula. Stable small ossification along lateral margin of distal tibia and the posterior margin of the distal tibia. SOFT TISSUES:Soft tissue swelling surrounding the ankle; stable to slightly improved. EFFUSION:Small moderate joint effusion is suspected.. OTHER: Negative. XR/XR ankle RT min 3V IMPRESSION: 1. Stable appearance of the ankle with evidence of prior hardware removal. 2. Stable small cortical ossification along lateral margin of tibia and posterior margin of tibia; sequela of remote injury or surgery. 3. Soft tissue swelling and joint effusion. Electronically authenticated by: RISHI CERDA Date: 03/08/2024 07:57
--- OUTSIDE RECORDS SUMMARY | 2024-03-07 08:59 | XMS_ITS | CCD ---
Author Organization [facility] ion Partnership [employer] [facility] Care Team Providers Care Sensor Technician Name Role Phone Unavailable Primary Care Provider Unavailabl e No, Pcp Primary Care Provider Unavailabl e NO, PCP Primary Care Unavailable CHIP SIERRA Attending Unavailable NO, PCP Primary Care Unavailable MARTINEZ Attending Unavailable Desire Jeter Admitting Unavailable Desire Jeter Attending Unavailable NO FAMILY, PHYSICIAN Primary Care Unavailable NO FAMILY, PHYSICIAN Primary Care Unavailable Gallo Olvera Admitting Unavailable Gallo Olvera Attending Unavailable Allergies Allergy Classification Reported Allergen(s) Allergy Type Date of Onset Reaction(s) Facility (4 sources) Aluminum aspirin Drug Allergy 7 [place], [place] (4 sources) Clindamycin/Linco mycin Propensity to adverse reactions to drug 8 [place] (2 sources) Tetracyclines & Related Propensity to adverse reactions to drug 8 [place] (2 sources) Tetracycline (class of antibiotic) Propensity to adverse reactions to drug 8 [facility] Work Phone: (1 source) Clindamycin Drug Allergy 4 [facility] (1 source) Ibuprofen Drug Allergy 4 [facility] (1 source) Tetracycline Drug Allergy 4 [facility] Medications Current Medications Medication Drug Class(es) [...] specified abnormalities of plasma proteins] Episodic Other lower respiratory disease (1 source) Shortness of breath; Translations: [Shortness of breath] Onset: 01-27-2024 Episodic Residual codes; unclassified (1 source) History [...] Test Name Value Interpretation Reference Range Facility Basic Metabolic Panel 083 Anion gap [Moles/Vol] 12.0 mmol/L Normal 6.0-15.0 [facility] e [facility] Comment on above: Performed By: #### B MP, LIPASE, HEPATIC, HS TROP, PT, CBC #### [address] Calcium [Mass/Vol] 9.9 mg/dL Normal 8.6-10.3 [facility] Comment on above: Performed By: #### B MP, LIPASE, HEPATIC, HS TROP, PT, CBC #### [address] Chloride [Moles/Vol] 102 mmol/L Normal 98-107 [facility] Comment on above: Performed By: #### B MP, LIPASE, HEPATIC, HS TROP, PT, CBC #### [address] CO2 [Moles/Vol] 28.3 mmol/L Normal 21.0-31.0 [facility] Comment on above: Performed By: #### B MP, LIPASE, HEPATIC, HS TROP, PT, CBC #### [address] Creatinine [Mass/Vol] 0.90 mg/dL Normal 0.60-1.20 [facility] Comment on above: Performed By: #### B MP, LIPASE, HEPATIC, HS TROP, PT, CBC #### [address] Creatinine Clr Calc Pharmacy 110.08 Normal [facility] Comment on above: Performed By: #### B MP, LIPASE, HEPATIC, HS TROP, PT, CBC #### [address] GFR/1.73 sq M.predicted MDRD (S/P/Bld) [Vol rate/Area] mL/min/{1.73_m2} Normal [facility] Comment on above: Performed By: #### B MP, LIPASE, HEPATIC, HS TROP, PT, CBC #### [address] Glucose [Mass/Vol] 106 mg/dL High 70-100 [facility] Comment on above: Result Comment: [facility] Glucose Reference Range is dependent on time and content of last meal. Glucose of more than 200 mg/dL in a nonstressed, ambulatory subject supports the diagnosis of Diabetes Mellitus. ADA recommended reference range Performed By: #### B MP, LIPASE, HEPATIC, HS TROP, PT, CBC #### [address] Potassium [Moles/Vol] 3.3 mmol/L Low 3.5-5.1 [facility] Comment on above: Performed By: #### B MP, LIPASE, HEPATIC, HS TROP, PT, CBC #### [address] Sodium [Moles/Vol] 139 mmol/L Normal 136-145 [facility] Comment on above: Performed By: #### B MP, LIPASE, HEPATIC, HS TROP, PT, CBC #### [address] Urea nitrogen [Mass/Vol] 16 mg/dL Normal 7-25 [facility] Comment on above: Performed By: #### B MP, LIPASE, HEPATIC, HS TROP, PT, CBC #### [address] BioFire Not Detectedon 01-26 BioFire Not Detected Not detected Normal Not Detecte T he [facility] Comment on above: Result Comment: This is a duplicate RP2.1 COVID (PCR) result to be used for statistical tracking purpose only. PERFORMED BY: [address] [place] [address] PATHOLOGIST SECRET CODE EXPERT JASON SARABIA M.D. Performed By: #### B KATEY, RESP PANEL UPP. #### [address] abdomen pelvis w conon CT abdomen pelvis w con [facility] [place] [address] [place] [address] CT Scan Report Signed Patient: Dolores Ritter MR#: [id number] : 1970 Acct:[id number] Age/Sex: 53 / F ADM Date: 01/27/24 Loc: ER Room: Type: [facility] ER Attending Dr: Copies to: Desire Jeter DO Ordering Provider: Desire Jeter DO Date of Service: 01/27/24 CT/CT angio chest PE protocol: f ([id number]) CT/CT abdomen pelvis w con: f CLINICAL DATA: Shortness of breath, dizziness and vomiting. Chest, abdominal and back pain. CT PULMONARY ANGIOGRAM WITH CONTRAST COMPARISON: None TECHNIQUE: Spiral images were obtained through the chest following intravenous administration of 90 mL of Isovue 370. Images were reviewed using both narrow and wide window settings. Sagittal, coronal and 3 D volume-rendered reconstructions were performed and reviewed. This CT exam was performed using one or more following dose reduction techniques: Automated exposure control, adjustment of the mA and/or kV according to patient size, or use of iterative reconstruction technique. FINDINGS: The heart is borderline prominent. There is a trace amount of pericardial fluid. No aortic aneurysm or obvious dissection is identified giving timing of contrast bolus. There is adequate opacification of the pulmonary arteries. No emboli are identified. No pathologic lymphadenopathy is seen. There is slight dextroscoliotic curvature and tiny endplate spurs. There are subacute right lower lateral rib fractures. Minor apical scarring and dependent atelectasis are present. There is no additional consolidation, effusion or pneumothorax. No pulmonary nodularity is seen. CT/CT angio chest PE protocol IMPRESSION: NO CT EVIDENCE OF PULMONARY EMBOLISM. BORDERLINE CARDIOMEGALY AND TINY PERICARDIAL EFFUSION MINOR ATELECTASIS AND SCARRING. CT ABDOMEN AND PELVIS WITH CONTRAST COMPARISON: 02/25/2015 Spiral images were obtained through the abdomen and pelvis following 90 mL of Isovue-370. This CT exam was performed using one or more following dose reduction techniques: Automated exposure control, adjustment of the mA and/or kV according to patient size, or use of iterative reconstruction technique. There is possible slight fatty infiltration liver. There are no intrahepatic masses. No calcified gallstones are seen. The spleen, pancreas and adrenal glands show no acute findings. There are symmetric renal nephrograms, without hydronephrosis. Tiny renal cysts are present. There is atherosclerotic plaque at the aorta and iliac arteries. 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 There are small retroperitoneal lymph nodes with fatty alyson. No ascites is identified. Fluid is present within the stomach. There are nondistended small bowel loops. There is air and stool at the ascending colon. The transverse and descending colon are decompressed and there is apparent wall thickening. Dextroscoliotic curvature and degenerative changes are seen at the spine Images through the pelvis show no appendiceal inflammation. There is no dilated small bowel. The remainder of the colon is decompressed and there is apparent wall thickening. No diverticular disease is visualized. The uterus is slightly dextroverted. There are no dominant adnexal cysts. There are prominent parametrial vessels and this could indicate pelvic congestion syndrome. The urinary bladder wall is mildly thickened and this could be due to underdistention. There is a trace amount of free fluid at the posterior cul-de-sac toward the right. IMPRESSION: NO BOWEL OR URINARY TRACT OBSTRUCTION. TINY RENAL CYSTS. APPARENT LEFT COLONIC WALL THICKENING. THIS MAY RELATE TO UNDERDISTENTION HOWEVER CORRELATION IS RECOMMENDED TO ANY POSSIBILITY OF COLITIS. TRACE AMOUNT OF DEPENDENT FREE PELVIC FLUID. POSSIBLE PELVIC CONGESTION SYNDROME. CLINICAL CORRELATION IS SUGGESTED. Impression dictated by: Anna Loyola M.D.01/27/2024 2:24 PM Dictation Location: [place] [address] Transcribed By: LUCIA 01/27/24 1424 Dictated By: Anna Loyola MD 01/27/24 1408 Signed By: 01/27/24 1424 Normal [facility] CT head/brain wo kristal 01-26 CT head/brain wo [place] [place] [address] CT Scan Report Signed Patient: Dolores Ritter MR#: [id number] : 1970 Acct:[id number] Age/Sex: 53 / F ADM Date: 01/27/24 Loc: ER Room: Type: [facility] ER Attending Dr: Copies to: Desire Jeter DO Ordering Provider: Desire Jeter DO Date of Service: 01/27/24 CT/CT head/brain wo con: f CT BRAIN WITHOUT CONTRAST: CLINICAL HISTORY: Dizziness COMPARISON: 08/25/2021 TECHNIQUE: Contiguous axial unenhanced images were obtained through the brain. This CT exam was performed using one or more following dose reduction techniques: Automated exposure control, adjustment of the mA and/or kV according to patient size, or use of iterative reconstruction technique. FINDINGS: The ventricles are normal in size and position. There are no developing areas of abnormal attenuation. There is no hemorrhage, mass effect or extra-axial collections. The imaged paranasal sinuses and mastoid air cells are clear. CT/CT head/brain wo con IMPRESSION: NO ACUTE INTRACRANIAL ABNORMALITY. Impression dictated by: Anna Loyola M.D.01/27/2024 2:08 PM Dictation Location: [place] [address] Transcribed By: [facility] 01/27/24 1408 Dictated By: Anna Loyola MD 01/27/24 1405 Signed By: 01/27/24 1408 Normal [facility] Complete Blood Count Auto Di ffon 01-27-2024 Basophils (Bld) [#/Vol] 0.1 10*3/uL Normal 0.0-0.2 [facility] Comment on above: Result Comment: PERF ORMED BY: [place] [address] PATHOLOGIST SECRET CODE EXPERT JASON SARABIA M.D. Performed By: #### B MP, LIPASE, HEPATIC, HS TROP, PT, CBC #### [address] Basophils/100 WBC (Bld) 1.0 % Normal . T marlen [facility] Comment on above: Performed By: #### B MP, LIPASE, HEPATIC, HS TROP, PT, CBC #### [address] Eosinophils (Bld) [#/Vol] 0.3 10*3/uL Normal 0.0-0.45 [facility] Comment on above: Performed By: #### B MP, LIPASE, HEPATIC, HS TROP, PT, CBC #### [address] Eosinophils/100 WBC (Bld) 2.7 % Normal . [facility] Comment on above: Performed By: #### B MP, LIPASE, HEPATIC, HS TROP, PT, CBC #### [address] Erythrocyte distribution width (RBC) [Ratio] 14.2 % Normal 11.9-15.3 [facility] Comment on above: Performed By: #### B MP, LIPASE, HEPATIC, HS TROP, PT, CBC #### [address] Hematocrit (Bld) [Volume fraction] 35.7 % Normal 34.0-46.4 [facility] Comment on above: Performed By: #### B MP, LIPASE, HEPATIC, HS TROP, PT, CBC #### [address] Hemoglobin (Bld) [Mass/Vol] 12.2 g/dL Normal 11.8-15.4 [facility] Comment on above: Performed By: #### B MP, LIPASE, HEPATIC, HS TROP, PT, CBC #### [address] Lymphocytes (Bld) [#/Vol] 1.4 10*3/uL Normal 1.00-4.8 [facility] Comment on above: Performed By: #### B MP, LIPASE, HEPATIC, HS TROP, PT, CBC #### [address] Lymphocytes/100 WBC (Bld) 14.2 % Normal . [facility] Comment on above: Performed By: #### B MP, LIPASE, HEPATIC, HS TROP, PT, CBC #### [place] [id number] [place] MCH (RBC) [Entitic mass] 33.1 pg Normal 24.7-34.3 [facility] Comment on above: Performed By: #### B MP, LIPASE, HEPATIC, HS TROP, PT, CBC #### [address] MCV (RBC) [Entitic vol] 97.1 fL Normal 80-100 [facility] Phys[facility] Comment on above: Performed By: #### B MP, LIPASE, HEPATIC, HS TROP, PT, CBC #### [address] Mean Corpuscular HGB Conc 34.1 g/dL Normal 32.0-35.0 [facility] Comment on above: Performed By: #### B MP, LIPASE, HEPATIC, HS TROP, PT, CBC #### [address] Monocytes (Bld) [#/Vol] 0.5 10*3/uL Normal 0.0-0.8 [facility] Comment on above: Performed By: #### B MP, LIPASE, HEPATIC, HS TROP, PT, CBC #### [address] Monocytes/100 WBC (Bld) 19.48 % Normal 0.00-20.00 [facility] Comment on above: Performed By: #### B MP, LIPASE, HEPATIC, HS TROP, PT, CBC #### [address] Monocytes/100 WBC (Bld) 4.7 % Normal . [facility] Comment on above: Performed By: #### B MP, LIPASE, HEPATIC, HS TROP, PT, CBC #### [address] Neutrophils (Bld) [#/Vol] 7.9 10*3/uL High 1.8-7.7 [facility] Comment on above: Performed By: #### B MP, LIPASE, HEPATIC, HS TROP, PT, CBC #### [place] [address] [place] Neutrophils/100 WBC (Bld) 77.4 % Normal . [facility] Comment on above: Performed By: #### B MP, LIPASE, HEPATIC, HS TROP, PT, CBC #### [address] NRBC% 0.0 /100{WBC} Normal 0-0.5 [facility] Comment on above: Performed By: #### B MP, LIPASE, HEPATIC, HS TROP, PT, CBC #### [address] Platelet mean volume (Bld) [Entitic vol] 10.2 fL Normal 6.3-10.7 [facility] Comment on above: Performed By: #### B MP, LIPASE, HEPATIC, HS TROP, PT, CBC #### [address] Platelets (Bld) [#/Vol] 217 10*3/uL Normal 150-450 [facility] Comment on above: Performed By: #### B MP, LIPASE, HEPATIC, HS TROP, PT, CBC #### [address] RBC (Bld) [#/Vol] 3.67 10*6/uL Normal 3.60-5.00 [facility] Comment on above: Performed By: #### B MP, LIPASE, HEPATIC, HS TROP, PT, CBC #### [address] WBC (Bld) [#/Vol] 10.2 10*3/uL Normal 3.8-11.6 [facility] Comment on above: Performed By: #### B MP, LIPASE, HEPATIC, HS TROP, PT, CBC #### [address] Dipstick and Microscopicon 0 01-27-2024 Appearance (U) Clear Normal Clear [facility] Comment on above: Order Comment: Name Collection Type:: Clean-Voided Midstream Performed By: #### A DDONUAPLUS ####[facility] [address] [address] [facility] Bacteria,Urine None Seen Normal None Seen [facility] Comment on above: Order Comment: Name Collection Type:: Clean-Voided Midstream Performed By: #### A DDONUAPLUS ####[address] [address] [facility] Bilirubin,Urine Negative Normal Negative [facility] Comment on above: Order Comment: Name Collection Type:: Clean-Voided Midstream Performed By: #### A DDONUAPLUS ####[place] [id number] [facility] Color (U) Light-Yellow Normal Yellow [facility] Comment on above: Order Comment: Name Collection Type:: Clean-Voided Midstream Performed By: #### A DDONUAPLUS ####[place] [id number] [facility] Glucose Ql (U) Normal Normal Normal [facility] Comment on above: Order Comment: Name Collection Type:: Clean-Voided Midstream Performed By: #### A DDONUAPLUS ####[address] [address] [facility] Hyaline Casts,Urine None Normal 0-8 [facility] Comment on above: Order Comment: Name Collection Type:: Clean-Voided Midstream Performed By: #### A DDONUAPLUS ####[address] [address] [facility] Ketones Ql (U) Negative Normal Negative [facility] Comment on above: Order Comment: Name Collection Type:: Clean-Voided Midstream Performed By: #### A DDONUAPLUS ####[address] [address] [facility] Leukocyte esterase Test strip Ql (U) Negative Normal Negative [facility] Comment on above: Order Comment: Name Collection Type:: Clean-Voided Midstream Performed By: #### A DDONUAPLUS ####[address] [address] [facility] Mucus,Urine Rare Normal [facility] Comment on above: Order Comment: Name Collection Type:: Clean-Voided Midstream Result Comment: PERF ORMED BY: [facility] [address] [place] [address] PATHOLOGIST SECRET CODE EXPERT JASON SARABIA M.D. Performed By: #### A DDONUAPLUS ####[address] [address] [place] Nitrite,Urine Negative Normal Negative [facility] Comment on above: Order Comment: Name Collection Type:: Clean-Voided Midstream Performed By: #### A DDONUAPLUS ####[address] [address] [facility] Occult Blood,Urine Negative Normal Negative [facility] Comment on above: Order Comment: Name Collection Type:: Clean-Voided Midstream Result Comment: PERF ORMED BY: [place] [address] PATHOLOGIST SECRET CODE EXPERT JASON SARABIA M.D. Performed By: #### A DDONUAPLUS ####[place] [id number] [facility] pH (U) 8.5 [pH] Normal 5.0-9.0 [facility] Comment on above: Order Comment: Name Collection Type:: Clean-Voided Midstream Performed By: #### A DDONUAPLUS ####[address] [address] [facility] Protein,Urine Trace High Negative [facility] Comment on above: Order Comment: Name Collection Type:: Clean-Voided Midstream Performed By: #### A DDONUAPLUS ####[address] [address] [place] RBC,Urine 5-9 High 0-4 [facility] Comment on above: Order Comment: Name Collection Type:: Clean-Voided Midstream Performed By: #### A DDONUAPLUS ####[address] [address] [facility] Specificy [place],Urine 1.018 Normal 1.001-1.030 [facility] Comment on above: Order Comment: Name Collection Type:: Clean-Voided Midstream Performed By: #### A DDONUAPLUS ####[facility] [id number] [place] [address] [facility] Squamous Epithelial Cell,Urine 1-2 Normal 0-2 [facility] Comment on above: Order Comment: Name Collection Type:: Clean-Voided Midstream Performed By: #### A DDONUAPLUS ####[place] [address] [place] [address] [facility] Urobilinogen,Urine Normal Normal Normal [facility] Comment on above: Order Comment: Name Collection Type:: Clean-Voided Midstream Performed By: #### A DDONUAPLUS ####[place] [address] [place] [address] [facility] WBC,Urine 1-2 Normal 0-4 [facility] Comment on above: Order Comment: Name Collection Type:: Clean-Voided Midstream Performed By: #### A DDONUAPLUS ####[address] [address] [facility] ECG 12 lead ECGon 01-27-2024 ECG 12 lead ECG [facility] [place] [address] [place] [address] Electrocardiograph Report Signed Patient: Dolores Ritter MR#: [id number] : 1970 Acct:[id number] Age/Sex: 53 / F ADM Date: 01/27/24 Loc: ER Room: Type: [facility] ER Attending Dr: Ordering Provider: Desire Jeter DO Date of Service: 01/27/24 ECG/ECG 12 lead ECG: Shortness of Breath/Dyspnea Copies to: Test Reason : Blood Pressure : 91/53 mmHG Vent. Rate : 55 BPM Atrial Rate : 55 BPM P-R Int : 160 ms QRS Dur : 98 ms QT Int : 436 ms P-R-T Axes : 66 105 62 degrees QTcB Int : 417 ms Sinus bradycardia Rightward axis Incomplete right bundle branch block Cannot rule out Anterior infarct , age undetermined Abnormal ECG When compared with ECG of 20-Jul-2016 07:53, Minimal criteria for Anterior infarct are now present Confirmed by DESIRE JETER DO ([id number]) on 01/27/2024 7:59:07 PM Referred By: Electronically Signed By: DESIRE JETER DO Transcribed By: MUS Signed By Desire Jeter DO 01/26 Normal [facility] Hepatic Panelon 01-27-2024 Albumin [Mass/Vol] 5.2 g/dL Normal 3.5-5.7 [facility] Comment on above: Performed By: #### B MP, LIPASE, HEPATIC, HS TROP, PT, CBC #### [facility] [address] Albumin/Globulin [Mass ratio] 1.7 {ratio} Normal [facility] Comment on above: Performed By: #### B MP, LIPASE, HEPATIC, HS TROP, PT, CBC #### [facility] [address] ALP [Catalytic activity/Vol] 54 U/L Normal 34-104 [facility] Comment on above: Performed By: #### B MP, LIPASE, HEPATIC, HS TROP, PT, CBC #### [place] [address] [place] ALT [Catalytic activity/Vol] 58 U/L High 7-52 [facility] Comment on above: Performed By: #### B MP, LIPASE, HEPATIC, HS TROP, PT, CBC #### [place] [address] [place] AST [Catalytic activity/Vol] 48 U/L High 13-39 [facility] Comment on above: Performed By: #### B MP, LIPASE, HEPATIC, HS TROP, PT, CBC #### [place] [address] [place] Bilirubin [Mass/Vol] 0.4 mg/dL Normal 0.3-1.0 [facility] Comment on above: Performed By: #### B MP, LIPASE, HEPATIC, HS TROP, PT, CBC #### [facility] [address] [place] [id number] [place] Bilirubin,Indirect 0.4 mg/dL Normal [facility] Comment on above: Performed By: #### B MP, LIPASE, HEPATIC, HS TROP, PT, CBC #### [place] [address] [place] Bilirubin.indirect [Mass/Vol] 0.00 mg/dL Low 0.03-0.18 [facility] Comment on above: Result Comment: If t he DBIL is less than 0.1, IBIL is not able to be calculated. Performed By: #### B MP, LIPASE, HEPATIC, HS TROP, PT, CBC #### [facility] [address] Globulin (S) [Mass/Vol] 3.1 g/dL Normal T he [facility] Comment on above: Performed By: #### B MP, LIPASE, HEPATIC, HS TROP, PT, CBC #### [facility] [address] Protein [Mass/Vol] 8.3 g/dL Normal 6.4-8.9 [facility] Comment on above: Performed By: #### B MP, LIPASE, HEPATIC, HS TROP, PT, CBC #### [address] Lipaseon 01-27-2024 Lipase [Catalytic activity/Vol] 54.0 U/L Normal 11.0-82.0 [facility] Comment on above: Result Comment: PERF ORMED BY: [place] [address] PATHOLOGIST SECRET CODE EXPERT JASON SARABIA M.D. Performed By: #### B MP, LIPASE, HEPATIC, HS TROP, PT, CBC ####[facility] Prothrombin Time INRon 01-26 INR Coag (PPP) [Relative time] 1.0 {INR} Normal [facility] Comment on above: Result Comment: INR Therapeutic Range A) Pre- and Peroperative OAT started two weeks before surgery. NOT HIP SURGERY: 1.5 - 2.5 HIP SURGERY: 2 - 3 B) Primary and secondary prevention of venous THROMBOSIS: 2 - 3 C) Active venous thrombosis, pulmonary embolism and prevention of recurrent venous thrombosis: 2 - 3 D) Prevention of arterial thromboembolism including patients with mechanical heart valves: 3 - 4.5 PERFORMED BY: [place] [address] PATHOLOGIST SECRET CODE EXPERT JASON SARABIA M.D. Performed By: #### B MP, LIPASE, HEPATIC, HS TROP, PT, CBC #### [facility] [address] [place] [address] [facility] PT Coag (PPP) [Time] 11.8 s Normal 9.0-12.9 [facility] Comment on above: Result Comment: A he matocrit value greater than 55% may lead to inaccurate results in coagulation testing. Patients having hematocrit values >55% require a special collection tube for coagulation studies. Please contact the laboratory at [phone] for redraw instructions. Performed By: #### B MP, LIPASE, HEPATIC, HS TROP, PT, CBC #### [facility] [address] [place] [address] [facility] Respiratory (Upper) Panel, P CRon 01-27-2024 Respiratory (Upper) Panel, PCR Adenovirus Not detected Bordetella parapertussis Not detected Chlamydia pneumoniae Not detected Coronavirus 229E Not detected Coronavirus HKU1 Not detected Coronavirus NL63 Not detected Coronavirus OC43 Not detected Influenza A Not detected Influenza B Not detected Human Metapneumovirus Not detected Mycoplasma pneumoniae Not detected Parainfluenza Virus 1 Not detected Parainfluenza Virus 2 Not detected Parainfluenza Virus 3 Not detected Parainfluenza Virus 4 Not detected Bordetella pertussis-ptxP Not detected Human Rhino/Enterovirus Not detected Resp. Syncytial Virus Not detected COVID-19 Detected/Not Detected Not detected Blank Space FLUA TEST INCLUDES Influenza A tests for the following clinically FLUA TEST INCLUDES significant subtypes: FLUA TEST INCLUDES - Influenza A FLUA TEST INCLUDES - Influenza A H1 FLUA TEST INCLUDES - Influenza A H1 2009 FLUA TEST INCLUDES - Influenza A H3 Blank Space PERFORMED BY: [place] [id number] PATHOLOGIST SECRET CODE EXPERT JASON SARABIA M.D. Normal [facility] Comment on above: Performed By: #### B IOFIRECOVNOTDE, RESP PANEL UPP. #### [facility] [address] Troponin I High Sensitivityo n 01-27-2024 Troponin I High Sensitivity 4.4 pg/mL Normal 0.0-15.0 [facility] Comment on above: Result Comment: PERF ORMED BY: [place] [address] PATHOLOGIST SECRET CODE EXPERT JASON SARABIA M.D. Performed By: #### B MP, LIPASE, HEPATIC, HS TROP, PT, CBC ####[facility] [id number] Ashok 12-05-2023 L Specimen: [id number] Received: 12/05/23 Status: АННА Lopez Num: [id number] Spec Type: Surgical Subm Dr: Gallo Olvera DPM, MS Tissues: A Bone Fragments - Other than Path Fracture (RT DISTAL TIBIAL OSTEONECROS) Procedures: HE, Gross/Micro L3, Decalcification Age/ Patient Sex Location Account Attending Physician Dolores Ritter 52/F [place] [id number] Gallo Olvera DPM, MS SPEC NUM: [id number] RECD: 12/05/23 STATUS: АННА LOPEZ NUM: [id number] NEEMA: 12/05/[address]: Gallo Olvera DPM, MS ENTERED: 12/05/[address]: Darlene,Lab SPEC TYPE: Surgical DEPT: SHANON SMITH ORDERED: [...] performed supporting the above interpretation -------- Specimen: [id number] Received: 12/05/23 Status: АННА Lopez Num: [id number] Spec Type: Surgical Subm Dr: Gallo Olvera,DPRamon, MS Tissues: A Bone Fragments - Other than Path Fracture (RT DISTAL TIBIAL OSTEONECROS) Procedures: MARLEN, Gross/Micro L3, Decalcification -------- Patient: Dolores Ritter [id number] (Continued) -------- Specimen: [id number] Received: 12/05/23 (Continued) Signed (signature on file) Dariana Dias MD 12/06/23 1631 -------- Specimen: [id number] Received: 12/05/23 Status: АННА Lopez Num: [id number] Spec Type: Surgical Subm Dr: Gallo Olvera,KOLE, MS Tissues: A Bone Fragments - Other than Path Fracture (RT DISTAL TIBIAL OSTEONECROS) Procedures: Blas CAN/Liliam L3, Decalcification -------- Patient: Dolores Ritter [id number] (Continued) -------- Specimen: [id number] Received: 12/05/23 (Continued) CPT Codes 30802 [id number] -------- -------- Specimen: [id number] Received: 12/05/23 Status: АННА Lopez Num: [id number] Spec Type: Surgical Subm Dr: Gallo Olvera,DPRamon, MS Tissues: A Bone Fragments - Other than Path Fracture (RT DISTAL TIBIAL OSTEONECROS) Procedures: MARLEN, Gross/Micro L3, Decalcification -------- Patient: Dolores Ritter [id number] (Continued) -------- Signed (signature on file) Dariana Dias MD 12/06/23 1631 Normal [facility] Alcoholon 08-08-2023 Blood Alcohol Concentration 0.186 G/dL Normal [facility] Comment on above: Performed By: #### A LCOH #### [facility] [address] [place] [id number] Ethanol [Mass/Vol] 212 mg/dL Normal [facility] Comment on above: Performed By: #### A LCOH #### [facility] [address] [place] [address] CBC With Platelet and Differ entialon 08-08-2023 Basophils (Bld) [#/Vol] 0.1 10*3/uL Normal 0.0-0.2 [facility] Comment on above: Performed By: #### C BCWD #### [facility] [address] [place] [address] Basophils/100 WBC (Bld) 0.9 % Normal [facility] Comment on above: Performed By: #### C BCWD #### [facility] [address] [place] [address] Eosinophils (Bld) [#/Vol] 0.1 10*3/uL Normal 0.0-0.7 [facility] Comment on above: Performed By: #### C BCWD #### [facility] [address] [place] [address] Eosinophils/100 WBC (Bld) 1.8 % Normal [facility] Comment on above: Performed By: #### C BCWD #### [facility] [address] [place] [address] Erythrocyte distribution width (RBC) [Ratio] 14.1 % Normal 11.5-14.5 [facility] Comment on above: Performed By: #### C BCWD #### [facility] [address] [place] [address] Hematocrit (Bld) [Volume fraction] 38.5 % Normal 37.0-47.0 [facility] Comment on above: Performed By: #### C BCWD #### [facility] [address] [place] [address] Hemoglobin (Bld) [Mass/Vol] 13.1 g/dL Normal 12.0-16.0 [facility] Comment on above: Performed By: #### C BCWD #### [facility] [address] [place] [address] Lymphocytes (Bld) [#/Vol] 1.9 10*3/uL Normal 1.0-4.8 [facility] Comment on above: Performed By: #### C BCWD #### [facility] [address] [place] [address] Lymphocytes/100 WBC (Bld) 24.5 % Normal [facility] Comment on above: Performed By: #### C BCWD #### [facility] [address] [place] [address] MCH (RBC) [Entitic mass] 33.4 pg Critically high 27.0-31.3 [facility] Comment on above: Performed By: #### C BCWD #### [facility] [address] [place] [address] MCHC 34.0 % Normal 33.0-37.0 [facility] Comment on above: Performed By: #### C BCWD #### [facility] [address] [place] [address] MCV (RBC) [Entitic vol] 98.2 fL Critically high 79.4-94 .8 [facility] Comment on above: Performed By: #### C BCWD #### [facility] [address] [place] [address] Monocytes (Bld) [#/Vol] 0.5 10*3/uL Normal 0.2-0.8 [facility] Comment on above: Performed By: #### C BCWD #### [facility] [address] [place] [address] Monocytes/100 WBC (Bld) 6.2 % Normal [facility] Comment on above: Performed By: #### C BCWD #### [facility] [address] [place] [address] Neutrophils (Bld) [#/Vol] 5.0 10*3/uL Normal 1.4-6.5 [facility] Comment on above: Performed By: #### C BCWD #### [facility] [address] [place] [address] Neutrophils/100 WBC (Bld) 65.3 % Normal [facility] Comment on above: Performed By: #### C BCWD #### [facility] [address] [place] [address] Platelets (Bld) [#/Vol] 255 10*3/uL Normal 130-400 [facility] Comment on above: Performed By: #### C BCWD #### [facility] [address] [place] [address] RBC (Bld) [#/Vol] 3.92 10*6/uL Low 4.20-5.40 [facility] Comment on above: Performed By: #### C BCWD #### [facility] [address] [place] [address] WBC (Bld) [#/Vol] 7.7 10*3/uL Normal 4.8-10.8 [facility] Comment on above: Performed By: #### C BCWD #### [facility] [address] [place] [address] CT ABDOMEN PELVIS W IV CONTR Herb [...] Annemarie Ruby MD 08/08/23 Final result Normal [facility] CT CERVICAL SPINE WO CONTRAS Ton 08-08-2023 [...] Annemarie Ruby MD 08/08/23 Final result Normal [facility] CT CHEST W CONTRASTon 2023 CT CHEST [...] Annemarie Ruby MD 08/08/23 Final result Normal [facility] CT HEAD WO CONTRASTon 2023 CT HEAD [...] COMPARISON: 03/27/2023 HISTORY: ORDERING SYSTEM PROVIDED HISTORY: spencer hunter TECHNOLOGIST PROVIDED HISTORY: Reason for exam:->spencer hunter Has a code stroke or stroke alert [...] Annemarie Ruby MD 08/08/23 Final result Normal [facility] CT LUMBAR SPINE WO CONTRASTo n 08-08-2023 [...] Annemarie Ruby MD 08/08/23 Final result Normal [facility] CT THORACIC SPINE WO CONTRAS Ton 08-08-2023 [...] Annemarie Ruby MD 08/08/23 Final result Normal [facility] CTA NECK W WO CONTRASTon CTA NECK [...] Garrett Moore MD 08/08/23 Final result Normal [facility] Comprehensive Metabolic Pane ashok 08-08-2023 Albumin [Mass/Vol] 5.1 g/dL Critically high 3.5-4.6 [facility] Comment on above: Performed By: #### C MP ####[facility] [phone] ALP [Catalytic activity/Vol] 69 U/L Normal 40-130 [facility] Comment on above: Performed By: #### C MP ####[facility] [place] [phone] ALT [Catalytic activity/Vol] 23 U/L Normal 0-33 [facility] Comment on above: Performed By: #### C MP ####[facility] [place] [phone] Anion gap [Moles/Vol] 15 mmol/L Normal 9-15 [facility] Comment on above: Performed By: #### C MP ####[facility] [place] [phone] AST [Catalytic activity/Vol] 37 U/L Critically high 0-35 [facility] Comment on above: Performed By: #### C MP ####[facility] [place] [phone] Bilirubin [Mass/Vol] 0.3 mg/dL Normal 0.2-0.7 [facility] Comment on above: Performed By: #### C MP ####[facility] [place] [phone] Calcium [Mass/Vol] 9.3 mg/dL Normal 8.5-9.9 [facility] Comment on above: Performed By: #### C MP ####[facility] [place] [phone] Chloride [Moles/Vol] 101 mmol/L Normal 95-107 [facility] Comment on above: Performed By: #### C MP ####[facility] [facility] [facility] [phone] CO2 [Moles/Vol] 26 mmol/L Normal 20-31 [facility] Comment on above: Performed By: #### C MP ####[facility] [facility] [phone] Creatinine [Mass/Vol] 0.78 mg/dL Normal 0.50-0.90 [facility] Comment on above: Performed By: #### C MP ####[facility] [facility] [phone] GFR >60.0 Normal >60 [facility] Comment on above: Result Comment: Zohra atric [...] tubular secretion. Performed By: #### C MP ####[facility] [facility] [phone] Globulin (S) [Mass/Vol] 3.1 g/dL Normal 2.3-3.5 [facility] Comment on above: Performed By: #### C MP ####[facility] [facility] [facility] [phone] Glucose [Mass/Vol] 95 mg/dL Normal 70-99 [facility] Comment on above: Performed By: #### C MP ####[facility] [facility] [phone] Potassium [Moles/Vol] 3.3 mmol/L Low 3.4-4.9 [facility] Comment on above: Performed By: #### C MP ####[facility] [place] [phone] Protein [Mass/Vol] 8.2 g/dL Critically high 6.3-8.0 [facility] Comment on above: Performed By: #### C MP ####[facility] [place] [phone] Sodium [Moles/Vol] 142 mmol/L Normal 135-144 [facility] Comment on above: Performed By: #### C MP ####[facility] [place] [phone] Urea nitrogen [Mass/Vol] 8 mg/dL Normal 6-20 [facility] Comment on above: Performed By: #### C MP ####[facility] [place] [phone] Lipaseon 08-08-2023 Lipase [Catalytic activity/Vol] 34 U/L Normal 12-95 [facility] Comment on above: Performed By: #### L IPAS #### [facility] [address] [place] [address] POCT Venouson 08-08-2023 Creatinine [Mass/Vol] 1.0 mg/dL Normal 0.6-1.2 [facility] Comment on above: Performed By: #### P ZACK #### [facility] [address] [place] [address] GFR >60 Normal >60 [facility] Comment on above: Result Comment: Pedi atric [...] secretion. Performed By: #### P ZACK #### [facility] [address] [place] [address] POC Performed on SEE BELOW [facility] Comment on above: Result Comment: Perf ormed on POC Performed By: #### P ZACK #### [facility] [address] [place] [address] POC Sample Type ZACK [facility] Comment on above: Performed By: #### P ZACK #### [facility] [address] [place] [address] POC Performed on SEE BELOW [facility] Comment on above: Result Comment: Perf ormed on POC Performed By: #### P ZACK #### [facility] [address] [place] [address] POC Sample Type ZACK Normal [facility] Comment on above: Performed By: #### P ZACK #### [facility] [address] [place] [address] Partial Thromboplastin Timeo n 08-08-2023 aPTT Coag (Bld) [Time] 29.2 s Normal 24.4-36.8 [facility] Comment on above: Result Comment: Effe ctive 04/02/2020: Heparin Therapeutic Range: 64.0 ? 98.0 seconds. Performed By: #### P TT #### [facility] [address] [place] [address] Prothrombin Timeon INR Coag (PPP) [Relative time] 1.0 {INR} [facility] Comment on above: Performed By: #### P T #### [facility] [address] [place] [address] PT Coag (PPP) [Time] 13.3 s Normal 12.3-14.9 [facility] Comment on above: Performed By: #### P T #### [facility] [address] [place] [address] XR ANKLE RIGHT (MIN 3 VIEWS) on [...] Annemarie Ruby MD 08/08/23 Final result Normal [facility] CT HEAD WO CONTRASTon 2022 CT HEAD [...] Denise Driver MD 03/27/23 Final result Normal [facility] XR ANKLE RIGHT (MIN 3 VIEWS) on [...] Interpreted by: Rodolfo Powell DO Signed by: Rodlofo Powell DO 03/27/23 Final result Normal [facility] XR RIBS RIGHT INCLUDE CHEST (MIN 3 [...] Marilyn Nayak MD 03/27/23 Final result Normal [facility] CBC with Auto Differentialon 07-19-2022 Basophils (Bld) [#/Vol] 0.1 10*3/uL 0.0 - 0.2 K/uL [facility] Basophils/100 WBC (Bld) 0.7 % [facility] Eosinophils (Bld) [#/Vol] 0.1 10*3/uL 0.0 - 0.7 K/uL [facility] Eosinophils/100 WBC (Bld) 1 % [facility] Hematocrit (Bld) [Volume fraction] 36.6 % Low 37.0 - 47.0 % [facility] Hemoglobin (Bld) [Mass/Vol] 12.1 g/dL 12.0 - 16.0 g/dL [facility] Interpretation and review of laboratory results Abnormal [facility] Lymphocytes (Bld) [#/Vol] 1.3 10*3/uL 1.0 - 4.8 K/uL [facility] Lymphocytes/100 WBC (Bld) 15.6 % [facility] MCH (RBC) [Entitic mass] 31.1 pg 27.0 - 31.3 pg [facility] MCHC (RBC) [Mass/Vol] 33.0 % 33.0 - 37.0 % [facility] MCV (RBC) [Entitic vol] 94.2 fL 79.4 - 94.8 fL [facility] Monocytes (Bld) [#/Vol] 0.8 10*3/uL 0.2 - 0.8 K/uL [facility] Monocytes/100 WBC (Bld) 9.0 % [facility] Neutrophils Absolute 6.3 K/uL 1.4 - 6 .5 K/uL [facility] Neutrophils/100 WBC (Bld) 73.7 % [facility] Platelet distribution width (Bld) [Ratio] 16.8 % High 11.5 - 14.5 % [facility] Platelets (Bld) [#/Vol] 308 10*3/uL 130 - 400 K/uL [facility] RBC (Bld) [#/Vol] 3.89 10*6/uL Low [facility] WBC (Bld) [#/Vol] 8.6 10*3/uL 4.8 - 10.8 K/uL [facility] CMPon 07-19-2022 Albumin [Mass/Vol] 4.4 g/dL 3.5 - 4.6 g/dL [facility] ALP (Bld) [Catalytic activity/Vol] 74 U/L 40 - 130 U/L [facility] ALT [Catalytic activity/Vol] 12 U/L 0 - 33 U/L [facility] Anion gap [Moles/Vol] 15 mmol/L [facility] AST [Catalytic activity/Vol] 20 U/L 0 - 35 U/L [facility] Bilirubin [Mass/Vol] 0.3 mg/dL 0.2 - 0 .7 mg/dL [facility] Calcium [Mass/Vol] 8.8 mg/dL 8.5 - 9.9 mg/dL [facility] Chloride [Moles/Vol] 103 mmol/L [facility] CO2 [Moles/Vol] 26 mmol/L [facility] Creatinine [Mass/Vol] 0.42 mg/dL Low 0.50 - 0.90 mg/dL [facility] GFR/1.73 sq M.predicted MDRD (S/P/Bld) [Vol rate/Area] 60 - PINF [facility] Comment on above: Pediatric calculator link https://www.kidney.org/professionals/kdoqi/gfr_calculatorped [...] [Mass/Vol] 2.9 g/dL 2.3 - 3.5 g/dL [facility] Glucose [Mass/Vol] 99 mg/dL 70 - 99 mg/dL [facility] Interpretation and review of laboratory results Abnormal [facility] Potassium [Moles/Vol] 3.3 mmol/L Low [facility] Protein [Mass/Vol] 7.3 g/dL 6.3 - 8.0 g/dL [facility] Sodium [Moles/Vol] 144 mmol/L [facility] Urea nitrogen (BldV) [Mass/Vol] 8 mg/dL 6 - 20 mg/dL [facility] CT ABDOMEN PELVIS W IV CONTR AST [...] etiologies, including calcified pancreatic cyst/pseudocyst less likely. [employer] Phone: CT ABDOMEN PELVIS W IV CONTR AST Additional Contrast? NoneOrdered By: Clay Corona on 07-19-2022 [employer] Phone: CT CHEST W CONTRASTon 2022 Addendum by Gomez Ynug MD on 07/19/2022 10:56 AM EST ADDENDUM: Nondisplaced right T9 rib fracture,. Otherwise no evidence of traumatic chest pathology. [employer] Phone: Nondisplaced right T 9 fracture,. Otherwise [...] changes are seen. [facility] Dilshad GomezRamon Kaufman D - 07/19/2022 EXAMINATION: CT OF THE [...] Otherwise no evidence of traumatic chest pathology. [employer] Work Phone: CT CHEST W CONTRASTOrdered B y: Gomezralph Yung on 07-19-2022 [employer] Work Phone: ETOHon 07-19-2022 Ethanol percent 0.019 G/dL [employer] Magnesium [Mass/Vol] 22 mg/dL [place] [facility] Microscopic Urinalysison Bacteria, UA Negative Negative /HPF [employer] plugin Epithelial Cells, UA 0-2 [facility] Hyaline Casts, UA 1-3 [facility] Interpretation and review of laboratory results Abnormal [facility] RBC, UA 6-10 Abnormal [facility] WBC, UA 0-2 [facility] No Panel Informationon 07-19 Radiology Study observation (narrative) [facility]ITAL[facility] Work Phone: Protime-INRon 07-19-2022 INR Coag (Bld) [Relative time] 1.0 {INR} [facility] PT Coag (PPP) [Time] 13.7 s [facility] Urinalysison 07-19-2022 Bilirubin Urine Negative Negative [facility] Blood, Urine TRACE Abnormal Negative [facility] Clarity, UA Clear Clear [facility] Color, UA Yellow Straw/Yellow [facility] Glucose, Ur Negative Negative mg/dL [facility] Interpretation and review of laboratory results Abnormal [facility] Ketones Ql (U) TRACE Abnormal Negative mg/dL [facility] Leukocyte esterase Test strip Ql (U) Negative Negative [facility] Nitrite, Urine Negative Negative [facility] pH, UA 8.5 5.0 - 9.0 [facility] Protein (U) [Mass/Vol] 30 mg/dL Abnormal Negative [facility] Specific [place], UA 1.078 1.005 - 1.030 [facility] Urobilinogen, Urine 0.2 NINF [facility] Urine Drug Screenon 07-19-19 23 Amphetamine Screen, Urine Negative Negative <1000 ng/mL [facility] Barbiturate Screen, Ur Negative Negat laura < 200 ng/mL [facility] Benzodiazepine Screen, Urine Negative Negative < 200 ng/mL [facility] Cannabinoid Scrn, Ur Positive Abnormal Negativ e < 50 ng/mL [facility] Cocaine Metabolite Screen, Urine Negative Negative < 300 ng/mL [facility] Drug Screen Comment: see below [facility] Comment on above: This method is a scr eening test to detect only these drug classes as part of a medical workup. Confirmatory testing by another method should be ordered if clinically indicated. FENTANYL SCREEN, URINE Negative Negat laura < 50 ng/mL [facility] Interpretation and review of laboratory results Abnormal [facility] Methadone Screen, Urine Negative Nega tive <300 ng/mL [facility] Opiate Scrn, Ur Negative Negative < 300 ng/mL [facility] Oxycodone Urine Negative Negative <10 0 ng/mL [facility] PCP Screen, Urine Negative Negative < 25 ng/mL [facility] Propoxyphene Scrn, Ur Negative Negati ve <300 ng/mL [facility] XR RIBS RIGHT INCLUDE CHEST (MIN 3 [...] right 9th and 10th ribs as described. [employer] Work Phone: Radiology Study observation (narrative) [employer] Work Phone: XR RIBS RIGHT INCLUDE CHEST (MIN 3 VIEWS)Ordered By: Be Cadet on 07-19-2022 [facility] [employer] Work Phone: CBC with Auto Differentialon 05-17-2022 Basophils (Bld) [#/Vol] 0.1 10*3/uL 0.0 - 0.2 K/uL [facility] Basophils/100 WBC (Bld) 0.9 % [facility] Eosinophils (Bld) [#/Vol] 0.3 10*3/uL 0.0 - 0.7 K/uL [facility] Eosinophils/100 WBC (Bld) 3.9 % [facility] Hematocrit (Bld) [Volume fraction] 36.4 % Low 37.0 - 47.0 % [facility] Hemoglobin (Bld) [Mass/Vol] 11.9 g/dL Low 12.0 - 16.0 g/dL [facility] Interpretation and review of laboratory results Abnormal [facility] Lymphocytes (Bld) [#/Vol] 2.0 10*3/uL 1.0 - 4.8 K/uL [facility] Lymphocytes/100 WBC (Bld) 30.4 % [facility] MCH (RBC) [Entitic mass] 30.8 pg 27.0 - 31.3 pg [facility] [facility] MCHC (RBC) [Mass/Vol] 32.8 % Low 33.0 - 37.0 % [facility] MCV (RBC) [Entitic vol] 93.8 fL 79.4 - 94.8 fL [facility] Monocytes (Bld) [#/Vol] 0.6 10*3/uL 0.2 - 0.8 K/uL [facility] Monocytes/100 WBC (Bld) 8.8 % B [facility] Neutrophils Absolute 3.6 K/uL 1.4 - 6 .5 K/uL [facility] Neutrophils/100 WBC (Bld) 56.0 % [facility] Platelet distribution width (Bld) [Ratio] 17.1 % High 11.5 - 14.5 % [facility] Platelets (Bld) [#/Vol] 284 10*3/uL 130 - 400 K/uL [facility] RBC (Bld) [#/Vol] 3.88 10*6/uL Low [facility] WBC (Bld) [#/Vol] 6.5 10*3/uL 4.8 - 10.8 K/uL [facility] CKon 05-17-2022 CK [Catalytic activity/Vol] 677 U/L High 0 - 170 U/L [facility] CMPon 05-17-2022 Albumin [Mass/Vol] 4.8 g/dL High 3.5 - 4.6 g/dL [facility] ALP (Bld) [Catalytic activity/Vol] 57 U/L 40 - 130 U/L [facility] ALT [Catalytic activity/Vol] 19 U/L 0 - 33 U/L [facility] Anion gap [Moles/Vol] 12 mmol/L [facility] AST [Catalytic activity/Vol] 33 U/L 0 - 35 U/L [facility] Bilirubin [Mass/Vol] 0.3 mg/dL 0.2 - 0 .7 mg/dL [facility] Calcium [Mass/Vol] 9.0 mg/dL 8.5 - 9.9 mg/dL [facility] Chloride [Moles/Vol] 101 mmol/L [facility] CO2 [Moles/Vol] 26 mmol/L [facility] Creatinine [Mass/Vol] 0.71 mg/dL 0.50 - 0.90 mg/dL [facility] GFR/1.73 sq M.predicted MDRD (S/P/Bld) [Vol rate/Area] 60 - PINF [facility] Comment on above: Pediatric calculator link https://www.kidney.org/professionals/kdoqi/gfr_calculatorped [...] [Mass/Vol] 2.9 g/dL 2.3 - 3.5 g/dL [facility] Reactivity Glucose [Mass/Vol] 87 mg/dL 70 - 99 mg/dL [facility] Reactivity Potassium [Moles/Vol] 3.5 mmol/L [facility] Reactivity Protein [Mass/Vol] 7.7 g/dL 6.3 - 8.0 g/dL [facility] Sodium [Moles/Vol] 139 mmol/L [facility] Urea nitrogen (BldV) [Mass/Vol] 9 mg/dL 6 - 20 mg/dL [facility] CTA CHEST W WO CONTRASTon No evidence [...] evidence pulmonary embolism or acute pulmonary abnormalities. [employer] Phone: [employer] Phone: Radiology Study observation (narrative) DONYA [employer] Phone: No Panel Informationon 05-17 Interpretation and review of laboratory results Abnormal [facility] TSHon 05-17-2022 Interpretation and review of laboratory results Abnormal [facility] TSH Qn 121.800 m[IU]/L High [facility] Troponinon 05-17-2022 Troponin I.cardiac [Mass/Vol] ng/mL 0.000 - 0.010 ng/mL [facility] Comment on above: Methodology by Vinicio Montilla. [facility] Troponin I.cardiac [Mass/Vol] ng/mL 0.000 - 0.010 ng/mL [facility] Comment on above: Methodology by Vinicio Butt [facility] XR CHEST PORTABLEon 05-17-20 No acute process. [...] without acute process. IMPRESSION: No acute process. [facility] Reactivity Work Phone: Radiology Study observation (narrative) [facility] Work Phone: XR CHEST PORTABLEOrdered By: Alcon Valdivia on 05-17-2022 DONYA HUDSON [employer] Phone: CT CHEST W CONTRASTOrdered B y: Ariana Francis on 03-30-2021 Scarring and/or subsegmental atelectatic change left lung base. Hepatic steatosis. All CT scans at this facility use dose modulation, iterative reconstruction, and/or weight based dosing when appropriate to reduce radiation dose to as low as reasonably achievable. [employer] Phone: CT of the Chest with intravenous [...] attenuation. Musculoskeletal:No osteoblastic, and no osteolytic lesions. [employer] Phone: Nayan, Chpo Incoming Radiant Results From [facility] - 03/30/2021 10:[address] of [...] dose to as low as reasonably achievable. [employer] Work Phone: [employer] Phone: EKG 12 Lead - Chest PainOrde red By: Rodolfo Medrano on 03-30-2021 Atrial Rate 63 BPM [employer] Phone: P [place] 75 degrees [employer] Phone: P-R Interval 170 ms [employer] Phone: Q-T Interval 410 ms [employer] Phone: QRS Duration 84 ms [employer] Work Phone: QTc Calculation (Bazett) 419 ms [employer] Phone: R [place] 112 degrees [employer] Phone: T [place] 268 degrees [employer] Phone: Ventricular Rate 63 BPM [employer] Work Phone: Normal sinus rhythm Possible Left atrial enlargement Left posterior fascicular block ST & T wave abnormality, consider inferolateral ischemia Abnormal ECG When compared with ECG of 27-MAR-2021 14:29, Vent. rate has decreased BY 101 BPM T wave inversion now evident in Lateral leads Confirmed by Adrian Slaughter ([id number]) on 03/30/2021 7:56:43 AM [employer] Phone: Nayan, Chpo Incoming Results From [place] - 03/30/2021 7:58 AM EDT Normal sinus rhythm Possible Left atrial enlargement Left posterior fascicular block ST & T wave abnormality, consider inferolateral ischemia Abnormal ECG When compared with ECG of 27-MAR-2021 14:29, Vent. rate has decreased BY 101 BPM T wave inversion now evident in Lateral leads Confirmed by Adrian Slaughter ([id number]) on 03/30/2021 7:56:43 AM [employer] Work Phone: [employer] Phone: POCT GlucoseOrdered By: Unkn own Result on 03-30-2021 Glucose [Mass/Vol] 93 mg/dL 60 - 115 mg/dl [employer] Phone: Performed on ACCU-CHEK [employer] Phone: [employer] Phone: Echocardiogram complete 2D w ith doppler with colorOrdered By: Ariana Francis on 03-28-2021 Transthoracic Echocardiography Report (TTE) Demographics Patient Name NEWCOMER Gender Female DOLORES Patient Number [id number] Race Ethnicity Visit Number [id number] Room Number [id number] Corporate ID Date of Study 03/28/2021 Referring Physician Number Date of 1970 Classification Officer Alison Lord Age 50 year(s) Interpreting [employer] Physician Cardiology [address] Procedure Type of [...] Root: 3.12 cm LVOT Diameter: 2.05 cm [employer] Work Phone: Nayan, po Incoming Cardiovascular Results From [facility] - 03/28/2021 4:45 PM EDT Transthoracic Echocardiography Report (TTE) Demographics Patient Name NEWCOMER Gender Female DOLORES Patient Number [id number] Race Ethnicity Visit Number [id number] Room Number [id number] Corporate ID Date of Study 03/28/2021 Referring Physician Number Date of 1970 Classification Officer Alison Lord Age 50 year(s) Interpreting [facility] Physician Cardiology [address] Procedure Type [...] Root: 3.12 cm LVOT Diameter: 2.05 cm [employer] Phone: [employer] Phone: TroponinOrdered By: Ariana sanchez on 03-28-2021 Interpretation and review of laboratory results Abnormal [employer] Phone: Troponin I.cardiac [Mass/Vol] 0.020 ng/mL Critically high 0.000 - 0.010 ng/mL [employer] Phone: Comment on above: Methodology by Vinicio Butt CALL [facility] tel. [phone], Troponin results called to and read back by Denise RosasW RN, 03/28/2021 12:03, by JESE [employer] Phone: [employer] Phone: Interpretation and review of laboratory results Abnormal [employer] Phone: Troponin I.cardiac [Mass/Vol] 0.025 ng/mL Critically high 0.000 - 0.010 ng/mL [employer] Phone: Comment on above: Methodology by easyfoliohardeep Montilla. CALL [employer] [facility] tel. [phone], Troponin results called to and read back by Denise Gomez RN, 03/28/2021 09:38, by JESE [employer] Phone: [employer] Phone: Interpretation and review of laboratory results Abnormal [employer] Phone: Troponin I.cardiac [Mass/Vol] 0.027 ng/mL Critically high 0.000 - 0.010 ng/mL [employer] Phone: Comment on above: Methodology by easyfoliohardeep chilel Eladia. CALL [facility] 1W tel. [phone], Trop results called to and read back by Denise Menard RN, 03/28/2021 04:45, by [facility] [employer] Phone: [employer] Phone: Interpretation and review of laboratory results Abnormal [employer] Phone: Troponin I.cardiac [Mass/Vol] 0.027 ng/mL Critically high 0.000 - 0.010 ng/mL [employer] Phone: Comment on above: Methodology by [employer] ranjana Eladia. CALL [facility] tel. [phone], Trop results called to and read back by Denise Gan, 03/28/2021 00:43, by [facility] [employer] Phone: [employer] Phone: APTTOrdered By: Rodolfo Medrano on 03-27-2021 aPTT Coag (Bld) [Time] 57.7 s High [facility] Work Phone: Comment on above: Effective 04/02/2020: Heparin Therapeutic Range: 64.0 98.0 seconds. CBC Auto DifferentialOrdered By: Rodolfo Medrano on 03-27-2021 Basophils (Bld) [#/Vol] 0.1 10*3/uL 0.0 - 0.2 K/uL [employer] Phone: Basophils/100 WBC (Bld) 1.1 % [employer] Phone: Eosinophils (Bld) [#/Vol] 0.0 10*3/uL 0.0 - 0.7 K/uL [employer] Phone: Eosinophils/100 WBC (Bld) 0.1 % [employer] Phone: Hematocrit (Bld) [Volume fraction] 45.8 % 37.0 - 47.0 % [employer] Phone: Hemoglobin.gastrointest inal spec 1 Ql (Stl) 15.0 g/dL 12.0 - 16.0 g/dL [employer] Phone: Interpretation and review of laboratory results Abnormal [employer] Phone: Lymphocytes (Bld) [#/Vol] 1.9 10*3/uL 1.0 - 4.8 K/uL [employer] Phone: Lymphocytes/100 WBC (Bld) 21.0 % [employer] Phone: MCH (RBC) [Entitic mass] 30.2 pg 27.0 - 31.3 pg [employer] Phone: MCHC (RBC) [Mass/Vol] 32.8 % Low 33.0 - 37.0 % [employer] Phone: MCV (RBC) [Entitic vol] 91.9 fL 82.0 - 100.0 fL [employer] Phone: Monocytes (Bld) [#/Vol] 0.8 10*3/uL 0.2 - 0.8 K/uL [employer] Phone: Monocytes/100 WBC (Bld) 8.3 % [employer] Phone: Neutrophils Absolute 6.4 K/uL 1.4 - 6 .5 K/uL [employer] Phone: Neutrophils/100 WBC (Bld) 69.5 % [employer] Phone: Platelet distribution width (Bld) [Ratio] 16.7 % High 11.5 - 14.5 % [employer] Phone: Platelets (Bld) [#/Vol] 308 10*3/uL 130 - 400 K/uL [employer] Phone: RBC (Bld) [#/Vol] 4.98 10*6/uL [facility] Phone: WBC (Bld) [#/Vol] 9.2 10*3/uL 4.8 - 10.8 K/uL [employer] Phone: [employer] Phone: Comprehensive Metabolic Pane lOrdered By: Rodolfo Medrano on 03-27-2021 Albumin [Mass/Vol] 4.9 g/dL High 3.5 - 4.6 g/dL [facility] Phone: ALP (Bld) [Catalytic activity/Vol] 56 U/L 40 - 130 U/L [facility] Phone: ALT [Catalytic activity/Vol] 21 U/L 0 - 33 U/L [facility] Phone: Anion gap [Moles/Vol] 15 mmol/L [facility] [employer] Work Phone: AST [Catalytic activity/Vol] 33 U/L 0 - 35 U/L [facility] Phone: Comment on above: Specimen hemolysis h as exceeded the interference as defined by Lindsay. Value may be falsely increased. Suggest recollection if clinically indicated. Bilirubin [Mass/Vol] 0.6 mg/dL 0.2 - 0 .7 mg/dL [employer] Phone: Calcium [Mass/Vol] 9.1 mg/dL 8.5 - 9.9 mg/dL [employer] Phone: Chloride [Moles/Vol] 100 mmol/L [employer] Work Phone: CO2 [Moles/Vol] 23 mmol/L [facility] Work Phone: Creatinine [Mass/Vol] 0.81 mg/dL 0.50 - 0.90 mg/dL [employer] Phone: Free PSA/Total PSA [Mass fraction] 7.9 g/dL 6.3 - 8.0 g/dL [employer] Phone: GFR >60.0 >60 [employer] Phone: Comment on above: >60 mL/min/1.73m2 EG FR, calc. for ages 18 and older using the MDRD formula (not corrected for weight), is valid for stable renal function. GFR Non- >60.0 >60 [employer] Work Phone: Comment on above: >60 mL/min/1.73m2 EG FR, calc. for ages 18 and older using the MDRD formula (not corrected for weight), is valid for stable renal function. Globulin (S) [Mass/Vol] 3 g/dL 2.3 - 3.5 g/dL [employer] Phone: Glucose [Mass/Vol] 139 mg/dL High 70 - 99 mg/dL [employer] Work Phone: Interpretation and review of laboratory results Abnormal [employer] Phone: Potassium [Moles/Vol] 3.8 mmol/L [employer] Phone: Sodium [Moles/Vol] 138 mmol/L [employer] Phone: Urea nitrogen (BldV) [Mass/Vol] 15 mg/dL 6 - 20 mg/dL [employer] Phone: D-Dimer, QuantitativeOrdered By: Rodolfo Medrano on 03-27-2021 D-Dimer, Quant 0.48 [employer] [facility] Work Phone: Comment on above: VTE (DVT or PE) cut- off = 0.50 mg/L [employer] Work Phone: MagnesiumOrdered By: Rodoflo davidson on 03-27-2021 Magnesium [Mass/Vol] 2.2 mg/dL 1.7 - 2 .4 mg/dL [employer] Work Phone: No Panel InformationOrdered By: Rodolfo Medrano on 03-27-2021 Interpretation and review of laboratory results Abnormal [employer] Phone: [employer] Phone: Interpretation and review of laboratory results Abnormal [employer] Work Phone: CALL [facility] tel. [phone], TROP results called to and read back by SY GARCIA, 03/27/2021 15:40, by GILSON [employer] Work Phone: [employer] Work Phone: [employer] Phone: Protime-INROrdered By: Rodolfo Medrano on 03-27-2021 INR Coag (Bld) [Relative time] 2.7 {INR} [employer] Work Phone: PT Coag (PPP) [Time] 28.1 s High [employer] Work Phone: T4, FreeOrdered By: Rodolfo tijerina on 03-27-2021 Free T4 [Mass/Vol] 0.16 ng/dL Low 0.84 - 1. 68 ng/dL [employer] Phone: TSH without ReflexOrdered By : Rodolfo Medrano on 03-27-2021 Interpretation and review of laboratory results Abnormal [employer] Phone: TSH Qn 139.400 m[IU]/L High [employer] [facility] Work Phone: CALL [facility] tel. [phone], TROP results called to and read back by SY GARCIA, 03/27/2021 15:40, by [employer] Phone: [employer] Phone: TroponinOrdered By: Ariana sanchez on 03-27-2021 Interpretation and review of laboratory results Abnormal [employer] Phone: Troponin I.cardiac [Mass/Vol] 0.029 ng/mL Critically high 0.000 - 0.010 ng/mL [employer] Phone: Comment on above: Methodology by Vinicio Montilla. CALL [facility] tel. [phone], TROP results called to and read back by JANELL SEAMAN, 03/27/2021 18:38, by [employer] Phone: [employer] Phone: TroponinOrdered By: Rodolfo tijerina on 03-27-2021 Troponin I.cardiac [Mass/Vol] 0.018 ng/mL Critically high 0.000 - 0.010 ng/mL [employer] Phone: Comment on above: Methodology by Vinicio Montilla. XR CHEST PORTABLEOrdered By: Rodolfo Medrano on 03-27-2021 NO ACUTE CARDIOPULMONARY DISEASE. [employer] Phone: EXAMINATION: XR CHES T PORTABLE CLINICAL HISTORY: PALPITATIONS, SHORTNESS OF BREATH. COMPARISONS: 2020 FINDINGS: Osseous structures are intact. Cardiopericardial silhouette is normal. Pulmonary vasculature is normal. Lungs are clear. [employer] Phone: Nayan, Chpo Incoming Radiant Results From [facility] - 03/27/2021 3:38 PM EDT EXAMINATION: XR CHEST PORTABLE CLINICAL HISTORY: PALPITATIONS, SHORTNESS OF BREATH. COMPARISONS: 2020 FINDINGS: Osseous structures are intact. Cardiopericardial silhouette is normal. Pulmonary vasculature is normal. Lungs are clear. IMPRESSION: NO ACUTE CARDIOPULMONARY DISEASE. [employer] Work Phone: [employer] Work Phone: Vital Signs Date Time Vital Sign Value Performing Clinician Hayden mcginnis 07-19-2022 11:58-0500 Diastolic blood pressure 80 mm[Hg] Sara Astorga DO Work Phone: [employer] 07-19-2022 11:58-0500 Heart rate 57 /min Sara Astorga DO Work Phone: [employer] 07-19-2022 11:58-0500 Respiratory rate 19 /min Sara Astorga DO Work Phone: [employer] 07-19-2022 11:58-0500 SaO2% (BldA) [Mass fraction] 98 % Sara Astorga DO Work Phone: [employer] 07-19-2022 11:58-0500 Systolic blood pressure 140 mm[Hg] Sara Astorga DO Work Phone: [employer] 07-19-2022 08:01-0500 Body height 167.6 cm Sara Astorga DO Work Phone: [employer] 07-19-2022 08:01-0500 Body mass index (BMI) [Ratio] 24.21 kg/m2 Sara Astorga DO Work Phone: [employer] 07-19-2022 08:01-0500 Body weight 68.04 kg Sara Astorga DO Work Phone: [employer] 07-19-2022 08:00-0500 Body temperature 98.2 [degF] Sara Astorga DO Work Phone: [employer] 05-17-2022 18:00-0500 Diastolic blood pressure 89 mm[Hg] Pcp No [facility] [employer] 05-17-2022 18:00-0500 Heart rate 64 /min Pcp No [facility] [employer] 05-17-2022 18:00-0500 Respiratory rate 19 /min Pcp No [facility] [employer] 05-17-2022 18:00-0500 SaO2% (BldA) [Mass fraction] 97 % Pcp No [facility] 05-17-2022 18:00-0500 Systolic blood pressure 149 mm[Hg] Pcp No [facility] Reactivity 05-17-2022 13:13-0500 Body height 167.6 cm Pcp No [facility] [employer] 05-17-2022 13:13-0500 Body mass index (BMI) [Ratio] 23.73 kg/m2 Pcp No [facility] 05-17-2022 13:13-0500 Body temperature 97.81 [degF] Pcp No [facility] [employer] 05-17-2022 13:13-0500 Body weight 66.68 kg Pcp No [facility] [employer] 03-31-2021 14:34-0400 Body temperature 98.6 [degF] Rodolfo Medrano MD Work Phone: [employer] Work Phone: 03-31-2021 14:34-0400 Diastolic blood pressure 68 mm[Hg] Rodolfo Medrano MD Work Phone: [employer] Work Phone: 03-31-2021 14:34-0400 Heart rate 53 /min Rodolfo Medrano MD Work Phone: [employer] Work Phone: 03-31-2021 14:34-0400 Respiratory rate 18 /min Rodolfo Medrano MD Work Phone: [employer] Work Phone: 03-31-2021 14:34-0400 SaO2% (BldA) [Mass fraction] 99 % Rodolfo Medrano MD Work Phone: [employer] Work Phone: 03-31-2021 14:34-0400 Systolic blood pressure 127 mm[Hg] Rodolfo Medrano MD Work Phone: [employer] Work Phone: 03-27-2021 14:21-0400 Body height 167.6 cm Rodolfo Medrano MD Work Phone: [employer] Work Phone: 03-27-2021 14:21-0400 Body mass index (BMI) [Ratio] 25.02 kg/m2 Rodolfo Medrano MD Work Phone: [employer] Work Phone: 03-27-2021 14:21-0400 Body weight 70.31 kg Rodolfo Medrano MD Work Phone: [employer] Work Phone: 01-15-2020 12:43-0400 BP Diastolic 68 mm[Hg] [facility] [place] 01-15-2020 12:43-0400 BP Systolic 132 mm[Hg] [place], [place] 01-15-2020 12:43-0400 Pulse Oximetry 100 % [facility] [place] 01-15-2020 12:43-0400 Respiratory Rate 20 /min [facility] [place] 01-15-2020 10:50-0400 BMI (Body Mass Index) 21.47 kg/m2 [facility] [place] 01-15-2020 10:50-0400 Body Temperature 98.01 [degF] [facility] [place] 01-15-2020 10:50-0400 Body weight 60.33 kg [facility] [place] 01-15-2020 10:50-0400 Height 167.6 cm [place], [place] 01-15-2020 10:50-0400 Pulse (Heart Rate) 90 /min [facility] [place] Encounters Encounter Date Encounter Type Care Provider Facility Start: 01-27-2024 End: 01-27-2024 Emergency department patient visit Desire Jeter Facility:[facility] Start: 12-05-2023 End: 12-05-2023 ambulatory PHYSICIAN NO FAMILY Facility:[facility] Start: 08-08-2023 End: 08-08-2023 Emergency department patient visit PCP NO [facility] Start: 03-27-2023 End: 03-27-2023 Emergency department patient visit PCP NO [facility] Start: 07-19-2022 End: 07-19-2022 Emergency department patient visit Sara Astorga DO Work Phone: [facility] ED Comment on above: Closed fracture of m ultiple ribs of right side, initial encounter (Primary Dx); Alcohol abuse Start: 05-17-2022 End: 05-17-2022 Emergency department patient visit Pcp No [facility] ED Comment on above: Chest pain, [...] 01-15-2020 End: 01-15-2020 Emergency department patient visit [facility] ED Comment on above: Sciatica of [...] only Sara Astorga DO Work Phone: Start: 02-20-2023 Urnls dip stick/tabl et rgnt auto w/o microscopy Sara Astorga DO Work Phone: Start: 07-19-2022 Radex ribs uni w/pos teroant ch minimum 3 views Sara Astorga DO Work Phone: Start: 05-17-2022 Ecg routine ecg w/le ast 12 lds w/i&r Sara Astorga DO Work Phone: Start: 05-17-2022 Assay of troponin quantitative Mign Sapp PA-C Work Phone: Start: 05-17-2022 Ct [...] 03-27-2022 Thyroid stimulating hormone measurement TSH testing [employer] Work Phone: Start: 12-28-2021 Influenza vaccination Flu vaccine (# 1) [facility] [employer] Start: 04-13-2021 End: 04-13-2021 Patient encounter procedure 04/13/2021 Office Visit Cardiology Ariana Francis MD [address] [facility] [address] [place] [id number] [phone] [facility] Start: 04-09-2021 End: 04-09-2021 Patient encounter procedure 04/09/2021 Office Visit Endocrinology Doroteo Tee, [place] [address] [address] [phone] [employer] [facility] Start: 01-28-2021 Influenza vaccination Flu vaccine (# 1) [employer] Work Phone: Start: 01-29-2020 Influenza vaccination Flu vaccine (# 1) [employer] [place] Start: 12-08-2019 Screening for malign ant neoplasm of breast Breast cancer screen [employer] Start: 12-08-2019 Screening for malign ant neoplasm of colon Colon cancer screen colonoscopy [facility] [place] Start: 12-08-2019 Shingles Vaccine (1 of 2) Shingles Vaccine (1 of 2) [facility] [employer] Start: 2014 Screening for malign ant neoplasm of colon [facility] [employer] Start: 2009 Diabetes screen Diabetes screen [employer] Work Phone: Start: 2009 Lipid panel [facility] Start: 12-08-1999 Screening for malign ant neoplasm of cervix [facility] [employer] Start: 1990 Screening for malign ant neoplasm of cervix [facility] Start: 1988 DTaP/Tdap/Td vaccine (1 - Tdap) DTaP/Tdap/Td vaccine (1 - Tdap) [facility] Start: 12-08-1987 Hepatitis C screening Hepatitis C sc reen [facility] Reactivity Start: 1984 HIV screening HIV screen [facility] Re[facility] Start: 1981 COVID-19 Vaccine (1) COVID-19 Vaccin e (1) [facility] [employer] Work Phone: Start: 1981 Depression Screen Depression Screen [facility] Reactivity Start: 12-08-1975 Pneumococcal 0-64 ye ars Vaccine (1 of 1 - PPSV23) Pneumococcal 0-64 years Vaccine (1 of 1 - PPSV23) [facility] [place] Start: 12-08-1975 Pneumococcal 0-64 ye ars Vaccine (1 of 2 - PPSV23) Pneumococcal 0-64 years Vaccine (1 of 2 - PPSV23) [facility] [employer] Phone: Start: 06-09-1970 COVID-19 Vaccine (#1) COVID-19 Vacci ne (#1) [facility] Reactivity Start: 1969 Hepatitis C screening Hepatitis C sc [facility] [employer] Work Phone: EKG 12 Lead [facility] Phone: EKG 12 Lead EKG 12 Lead ECG Routine 05/17/2022 5:02 PM EST [facility] Work Phone: End: 05-17-2022 POC Urine Qual POC Urine Qual Point of Care Testing STAT One Time for 1 Occurrences starting 05/17/2022 until 05/17/2022 [facility] Phone: Comment on above: One Time for 1 Occur rences starting 05/17/2022 until 05/17/2022 End: 05-17-2022 Urinalysis Urinalysis Lab STAT One Time for 1 Occurrences starting 05/17/2022 until 05/17/2022 [employer] Phone: Comment on above: One Time for 1 Occur rences starting 05/17/2022 until 05/17/2022 End: 05-17-2022 Urine Drug Screen Urine Drug Screen Lab STAT One Time for 1 Occurrences starting 05/17/2022 until 05/17/2022 [employer] Phone: Comment on above: One Time for 1 Occur rences starting 05/17/2022 until 05/17/2022 End: 01-15-2020 XR ANKLE RIGHT (MIN 3 VIEWS) XR ANKLE RIGHT (MIN 3 VIEWS) Imaging Routine Once for 1 Occurrences starting 01/15/2020 until 01/15/2020 [place], [place] Comment on above: Once for 1 Occurrenc es starting 01/15/2020 until 01/15/2020 XR ANKLE RIGHT (MIN 3 VIEWS) XR ANKLE RIGHT (MIN 3 VIEWS) Imaging STAT 01/15/2020 11:48 AM EDT [place], [place] End: 01-15-2020 XR LUMBAR SPINE (MIN 4 VIEWS) XR LUMBAR SPINE (MIN 4 VIEWS) Imaging Routine Once for 1 Occurrences starting 01/15/2020 until 01/15/2020 [place], [place] Comment on above: Once for 1 Occurrenc es starting 01/15/2020 until 01/15/2020 XR LUMBAR SPINE (MIN 4 VIEWS) XR LUMBAR SPINE (MIN 4 VIEWS) Imaging STAT 01/15/2020 11:48 AM EDT [place], [place] Payers Date Payer Category Payer Self-pay Unknown [id number] Unknown [id number] Social History Date Type Detail Facility Start: 01-15-2020 End: 02-03-2021 Tobacco smoking status NHIS Current every day smoker [place], [place] History of tobacco use Cigarette Smoker M [place], [place] Start: 01-15-2020 End: 04-13-2021 Cigarettes smoked current (pack per day) - Reported [facility] Start: 01-15-2020 End: 04-13-2021 Tobacco use and exposure Never used [facility] Start: 01-15-2020 End: 07-19-2022 Alcohol intake [facility]: 1970 [facility] Start: 05-07-2022 End: 05-17-2022 Exposure to SARS-CoV-2 (event) Not sure [facility] Start: 04-13-2021 Tobacco smoking stat us LAIS Ex-smoker [employer] History of tobacco use Current smoker [employer] Phone: Start: 05-17-2022 History SDOH Alcohol Frequency 5 [employer] Phone: Start: 05-17-2022 History SDOH Alcohol Std Drinks 1 [employer] Phone: Start: 05-17-2022 History SDOH Alcohol Binge 3 [employer] Phone: Start: 04-13-2021 Tobacco Comment quit since susan ng admitted 03/23/21 [employer] Phone: Hospital Discharge instructions 03-31-2021 Discharge Instr [...] most local grocery stores, pharmacies, and chain [employer]-stores. If you have any questions about your diet or nutrition, call the hospital and ask for the dietitian. A low fat, low cholesterol diet is recommended The following attachments cannot be sent through Care Everywhere.levothyroxine (oral/injection) (Grenadian)metoprolol (oral/injection) (Grenadian)nicotine (transdermal) (Grenadian)documented in this encounter [employer] Phone: Hospital course Narrative 03-31-2021 Ariana Francis MD - 03/31/2021 3:18 PM EDT Note Date & Type Note Facility 03-31-2021 Hospital course Narrative Cardiology Discharge Summary Patient Identification: Dolores Ritter : 1970 Account: [id number] Admit date: 03/27/2021 Discharge date: 03/31/21 Attending provider: Ariana Francis MD Primary care provider: No primary care provider on file. Admission Diagnoses: SVT Discharge Diagnoses: Active Hospital Problems Diagnosis Date Noted Troponin I above reference range [R77.8] Priority: High SVT (supraventricular tachycardia) (HCC) [I47.1] 03/27/2021 Priority: Low Hypothyroidism [E03.9] Priority: Low Hospital Course: Dolores Ritter is a50 y.o. female admitted to [facility] on 03/27/2021 for SVT. This was reviewed [...] 200 MG tablet Comments: Reason for Stopping: jhzywew-edblyisirbmlb-rgskjogc (EXCEDRIN MIGRAINE) 250-250-65 MG per tablet Comments: Reason for Stopping: naproxen (NAPROSYN) 500 MG tablet Comments: Reason for Stopping: Significant Diagnostics: Radiology: Echocardiogram complete 2D with doppler with color Result Date: 03/28/2021 Transthoracic Echocardiography Report (TTE) Demographics Patient Name NEWCOMER Gender Female DOLORES Patient Number [id number] Race Ethnicity Visit Number [id number] Room Number [id number] Corporate ID Date of Study 03/28/2021 Referring Physician Number Date of 1970 Classification Officer Alison Lord Age 50 year(s) Interpreting [facility] Physician Cardiology [address] Procedure Type [...] ms QTc Calculation (Bazett) 413 ms P [place] 65 degrees R [place] 111 degrees T [place] 25 degrees POCT Glucose Collection Time: 03/30/21 9:29 PM Result Value Ref Range POC Glucose 93 60 - 115 mg/dl Performed on ACCU-CHEK Follow-up visits: LEOBARDO Juan [address] [facility] [address] [facility] [address] In 2 weeks Ariana Francis MD [address] [facility] [address] [facility] [address] Assessment: Active Hospital Problems Diagnosis Date Noted Troponin I above reference range [R77.8] Priority: High SVT (supraventricular tachycardia) (HCC) [I47.1] 03/27/2021 Priority: Low Hypothyroidism [E03.9] Priority: Low Plan: 1.DC home FU with Murray Nichols and ma DC time 40 min. Complete blood reconciliation examined the patient make follow-up plans. Electronically signed by Ariana Francis MDon 03/31/2021 at 3:18 PM documented in this encounter [employer] Phone: History of Present illness Narrative 03-31-2021 Emy Duvall MD - 03/31/2021 3:09 PM Jennifer Bermudez MD - 03/31/2021 10:47 AM Ariana Hamlin MD - 03/30/2021 8:02 AM Ariana Hmalin MD - 03/29/2021 9:18 AM EDT Note Date & Type Note Facility 03-31-2021 History of Present illness Narrative Progress Note Date:03/31/2021 Room:[place] [address] Patient Name:Dolores Ritter Date of :1970 Age:50 [...] thyroid ultrasound as outpatient). Progress Note Date:03/31/2021 Room:[facility]/W163-01 Patient Name:Dolores Ritter Date of :1970 Age:50 [...] Unit/Bed: W163/W163-01 Date of : 1970 Acct: [id number] Admitting Diagnosis: Paroxysmal supraventricular tachycardia (HCC) [I47.1] [...] Name NEWCOMER Gender Female DOLORES Patient Number [id number] Race Ethnicity Visit Number [id number] Room Number [id number] Corporate ID Date of Study 03/28/2021 Referring Physician Number Date of 1970 Classification Officer Alison Lord Age 50 year(s) Interpreting [facility] Physician Cardiology [address] Procedure Type [...] Unit/Bed: W163/W163-01 Date of : 1970 Acct: [id number] Admitting Diagnosis: Paroxysmal supraventricular tachycardia (HCC) [I47.1] [...] Name FRANCISCO Gender Female DOLORES Patient Number [id number] Race Ethnicity Visit Number [id number] Room Number [id number] Corporate ID Date of Study 03/28/2021 Referring Physician Number Date of 1970 Classification Officer Alison Lord Age 50 year(s) Interpreting [facility] Physician Cardiology [address] Procedure Type [...] Progress Note PATIENT: DOLORES RITTER CSN #: [id number] : 1970 ADMIT DATE: 03/27/2021 2:20 PM [...] endocrine. Treatment: endocrine consult Synthroid pertinent labs Aaronayse artisMadhuriN RN CDS contact [phone] M-F 6am - 2pm Options provided: -- [...] out after study. Query created by: Madhuri Godorich on 03/28/2021 11:09 AM Electronically signed by: EMY DUVALL MD 03/28/2021 12:52 PM documented in this encounter [employer] Phone: Evaluation note Note Date & Type Note Facility Evaluation note Diagnosis Paroxysmal supraventricular tachycardia (HCC)- Primary Paroxysmal supraventricular tachycardia Elevated troponin Other abnormal blood chemistry Hypothyroidism, unspecified type SVT (supraventricular tachycardia) (HCC) Other specified cardiac dysrhythmias Troponin I above reference range Other abnormal blood chemistry documented in this encounter [employer] Phone: Evaluation note Note Date & Type Note Facility Evaluation note Diagnosis Chest pain, unspecified type- Primary Hypothyroidism, unspecified type H/O noncompliance with medical treatment, presenting hazards to health Personal history of noncompliance with medical treatment, presenting hazards to health Encounter for medication refill Issue of repeat prescriptions documented in this encounter [employer] Phone: Evaluation note Note Date & Type Note Facility Evaluation note Diagnosis Closed fracture of multiple ribs of right side, initial encounter- Primary Alcohol abuse Alcohol abuse, unspecified documented in this encounter [employer] Phone: Hospital Discharge instructions Attachments Note Date & Type Note Facility Hospital Discharge instructions The following attachments cannot be sent through Care Everywhere.Chest Pain (Grenadian)Hypothyroidism (Grenadian)documented in this encounter [employer] Phone: Hospital Discharge instructions Attachments Note Date & Type Note Facility Hospital Discharge instructions The following attachments cannot be sent through Care Everywhere.Alcohol Use Disorder: General Info (Grenadian)documented in this encounter [facility] [employer] Phone: Discharge Instructions * Attachments The following attachments cannot be sent through Care Everywhere. * Ankle Fracture (Grenadian) * Splint or Immobilizer Use (Grenadian) * RICE: General Info (Grenadian) * Sciatica (Grenadian) * Back Pain (Grenadian) documented in this encounter Assessments Diagnosis Sciatica of left side Sciatica Strain of lumbar region, initial encounter Sprain of right ankle, unspecified ligament, initial encounter Closed fracture of right ankle, initial encounter Advance Directives No Advanced Directives Records FoundDocuments on File Type Date Recorded Patient Point Of Care Specialist Expl anation Advance Directives and Living Will Power of Traffic Division Commanding Officer Documents on File Type Date Recorded Patient Point Of Care Specialist Expl anation ACP-Advance Directive ACP-Power of Traffic Division Commanding Officer Latest Code Status on File Code Status [...] Ming Ritter Spouse Primary Decision Maker 4 - (Home) Summary Purpose Family History No Family [...] at 1815 0842 (Given - Provider: Ila Waldron RN) 0832 (Given - Provider: Ila Waldron, TAWANNA) 0759 (Given - Provider: Ila Waldron, TAWANNA) levothyroxine (SYNTHROID) tablet 100 mcg 100 mcg, Oral, DAILY, First dose on Tue03/28/21 at 0900, Tube feeding (TF) interaction, obtain physician order to manage, recommend holding TF for 30 minutes before and after dose. 0601 (Given - Provider: Alyson Vogel RN) 0545 (Given - Provider: Denise Gan RN) 0627 (Given - Provider: Nahed Hubbard RN) Levothyroxine Sodium (SYNTHROID) 100 MCG/5ML injection 50 mcg 50 mcg, IntraVENous, ONCE, On Tue03/27/21 at 1612, For 1 dose metoprolol tartrate (LOPRESSOR) tablet 25 mg 25 mg, Oral, 2 TIMES DAILY, First dose (after last modification) on 03/28/21 at 2100, Hold for HR less than 60 0842 (Given - Provider: Ila Waldron, TAWANNA)2236 (Not Given - Provider: Denise Gan RN [...] 5 mg 5 mg, Oral, ONCE, On Tue03/30/21 at 1930, For 1 dose 1999 (Held - Provider: Nahed Hubbard RN - Reason: Patient/family refused) PRN Medication Order [...] IntraVENous, IMG ONCE PRN, Other, Starting on 03/30/21 at 1006, For 1 dose 1023 (Given [...] specifically ordered. 1504 (Given - Provider: Ila Waldron, RN)1938 (Given - Provider: Denise Gan RN) [...] Administer if oral route cannot be used. 1935 (Given - Provider: Denise Gan RN) 0522 (Given - Provider: Denise Gan, RN)1333 (Given - Provider: Ila Waldron, TAWANNA) ondansetron (ZOFRAN-ODT) disintegrating tablet 4 mg(Linked Group 1) 4 mg, Oral, EVERY 8 HOURS PRN, Nausea, Vomiting, Starting on Tue03/27/21 at 1754 1935 (See Alternative - Provider: Denise Gan RN) 0522 (See Alternative - Provider: Denise Gan RN)1333 (See Alternative - Provider: Ila Waldron RN) sodium chloride [...] 20 mg, IntraVENous, ONCE, 1 dose, On 05/17/22 at 1437, IV Push over minimum of [...] period. 1154 (Patch Applied - Provider: Zeferino Flores RN)2354 (Due: Patch Removed - Provider: Zeferino Flores RN) PRN Medication Order 07/17/2022 07/18/202207/1907/19/2022 iopamidol (ISOVUE-300) 61 % injection 50 mL (COMPLETED) 50 mL, IntraVENous, IMG ONCE PRN, 1 dose, Starting on Tue07/19/22 at 0906, Until Tue07/19/22 at 0917, Other 0917 (Given - Provid er: Dolores Coyle) Care Teams (unrecognized sec tion and content) Sensor Technician Relationship Specialty Start Date End Date No, Pcp PCP - General 05/17/22 Sensor Technician Relationship Specialty Start Date End Date No, Pcp PCP - General 05/17/22 INFORMATION SOURCE (unrecogn ized section and content) DATE CREATED AUTHOR 08/08/2023 [facility] DATE CREATED AUTHOR AUTHOR'S FAUSTOIZ ATION 02/12/2024 [facility] FOR RECORDS PERTAINING TO [...] BE BASED ON THE PRIMARY CLINICAL RECORDS. [employer] provides no warranty or guarantee of the accuracy or completeness of information in this document.
== END 2024-03-07 08:51 | disposition home or self-care (01) ==
LOC: RAD 08:51
PROVIDERS: Visit Provider Podiatrist Foot & Ankle Surgery
DX: M25.571 Pain in right ankle and joints of right foot (principal); M25.471 Effusion, right ankle
CPT/HCPCS: 73610

== ENCOUNTER 2024-03-14 09:49 | Outpatient (RCR) | payer SELFPAY | END 2024-03-15 13:49 | disposition home or self-care (01) | LOC: PT 09:49 | PROVIDERS: Visit Provider Podiatrist Foot & Ankle Surgery | DX: M25.571 Pain in right ankle and joints of right foot (principal); M25.671 Stiffness of right ankle, not elsewhere classified | CPT/HCPCS: 97026; 97110; 97163 ==